=== PATIENT | female | born 1955 | race Caucasian/White ===

== ENCOUNTER 2016-05-25 10:13 | Emergency (ER) | payer OTHER, MEDICAID ==
[2016-05-25 10:22] VITALS: BP 79/45; BMI 38.5
[2016-05-25] MEDS ORDERED: NS 1000 ML 1,000 ML IV ONE (10:29)
[2016-05-25] MEDS ORDERED: NS 1000 ML 1,000 ML ONE (10:42)
[2016-05-25 11:05] LABS: BASOPHILS # (AUTO) 0.1 X10^3/uL (0.0-0.1); BASOPHILS % (AUTO) 1.1 % (0.2-1.0); EOSINOPHILS % (AUTO) 0.9 % (0.9-2.9); HEMATOCRIT 28.1 % (36.0-47.0); HEMOGLOBIN 9.2 g/dL (12.0-16.0); LYMPHOCYTES # (AUTO) 1.5 X10^3/uL (1.3-2.9); LYMPHOCYTES % (AUTO) 32.9 % (21.0-51.0); MEAN CORPUSCULAR HGB CONC 32.7 g/dL (33.0-35.0); MEAN CORPUSCULAR VOLUME 88.6 fL (80.0-100.0); MEAN PLATELET VOLUME 10.9 fL (7.4-11.0); MONOCYTES # (AUTO) 0.4 x10^3/uL (0.3-0.8); MONOCYTES % (AUTO) 7.7 % (0.0-13.0); NEUTROPHILS # (AUTO) 2.7 x10^3/uL (2.2-4.8); NEUTROPHILS % (AUTO) 57.4 % (42.0-75.0); PLATELET COUNT 84 X10^3/uL (150.0-450.0); RED BLOOD COUNT 3.17 X10^6/uL (3.5-5.4); RED CELL DISTRIBUTION WIDTH 15.5 % (11.6-16.5); WHITE BLOOD COUNT 4.7 X10^3/uL (3.6-10.0)
[2016-05-25 11:21] LABS: CHLORIDE 108 mmol/L (98-107); SODIUM 145 mmol/L (136-145); TROPONIN I < 0.02 ng/mL (0-1.5)
--- NOTE | 2016-05-25 11:21 | RAD ---
HISTORY: Altered mental status, shortness of breath Study: AP chest Comparison: 03/07/2016 Findings: There is moderate enlargement of the cardiac silhouette. The lungs are hypo aerated but appear gross ly clear. Mild prominence of the central pulmonary vascular suggest mild venous congestion. No large pleural effusions are noted. IMPRESSION: 1. Enlargement of the cardiac silhouette with mild venous congestive changes. No focal airspace opa cities or overt pulmonary edema demonstrated.. Reported By:
[2016-05-25 11:25] LABS: ALANINE AMINOTRANSFERASE 23 Units/L (12-78); ALBUMIN 3.2 g/dL (3.4-5.0); ALKALINE PHOSPHATASE 80 Units/L (46-116); ASPARTATE AMINO TRANSFERASE 17 Units/L (15-37); CKMB % 2.4 % (<4); CREATINE KINASE 41 Units/L (26-192); CREATINE KINASE MB < 1.0 ng/mL (0-4.0); MAGNESIUM 2.1 mg/dL (1.7-2.9); PHOSPHORUS 5.5 mg/dL (2.6-4.7); TOTAL PROTEIN 6.9 g/dL (6.4-8.2)
[2016-05-25 11:27] LABS: BLOOD UREA NITROGEN 51 mg/dL (7-18); CALCIUM 8.5 mg/dL (8.5-10.1); CARBON DIOXIDE 31.4 mmol/L (21-32); COR CA(FOR HYPOALB) 9.1 mg/dL (8.5-10.1); COR NA(FOR HYPERGLY) 145 mmol/L (136-145); GLUCOSE 117 mg/dL (65-99); eGFR BLACK RACES 29 (>60); eGFR NON BLACK RACES 24 (>60)
--- NOTE | 2016-05-25 11:41 | CT ---
HISTORY: Altered mental status Study: CT brain without contrast Comparison: None Technique: Multiple axial images of the brain were obtained from the skull base to the vertex witho ut administration of IV contrast. AEC was utilized. Findings: No acute intraparenchymal hemorrhage or mass can be identified. No extra-axial fluid collections ar e seen. No alteration in the attenuation of the brain parenchyma can be identified to suggest acute or subacute ischemic change. The ventricular system is symmetric and nondilated. 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 IMPRESSION: No acute intracranial process can be identified. Reported By:
--- NOTE | 2016-05-25 12:00 | DR.GENAD ---
HPI - PCP Primary Care Physician: DR. BAL - Complaint/Symptoms Chief Complaint Doctors Comments: Patient presented to the ED with decreased BP , decreased sensorium without abnormal movements Chief Complaint:: Daniel CARDENAS LPN CALLED AND STATED THAT SHE HAS BEEN NOT RESPONSIVE HAS SHE NORMALY IS AND THAT SHE IS ALSO TALKING CRAZY. SHE STATED THAT HER BLOOD PRESSURE IS LOWER THAN NORMAL TODAY. PATIENT BLOOD SUGAR IS 128. - Source History Provided: [facility] - Mode of Arrival Mode of Arrival: Stretcher - Timing Onset of Chief Complaint: 05/25/16 PMH - PMH Past Medical History: Yes Past Medical History: Arthritis, Coronary Artery Disease, Diabetes, Dyslipidemia , Hypertension Past Surgical History: No Surgical History: Cholecystectomy, Hysterectomy, Joint Replacement, Ortho Surgery, Other - Family History History of Family Medical Conditions: Yes Family Medical History: Diabetes Mellitus, Cancer, Hypertension - Social History Does patient currently use any type of tobacco product: No Have you used tobacco products in the last 12 months: No Type of Tobacco Use: None Does any household member use tobacco: No Alcohol Use: None Do you use any recreational Drugs:: No Lives With: Family Lives Where: Home - infectious screening In the last 2 months have you had wt loss of >10#?: NO Have you had fever, night sweats or hemotysis?: No Have you traveled outside the country in the last 6 months?: No Isolation: Standard ROS - Review of Systems Constitutional: No Symptoms Reported Eyes: No Symptoms Reported ENTM: No Symptoms Reported Respiratoy: No Symptoms Reported Cardiovascular: No Symptoms Reported, Chest Pain Genitourinary: No Symptoms Reported Neurological: Weakness, Speech Problem Musculoskeletal: No Symptoms Reported Integumentary: No Symptoms Reported Hematologic/Lymphatic: No Symptoms Reported Endocrine: No Symptoms Reported Psychiatric: No Symptoms Reported All Other Systems: Reviewed and Negative PE - Vital Signs Vitals: Temperature 98.0 F Pulse Rate 78 Respiratory Rate 18 Blood Pressure [Left Arm] 156/71 Blood Pressure [Right Arm] 141/67 Blood Pressure 79/45 O2 Sat by Pulse Oximetry 95 - General General Appearance: Alert, In No Apparent Distress - Head Head Exam: Normal Inspection, Atraumatic - Eyes Eye exam: Normal Appearance, PERRL, EOMI - ENT ENT Exam: Normal Exam External Ear Exam: Normal External Inspection TM/Canal Exam: Bilateral Normal Nose Exam: Normal Nose Exam Mouth Exam: Normal Inspection Throat Exam: Normal Inspection - Neck Neck Exam: Normal Inspection, Full ROM - Chest Chest Inspection: Normal Inspection - Respiratory Respiratory Exam: Normal Lung Sounds Bilat Respiratory Exam: Bilateral Clear to Auscultation - Cardiovascular Cardiovascular Exam: Regular Rate, Normal Rhythm - Abdominal Exam Abdominal Exam: Normal Inspection, Normal Bowel Sounds Abdominal Tenderness: negative: RUQ, RLQ, LUQ, LLQ, Epigastrium, Suprapubic, Diffuse, Mild, Moderate, Severe, Other - Back Back Exam: Normal Inspection - Neurologic Neurological Exam: Alert, Oriented X3, CN II-XII Intact - Skin Skin Exam: Warm, Dry, Intact Course - Reevaluation 1st: Improved ROR - Labs Reviewed Result Diagrams: 05/25/16 10:55 05/25/16 10:55 Laboratory: WBC 4.7 X10^3/uL (3.6-10.0) 05/25/16 10:55 RBC 3.17 X10^6/uL (3.5-5.4) L 05/25/16 10:55 Hgb 9.2 g/dL (12.0-16.0) L 05/25/16 10:55 Hct 28.1 % (36.0-47.0) L 05/25/16 10:55 MCV 88.6 fL (80.0-100.0) 05/25/16 10:55 MCH 29.0 pg (27.0-34.0) 05/25/16 10:55 MCHC 32.7 g/dL (33.0-35.0) L 05/25/16 10:55 RDW 15.5 % (11.6-16.5) 05/25/16 10:55 Plt Count 84 X10^3/uL (150.0-450.0) L 05/25/16 10:55 MPV 10.9 fL (7.4-11.0) 05/25/16 10:55 Neut % 57.4 % (42.0-75.0) 05/25/16 10:55 Lymph % 32.9 % (21.0-51.0) 05/25/16 10:55 Power % 7.7 % (0.0-13.0) 05/25/16 10:55 Eos % 0.9 % (0.9-2.9) 05/25/16 10:55 Baso % 1.1 % (0.2-1.0) H 05/25/16 10:55 Neut # 2.7 x10^3/uL (2.2-4.8) 05/25/16 10:55 Lymph # 1.5 X10^3/uL (1.3-2.9) 05/25/16 10:55 Power # 0.4 x10^3/uL (0.3-0.8) 05/25/16 10:55 Eos # 0.0 x10^3/uL (0.0-0.2) 05/25/16 10:55 Baso # 0.1 X10^3/uL (0.0-0.1) 05/25/16 10:55 Absolute Nucleated RBC 0.0 /100WBC 05/25/16 10:55 Sodium 145 mmol/L (136-145) 05/25/16 10:55 Corrected Sodium 145 mmol/L (136-145) 05/25/16 10:55 Potassium 5.0 mmol/L (3.5-5.1) 05/25/16 10:55 Chloride 108 mmol/L (98-107) H 05/25/16 10:55 Carbon Dioxide 31.4 mmol/L (21-32) 05/25/16 10:55 BUN 51 mg/dL (7-18) H 05/25/16 10:55 Creatinine 2.20 mg/dL (0.55-1.02) H 05/25/16 10:55 Est GFR (MDRD) Af Amer 29 (>60) L 05/25/16 10:55 Est GFR (MDRD) Non-Af 24 (>60) L 05/25/16 10:55 Glucose 117 mg/dL (65-99) H 05/25/16 10:55 Calcium 8.5 mg/dL (8.5-10.1) 05/25/16 10:55 Corrected Calcium 9.1 mg/dL (8.5-10.1) 05/25/16 10:55 Phosphorus 5.5 mg/dL (2.6-4.7) H 05/25/16 10:55 Magnesium 2.1 mg/dL (1.7-2.9) 05/25/16 10:55 Total Bilirubin 0.50 mg/dL (0.2-1.0) 05/25/16 10:55 AST 17 Units/L (15-37) 05/25/16 10:55 ALT 23 Units/L (12-78) 05/25/16 10:55 Alkaline Phosphatase 80 Units/L (46-116) 05/25/16 10:55 Creatine Kinase 41 Units/L (26-192) 05/25/16 10:55 CK-MB (CK-2) < 1.0 ng/mL (0-4.0) 05/25/16 10:55 CK/CKMB % Calc 2.4 % (<4) 05/25/16 10:55 Troponin I < 0.02 ng/mL (0-1.5) 05/25/16 10:55 Total Protein 6.9 g/dL (6.4-8.2) 05/25/16 10:55 Albumin 3.2 g/dL (3.4-5.0) L 05/25/16 10:55 Globulin 3.7 g/dL (2.5-4.5) 05/25/16 10:55 Albumin/Globulin Ratio 0.9 Ratio (1.1-2.1) L 05/25/16 10:55 - XRAY XRAY Interpreted by: Radiologist (CT Brain: No acute intracranial process can be identified X-Ray Chest:Enlargement of the cardiac silhouette with mild venous congestive changes. No focal airspace opacitieies or overt pulmonary edema demonstrated.) - Diagnosis Discharge Problem: Prerenal azotemia TIA (transient ischemic attack) Qualifiers: Transient cerebral ischemia type: unspecified Qualified Code(s): G45.9 - Transient cerebral ischemic attack, unspecified - Discharge Plan Condition: Stable - Follow ups/Referrals Follow ups/Referrals: REJI BAL [Primary Care Provider] - 3 days - Instructions
== END 2016-05-25 13:00 ==
LOC: ER 10:13
DX: G45.9 Transient cerebral ischemic attack, unspecified (principal); R79.89 Other specified abnormal findings of blood chemistry; R41.82 Altered mental status, unspecified
CPT/HCPCS: 36415; 70450; 71010; 80053; 82550; 82553; 83735; 84100; 84484; 85025; 93005; 93010; 96365; 96374; 99283; A4222

== ENCOUNTER 2016-11-20 11:13 | Observation (INO) | payer OTHER, MEDICAID ==
--- NOTE | 2016-11-20 11:21 | DR.GENAD ---
HPI - PCP Primary Care Physician: Dr Melendez - Complaint/Symptoms Chief Complaint Doctors Comments: Patient states that she [facility], pain in chest, abdomen and back. Denies nausea or vomiting. PMH - PMH Past Medical History: Arthritis, Coronary Artery Disease, Diabetes, Dyslipidemia , Hypertension Past Surgical History: No Surgical History: Cholecystectomy, Hysterectomy, Joint Replacement, Ortho Surgery, Other - Family History Family Medical History: Diabetes Mellitus, Cancer, Hypertension - Social History Do you use any recreational Drugs:: No ROS - Review of Systems Constitutional: No Symptoms Reported Eyes: No Symptoms Reported ENTM: No Symptoms Reported Respiratoy: No Symptoms Reported Cardiovascular: No Symptoms Reported Gastrointestinal/Abdominal: No Symptoms Reported Genitourinary: No Symptoms Reported Neurological: No Symptoms Reported Musculoskeletal: No Symptoms Reported Integumentary: No Symptoms Reported Hematologic/Lymphatic: No Symptoms Reported Endocrine: No Symptoms Reported Psychiatric: No Symptoms Reported All Other Systems: Reviewed and Negative PE - Vital Signs Vitals: Temperature 98.2 F Pulse Rate [Left Brachial] 93 Pulse Rate 86 Respiratory Rate 20 Blood Pressure [Left Arm] 131/59 Blood Pressure [Right Arm] 141/67 Blood Pressure 101/59 O2 Sat by Pulse Oximetry 99 - General Limitations: No Limitations General Appearance: Alert, In No Apparent Distress - Head Head Exam: Normal Inspection, Atraumatic - Eyes Eye exam: Normal Appearance, PERRL, EOMI - ENT ENT Exam: Normal Exam External Ear Exam: Normal External Inspection TM/Canal Exam: Bilateral Normal Nose Exam: Normal Nose Exam Mouth Exam: Normal Inspection Throat Exam: Normal Inspection - Neck Neck Exam: Normal Inspection, Full ROM - Chest Chest Inspection: Normal Inspection - Respiratory Respiratory Exam: Normal Lung Sounds Bilat Respiratory Exam: Bilateral Clear to Auscultation - Cardiovascular Cardiovascular Exam: Regular Rate, Normal Rhythm - Abdominal Exam Abdominal Exam: Normal Inspection Abdominal Tenderness: negative: RUQ, RLQ, LUQ, LLQ, Epigastrium, Suprapubic, Diffuse, Mild, Moderate, Severe, Other - Extremities Extremities Exam: Normal Inspection - Back Back Exam: Normal Inspection - Neurologic Neurological Exam: Alert, Oriented X3, CN II-XII Intact - Psychiatric Psychiatric Exam: Normal Affect - Skin Skin Exam: Warm, Dry, Intact Course - Consultation Called: 16:00 (Dr Arora recommended admission for further treatment ) ROR - Labs Reviewed Result Diagrams: 11/20/16 11:50 Laboratory: Sodium 140 mmol/L (136-145) 11/20/16 11:50 Corrected Sodium 143 mmol/L (136-145) 11/20/16 11:50 Potassium 4.9 mmol/L (3.5-5.1) 11/20/16 11:50 Chloride 102 mmol/L (98-107) 11/20/16 11:50 Carbon Dioxide 28.2 mmol/L (21-32) 11/20/16 11:50 BUN 53 mg/dL (7-18) H 11/20/16 11:50 Creatinine 2.29 mg/dL (0.55-1.02) H 11/20/16 11:50 Est GFR (MDRD) Af Amer 28 (>60) L 11/20/16 11:50 Est GFR (MDRD) Non-Af 23 (>60) L 11/20/16 11:50 Glucose 206 mg/dL (65-99) H 11/20/16 11:50 Calcium 9.1 mg/dL (8.5-10.1) 11/20/16 11:50 Corrected Calcium 9.7 mg/dL (8.5-10.1) 11/20/16 11:50 Total Bilirubin 0.40 mg/dL (0.2-1.0) 11/20/16 11:50 AST 17 Units/L (15-37) 11/20/16 11:50 ALT 23 Units/L (12-78) 11/20/16 11:50 Alkaline Phosphatase 104 Units/L (46-116) 11/20/16 11:50 Creatine Kinase 38 Units/L (26-192) 11/20/16 11:50 CK-MB (CK-2) < 1.0 ng/mL (0-4.0) 11/20/16 11:50 CK/CKMB % Calc 2.6 % (<4) 11/20/16 11:50 Troponin I < 0.02 ng/mL (0-1.5) 11/20/16 11:50 Total Protein 7.5 g/dL (6.4-8.2) 11/20/16 11:50 Albumin 3.3 g/dL (3.4-5.0) L 11/20/16 11:50 Globulin 4.2 g/dL (2.5-4.5) 11/20/16 11:50 Albumin/Globulin Ratio 0.8 Ratio (1.1-2.1) L 11/20/16 11:50 - XRAY XRAY Interpreted by: Radiologist (Chest: Cardiomegaly,subsegmental atelectasis right lung; abdomen: non specific gas pattern) - Diagnosis Discharge Problem: Acute chest wall pain, Prerenal azotemia - Discharge Plan Condition: Stable - Follow ups/Referrals Follow ups/Referrals: Hi Arora [STAFF PHYSICIAN] - 3 days - Instructions
[2016-11-20 12:31] LABS: BLOOD UREA NITROGEN 53 mg/dL (7-18); CALCIUM 9.1 mg/dL (8.5-10.1); CARBON DIOXIDE 28.2 mmol/L (21-32); CHLORIDE 102 mmol/L (98-107); COR NA(FOR HYPERGLY) 143 mmol/L (136-145); CREATININE 2.29 mg/dL (0.55-1.02); SODIUM 140 mmol/L (136-145); TROPONIN I < 0.02 ng/mL (0-1.5); eGFR BLACK RACES 28 (>60); eGFR NON BLACK RACES 23 (>60)
[2016-11-20 12:34] LABS: ALANINE AMINOTRANSFERASE 23 Units/L (12-78); ALBUMIN 3.3 g/dL (3.4-5.0); ALKALINE PHOSPHATASE 104 Units/L (46-116); ASPARTATE AMINO TRANSFERASE 17 Units/L (15-37); COR CA(FOR HYPOALB) 9.7 mg/dL (8.5-10.1); CREATINE KINASE 38 Units/L (26-192); CREATINE KINASE MB < 1.0 ng/mL (0-4.0); TOTAL PROTEIN 7.5 g/dL (6.4-8.2)
[2016-11-20 12:41] LABS: CKMB % 2.6 % (<4)
--- NOTE | 2016-11-20 13:56 | RAD ---
HISTORY: Abdominal pain Study: Acute abdominal series Comparison: None Findings: The patient is rotated. The cardiac silhouette is enlarged. Subsegmental atelectasis and or scarring are seen within the right lung. Interstitial changes are noted bilaterally. . Flat plate and upright evaluation of the abdomen demonstrates a nonspecific bowel gas pattern. Scatt ered gas and a moderate amount of stool are seen within the visualized colon. Surgical clips project the right tiffany abdomen. Postoperative changes of bilateral hip arthroplasty are noted. IMPRESSION: 1. Cardiomegaly. 2. Overall nonspecific bowel gas pattern. Reported By:
[2016-11-20] MEDS ORDERED: NS 1000 ML 1,000 ML IV ONE (16:01)
[2016-11-20] MEDS ORDERED: NS 1000 ML 1,000 ML ONE (16:02)
[2016-11-20] MEDS ORDERED: ZOFRAN INJ 4 MG VIAL IVP PRN (16:43)
[2016-11-20] MEDS ORDERED: MIRALAX POWDER (1 DOSE 17GM) PO PRN (16:44)
[2016-11-20] MEDS ORDERED: ZADITOR EYE DROPS AFFEYE PRN (16:44)
[2016-11-20] MEDS ORDERED: ULTRAM PO PRN (16:44)
[2016-11-20 16:56] LABS: BASOPHILS # (AUTO) 0.1 X10^3/uL (0.0-0.1); BASOPHILS % (AUTO) 0.6 % (0.2-1.0); EOSINOPHILS # (AUTO) 0.1 x10^3/uL (0.0-0.2); EOSINOPHILS % (AUTO) 0.9 % (0.9-2.9); HEMATOCRIT 33.3 % (36.0-47.0); LYMPHOCYTES # (AUTO) 1.6 X10^3/uL (1.3-2.9); LYMPHOCYTES % (AUTO) 17.2 % (21.0-51.0); MEAN CORPUSCULAR HEMOGLOBIN 28.1 pg (27.0-34.0); MEAN CORPUSCULAR HGB CONC 32.9 g/dL (33.0-35.0); MEAN CORPUSCULAR VOLUME 85.3 fL (80.0-100.0); MEAN PLATELET VOLUME 11.1 fL (7.4-11.0); MONOCYTES # (AUTO) 0.6 x10^3/uL (0.3-0.8); MONOCYTES % (AUTO) 5.8 % (0.0-13.0); NEUTROPHILS # (AUTO) 7.2 x10^3/uL (2.2-4.8); NEUTROPHILS % (AUTO) 75.5 % (42.0-75.0); PLATELET COUNT 113 X10^3/uL (150.0-450.0); RED CELL DISTRIBUTION WIDTH 15.3 % (11.6-16.5); WHITE BLOOD COUNT 9.5 X10^3/uL (3.6-10.0)
[2016-11-20 17:16] LABS: CREATINE KINASE 34 Units/L (26-192); CREATINE KINASE MB < 1.0 ng/mL (0-4.0); TROPONIN I < 0.02 ng/mL (0-1.5)
[2016-11-20 17:26] LABS: CKMB % 2.9 % (<4)
[2016-11-20 19:22] VITALS: BMI 39.4
[2016-11-20] MEDS: ARTIFICIAL TEARS DROPS AFFEYE SCH ×2 (19:50→21:36)
[2016-11-20] MEDS ORDERED: REQUIP PO SCH (21:00)
[2016-11-20] MEDS ORDERED: PREGABALIN 200 MG PO SCH (21:00)
[2016-11-20] MEDS ORDERED: PATIENT'S HOME MEDICATION (Ropinirole Hcl [Requip] 0.5 MG) PO SCH (21:00)
[2016-11-20] MEDS: COREG TAB 6.25 MG PO SCH (21:36)
[2016-11-20] MEDS: LYRICA CAP 100 MG PO SCH (21:36)
[2016-11-20 23:49] LABS: CKMB % 2.9 % (<4); CREATINE KINASE 35 Units/L (26-192); CREATINE KINASE MB < 1.0 ng/mL (0-4.0); TROPONIN I < 0.02 ng/mL (0-1.5)
[2016-11-21] MEDS: NS 1000 ML 1,000 ML IV SCH ×2 (01:20→10:02)
[2016-11-21 05:41] LABS: BASOPHILS % (AUTO) 0.6 % (0.2-1.0); EOSINOPHILS # (AUTO) 0.1 x10^3/uL (0.0-0.2); EOSINOPHILS % (AUTO) 1.4 % (0.9-2.9); HEMATOCRIT 30.3 % (36.0-47.0); HEMOGLOBIN 10.1 g/dL (12.0-16.0); LYMPHOCYTES # (AUTO) 1.8 X10^3/uL (1.3-2.9); LYMPHOCYTES % (AUTO) 30.8 % (21.0-51.0); MEAN CORPUSCULAR HEMOGLOBIN 28.7 pg (27.0-34.0); MEAN CORPUSCULAR HGB CONC 33.4 g/dL (33.0-35.0); MEAN PLATELET VOLUME 11.6 fL (7.4-11.0); MONOCYTES # (AUTO) 0.4 x10^3/uL (0.3-0.8); MONOCYTES % (AUTO) 7.3 % (0.0-13.0); NEUTROPHILS # (AUTO) 3.5 x10^3/uL (2.2-4.8); NEUTROPHILS % (AUTO) 59.9 % (42.0-75.0); PLATELET COUNT 98 X10^3/uL (150.0-450.0); RED BLOOD COUNT 3.52 X10^6/uL (3.5-5.4); RED CELL DISTRIBUTION WIDTH 15.3 % (11.6-16.5); WHITE BLOOD COUNT 5.9 X10^3/uL (3.6-10.0)
[2016-11-21 05:49] LABS: ALBUMIN 2.9 g/dL (3.4-5.0); CALCIUM 7.9 mg/dL (8.5-10.1); CARBON DIOXIDE 29.8 mmol/L (21-32); CHOL/HDL RATIO 5.9 (0.0-5.0); COR CA(FOR HYPOALB) 8.8 mg/dL (8.5-10.1); CREATININE 2.38 mg/dL (0.55-1.02); TOTAL PROTEIN 6.5 g/dL (6.4-8.2)
[2016-11-21] MEDS ORDERED: ZESTRIL TAB 20 MG ONE (08:33)
[2016-11-21] MEDS ORDERED: LIRAGLUTIDE 1.8 MG SC SCH (09:00)
[2016-11-21] MEDS ORDERED: LASIX PO SCH (09:00)
[2016-11-21] MEDS ORDERED: TAB-A-VITE PO SCH (09:00)
[2016-11-21] MEDS ORDERED: CLARITIN PO SCH (09:00)
[2016-11-21] MEDS ORDERED: ZESTRIL TAB 20 MG PO SCH ×2 (09:00)
[2016-11-21] MEDS ORDERED: DETROL LA 2 MG CAP EXT REL PO SCH (09:00)
[2016-11-21] MEDS ORDERED: VICTOZA SC SCH (09:00)
[2016-11-21] MEDS ORDERED: SOLIFENACIN SUCCINATE 5 MG PO SCH (09:00)
[2016-11-21] MEDS: COREG TAB 6.25 MG PO SCH (10:00)
[2016-11-21] MEDS: LYRICA CAP 100 MG PO SCH (10:00)
[2016-11-21] MEDS: ARTIFICIAL TEARS DROPS AFFEYE SCH (10:05)
[2016-11-21 13:51] VITALS: BP 124/59
== END 2016-11-21 13:30 ==
LOC: ER 12:10 → MED/SURG 16:34
PROVIDERS: ADMIT Internal Medicine; ATTEND Obstetrics & Gynecology Obstetrics
DX: R07.89 Other chest pain (principal); E86.0 Dehydration; R79.89 Other specified abnormal findings of blood chemistry; R10.84 Generalized abdominal pain; R10.13 Epigastric pain; M54.89 Other dorsalgia; I25.10 Atherosclerotic heart disease of native coronary artery without angina pectoris; E78.2 Mixed hyperlipidemia; I10 Essential (primary) hypertension; M13.89 Other specified arthritis, multiple sites; I51.7 Cardiomegaly; R94.31 Abnormal electrocardiogram [ECG] [EKG]; D64.89 Other specified anemias; R94.4 Abnormal results of kidney function studies; E11.65 Type 2 diabetes mellitus with hyperglycemia; Z79.899 Other long term (current) drug therapy
CPT/HCPCS: 36415; 74022; 80053; 80061; 82550; 82553; 84484; 85025; 85610; 93005; 93010; 94760; 96365; 99284; A4216; G0378

== ENCOUNTER 2016-12-23 18:50 | Inpatient (IN) | payer OTHER, MEDICAID ==
[2016-12-23] MEDS ORDERED: DUONEB 0.5 MG/3 MG ONE (19:27)
[2016-12-23] MEDS ORDERED: DUONEB 0.5 MG/3 MG NEB ONE ×2 (19:32→21:30)
--- NOTE | 2016-12-23 19:39 | DR.GENAD ---
HPI - PCP Primary Care Physician: vineet - HPI Comment HPI Comment: PATIENT SAID SHE IS COUGHING, PRODUCTIVE, YELLOW SPUTUM. CHEST AND ABDOMINAL WALL PAIN. NO FEVER. - Complaint/Symptoms Chief Complaint Doctors Comments: [facility]. ABG DONE, OXYGEN LOW AND CO2 ELEVATED. HERE IN ED FOR FURTHER EVALUATION. Chief Complaint:: pt states" rosie'sanjeev had this cough for a long time I can't get rid of it. my tomach hurts right here" pt points to LUQ report from [facility] staff Samanta RIBEIRO " she was SOB and lt side pain. - Nurses notes reviewed Nurses Notes Review: Yes - Source History Provided: Patient - Mode of Arrival Mode of Arrival: Stretcher - Timing Onset of Chief Complaint: 12/23/16 Came on: Gradually - Duration Duration: Constant Duration: Days - Severity Severity: Moderate PMH - PMH Past Medical History: Yes Past Medical History: Arthritis, Coronary Artery Disease, Diabetes, Dyslipidemia , Hypertension Past Surgical History: Yes Surgical History: Cholecystectomy, Hysterectomy, Joint Replacement, Ortho Surgery, Other - Family History History of Family Medical Conditions: Yes Family Medical History: Diabetes Mellitus, Coronary Artery Disease, Hypertension - Social History Does patient currently use any type of tobacco product: No Have you used tobacco products in the last 12 months: No Type of Tobacco Use: None Does any household member use tobacco: No Alcohol Use: None Do you use any recreational Drugs:: No Lives With: [facility] Lives [facility]: [facility] - infectious screening In the last 2 months have you had wt loss of >10#?: NO Have you had fever, night sweats or hemotysis?: No Have you traveled outside the country in the last 6 months?: No Isolation: Standard ROS - Review of Systems Constitutional: Weakness, Fatigue. negative: Chills, Fever Eyes: negative: Eye Pain, Discharge ENTM: Nose Congestion. negative: Ear Pain, Nose Discharge, Throat Pain Respiratoy: Productive Cough, Short of Breath, Wheezing. negative: Hemoptysis Cardiovascular: Chest Pain, Edema Gastrointestinal/Abdominal: Abdominal Pain, Nausea Genitourinary: Other (URINARY INCONTINENCE). negative: Dysuria, Hematuria Neurological: Headache, Weakness, Dizziness Musculoskeletal: Muscle Pain Integumentary: Change in Color Hematologic/Lymphatic: No Symptoms Reported Endocrine: No Symptoms Reported All Other Systems: Reviewed and Negative PE - Vital Signs Vitals: Temperature 98.2 F Pulse Rate 96 Respiratory Rate 21 Blood Pressure [Left Arm] 124/59 Blood Pressure [Right Arm] 141/67 Blood Pressure 145/59 O2 Sat by Pulse Oximetry 94 - General Limitations: No Limitations General Appearance: Alert - Head Head Exam: Normal Inspection - Eyes Eye exam: Normal Appearance - ENT ENT Exam: Normal External Ear Exam External Ear Exam: Normal External Inspection TM/Canal Exam: Bilateral Normal Nose Exam: Normal Nose Exam Mouth Exam: Normal Inspection Throat Exam: Normal Inspection - Chest Chest Inspection: Symmetric Chest Wall Rise - Respiratory Respiratory Exam: Respiratory Distress Respiratory Exam: Bilateral Wheezing, Bilateral Rhonchi, Upper Wheezing, Upper Rhonchi, Lower Wheezing, Lower Rhonchi - Cardiovascular Cardiovascular Exam: Regular Rate, Normal Rhythm, Normal Heart Sounds - Abdominal Exam Abdominal Exam: Normal Bowel Sounds, Soft. negative: Tenderness - Extremities Extremities Exam: Edema - Back Back Exam: Paraspinal Tenderness - Neurologic Neurological Exam: Alert, Oriented X3 - Psychiatric Psychiatric Exam: Anxious - Skin Skin Exam: Normal Color MDM - Additional Information Additional Information Obtained From: Family - Differential Diagnosis Differential Diagnosis: RESP DISTRESS, PNEUMONIA, CHF, COPD, CAD/ND Course - Treatment Treatment: SEE ORDERS. - Consultation Consultation Comments: PATIENT DISCUSS WITH DR. BAIRD. HE WILL ADMIT PATIENT. - Education/Counseling Education/Counseling: Patient, Family, Education Educated On: Treatment, Diagnosis ROR - Labs Reviewed Laboratory Results Reviewed?: Yes Result Diagrams: 12/23/16 19:57 12/23/16 19:57 Laboratory: WBC 12.3 X10^3/uL (3.6-10.0) H 12/23/16 19:57 RBC 4.03 X10^6/uL (3.5-5.4) 12/23/16 19:57 Hgb 11.2 g/dL (12.0-16.0) L 12/23/16 19:57 Hct 35.0 % (36.0-47.0) L 12/23/16 19:57 MCV 86.9 fL (80.0-100.0) 12/23/16 19:57 MCH 27.9 pg (27.0-34.0) 12/23/16 19:57 MCHC 32.1 g/dL (33.0-35.0) L 12/23/16 19:57 RDW 15.3 % (11.6-16.5) 12/23/16 19:57 Plt Count 95 X10^3/uL (150.0-450.0) L 12/23/16 19:57 MPV 11.4 fL (7.4-11.0) H 12/23/16 19:57 Neut % 83.8 % (42.0-75.0) H 12/23/16 19:57 Lymph % 10.4 % (21.0-51.0) L 12/23/16 19:57 Rhea % 4.8 % (0.0-13.0) 12/23/16 19:57 Eos % 0.4 % (0.9-2.9) L 12/23/16 19:57 Baso % 0.6 % (0.2-1.0) 12/23/16 19:57 Neut # 10.3 x10^3/uL (2.2-4.8) H 12/23/16 19:57 Lymph # 1.3 X10^3/uL (1.3-2.9) 12/23/16 19:57 Rhea # 0.6 x10^3/uL (0.3-0.8) 12/23/16 19:57 Eos # 0.0 x10^3/uL (0.0-0.2) 12/23/16 19:57 Baso # 0.1 X10^3/uL (0.0-0.1) 12/23/16 19:57 Absolute Nucleated RBC 0.0 /100WBC 12/23/16 19:57 Sodium 141 mmol/L (136-145) 12/23/16 19:57 Corrected Sodium 142 mmol/L (136-145) 12/23/16 19:57 Potassium 5.0 mmol/L (3.5-5.1) 12/23/16 19:57 Chloride 104 mmol/L (98-107) 12/23/16 19:57 Carbon Dioxide 30.1 mmol/L (21-32) 12/23/16 19:57 BUN 59 mg/dL (7-18) H 12/23/16 19:57 Creatinine 2.31 mg/dL (0.55-1.02) H 12/23/16 19:57 Est GFR (MDRD) Af Amer 27 (>60) L 12/23/16 19:57 Est GFR (MDRD) Non-Af 23 (>60) L 12/23/16 19:57 Glucose 144 mg/dL (65-99) H 12/23/16 19:57 Calcium 8.9 mg/dL (8.5-10.1) 12/23/16 19:57 Corrected Calcium TNP 12/23/16 19:57 Total Bilirubin 0.60 mg/dL (0.2-1.0) 12/23/16 19:57 AST 21 Units/L (15-37) 12/23/16 19:57 ALT 26 Units/L (12-78) 12/23/16 19:57 Alkaline Phosphatase 103 Units/L (46-116) 12/23/16 19:57 Creatine Kinase 89 Units/L (26-192) 12/23/16 19:57 CK-MB (CK-2) < 1.0 ng/mL (0-4.0) 12/23/16 19:57 CK/CKMB % Calc 1.1 % (<4) 12/23/16 19:57 Troponin I < 0.02 ng/mL (0-1.5) 12/23/16 19:57 Total Protein 8.0 g/dL (6.4-8.2) 12/23/16 19:57 Albumin 3.4 g/dL (3.4-5.0) 12/23/16 19:57 Globulin 4.6 g/dL (2.5-4.5) H 12/23/16 19:57 Albumin/Globulin Ratio 0.7 Ratio (1.1-2.1) L 12/23/16 19:57 - XRAY XRAY Interpreted by: Radiologist XRAY Findings: REPORT DISCUSS WITH PATIENT. - EKG Rhythm: NSR (EKG NOTED) - Diagnosis Discharge Problem: Respiratory distress, Hypoxia Pneumonia Qualifiers: Pneumonia type: due to unspecified organism Laterality: bilateral Lung location : lower lobe of lung Qualified Code(s): J18.9 - Pneumonia, unspecified organism Chest pain Qualifiers: Chest pain type: precordial pain Qualified Code(s): R07.2 - Precordial pain - Discharge Plan Disposition: ADMITTED INPATIENT Condition: Stable - Follow ups/Referrals - Instructions
--- NOTE | 2016-12-23 20:03 | RAD ---
AP chest Indication: Cough Comparison: 11/20/2016 Findings: Heart size is mildly enlarged, unchanged. There is new airspace consolidation within the ri ght middle and lower lung likely representing developing infiltrate/pneumonia however asymmetric pulm onary interstitial edema is a consideration in the appropriate clinical setting. No pleural effusion or pneumothorax. No acute osseous abnormality. Impression: See above. Reported By:
[2016-12-23 20:08] LABS: BASOPHILS # (AUTO) 0.1 X10^3/uL (0.0-0.1); BASOPHILS % (AUTO) 0.6 % (0.2-1.0); EOSINOPHILS % (AUTO) 0.4 % (0.9-2.9); HEMOGLOBIN 11.2 g/dL (12.0-16.0); LYMPHOCYTES # (AUTO) 1.3 X10^3/uL (1.3-2.9); LYMPHOCYTES % (AUTO) 10.4 % (21.0-51.0); MEAN CORPUSCULAR HEMOGLOBIN 27.9 pg (27.0-34.0); MEAN CORPUSCULAR HGB CONC 32.1 g/dL (33.0-35.0); MEAN CORPUSCULAR VOLUME 86.9 fL (80.0-100.0); MEAN PLATELET VOLUME 11.4 fL (7.4-11.0); MONOCYTES # (AUTO) 0.6 x10^3/uL (0.3-0.8); MONOCYTES % (AUTO) 4.8 % (0.0-13.0); NEUTROPHILS # (AUTO) 10.3 x10^3/uL (2.2-4.8); NEUTROPHILS % (AUTO) 83.8 % (42.0-75.0); PLATELET COUNT 95 X10^3/uL (150.0-450.0); RED BLOOD COUNT 4.03 X10^6/uL (3.5-5.4); RED CELL DISTRIBUTION WIDTH 15.3 % (11.6-16.5); WHITE BLOOD COUNT 12.3 X10^3/uL (3.6-10.0)
[2016-12-23 20:25] LABS: BLOOD UREA NITROGEN 59 mg/dL (7-18); CALCIUM 8.9 mg/dL (8.5-10.1); CARBON DIOXIDE 30.1 mmol/L (21-32); CHLORIDE 104 mmol/L (98-107); COR NA(FOR HYPERGLY) 142 mmol/L (136-145); CREATININE 2.31 mg/dL (0.55-1.02); SODIUM 141 mmol/L (136-145); TROPONIN I < 0.02 ng/mL (0-1.5); eGFR BLACK RACES 27 (>60); eGFR NON BLACK RACES 23 (>60)
[2016-12-23 20:29] LABS: ALANINE AMINOTRANSFERASE 26 Units/L (12-78); ALBUMIN 3.4 g/dL (3.4-5.0); ALKALINE PHOSPHATASE 103 Units/L (46-116); ASPARTATE AMINO TRANSFERASE 21 Units/L (15-37); CKMB % 1.1 % (<4); CREATINE KINASE 89 Units/L (26-192); CREATINE KINASE MB < 1.0 ng/mL (0-4.0)
[2016-12-23 20:33] LABS: B-TYPE NATRIURETIC PEPTIDE 236 pg/mL (0-79)
[2016-12-23] MEDS ORDERED: ROCEPHIN VIAL 1 GM 1 GM in NS 50 ML IV + SPIKE MINIBAG* 50 ML IV ONE (20:36)
[2016-12-23] MEDS ORDERED: NS 50 ML IV + SPIKE MINIBAG* 50 ML IV ONE (20:42)
[2016-12-23] MEDS ORDERED: ROCEPHIN VIAL 1 GM ONE (20:42)
[2016-12-23] MEDS ORDERED: SALINE 3% 15 ML NEB TX NEB ONE ×2 (21:11→21:30)
[2016-12-23] MEDS ORDERED: TUSSIONEX PENNKINETIC SUSP PO PRN (21:29)
[2016-12-23] MEDS ORDERED: DUONEB 0.5 MG/3 MG NEB SCH (21:45)
[2016-12-23] MEDS ORDERED: NS 1/2 1000 ML IV 1,000 ML IV ONE (22:08)
[2016-12-23] MEDS: NS 1/2 1000 ML IV 1,000 ML IV SCH (22:10)
[2016-12-24] MEDS: DUONEB 0.5 MG/3 MG NEB SCH ×6 (01:16→20:21)
[2016-12-24 02:49] LABS: CREATINE KINASE 99 Units/L (26-192); CREATINE KINASE MB < 1.0 ng/mL (0-4.0); TROPONIN I < 0.02 ng/mL (0-1.5)
[2016-12-24 06:01] LABS: BASOPHILS % (AUTO) 0.3 % (0.2-1.0); EOSINOPHILS % (AUTO) 0.5 % (0.9-2.9); HEMOGLOBIN 9.9 g/dL (12.0-16.0); LYMPHOCYTES # (AUTO) 1.3 X10^3/uL (1.3-2.9); LYMPHOCYTES % (AUTO) 11.9 % (21.0-51.0); MEAN CORPUSCULAR HEMOGLOBIN 28.5 pg (27.0-34.0); MEAN CORPUSCULAR HGB CONC 32.9 g/dL (33.0-35.0); MEAN CORPUSCULAR VOLUME 86.7 fL (80.0-100.0); MEAN PLATELET VOLUME 11.8 fL (7.4-11.0); MONOCYTES # (AUTO) 0.4 x10^3/uL (0.3-0.8); MONOCYTES % (AUTO) 3.9 % (0.0-13.0); NEUTROPHILS # (AUTO) 9.1 x10^3/uL (2.2-4.8); NEUTROPHILS % (AUTO) 83.4 % (42.0-75.0); PLATELET COUNT 86 X10^3/uL (150.0-450.0); RED BLOOD COUNT 3.46 X10^6/uL (3.5-5.4); RED CELL DISTRIBUTION WIDTH 15.7 % (11.6-16.5); WHITE BLOOD COUNT 10.9 X10^3/uL (3.6-10.0)
[2016-12-24 06:33] LABS: ALBUMIN 2.9 g/dL (3.4-5.0); CALCIUM 8.5 mg/dL (8.5-10.1); CARBON DIOXIDE 29.9 mmol/L (21-32); COR CA(FOR HYPOALB) 9.4 mg/dL (8.5-10.1); CREATININE 2.27 mg/dL (0.55-1.02); MAGNESIUM 2.4 mg/dL (1.7-2.9); TOTAL PROTEIN 7.1 g/dL (6.4-8.2)
[2016-12-24] MEDS ORDERED: ROCEPHIN VIAL 1 GM 1 GM in NS 50 ML IV + SPIKE MINIBAG* 50 ML IV SCH (09:00)
[2016-12-24] MEDS: ROBITUSSIN DM PO SCH ×4 (09:08→21:28)
[2016-12-24] MEDS: VIBRAMYCIN 100 MG in NS 100 ML IV + SPIKE MINIBAG* 100 ML IV SCH ×2 (09:08→22:01)
[2016-12-24 09:16] LABS: CREATINE KINASE 82 Units/L (26-192); CREATINE KINASE MB < 1.0 ng/mL (0-4.0); TROPONIN I < 0.02 ng/mL (0-1.5)
[2016-12-24 09:25] LABS: CKMB % 1.2 % (<4)
[2016-12-24] MEDS ORDERED: ZADITOR EYE DROPS AFFEYE PRN (14:12)
[2016-12-24] MEDS ORDERED: MIRALAX POWDER (1 DOSE 17GM) PO PRN (14:12)
[2016-12-24] MEDS ORDERED: BUTT CREAM (COMPOUND) TOP PRN (16:12)
[2016-12-24] MEDS: ARTIFICIAL TEARS DROPS AFFEYE SCH ×2 (17:00→21:28)
[2016-12-24 18:10] VITALS: BMI 39.3
[2016-12-24] MEDS ORDERED: PREGABALIN 200 MG PO SCH (21:00)
[2016-12-24] MEDS ORDERED: PATIENT'S HOME MEDICATION (Ropinirole Hcl [Requip] 0.5 MG) PO SCH (21:00)
[2016-12-24] MEDS: LYRICA CAP 100 MG PO SCH (21:28)
[2016-12-24] MEDS: SNACK - Diabetic Appropriate PO SCH (21:28)
[2016-12-24] MEDS: LIPITOR TAB 40 MG PO SCH (21:28)
[2016-12-24] MEDS: REQUIP PO SCH (21:28)
[2016-12-24] MEDS: HumuLIN R SUBCUT PRN (21:29)
[2016-12-24] MEDS ORDERED: NS 1/2 1000 ML IV 1,000 ML IV ONE (21:56)
[2016-12-24] MEDS: NS 1/2 1000 ML IV 1,000 ML IV SCH (22:01)
[2016-12-25] MEDS: DUONEB 0.5 MG/3 MG NEB SCH ×6 (00:49→21:32)
[2016-12-25] MEDS: NS 1/2 1000 ML IV 1,000 ML IV SCH ×2 (02:22→17:37)
[2016-12-25] MEDS: HumuLIN R SUBCUT PRN ×3 (06:12→21:11)
[2016-12-25 06:16] LABS: BASOPHILS % (AUTO) 0.6 % (0.2-1.0); EOSINOPHILS # (AUTO) 0.1 x10^3/uL (0.0-0.2); EOSINOPHILS % (AUTO) 0.7 % (0.9-2.9); HEMOGLOBIN 8.8 g/dL (12.0-16.0); LYMPHOCYTES # (AUTO) 1.3 X10^3/uL (1.3-2.9); LYMPHOCYTES % (AUTO) 16.4 % (21.0-51.0); MEAN CORPUSCULAR HEMOGLOBIN 28.5 pg (27.0-34.0); MEAN CORPUSCULAR HGB CONC 32.7 g/dL (33.0-35.0); MEAN CORPUSCULAR VOLUME 87.1 fL (80.0-100.0); MEAN PLATELET VOLUME 11.6 fL (7.4-11.0); MONOCYTES # (AUTO) 0.6 x10^3/uL (0.3-0.8); MONOCYTES % (AUTO) 7.5 % (0.0-13.0); NEUTROPHILS # (AUTO) 5.8 x10^3/uL (2.2-4.8); NEUTROPHILS % (AUTO) 74.8 % (42.0-75.0); PLATELET COUNT 77 X10^3/uL (150.0-450.0); RED CELL DISTRIBUTION WIDTH 15.5 % (11.6-16.5); WHITE BLOOD COUNT 7.7 X10^3/uL (3.6-10.0)
[2016-12-25 06:34] LABS: ALBUMIN 2.5 g/dL (3.4-5.0); CALCIUM 8.1 mg/dL (8.5-10.1); CARBON DIOXIDE 26.6 mmol/L (21-32); COR CA(FOR HYPOALB) 9.3 mg/dL (8.5-10.1); CREATININE 2.04 mg/dL (0.55-1.02); TOTAL PROTEIN 6.7 g/dL (6.4-8.2)
--- NOTE | 2016-12-25 07:11 | RAD ---
HISTORY: Shortness of breath Study: Single-view chest Comparison: 12/23/2016 Findings: The trachea is midline. The cardiac silhouette is enlarged with a tortuous thoracic aorta. Focal ai rspace opacity in the right midlung zone is again noted to be present consistent with underlying bron chopneumonia. The bony thorax is unremarkable. IMPRESSION: Persistent airspace opacity of the right mid lung zone. The finding demonstrates some degree of impro tin aeration when compared to prior examination. However, patient is significantly rotated to the rig ht limiting evaluation. Reported By:
[2016-12-25] MEDS ORDERED: ASTELIN NASAL SPRAY ENOSTRIL ONE (08:57)
[2016-12-25] MEDS: LYRICA CAP 100 MG PO SCH ×2 (09:28→21:09)
[2016-12-25] MEDS: ARTIFICIAL TEARS DROPS AFFEYE SCH ×4 (09:28→21:09)
[2016-12-25] MEDS: ASTELIN NASAL SPRAY ENOSTRIL SCH (09:28)
[2016-12-25] MEDS: CLARITIN PO SCH (09:28)
[2016-12-25] MEDS: FLONASE NASAL SPRAY ENOSTRIL SCH (09:28)
[2016-12-25] MEDS: ROBITUSSIN DM PO SCH ×4 (09:28→21:09)
[2016-12-25] MEDS: SOLIFENACIN SUCCINATE 5 MG PO SCH (09:29)
[2016-12-25] MEDS: ROCEPHIN VIAL 1 GM 1 GM in NS 100 ML IV + SPIKE MINIBAG* 100 ML IV SCH (09:29)
[2016-12-25] MEDS: VIBRAMYCIN 100 MG in NS 100 ML IV + SPIKE MINIBAG* 100 ML IV SCH ×3 (09:29→21:10)
[2016-12-25] MEDS: TAB-A-VITE PO SCH (09:29)
[2016-12-25] MEDS: VICTOZA SC SCH (11:09)
[2016-12-25] MEDS: ULTRAM PO PRN ×2 (13:17→21:17)
--- NOTE | 2016-12-25 17:22 | DR.H&P ---
H&P - History & Physical for Day of: H&P Date: 12/23/16 - Chief Complaint Chief Complaint: COUGH, SHORT OF BREATH - Allergies Allergies/Adverse Reactions: Allergies Allergy/AdvReac Type Severity Reaction Status Date / Time meperidine Allergy Verified 11/20/16 12:00 - History of Present Illness History of Present Illness: IS A 61 YEAR OLD PATIENT OF WHO PRESENTED TO THE EMERGENCY ROOM WITH COMPLAINTS OF SHORTNESS OF BREATH AND COUGH. PATIENT REPORTS THAT SHE HAS HAD A COUGH AND SHORTNESS OF BREATH FOR QUITE SOME TIME AND IT IS PROGRESSIVELY GETTING WORSE. SHE DESCRIBES COUGH PRODUCTIVE WITH YELLOW SPUTUM. PATIENT ALSO COMPLAINTS OF PAIN TO THE LUQ. SHE DENIES FEVER. SHE IS A RESIDENT OF [facility] [place]. A ABG WAS DONE AT THE [facility] PRIOR TO ARRIVING AT ED. IT REPORTED PH 7.370, PC02 57, P02 49 , HC03 33, O2 SATURATION 83, BASE EXCESS 6.1. ON ARRIVAL TO EMERGENCY ROOM, VITAL SIGNS WERE 98.2, 98%, 21, 94%, 145/59. PATIENT WAS PLACED ON OXYGEN VIA NASAL CANNULA WITH O2 AT 2LPM. LABS AND XRAY WERE OBTAINE. ABNORMAL LAB VALUES INCLUDE THE FOLLOWING: WBC 12.3, HGB 11.2, HCT 35.0, BUN 59, CREATININE 2.31, GFR 23, GLUCOSE 144, BNP 236. CARDIAC ENZYMES WNL. A SPUTUM CULTURE AND BLOOD CULTURES WERE OBTAINED AND SENT TO LAB. RESULTS ARE PENDING. CHEST XRAY REPORTED NEW AIRSPACE CONSOLIDATION WITHIN THE RIGHT MIDDLE AND LOWER LUNG LIEKLY REPRESENTNG DEVELOPING INFILTRATE/PNEUMONIA, HOWEVER ASYMEMETRIC PULMONARY INTERSTITIAL EDEMA IS A CONSIDERATION IN THE APPROPRIATE CLINICAL SETTING. AN EKG WAS OBTAINED AND REPORTED SINUS RHYTHM WITH HR 98. PATIENT WAS ADMITTED FOR FURTHER TREATMENT AND EVALUATION. SHE WAS STARTED ON DOXYCYCLINE 100MG IV Q12H, ROCEPHIN 1 GM IV DAILY, 1/2 NS AT 50ML/HR, TUSSIONEX 5ML Q12H PRN COUGH, AND DUONEBS Q4H PRN. WE PLANNED TO FOLLOW UP WITH AM LABS AND CONTINUE TO MONITOR PATIENT. - Past Medical History Past Medical History: Arthritis, Coronary Artery Disease, Diabetes, Dyslipidemia , Hypertension - Past Surgical History Surgical History: Cholecystectomy, Hysterectomy, Joint Replacement, Ortho Surgery, Other - Family History Family Medical History: Diabetes Mellitus, Coronary Artery Disease, Hypertension - Social History Does patient currently use any type of tobacco product: No Have you used tobacco products in the last 12 months: No Type of Tobacco Use: None Does any household member use tobacco: No Alcohol Use: None Drug Use: None - Medications Home Medications: Azelastine HCl [Astelin Nasal [place]] 2 sprays ENOSTRIL DAILY 12/23/16 [History Confirmed 12/24/16] - Review of Systems Constitutional: Weakness. denies: Fever, Chills, Sweats Eyes: No Symptoms Reported. denies: Pain, Vision Change ENT: No Symptoms Reported, Nose Congestion. denies: Ear Pain, Ear Discharge, Mouth Swelling, Throat Pain, Throat Swelling Respiratory: See HPI, Cough, Shortness of Breath, Sputum, Wheezing Cardiovascular: Chest Pain, Edema Gastrointestinal: Vomiting, Abdominal Pain Genitourinary: Dysuria, Incontinence, Hematuria, Retention Musculoskeletal: No Symptoms Reported Skin: No Symptoms Reported Neurological: Weakness, Other (HEADACHE, DIZZINESS ) - Physical Exam Vital Signs: Temperature 99.8 F Pulse Rate [Apical] 111 Pulse Rate 106 Respiratory Rate 20 Blood Pressure [Left Arm] 102/57 Blood Pressure [Right Arm] 92/54 Blood Pressure 145/59 O2 Sat by Pulse Oximetry 92 Oriented: Normal Eyes: Normal Ear: Normal Nose: Normal Throat: Normal Respiratory: Rhonchi Throughout, Wheezes Throughout Cardiovascular: Edema (BILATERAL LOWER EXTREMITIES ) : Normal Auscultation: Bowel Sounds: Normal Palpation: Normal Tenderness: Normal Skin: Normal Musculoskeletal: Normal Psychiatric: Anxiety Mood Description: Anxious Affect: Normal Speech Pattern: Clear - Assessment/Plan (1) Pneumonia Qualifiers: Pneumonia type: due to unspecified organism Laterality: bilateral Lung location: lower lobe of lung Qualified Code(s): J18.9 - Pneumonia, unspecified organism Status: Acute Plan: ROCEPHIN IV DAILY, DOXYCYCLINE IV Q12H, DUONEBS Q4H, TUSSIONEX Q12H PRN, CONTINUE TO MONITOR LABS AND CHEST XRAYS (2) Hypoxia Status: Acute Plan: SUPPLEMENTAL OXYGEN, DUONEBS Q4H, CONTINUE TO MONITOR
[2016-12-25] MEDS ORDERED: NS 1/2 1000 ML IV 1,000 ML IV ONE (17:33)
--- NOTE | 2016-12-25 17:51 | PCM.PROG ---
Progress Note - Progress Note for Day of Date: 12/24/16 - Subjective Subjective: WAS ADMITTED FOR PNEUMONIA AND RESPIRATORY DISTRESS. TODAY, SHE IS ALERT AND ORIENTED LYING IN BED ON MORNING ROUNDS. PATIENT'S IS AT BEDSIDE. PATIENT CONTINUES WITH SHORTNESS OF BREATH AND COUGH. LUNGS CONTINUE WITH BILATERAL RHONCHI AND WHEEZING TO AUSCULTATION. ABDOMEN IS SOFT, ROUND, AND NON-TENDER WITH NORMAL BOWEL SOUNDS NOTED IN ALL QUADRANTS. BILATERAL LOWER EXTREMITY EDEMA IS NOTED. SHE IS UTILIZING OXYGEN VIA NASAL CANNULA AT 2LPM. HER VITAL SIGNS THIS MORNING ARE 99.0-110-20-90%-97/53. LABS AND XRAY WERE OBTAINED. ABNORMAL LAB VALUES INCLUDE THE FOLLOWING: WBC 10.9, RBC 3.46, HGB 9.9, HCT 30.0, BUN 60, CREATININE 2.27, GLUCOSE 143, ALBUMIN 2.9. CARDIAC PROFILES WNL. MOST RECENT EKG REPORTS SINUS RHYTHM WITH HR 95. TODAY, WE WILL CONTINUE WITH CURRENT PLAN OF CARE AND REVIEW HOME MEDICATIONS. WE PLAN TO FOLLOW UP WITH AM LABS AND CONTINUE TO MONITOR PATIENT. - Past Medical Family Social History Past Med/Fam/Surg Hx: No changes since H&P Allergies: Allergies meperidine Allergy (Verified 11/20/16 12:00) - Review of Systems ROS: No change since H&P - Vital Signs and I&O's Vital Signs: Temperature 99.8 F Pulse Rate [Apical] 111 Pulse Rate 106 Respiratory Rate 20 Blood Pressure [Left Arm] 102/57 Blood Pressure [Right Arm] 92/54 Blood Pressure 145/59 O2 Sat by Pulse Oximetry 92 Intake and Output: Intake & Output 12/23/16 12/24/16 12/25/16 12/26/16 11:59 11:59 11:59 11:59 Intake Total 940 1400 800 Balance 940 1400 800 - Physical Exam Oriented: Normal Eyes: Normal Ear: Normal Nose: Normal Throat: Normal Cardiovascular: Tachycardia, Edema (BILATERAL LOWER EXTREMITIES ) : Normal Auscultation: Bowel Sounds: Normal Palpation: Normal Tenderness: Normal Skin: Normal Musculoskeletal: Normal Psychiatric: Anxiety Mood Description: Anxious Affect: Normal Speech Pattern: Clear - Laboratory and Diagnostics Result Diagrams: 12/25/16 04:05 12/25/16 04:05 Labs: 12/23/16 21:15 Blood Blood Culture - Preliminary 12/23/16 21:00 Blood Blood Culture - Preliminary 12/23/16 21:24 Sputum - Expectorated Sputum Sputum Culture - Preliminary 12/23/16 21:24 Sputum - Expectorated Sputum - Final Laboratory WBC 7.7 X10^3/uL (3.6-10.0) 12/25/16 04:05 RBC 3.10 X10^6/uL (3.5-5.4) L 12/25/16 04:05 Hgb 8.8 g/dL (12.0-16.0) L 12/25/16 04:05 Hct 27.0 % (36.0-47.0) L 12/25/16 04:05 MCV 87.1 fL (80.0-100.0) 12/25/16 04:05 MCH 28.5 pg (27.0-34.0) 12/25/16 04:05 MCHC 32.7 g/dL (33.0-35.0) L 12/25/16 04:05 RDW 15.5 % (11.6-16.5) 12/25/16 04:05 Plt Count 77 X10^3/uL (150.0-450.0) L 12/25/16 04:05 MPV 11.6 fL (7.4-11.0) H 12/25/16 04:05 Neut % 74.8 % (42.0-75.0) 12/25/16 04:05 Lymph % 16.4 % (21.0-51.0) L 12/25/16 04:05 [place] % 7.5 % (0.0-13.0) 12/25/16 04:05 Eos % 0.7 % (0.9-2.9) L 12/25/16 04:05 Baso % 0.6 % (0.2-1.0) 12/25/16 04:05 Neut # 5.8 x10^3/uL (2.2-4.8) H 12/25/16 04:05 Lymph # 1.3 X10^3/uL (1.3-2.9) 12/25/16 04:05 [place] # 0.6 x10^3/uL (0.3-0.8) 12/25/16 04:05 Eos # 0.1 x10^3/uL (0.0-0.2) 12/25/16 04:05 Baso # 0.0 X10^3/uL (0.0-0.1) 12/25/16 04:05 Absolute Nucleated RBC 0.0 /100WBC 12/25/16 04:05 Sodium 141 mmol/L (136-145) 12/25/16 04:05 Corrected Sodium 142 mmol/L (136-145) 12/25/16 04:05 Potassium 4.6 mmol/L (3.5-5.1) 12/25/16 04:05 Chloride 107 mmol/L (98-107) 12/25/16 04:05 Carbon Dioxide 26.6 mmol/L (21-32) 12/25/16 04:05 BUN 56 mg/dL (7-18) H 12/25/16 04:05 Creatinine 2.04 mg/dL (0.55-1.02) H 12/25/16 04:05 Est GFR (MDRD) Af Amer 32 (>60) L 12/25/16 04:05 Est GFR (MDRD) Non-Af 26 (>60) L 12/25/16 04:05 Glucose 149 mg/dL (65-99) H 12/25/16 04:05 POC Glucose (mg/dL) 187 mg/dL (65-99) H 12/25/16 17:04 Calcium 8.1 mg/dL (8.5-10.1) L 12/25/16 04:05 Corrected Calcium 9.3 mg/dL (8.5-10.1) 12/25/16 04:05 Magnesium 2.4 mg/dL (1.7-2.9) 12/24/16 02:05 Total Bilirubin 0.50 mg/dL (0.2-1.0) 12/25/16 04:05 AST 22 Units/L (15-37) 12/25/16 04:05 ALT 26 Units/L (12-78) 12/25/16 04:05 Alkaline Phosphatase 91 Units/L (46-116) 12/25/16 04:05 Creatine Kinase 82 Units/L (26-192) 12/24/16 08:30 CK-MB (CK-2) < 1.0 ng/mL (0-4.0) 12/24/16 08:30 CK/CKMB % Calc 1.2 % (<4) 12/24/16 08:30 Troponin I < 0.02 ng/mL (0-1.5) 12/24/16 08:30 B-Natriuretic Peptide 236 pg/mL (0-79) H 12/23/16 19:57 Total Protein 6.7 g/dL (6.4-8.2) 12/25/16 04:05 Albumin 2.5 g/dL (3.4-5.0) L 12/25/16 04:05 Globulin 4.2 g/dL (2.5-4.5) 12/25/16 04:05 Albumin/Globulin Ratio 0.6 Ratio (1.1-2.1) L 12/25/16 04:05 - Plan (1) Pneumonia Status: Acute Qualifiers: Pneumonia type: due to unspecified organism Laterality: bilateral Lung location: lower lobe of lung Qualified Code(s): J18.9 - Pneumonia, unspecified organism Plan: ROCEPHIN IV DAILY, DOXYCYCLINE IV Q12H, DUONEBS Q4H, TUSSIONEX Q12H PRN, CONTINUE TO MONITOR LABS AND CHEST XRAYS (2) Hypoxia Status: Acute Plan: SUPPLEMENTAL OXYGEN, DUONEBS Q4H, CONTINUE TO MONITOR
--- NOTE | 2016-12-25 17:55 | PCM.PROG ---
Progress Note - Progress Note for Day of Date: 12/25/16 - Subjective Subjective: WAS ADMITTED FOR PNEUMONIA AND RESPIRATORY DISTRESS. TODAY, SHE IS ALERT AND ORIENTED LYING IN BED ON MORNING ROUNDS. PATIENT CONTINUES WITH SHORTNESS OF BREATH AND COUGH. LUNGS CONTINUE WITH BILATERAL RHONCHI AND WHEEZING TO AUSCULTATION. ABDOMEN IS SOFT, ROUND, AND NON-TENDER WITH NORMAL BOWEL SOUNDS NOTED IN ALL QUADRANTS. BILATERAL LOWER EXTREMITY EDEMA IS NOTED. SHE IS UTILIZING OXYGEN VIA NASAL CANNULA AT 2LPM. HER VITAL SIGNS THIS MORNING ARE 99.2-107-20-95%-123/68. LABS AND XRAY WERE OBTAINED. ABNORMAL LAB VALUES INCLUDE THE FOLLOWING: RBC 3.10, HGB 8.8, HCT 27, BUN 56, CREATININE 2.04, GLUCOSE 149, CALCIUM 8.1, ALBUMIN 2.5. A CHEST XRAY WAS OBTAINED AND REPORTED PERSISTEND AIRSPACE OPACITY OF THE RIGHT MID LUNG ZONE. TODAY, WE WILL CONTINUE WITH CURRENT PLAN OF CARE TO TREAT PNEUMONIA. WE PLAN TO FOLLOW UP WITH AM LABS AND CONTINUE TO MONITOR PATIENT. - Past Medical Family Social History Past Med/Fam/Surg Hx: No changes since H&P Allergies: Allergies meperidine Allergy (Verified 11/20/16 12:00) - Review of Systems ROS: No change since H&P - Vital Signs and I&O's Vital Signs: Temperature 99.8 F Pulse Rate [Apical] 111 Pulse Rate 106 Respiratory Rate 20 Blood Pressure [Left Arm] 102/57 Blood Pressure [Right Arm] 92/54 Blood Pressure 145/59 O2 Sat by Pulse Oximetry 92 Intake and Output: Intake & Output 12/23/16 12/24/16 12/25/16 12/26/16 11:59 11:59 11:59 11:59 Intake Total 940 1400 800 Balance 940 1400 800 - Physical Exam Oriented: Normal Eyes: Normal Ear: Normal Nose: Normal Throat: Normal Respiratory: Generalized, Wheezes, Rhonchi Cardiovascular: Tachycardia, Edema (BILATERAL LOWER EXTREMITIES ) : Normal Auscultation: Bowel Sounds: Normal Palpation: Normal Tenderness: Normal Skin: Normal Musculoskeletal: Normal Psychiatric: Anxiety Mood Description: Anxious Affect: Normal Speech Pattern: Clear - Laboratory and Diagnostics Result Diagrams: 12/25/16 04:05 12/25/16 04:05 Labs: 12/23/16 21:15 Blood Blood Culture - Preliminary 12/23/16 21:00 Blood Blood Culture - Preliminary 12/23/16 21:24 Sputum - Expectorated Sputum Sputum Culture - Preliminary 12/23/16 21:24 Sputum - Expectorated Sputum - Final Laboratory WBC 7.7 X10^3/uL (3.6-10.0) 12/25/16 04:05 RBC 3.10 X10^6/uL (3.5-5.4) L 12/25/16 04:05 Hgb 8.8 g/dL (12.0-16.0) L 12/25/16 04:05 Hct 27.0 % (36.0-47.0) L 12/25/16 04:05 MCV 87.1 fL (80.0-100.0) 12/25/16 04:05 MCH 28.5 pg (27.0-34.0) 12/25/16 04:05 MCHC 32.7 g/dL (33.0-35.0) L 12/25/16 04:05 RDW 15.5 % (11.6-16.5) 12/25/16 04:05 Plt Count 77 X10^3/uL (150.0-450.0) L 12/25/16 04:05 MPV 11.6 fL (7.4-11.0) H 12/25/16 04:05 Neut % 74.8 % (42.0-75.0) 12/25/16 04:05 Lymph % 16.4 % (21.0-51.0) L 12/25/16 04:05 [place] % 7.5 % (0.0-13.0) 12/25/16 04:05 Eos % 0.7 % (0.9-2.9) L 12/25/16 04:05 Baso % 0.6 % (0.2-1.0) 12/25/16 04:05 Neut # 5.8 x10^3/uL (2.2-4.8) H 12/25/16 04:05 Lymph # 1.3 X10^3/uL (1.3-2.9) 12/25/16 04:05 [place] # 0.6 x10^3/uL (0.3-0.8) 12/25/16 04:05 Eos # 0.1 x10^3/uL (0.0-0.2) 12/25/16 04:05 Baso # 0.0 X10^3/uL (0.0-0.1) 12/25/16 04:05 Absolute Nucleated RBC 0.0 /100WBC 12/25/16 04:05 Sodium 141 mmol/L (136-145) 12/25/16 04:05 Corrected Sodium 142 mmol/L (136-145) 12/25/16 04:05 Potassium 4.6 mmol/L (3.5-5.1) 12/25/16 04:05 Chloride 107 mmol/L (98-107) 12/25/16 04:05 Carbon Dioxide 26.6 mmol/L (21-32) 12/25/16 04:05 BUN 56 mg/dL (7-18) H 12/25/16 04:05 Creatinine 2.04 mg/dL (0.55-1.02) H 12/25/16 04:05 Est GFR (MDRD) Af Amer 32 (>60) L 12/25/16 04:05 Est GFR (MDRD) Non-Af 26 (>60) L 12/25/16 04:05 Glucose 149 mg/dL (65-99) H 12/25/16 04:05 POC Glucose (mg/dL) 187 mg/dL (65-99) H 12/25/16 17:04 Calcium 8.1 mg/dL (8.5-10.1) L 12/25/16 04:05 Corrected Calcium 9.3 mg/dL (8.5-10.1) 12/25/16 04:05 Magnesium 2.4 mg/dL (1.7-2.9) 12/24/16 02:05 Total Bilirubin 0.50 mg/dL (0.2-1.0) 12/25/16 04:05 AST 22 Units/L (15-37) 12/25/16 04:05 ALT 26 Units/L (12-78) 12/25/16 04:05 Alkaline Phosphatase 91 Units/L (46-116) 12/25/16 04:05 Creatine Kinase 82 Units/L (26-192) 12/24/16 08:30 CK-MB (CK-2) < 1.0 ng/mL (0-4.0) 12/24/16 08:30 CK/CKMB % Calc 1.2 % (<4) 12/24/16 08:30 Troponin I < 0.02 ng/mL (0-1.5) 12/24/16 08:30 B-Natriuretic Peptide 236 pg/mL (0-79) H 12/23/16 19:57 Total Protein 6.7 g/dL (6.4-8.2) 12/25/16 04:05 Albumin 2.5 g/dL (3.4-5.0) L 12/25/16 04:05 Globulin 4.2 g/dL (2.5-4.5) 12/25/16 04:05 Albumin/Globulin Ratio 0.6 Ratio (1.1-2.1) L 12/25/16 04:05 - Plan (1) Pneumonia Status: Acute Qualifiers: Pneumonia type: due to unspecified organism Laterality: bilateral Lung location: lower lobe of lung Qualified Code(s): J18.9 - Pneumonia, unspecified organism Plan: ROCEPHIN IV DAILY, DOXYCYCLINE IV Q12H, DUONEBS Q4H, TUSSIONEX Q12H PRN, CONTINUE TO MONITOR LABS AND CHEST XRAYS (2) Hypoxia Status: Acute Plan: SUPPLEMENTAL OXYGEN, DUONEBS Q4H, CONTINUE TO MONITOR
[2016-12-25] MEDS: SNACK - Diabetic Appropriate PO SCH (20:41)
[2016-12-25] MEDS: LIPITOR TAB 40 MG PO SCH (21:09)
[2016-12-25] MEDS: REQUIP PO SCH (21:09)
[2016-12-26] MEDS ORDERED: TYLENOL SUPP 650 MG PR PRN (01:00)
[2016-12-26] MEDS: DUONEB 0.5 MG/3 MG NEB SCH ×6 (01:16→20:37)
[2016-12-26 01:34] LABS: ABG BASE EXCESS 2.6 mmol/L (-2.0-2.0); ABG HCO3 28.4 mmol/L (22-26)
[2016-12-26] MEDS: NS 1/2 1000 ML IV 1,000 ML IV SCH ×2 (05:40→10:19)
[2016-12-26 05:51] LABS: ALBUMIN 2.5 g/dL (3.4-5.0); CALCIUM 8.3 mg/dL (8.5-10.1); COR CA(FOR HYPOALB) 9.5 mg/dL (8.5-10.1); CREATININE 2.04 mg/dL (0.55-1.02); TOTAL PROTEIN 6.9 g/dL (6.4-8.2)
[2016-12-26] MEDS: HumuLIN R SUBCUT PRN (05:57)
--- NOTE | 2016-12-26 06:14 | RAD ---
HISTORY: Shortness of breath Study: AP portable chest Comparison: 12/25/2016 Findings: Positioning is less than optimal with the left costophrenic angle not included on the image. The hear t is enlarged. No definite congestive heart failure is noted. Perihilar alveolar filling is present o n the right unchanged from the prior examination and suspicious for pneumonia. The visualized left alen ng is clear with the exception of subsegmental atelectasis in the left lung base. No definite pleural effusions are identified. IMPRESSION: Cardiomegaly without congestive heart failure Right perihilar infiltrate unchanged Reported By:
[2016-12-26 07:47] LABS: BASOPHILS # (AUTO) 0.1 X10^3/uL (0.0-0.1); BASOPHILS % (AUTO) 0.8 % (0.2-1.0); EOSINOPHILS % (AUTO) 0.7 % (0.9-2.9); HEMATOCRIT 25.4 % (36.0-47.0); HEMOGLOBIN 8.2 g/dL (12.0-16.0); LYMPHOCYTES # (AUTO) 1.3 X10^3/uL (1.3-2.9); LYMPHOCYTES % (AUTO) 17.3 % (21.0-51.0); MEAN CORPUSCULAR HEMOGLOBIN 28.3 pg (27.0-34.0); MEAN CORPUSCULAR HGB CONC 32.3 g/dL (33.0-35.0); MEAN CORPUSCULAR VOLUME 87.5 fL (80.0-100.0); MEAN PLATELET VOLUME 11.5 fL (7.4-11.0); MONOCYTES # (AUTO) 0.7 x10^3/uL (0.3-0.8); MONOCYTES % (AUTO) 9.7 % (0.0-13.0); NEUTROPHILS # (AUTO) 5.3 x10^3/uL (2.2-4.8); NEUTROPHILS % (AUTO) 71.5 % (42.0-75.0); PLATELET COUNT 84 X10^3/uL (150.0-450.0); RED BLOOD COUNT 2.91 X10^6/uL (3.5-5.4); RED CELL DISTRIBUTION WIDTH 15.3 % (11.6-16.5); WHITE BLOOD COUNT 7.4 X10^3/uL (3.6-10.0)
[2016-12-26] MEDS ORDERED: PROCRIT or EPOGEN SC ONE (09:48)
[2016-12-26] MEDS: VICTOZA SC SCH (10:00)
[2016-12-26] MEDS: ROCEPHIN VIAL 1 GM 1 GM in NS 100 ML IV + SPIKE MINIBAG* 100 ML IV SCH (10:05)
[2016-12-26] MEDS: FLONASE NASAL SPRAY ENOSTRIL SCH (10:08)
[2016-12-26] MEDS: ASTELIN NASAL SPRAY ENOSTRIL SCH (10:08)
[2016-12-26] MEDS: ARTIFICIAL TEARS DROPS AFFEYE SCH ×4 (10:09→21:20)
[2016-12-26] MEDS ORDERED: TYGACIL 50 MG VIAL 100 MG in NS 100 ML IV 100 ML IV ONE (10:35)
[2016-12-26] MEDS: CLARITIN PO SCH (15:46)
[2016-12-26] MEDS: LYRICA CAP 100 MG PO SCH ×2 (15:47→21:18)
[2016-12-26] MEDS: ROBITUSSIN DM PO SCH ×3 (15:47→21:18)
[2016-12-26] MEDS: SOLIFENACIN SUCCINATE 5 MG PO SCH (15:47)
[2016-12-26] MEDS: TAB-A-VITE PO SCH (15:48)
[2016-12-26] MEDS: COREG TAB 6.25 MG PO SCH ×2 (15:48→21:18)
[2016-12-26] MEDS ORDERED: NS 1/2 1000 ML IV 1,000 ML IV ONE (15:54)
[2016-12-26] MEDS ORDERED: TYGACIL 50 MG VIAL 50 MG in NS 100 ML IV 100 ML IV ONE (16:00)
[2016-12-26] MEDS: TYGACIL 50 MG VIAL 50 MG in NS 100 ML IV 100 ML IV SCH (21:18)
[2016-12-26] MEDS: REQUIP PO SCH (21:18)
[2016-12-26] MEDS: LIPITOR TAB 40 MG PO SCH (21:18)
[2016-12-26] MEDS: SNACK - Diabetic Appropriate PO SCH ×2 (21:19)
[2016-12-27] MEDS: DUONEB 0.5 MG/3 MG NEB SCH ×6 (01:03→20:48)
[2016-12-27] MEDS: ULTRAM PO PRN ×2 (06:03→09:38)
[2016-12-27] MEDS: HumuLIN R SUBCUT PRN ×3 (06:04→17:30)
[2016-12-27 06:51] LABS: BASOPHILS # (AUTO) 0.1 X10^3/uL (0.0-0.1); BASOPHILS % (AUTO) 0.8 % (0.2-1.0); EOSINOPHILS # (AUTO) 0.1 x10^3/uL (0.0-0.2); HEMOGLOBIN 8.5 g/dL (12.0-16.0); LYMPHOCYTES # (AUTO) 0.8 X10^3/uL (1.3-2.9); LYMPHOCYTES % (AUTO) 10.5 % (21.0-51.0); MEAN CORPUSCULAR HEMOGLOBIN 28.4 pg (27.0-34.0); MEAN CORPUSCULAR HGB CONC 32.6 g/dL (33.0-35.0); MEAN CORPUSCULAR VOLUME 87.1 fL (80.0-100.0); MEAN PLATELET VOLUME 10.9 fL (7.4-11.0); MONOCYTES # (AUTO) 0.8 x10^3/uL (0.3-0.8); MONOCYTES % (AUTO) 9.3 % (0.0-13.0); NEUTROPHILS # (AUTO) 6.3 x10^3/uL (2.2-4.8); NEUTROPHILS % (AUTO) 78.4 % (42.0-75.0); PLATELET COUNT 80 X10^3/uL (150.0-450.0); RED BLOOD COUNT 2.98 X10^6/uL (3.5-5.4); RED CELL DISTRIBUTION WIDTH 14.9 % (11.6-16.5); WHITE BLOOD COUNT 8.1 X10^3/uL (3.6-10.0)
[2016-12-27 07:04] LABS: ALBUMIN 2.4 g/dL (3.4-5.0); CALCIUM 8.6 mg/dL (8.5-10.1); COR CA(FOR HYPOALB) 9.9 mg/dL (8.5-10.1); CREATININE 1.81 mg/dL (0.55-1.02); TOTAL PROTEIN 7.2 g/dL (6.4-8.2)
[2016-12-27] MEDS: ROCEPHIN VIAL 1 GM 1 GM in NS 100 ML IV + SPIKE MINIBAG* 100 ML IV SCH (09:37)
[2016-12-27] MEDS: TYGACIL 50 MG VIAL 50 MG in NS 100 ML IV 100 ML IV SCH ×2 (09:37→21:49)
[2016-12-27] MEDS: COREG TAB 6.25 MG PO SCH ×2 (09:38→21:30)
[2016-12-27] MEDS: TAB-A-VITE PO SCH (09:38)
[2016-12-27] MEDS: ROBITUSSIN DM PO SCH ×4 (09:38→21:37)
[2016-12-27] MEDS: CLARITIN PO SCH (09:38)
[2016-12-27] MEDS: LYRICA CAP 100 MG PO SCH ×2 (09:38→21:32)
[2016-12-27] MEDS: NS 1/2 1000 ML IV 1,000 ML IV SCH (09:40)
[2016-12-27] MEDS: FLONASE NASAL SPRAY ENOSTRIL SCH (09:44)
[2016-12-27] MEDS: ARTIFICIAL TEARS DROPS AFFEYE SCH ×4 (09:44→21:40)
[2016-12-27] MEDS: ASTELIN NASAL SPRAY ENOSTRIL SCH (09:44)
[2016-12-27] MEDS: VICTOZA SC SCH (11:00)
[2016-12-27] MEDS ORDERED: NS 1/2 1000 ML IV 1,000 ML IV ONE (11:31)
[2016-12-27] MEDS: SOLIFENACIN SUCCINATE 5 MG PO SCH (11:33)
[2016-12-27] MEDS: REQUIP PO SCH (21:30)
[2016-12-27] MEDS: SNACK - Diabetic Appropriate PO SCH (21:32)
[2016-12-27] MEDS: LIPITOR TAB 40 MG PO SCH (21:40)
[2016-12-28] MEDS: ULTRAM PO PRN ×2 (01:04→06:34)
[2016-12-28] MEDS: DUONEB 0.5 MG/3 MG NEB SCH ×3 (01:14→08:52)
[2016-12-28 05:36] LABS: BASOPHILS # (AUTO) 0.1 X10^3/uL (0.0-0.1); BASOPHILS % (AUTO) 0.6 % (0.2-1.0); EOSINOPHILS # (AUTO) 0.1 x10^3/uL (0.0-0.2); EOSINOPHILS % (AUTO) 0.8 % (0.9-2.9); HEMATOCRIT 25.3 % (36.0-47.0); HEMOGLOBIN 8.3 g/dL (12.0-16.0); LYMPHOCYTES # (AUTO) 0.8 X10^3/uL (1.3-2.9); LYMPHOCYTES % (AUTO) 9.3 % (21.0-51.0); MEAN CORPUSCULAR HEMOGLOBIN 28.4 pg (27.0-34.0); MEAN CORPUSCULAR HGB CONC 32.8 g/dL (33.0-35.0); MEAN CORPUSCULAR VOLUME 86.6 fL (80.0-100.0); MEAN PLATELET VOLUME 11.8 fL (7.4-11.0); MONOCYTES # (AUTO) 0.7 x10^3/uL (0.3-0.8); NEUTROPHILS # (AUTO) 7.1 x10^3/uL (2.2-4.8); NEUTROPHILS % (AUTO) 81.3 % (42.0-75.0); PLATELET COUNT 93 X10^3/uL (150.0-450.0); RED BLOOD COUNT 2.92 X10^6/uL (3.5-5.4); RED CELL DISTRIBUTION WIDTH 15.2 % (11.6-16.5); WHITE BLOOD COUNT 8.7 X10^3/uL (3.6-10.0)
[2016-12-28 05:47] LABS: ALBUMIN 2.3 g/dL (3.4-5.0); CALCIUM 8.3 mg/dL (8.5-10.1); CARBON DIOXIDE 22.4 mmol/L (21-32); COR CA(FOR HYPOALB) 9.7 mg/dL (8.5-10.1); CREATININE 1.74 mg/dL (0.55-1.02)
--- NOTE | 2016-12-28 06:22 | RAD ---
HISTORY: Shortness of breath Study: Chest AP portable Comparison: 12/26/2016 Findings: The heart is enlarged. The aorta is calcified. Pulmonary venous congestion is present. No definite in terstitial or alveolar pulmonary edema is identified. Right perihilar infiltrate is unchanged. The le ft lung is clear. The bony are is unremarkable. IMPRESSION: Cardiomegaly with mild pulmonary venous congestion No change right perihilar infiltrate Reported By:
[2016-12-28] MEDS: ROCEPHIN VIAL 1 GM 1 GM in NS 100 ML IV + SPIKE MINIBAG* 100 ML IV SCH (10:03)
[2016-12-28] MEDS: TYGACIL 50 MG VIAL 50 MG in NS 100 ML IV 100 ML IV SCH (10:04)
[2016-12-28] MEDS: ROBITUSSIN DM PO SCH (10:06)
[2016-12-28] MEDS: SOLIFENACIN SUCCINATE 5 MG PO SCH (10:06)
[2016-12-28] MEDS: TAB-A-VITE PO SCH (10:07)
[2016-12-28] MEDS: COREG TAB 6.25 MG PO SCH (10:07)
[2016-12-28] MEDS: CLARITIN PO SCH (10:07)
[2016-12-28] MEDS: LYRICA CAP 100 MG PO SCH (10:07)
[2016-12-28] MEDS: VICTOZA SC SCH (10:08)
[2016-12-28] MEDS: FLONASE NASAL SPRAY ENOSTRIL SCH (10:09)
[2016-12-28] MEDS: ARTIFICIAL TEARS DROPS AFFEYE SCH (10:10)
[2016-12-28] MEDS: ASTELIN NASAL SPRAY ENOSTRIL SCH (10:10)
[2016-12-28] MEDS: NS 1/2 1000 ML IV 1,000 ML IV SCH (10:20)
[2016-12-28 12:02] VITALS: BP 111/56
== END 2016-12-28 12:00 | DRG 195 ==
LOC: ER 18:50 → MED/SURG 21:08
PROVIDERS: ADMIT Internal Medicine; ATTEND Obstetrics & Gynecology Obstetrics
DX: J18.8 Other pneumonia, unspecified organism (principal); R06.03 Acute respiratory distress; R09.02 Hypoxemia; R07.2 Precordial pain; R10.11 Right upper quadrant pain; R06.02 Shortness of breath; I25.10 Atherosclerotic heart disease of native coronary artery without angina pectoris; E78.2 Mixed hyperlipidemia; I10 Essential (primary) hypertension; M13.89 Other specified arthritis, multiple sites; E66.8 Other obesity; R26.89 Other abnormalities of gait and mobility
CPT/HCPCS: 36415; 36600; 71010; 80053; 82550; 82553; 82803; 83735; 83880; 84484; 85025; 87040; 87070; 87205; 93005; 93010; 94640; 94660; 94760; 96365; 96374; 97535; 99284; A4222; A4618; A7030; J0696; J0885; J1815; J3490; J7620

== ENCOUNTER 2017-01-29 15:07 | Inpatient (IN) | payer OTHER, MEDICAID ==
[2017-01-29 17:18] LABS: ALBUMIN 2.6 g/dL (3.4-5.0); CARBON DIOXIDE 25.5 mmol/L (21-32); CREATININE 3.29 mg/dL (0.55-1.02); TOTAL PROTEIN 7.7 g/dL (6.4-8.2)
[2017-01-29 17:32] LABS: BASOPHILS # (AUTO) 0.1 X10^3/uL (0.0-0.1); BASOPHILS % (AUTO) 0.7 % (0.2-1.0); EOSINOPHILS # (AUTO) 0.1 x10^3/uL (0.0-0.2); EOSINOPHILS % (AUTO) 1.3 % (0.9-2.9); HEMATOCRIT 29.6 % (36.0-47.0); HEMOGLOBIN 9.5 g/dL (12.0-16.0); LYMPHOCYTES # (AUTO) 1.3 X10^3/uL (1.3-2.9); LYMPHOCYTES % (AUTO) 13.4 % (21.0-51.0); MEAN CORPUSCULAR HEMOGLOBIN 27.3 pg (27.0-34.0); MEAN CORPUSCULAR HGB CONC 32.1 g/dL (33.0-35.0); MEAN CORPUSCULAR VOLUME 85.2 fL (80.0-100.0); MEAN PLATELET VOLUME 11.2 fL (7.4-11.0); MONOCYTES # (AUTO) 0.8 x10^3/uL (0.3-0.8); MONOCYTES % (AUTO) 7.7 % (0.0-13.0); NEUTROPHILS # (AUTO) 7.6 x10^3/uL (2.2-4.8); NEUTROPHILS % (AUTO) 76.9 % (42.0-75.0); PLATELET COUNT 125 X10^3/uL (150.0-450.0); RED BLOOD COUNT 3.48 X10^6/uL (3.5-5.4); RED CELL DISTRIBUTION WIDTH 15.9 % (11.6-16.5); WHITE BLOOD COUNT 9.9 X10^3/uL (3.6-10.0)
[2017-01-29 17:37] LABS: CALCIUM 8.5 mg/dL (8.5-10.1); COR CA(FOR HYPOALB) 9.6 mg/dL (8.5-10.1)
--- NOTE | 2017-01-29 17:41 | DR.GENAD ---
HPI - PCP Primary Care Physician: derick - HPI Comment HPI Comment: PTIENT RENAL FUNCTION TEST AND POTASSIUM WAD ELEVATED. ON LABS DONE AT THE [facility]. SHE IS WEAK AND COMPLAING OF NOT FELLING GOOD. SHE IS SLEEPING MORE THAN USUAL. BP IS LOW. - Complaint/Symptoms Chief Complaint Doctors Comments: HERE FROM THE [facility] TO REPEAT ABNORMAL LABS/POTASSIUM Chief Complaint:: possible acute renal failure - Nurses notes reviewed Nurses Notes Review: Yes - Source History Provided: Patient - Mode of Arrival Mode of Arrival: Stretcher - Timing Onset of Chief Complaint: 01/29/17 Came on: Suddenly - Duration Duration: Constant Duration: Hours - Severity Severity: Moderate PMH - PMH Past Medical History: Yes Past Medical History: Arthritis, CHF, Coronary Artery Disease, Diabetes, Dyslipidemia, Hypertension Past Surgical History: No (unknown) Surgical History: Unknown - Family History History of Family Medical Conditions: No Family Medical History: Diabetes Mellitus, Coronary Artery Disease, Hypertension - Social History Does patient currently use any type of tobacco product: No Have you used tobacco products in the last 12 months: No Type of Tobacco Use: None Does any household member use tobacco: No Alcohol Use: None Do you use any recreational Drugs:: No Lives With: Family Lives Where: Home - infectious screening In the last 2 months have you had wt loss of >10#?: NO Have you had fever, night sweats or hemotysis?: No Have you traveled outside the country in the last 6 months?: No Isolation: Standard ROS - Review of Systems Constitutional: Weakness, Fatigue. negative: Chills, Fever Eyes: negative: Eye Pain, Discharge ENTM: No Symptoms Reported, Nose Congestion. negative: Ear Pain, Nose Discharge , Throat Pain Respiratoy: Non-Productive Cough, Short of Breath, Wheezing Cardiovascular: Chest Pain Gastrointestinal/Abdominal: Nausea. negative: Abdominal Pain, Vomiting Genitourinary: negative: Dysuria, Frequency, Hematuria Neurological: Headache, Weakness Musculoskeletal: Muscle Pain Integumentary: Change in Color, Dryness Hematologic/Lymphatic: Easy Bleeding, Easy Bruising Endocrine: Other (URINARY INCONTINENCE). negative: Flushing All Other Systems: Reviewed and Negative PE - Vital Signs Vitals: Temperature 98.8 F Pulse Rate [Left] 107 Pulse Rate 21 Respiratory Rate 18 Blood Pressure [Left Arm] 116/54 Blood Pressure [Right Arm] 92/54 Blood Pressure 149/56 O2 Sat by Pulse Oximetry 94 - General Limitations: Altered Mental Status General Appearance: Alert - Head Head Exam: Normal Inspection - Eyes Eye exam: Normal Appearance, PERRL, EOMI. negative: Scleral Icterus, Conjunctival Injection - ENT ENT Exam: Normal External Ear Exam External Ear Exam: Normal External Inspection TM/Canal Exam: Bilateral Normal Nose Exam: Normal Nose Exam Mouth Exam: Normal Inspection Throat Exam: Normal Inspection - Neck Neck Exam: Trachea Midline - Chest Chest Inspection: Symmetric Chest Wall Rise - Respiratory Respiratory Exam: Normal Lung Sounds Bilat Respiratory Exam: Bilateral Wheezing, Bilateral Rhonchi, Upper Rhonchi, Lower Wheezing, Lower Rhonchi - Cardiovascular Cardiovascular Exam: Regular Rate, Normal Rhythm, Normal Heart Sounds - Abdominal Exam Abdominal Exam: Normal Bowel Sounds, Soft. negative: Tenderness - Extremities Extremities Exam: Edema - Back Back Exam: Paraspinal Tenderness - Neurologic Neurological Exam: Alert - Psychiatric Psychiatric Exam: Agitated - Skin Skin Exam: Erythema MDM - Additional Information Additional Information Obtained From: Family - Differential Diagnosis Differential Diagnosis: DEHYDRATION, HYPOTENSION, RENAL INSUFFICIECY, HYPERKALEMIA Course - Treatment Treatment: SEE ORDERS - Consultation Consultation Comments: DISCUSS PATIENT WITH DR. MANJARREZ. HE WILL ADMIT PATIENT. - Education/Counseling Education/Counseling: Patient, Family, Education Educated On: Treatment, Diagnosis ROR - Labs Reviewed Laboratory Results Reviewed?: Yes Result Diagrams: 01/30/17 05:15 01/30/17 05:15 Laboratory: WBC 8.0 X10^3/uL (3.6-10.0) 01/30/17 05:15 RBC 3.01 X10^6/uL (3.5-5.4) L 01/30/17 05:15 Hgb 8.3 g/dL (12.0-16.0) L 01/30/17 05:15 Hct 25.4 % (36.0-47.0) L 01/30/17 05:15 MCV 84.6 fL (80.0-100.0) 01/30/17 05:15 MCH 27.6 pg (27.0-34.0) 01/30/17 05:15 MCHC 32.6 g/dL (33.0-35.0) L 01/30/17 05:15 RDW 15.2 % (11.6-16.5) 01/30/17 05:15 Plt Count 131 X10^3/uL (150.0-450.0) L 01/30/17 05:15 MPV 10.8 fL (7.4-11.0) 01/30/17 05:15 Neut % 79.0 % (42.0-75.0) H 01/30/17 05:15 Lymph % 11.7 % (21.0-51.0) L 01/30/17 05:15 [place] % 7.6 % (0.0-13.0) 01/30/17 05:15 Eos % 1.2 % (0.9-2.9) 01/30/17 05:15 Baso % 0.5 % (0.2-1.0) 01/30/17 05:15 Neut # 6.3 x10^3/uL (2.2-4.8) H 01/30/17 05:15 Lymph # 0.9 X10^3/uL (1.3-2.9) L 01/30/17 05:15 [place] # 0.6 x10^3/uL (0.3-0.8) 01/30/17 05:15 Eos # 0.1 x10^3/uL (0.0-0.2) 01/30/17 05:15 Baso # 0.0 X10^3/uL (0.0-0.1) 01/30/17 05:15 Absolute Nucleated RBC 0.0 /100WBC 01/30/17 05:15 INR Target Range - 01/30/17 05:15 INR 1.89 (0.8-1.3) H 01/30/17 05:15 PTT 34.3 SECONDS (22.9-36.5) 01/30/17 05:15 PTT Comment - 01/30/17 05:15 Sodium 140 mmol/L (136-145) 01/30/17 05:15 Corrected Sodium 141 mmol/L (136-145) 01/30/17 05:15 Potassium 4.8 mmol/L (3.5-5.1) 01/30/17 05:15 Chloride 102 mmol/L (98-107) 01/30/17 05:15 Carbon Dioxide 28.0 mmol/L (21-32) 01/30/17 05:15 BUN 60 mg/dL (7-18) H 01/30/17 05:15 Creatinine 3.02 mg/dL (0.55-1.02) H 01/30/17 05:15 Est GFR (MDRD) Af Amer 20 (>60) L 01/30/17 05:15 Est GFR (MDRD) Non-Af 17 (>60) L 01/30/17 05:15 Glucose 132 mg/dL (65-99) H 01/30/17 05:15 POC Glucose (mg/dL) 138 mg/dL (65-99) H 01/30/17 10:58 Lactic Acid 0.7 mmol/L (0.4-2.0) 01/30/17 07:12 Calcium 8.4 mg/dL (8.5-10.1) L 01/30/17 05:15 Corrected Calcium 9.8 mg/dL (8.5-10.1) 01/30/17 05:15 Magnesium 2.5 mg/dL (1.7-2.9) 01/30/17 05:15 Total Bilirubin 0.50 mg/dL (0.2-1.0) 01/30/17 05:15 AST 11 Units/L (15-37) L 01/30/17 05:15 ALT 8 Units/L (12-78) L 01/30/17 05:15 Alkaline Phosphatase 80 Units/L (46-116) 01/30/17 05:15 Creatine Kinase 40 Units/L (26-192) 01/30/17 05:15 CK-MB (CK-2) < 1.0 ng/mL (0-4.0) 01/30/17 05:15 CK/CKMB % Calc 2.5 % (<4) 01/30/17 05:15 Troponin I < 0.02 ng/mL (0-1.5) 01/30/17 05:15 Total Protein 7.0 g/dL (6.4-8.2) 01/30/17 05:15 Albumin 2.3 g/dL (3.4-5.0) L 01/30/17 05:15 Globulin 4.7 g/dL (2.5-4.5) H 01/30/17 05:15 Albumin/Globulin Ratio 0.5 Ratio (1.1-2.1) L 01/30/17 05:15 Triglycerides 121 mg/dL (0-150) 01/30/17 05:15 Cholesterol 112 mg/dL (0-200) 01/30/17 05:15 Specimen Type Clean catch urine 01/30/17 07:35 Urine Color Yellow (YELLOW) 01/30/17 07:35 Urine Appearance Cloudy (CLEAR) 01/30/17 07:35 Urine pH 6.0 (5.0 - 8.0) 01/30/17 07:35 Ur Specific [place] 1.015 (1.000-1.030) 01/30/17 07:35 Urine Protein 3+ (NEGATIVE) 01/30/17 07:35 Urine Glucose (UA) Negative (NEGATIVE) 01/30/17 07:35 Urine Ketones Negative (NEGATIVE) 01/30/17 07:35 Urine Occult Blood 4+ (NEGATIVE) 01/30/17 07:35 Urine Nitrite Negative (NEGATIVE) 01/30/17 07:35 Urine Bilirubin Negative (NEGATIVE) 01/30/17 07:35 Urine Urobilinogen Normal (NORMAL) 01/30/17 07:35 Ur Leukocyte Esterase 3+ (NEGATIVE) 01/30/17 07:35 Urine RBC 10-15 /HPF (NEGATIVE) 01/30/17 07:35 Urine WBC Tntc /HPF (NEGATIVE) 01/30/17 07:35 Ur Squamous Epith Cells Rare /HPF (NEGATIVE) 01/30/17 07:35 Urine Bacteria Trace /HPF (NEGATIVE) 01/30/17 07:35 Ur Culture Indicated? Yes/culture set up 01/30/17 07:35 - EKG Rhythm: NSR (NOTED), ST - Diagnosis Discharge Problem: Dehydration, Renal insufficiency, Generalized weakness, Hyperkalemia UTI (urinary tract infection) Qualifiers: Urinary tract infection type: urethritis Qualified Code(s): N34.2 - Other urethritis - Discharge Plan Disposition: 09 ADMITTED INPATIENT Condition: Stable - Follow ups/Referrals - Instructions
[2017-01-29] MEDS ORDERED: NIFEDIPINE CAP 10 MG PO ONE (20:59)
[2017-01-29] MEDS ORDERED: NS 1000 ML 1,000 ML IV SCH (22:00)
[2017-01-29 22:59] LABS: BILIRUBIN,URINE NEGATIVE (NEGATIVE); BLOOD/HEMOGLOBIN,URINE 3+ (NEGATIVE); GLUCOSE, URINE NEGATIVE (NEGATIVE); KETONES,URINE NEGATIVE (NEGATIVE); LEUKOCYTE ESTERASE ,URINE 3+ (NEGATIVE); NITRITES,URINE NEGATIVE (NEGATIVE); PROTEIN,URINE 3+ (NEGATIVE); UROBILINOGEN,URINE NORMAL (NORMAL)
[2017-01-29 23:07] VITALS: BMI 39.9
[2017-01-29 23:07] LABS: APPEARANCE,URINE CLOUDY (CLEAR); BACTERIA,URINE 1+ /HPF (NEGATIVE); COLOR,URINE YELLOW (YELLOW); RBC,URINE TNTC /HPF (NEGATIVE); SQUAMOUS EPITHELIAL CELL,UR RARE /HPF (NEGATIVE)
[2017-01-29 23:23] LABS: CREATINE KINASE 25 Units/L (26-192); CREATINE KINASE MB < 1.0 ng/mL (0-4.0); TROPONIN I < 0.02 ng/mL (0-1.5)
[2017-01-30 05:45] LABS: CALCIUM 8.4 mg/dL (8.5-10.1); CREATININE 3.02 mg/dL (0.55-1.02)
[2017-01-30 06:07] LABS: ALBUMIN 2.3 g/dL (3.4-5.0); COR CA(FOR HYPOALB) 9.8 mg/dL (8.5-10.1); MAGNESIUM 2.5 mg/dL (1.7-2.9)
[2017-01-30 06:15] LABS: BASOPHILS % (AUTO) 0.5 % (0.2-1.0); EOSINOPHILS # (AUTO) 0.1 x10^3/uL (0.0-0.2); EOSINOPHILS % (AUTO) 1.2 % (0.9-2.9); HEMATOCRIT 25.4 % (36.0-47.0); HEMOGLOBIN 8.3 g/dL (12.0-16.0); LYMPHOCYTES # (AUTO) 0.9 X10^3/uL (1.3-2.9); LYMPHOCYTES % (AUTO) 11.7 % (21.0-51.0); MEAN CORPUSCULAR HEMOGLOBIN 27.6 pg (27.0-34.0); MEAN CORPUSCULAR HGB CONC 32.6 g/dL (33.0-35.0); MEAN CORPUSCULAR VOLUME 84.6 fL (80.0-100.0); MEAN PLATELET VOLUME 10.8 fL (7.4-11.0); MONOCYTES # (AUTO) 0.6 x10^3/uL (0.3-0.8); MONOCYTES % (AUTO) 7.6 % (0.0-13.0); NEUTROPHILS # (AUTO) 6.3 x10^3/uL (2.2-4.8); PLATELET COUNT 131 X10^3/uL (150.0-450.0); RED BLOOD COUNT 3.01 X10^6/uL (3.5-5.4); RED CELL DISTRIBUTION WIDTH 15.2 % (11.6-16.5)
[2017-01-30 06:40] LABS: CKMB % 2.5 % (<4); CREATINE KINASE 40 Units/L (26-192); CREATINE KINASE MB < 1.0 ng/mL (0-4.0); TROPONIN I < 0.02 ng/mL (0-1.5)
[2017-01-30] MEDS ORDERED: TYLENOL SUPP 650 MG PR PRN ×2 (06:41→11:47)
[2017-01-30] MEDS ORDERED: TYLENOL 325 MG TAB PO PRN (06:41)
[2017-01-30 07:43] LABS: BILIRUBIN,URINE NEGATIVE (NEGATIVE); BLOOD/HEMOGLOBIN,URINE 4+ (NEGATIVE); GLUCOSE, URINE NEGATIVE (NEGATIVE); KETONES,URINE NEGATIVE (NEGATIVE); LEUKOCYTE ESTERASE ,URINE 3+ (NEGATIVE); NITRITES,URINE NEGATIVE (NEGATIVE); PROTEIN,URINE 3+ (NEGATIVE); UROBILINOGEN,URINE NORMAL (NORMAL)
[2017-01-30 07:58] LABS: APPEARANCE,URINE CLOUDY (CLEAR); BACTERIA,URINE TRACE /HPF (NEGATIVE); COLOR,URINE YELLOW (YELLOW); SQUAMOUS EPITHELIAL CELL,UR RARE /HPF (NEGATIVE)
[2017-01-30] MEDS: NS 1000 ML 1,000 ML IV SCH ×2 (10:00→18:40)
[2017-01-30 12:26] LABS: CHOL/HDL RATIO 5.3 (0.0-5.0)
--- NOTE | 2017-01-30 13:41 | DR.H&P ---
H&P - History & Physical for Day of: H&P Date: 01/29/17 - Chief Complaint Chief Complaint: PT SENT TO ER WITH ABNORMAL LAB RESULTS, INCREASED LETHARGY AND HYPOTENSION - Allergies Allergies/Adverse Reactions: Allergies Allergy/AdvReac Type Severity Reaction Status Date / Time meperidine Allergy Verified 01/29/17 21:18 - History of Present Illness History of Present Illness: patient is a 61-year-old white female who is a resident at [facility]. Patient was sent to the emergency room for further evaluation after nursing reports patient has increased lethargic decreased blood pressure and abnormal chemistry findings. Patient had elevated potassium on recent chemistry report. patient does have a past medical history of diabetes and hypertension and some chronic renal insufficiency. Patient was admitted for further evaluation of new onset symptoms of weakness and hypotension. We'll obtain cardiac enzymes, blood pressure monitoring, supplemental O2, repeat a.m. labs - Past Medical History Past Medical History: Arthritis, CHF, Coronary Artery Disease, Diabetes, Dyslipidemia, Hypertension - Past Surgical History Surgical History: Unknown - Family History Family Medical History: Diabetes Mellitus, Coronary Artery Disease, Hypertension - Social History Does patient currently use any type of tobacco product: No Have you used tobacco products in the last 12 months: No Type of Tobacco Use: None Does any household member use tobacco: No Alcohol Use: None Drug Use: None - Medications Home Medications: Pregabalin [LYRICA 100 MG *] 1 cap PO BID 01/29/17 [History Confirmed 01/29/17] - Review of Systems Constitutional: Weakness, Malaise Eyes: No Symptoms Reported ENT: No Symptoms Reported Respiratory: Wheezing Cardiovascular: No Symptoms Reported Gastrointestinal: No Symptoms Reported Genitourinary: No Symptoms Reported Musculoskeletal: No Symptoms Reported Skin: Bruising Neurological: Weakness - Physical Exam Vital Signs: Temperature 98.6 F Pulse Rate [Left] 106 Pulse Rate 21 Respiratory Rate 33 Blood Pressure [Left Arm] 105/51 Blood Pressure [Right Arm] 92/54 Blood Pressure 149/56 O2 Sat by Pulse Oximetry 98 Oriented: Person Eyes: Normal Ear: Normal Nose: Normal Throat: Dry Respiratory: Wheezes Throughout, RLL Diminished, LLL Diminished Cardiovascular: Normal : Normal Auscultation: Bowel Sounds: Normal Palpation: Normal Tenderness: Normal Skin: Decreased [place]urg[place] Musculoskeletal: Motor Deficit Affect: Anxious Speech Pattern: Clear, Delayed - Assessment/Plan (1) Renal insufficiency Status: Acute Plan: plan to admit for further evaluation of acute on chronic renal insufficiency, gentle IV hydration, repeat a.m. labs, blood pressure monitoring , serial cardiac enzymes, strict I's and O's, chest x-ray. Blood and urine cultures, start patient on IV Rocephin 1 g daily (2) Dehydration Status: Acute (3) Generalized weakness Status: Acute (4) UTI (urinary tract infection) Qualifiers: Urinary tract infection type: urethritis Qualified Code(s): N34.2 - Other urethritis Status: Acute (5) CAD (coronary artery disease) Status: Chronic (6) Diabetes mellitus, type II Status: Chronic (7) HTN (hypertension) Qualifiers: Hypertension type: essential hypertension Qualified Code(s): I10 - Essential (primary) hypertension Status: Chronic
[2017-01-30] MEDS ORDERED: ROCEPHIN VIAL 1 GM 1 GM in NS 100 ML IV 100 ML IV SCH (13:45)
--- NOTE | 2017-01-30 13:51 | PCM.PROG ---
Progress Note - Progress Note for Day of Date: 01/30/17 - Subjective Subjective: patient is a 61-year-old white female who was admitted late yesterday evening after coming to the emergency room for evaluation of abnormal laboratory findings as well as increased lethargic. We ordered a chest x-ray stat this a.m. for patient due to increased central rhonchi on examination as well as bilateral diminished lung bases. Patient appeared to be in moderate respiratory distress, ABG ordered, patient made to ICU for continuous cardiac monitoring. Patient on IV Rocephin daily, consult respiratory for sputum culture as well as supplemental O2 and respiratory therapy. Will repeat a.m. labs - Past Medical Family Social History Past Med/Fam/Surg Hx: No changes since H&P Allergies: Allergies meperidine Allergy (Verified 01/29/17 21:18) - Review of Systems ROS: No change since H&P - Vital Signs and I&O's Vital Signs: Temperature 98.6 F Pulse Rate [Left] 106 Pulse Rate 21 Respiratory Rate 33 Blood Pressure [Left Arm] 105/51 Blood Pressure [Right Arm] 92/54 Blood Pressure 149/56 O2 Sat by Pulse Oximetry 98 Intake and Output: Intake & Output 01/28/17 01/29/17 01/30/17 01/31/17 11:59 11:59 11:59 11:59 Intake Total 240 Balance 240 - Physical Exam Oriented: Person Eyes: Normal Ear: Normal Nose: Normal Throat: Dry Cardiovascular: Normal : Normal Auscultation: Bowel Sounds: Normal Tenderness: Normal Skin: Decreased Turgur Musculoskeletal: Motor Deficit Affect: Anxious Speech Pattern: Clear, Delayed - Laboratory and Diagnostics Result Diagrams: 01/30/17 05:15 01/30/17 05:15 Labs: Laboratory WBC 8.0 X10^3/uL (3.6-10.0) 01/30/17 05:15 RBC 3.01 X10^6/uL (3.5-5.4) L 01/30/17 05:15 Hgb 8.3 g/dL (12.0-16.0) L 01/30/17 05:15 Hct 25.4 % (36.0-47.0) L 01/30/17 05:15 MCV 84.6 fL (80.0-100.0) 01/30/17 05:15 MCH 27.6 pg (27.0-34.0) 01/30/17 05:15 MCHC 32.6 g/dL (33.0-35.0) L 01/30/17 05:15 RDW 15.2 % (11.6-16.5) 01/30/17 05:15 Plt Count 131 X10^3/uL (150.0-450.0) L 01/30/17 05:15 MPV 10.8 fL (7.4-11.0) 01/30/17 05:15 Neut % 79.0 % (42.0-75.0) H 01/30/17 05:15 Lymph % 11.7 % (21.0-51.0) L 01/30/17 05:15 [place] % 7.6 % (0.0-13.0) 01/30/17 05:15 Eos % 1.2 % (0.9-2.9) 01/30/17 05:15 Baso % 0.5 % (0.2-1.0) 01/30/17 05:15 Neut # 6.3 x10^3/uL (2.2-4.8) H 01/30/17 05:15 Lymph # 0.9 X10^3/uL (1.3-2.9) L 01/30/17 05:15 [place] # 0.6 x10^3/uL (0.3-0.8) 01/30/17 05:15 Eos # 0.1 x10^3/uL (0.0-0.2) 01/30/17 05:15 Baso # 0.0 X10^3/uL (0.0-0.1) 01/30/17 05:15 Absolute Nucleated RBC 0.0 /100WBC 01/30/17 05:15 INR Target Range - 01/30/17 05:15 INR 1.89 (0.8-1.3) H 01/30/17 05:15 PTT 34.3 SECONDS (22.9-36.5) 01/30/17 05:15 PTT Comment - 01/30/17 05:15 Sodium 140 mmol/L (136-145) 01/30/17 05:15 Corrected Sodium 141 mmol/L (136-145) 01/30/17 05:15 Potassium 4.8 mmol/L (3.5-5.1) 01/30/17 05:15 Chloride 102 mmol/L (98-107) 01/30/17 05:15 Carbon Dioxide 28.0 mmol/L (21-32) 01/30/17 05:15 BUN 60 mg/dL (7-18) H 01/30/17 05:15 Creatinine 3.02 mg/dL (0.55-1.02) H 01/30/17 05:15 Est GFR (MDRD) Af Amer 20 (>60) L 01/30/17 05:15 Est GFR (MDRD) Non-Af 17 (>60) L 01/30/17 05:15 Glucose 132 mg/dL (65-99) H 01/30/17 05:15 POC Glucose (mg/dL) 138 mg/dL (65-99) H 01/30/17 10:58 Lactic Acid 0.7 mmol/L (0.4-2.0) 01/30/17 07:12 Calcium 8.4 mg/dL (8.5-10.1) L 01/30/17 05:15 Corrected Calcium 9.8 mg/dL (8.5-10.1) 01/30/17 05:15 Magnesium 2.5 mg/dL (1.7-2.9) 01/30/17 05:15 Total Bilirubin 0.50 mg/dL (0.2-1.0) 01/30/17 05:15 AST 11 Units/L (15-37) L 01/30/17 05:15 ALT 8 Units/L (12-78) L 01/30/17 05:15 Alkaline Phosphatase 80 Units/L (46-116) 01/30/17 05:15 Creatine Kinase 40 Units/L (26-192) 01/30/17 05:15 CK-MB (CK-2) < 1.0 ng/mL (0-4.0) 01/30/17 05:15 CK/CKMB % Calc 2.5 % (<4) 01/30/17 05:15 Troponin I < 0.02 ng/mL (0-1.5) 01/30/17 05:15 Total Protein 7.0 g/dL (6.4-8.2) 01/30/17 05:15 Albumin 2.3 g/dL (3.4-5.0) L 01/30/17 05:15 Globulin 4.7 g/dL (2.5-4.5) H 01/30/17 05:15 Albumin/Globulin Ratio 0.5 Ratio (1.1-2.1) L 01/30/17 05:15 Triglycerides 121 mg/dL (0-150) 01/30/17 05:15 Cholesterol 112 mg/dL (0-200) 01/30/17 05:15 LDL Cholesterol, Calc 67 mg/dL (0-100) 01/30/17 05:15 HDL Cholesterol 21 mg/dL (40-60) L 01/30/17 05:15 Cholesterol/HDL Ratio 5.3 (0.0-5.0) H 01/30/17 05:15 Specimen Type Clean catch urine 01/30/17 07:35 Urine Color Yellow (YELLOW) 01/30/17 07:35 Urine Appearance Cloudy (CLEAR) 01/30/17 07:35 Urine pH 6.0 (5.0 - 8.0) 01/30/17 07:35 Ur Specific [place] 1.015 (1.000-1.030) 01/30/17 07:35 Urine Protein 3+ (NEGATIVE) 01/30/17 07:35 Urine Glucose (UA) Negative (NEGATIVE) 01/30/17 07:35 Urine Ketones Negative (NEGATIVE) 01/30/17 07:35 Urine Occult Blood 4+ (NEGATIVE) 01/30/17 07:35 Urine Nitrite Negative (NEGATIVE) 01/30/17 07:35 Urine Bilirubin Negative (NEGATIVE) 01/30/17 07:35 Urine Urobilinogen Normal (NORMAL) 01/30/17 07:35 Ur Leukocyte Esterase 3+ (NEGATIVE) 01/30/17 07:35 Urine RBC 10-15 /HPF (NEGATIVE) 01/30/17 07:35 Urine WBC Tntc /HPF (NEGATIVE) 01/30/17 07:35 Ur Squamous Epith Cells Rare /HPF (NEGATIVE) 01/30/17 07:35 Urine Bacteria Trace /HPF (NEGATIVE) 01/30/17 07:35 Ur Culture Indicated? Yes/culture set up 01/30/17 07:35 - Plan (1) Respiratory distress Status: Acute Plan: STAT CXR, ABD, RESP CONSULT. SPUTUM CULTURES, SUPPLEMENTAL O2 (2) UTI (urinary tract infection) Status: Acute Qualifiers: Urinary tract infection type: urethritis Qualified Code(s): N34.2 - Other urethritis Plan: URINE CULTURE PENDING, IV ROCEPHIN 1GM DAILY (3) Renal insufficiency Status: Acute Plan: BP MONITORING, I & OS. AM LABS, GENTLE IV HYDRATION (4) Dehydration Status: Acute (5) Generalized weakness Status: Acute (6) CAD (coronary artery disease) Status: Chronic (7) Diabetes mellitus, type II Status: Chronic (8) HTN (hypertension) Status: Chronic Qualifiers: Hypertension type: essential hypertension Qualified Code(s): I10 - Essential (primary) hypertension
--- NOTE | 2017-01-30 16:48 | RAD ---
Findings: Examination: Portable AP chest History: SOB, hypertension and CHF Comparison reference: 12/28/2016 Findings: Stable cardiac enlargement. Diffuse interstitial infiltrates are similar to prior study. No discrete mass, localized consolidation or large pleural effusion. Impression: Persistent cardiac enlargement with pulmonary changes described consistent with CHF and p ulmonary edema. Associated inflammatory component may be present. Reported By:
[2017-01-30] MEDS ORDERED: TYGACIL 50 MG VIAL 100 MG in NS 100 ML IV 100 ML IV ONE (18:05)
[2017-01-30] MEDS ORDERED: NS 1000 ML 1,000 ML ONE (18:30)
[2017-01-30] MEDS: LYRICA CAP 100 MG PO SCH (20:55)
[2017-01-30] MEDS: TYLENOL 325 MG TAB PO PRN (20:56)
[2017-01-30] MEDS: COREG TAB 6.25 MG PO SCH (20:56)
[2017-01-30] MEDS ORDERED: LIPITOR TAB 40 MG PO SCH (21:00)
[2017-01-31] MEDS: NS 1000 ML 1,000 ML IV SCH ×3 (01:23→03:04)
[2017-01-31] MEDS ORDERED: NS 100 ML IV + SPIKE MINIBAG* 0 ML IV ONE (03:47)
[2017-01-31] MEDS ORDERED: NS 100 ML IV 100 ML IV ONE ×2 (03:48)
[2017-01-31] MEDS ORDERED: TOBRAMYCIN SULFATE ONE (03:48)
[2017-01-31] MEDS ORDERED: MAXIPIME VIAL 1 GM ONE (03:48)
[2017-01-31] MEDS ORDERED: MAXIPIME 2 GM in NS 100 ML IV + SPIKE MINIBAG* 100 ML IV SCH (04:00)
[2017-01-31] MEDS ORDERED: NS 500 ML IV 500 ML IV ONE (04:08)
[2017-01-31] MEDS: TOBRAMYCIN SULFATE 80 MG in NS 100 ML IV 100 ML IV SCH ×3 (04:20→21:04)
[2017-01-31 05:18] LABS: ABG BASE EXCESS 2.1 mmol/L (-2.0-2.0); ABG HCO3 27.8 mmol/L (22-26)
[2017-01-31 05:19] LABS: ABG ALLEN TEST POS
[2017-01-31] MEDS ORDERED: NS 100 ML IV + SPIKE MINIBAG* 100 ML IV ONE (05:29)
[2017-01-31] MEDS: TYGACIL 50 MG VIAL 50 MG in NS 100 ML IV 100 ML IV SCH ×2 (05:39→17:32)
[2017-01-31] MEDS: TYLENOL 325 MG TAB PO PRN ×3 (05:40→21:12)
[2017-01-31 06:33] LABS: ALANINE AMINOTRANSFERASE 8 Units/L (12-78); ALBUMIN 1.9 g/dL (3.4-5.0); ALKALINE PHOSPHATASE 76 Units/L (46-116); ASPARTATE AMINO TRANSFERASE 12 Units/L (15-37); BLOOD UREA NITROGEN 46 mg/dL (7-18); CALCIUM 7.4 mg/dL (8.5-10.1); CARBON DIOXIDE 23.1 mmol/L (21-32); CHLORIDE 106 mmol/L (98-107); COR CA(FOR HYPOALB) 9.1 mg/dL (8.5-10.1); CREATININE 2.07 mg/dL (0.55-1.02); SODIUM 140 mmol/L (136-145); TOTAL PROTEIN 6.4 g/dL (6.4-8.2); eGFR BLACK RACES 31 (>60); eGFR NON BLACK RACES 26 (>60)
[2017-01-31 06:37] LABS: BASOPHILS % (AUTO) 0.7 % (0.2-1.0); EOSINOPHILS # (AUTO) 0.1 x10^3/uL (0.0-0.2); EOSINOPHILS % (AUTO) 1.8 % (0.9-2.9); HEMATOCRIT 23.7 % (36.0-47.0); HEMOGLOBIN 7.6 g/dL (12.0-16.0); LYMPHOCYTES # (AUTO) 1.3 X10^3/uL (1.3-2.9); LYMPHOCYTES % (AUTO) 20.3 % (21.0-51.0); MEAN CORPUSCULAR HEMOGLOBIN 27.4 pg (27.0-34.0); MEAN CORPUSCULAR VOLUME 85.5 fL (80.0-100.0); MEAN PLATELET VOLUME 10.7 fL (7.4-11.0); MONOCYTES # (AUTO) 0.5 x10^3/uL (0.3-0.8); MONOCYTES % (AUTO) 8.2 % (0.0-13.0); NEUTROPHILS # (AUTO) 4.3 x10^3/uL (2.2-4.8); PLATELET COUNT 132 X10^3/uL (150.0-450.0); RED BLOOD COUNT 2.77 X10^6/uL (3.5-5.4); RED CELL DISTRIBUTION WIDTH 15.4 % (11.6-16.5); WHITE BLOOD COUNT 6.2 X10^3/uL (3.6-10.0)
[2017-01-31 07:01] LABS: HYPOCHROMASIA 1+; PLATELET MORPHOLOGY COMMENT NORMAL (NORMAL)
[2017-01-31] MEDS ORDERED: ZESTRIL TAB 10 MG PO SCH ×2 (09:00→09:15)
[2017-01-31] MEDS ORDERED: LASIX PO SCH (09:00)
[2017-01-31] MEDS ORDERED: PROCRIT or EPOGEN SC ONE (09:31)
[2017-01-31] MEDS: COREG TAB 6.25 MG PO SCH ×2 (10:09→21:04)
[2017-01-31] MEDS: ASPIRIN EC 81 MG PO SCH (11:13)
[2017-01-31] MEDS: LYRICA CAP 100 MG PO SCH (21:04)
[2017-02-01] MEDS: NS 1000 ML 1,000 ML IV SCH ×2 (03:57→05:57)
[2017-02-01 06:56] LABS: BASOPHILS # (AUTO) 0.1 X10^3/uL (0.0-0.1); EOSINOPHILS # (AUTO) 0.2 x10^3/uL (0.0-0.2); HEMATOCRIT 25.2 % (36.0-47.0); HEMOGLOBIN 8.1 g/dL (12.0-16.0); LYMPHOCYTES # (AUTO) 1.1 X10^3/uL (1.3-2.9); LYMPHOCYTES % (AUTO) 18.4 % (21.0-51.0); MEAN CORPUSCULAR HEMOGLOBIN 27.4 pg (27.0-34.0); MEAN CORPUSCULAR HGB CONC 32.2 g/dL (33.0-35.0); MEAN PLATELET VOLUME 10.2 fL (7.4-11.0); MONOCYTES # (AUTO) 0.4 x10^3/uL (0.3-0.8); MONOCYTES % (AUTO) 7.2 % (0.0-13.0); NEUTROPHILS # (AUTO) 4.4 x10^3/uL (2.2-4.8); NEUTROPHILS % (AUTO) 70.4 % (42.0-75.0); PLATELET COUNT 155 X10^3/uL (150.0-450.0); RED BLOOD COUNT 2.97 X10^6/uL (3.5-5.4); RED CELL DISTRIBUTION WIDTH 15.2 % (11.6-16.5); WHITE BLOOD COUNT 6.2 X10^3/uL (3.6-10.0)
[2017-02-01 07:07] LABS: ALANINE AMINOTRANSFERASE 7 Units/L (12-78); ALBUMIN 2.1 g/dL (3.4-5.0); ALKALINE PHOSPHATASE 87 Units/L (46-116); ASPARTATE AMINO TRANSFERASE 12 Units/L (15-37); BLOOD UREA NITROGEN 40 mg/dL (7-18); CARBON DIOXIDE 22.6 mmol/L (21-32); CHLORIDE 106 mmol/L (98-107); COR CA(FOR HYPOALB) 9.5 mg/dL (8.5-10.1); CREATININE 1.79 mg/dL (0.55-1.02); SODIUM 141 mmol/L (136-145); TOTAL PROTEIN 7.1 g/dL (6.4-8.2); eGFR BLACK RACES 37 (>60); eGFR NON BLACK RACES 30 (>60)
[2017-02-01] MEDS: ASPIRIN EC 81 MG PO SCH (08:33)
[2017-02-01] MEDS: COREG TAB 6.25 MG PO SCH (08:33)
[2017-02-01] MEDS ORDERED: MAXIPIME 1 GM IV PREMIX 1 GM/50 ML BAG IV SCH (09:00)
[2017-02-01] MEDS ORDERED: DULCOLAX SUPPOSITORY 10 MG RECTAL ONE (09:21)
[2017-02-01] MEDS ORDERED: NS 100 ML IV 200 ML IV ONE (09:25)
[2017-02-01] MEDS: TYGACIL 50 MG VIAL 50 MG in NS 100 ML IV 100 ML IV SCH (09:41)
[2017-02-01] MEDS: TOBRAMYCIN SULFATE 80 MG in NS 100 ML IV 100 ML IV SCH (09:41)
[2017-02-01] MEDS ORDERED: COLACE CAP 100 MG PO SCH (10:00)
[2017-02-01] MEDS ORDERED: MILK OF MAGNESIA PO SCH (10:00)
[2017-02-01 11:29] VITALS: BP 183/76
== END 2017-02-01 11:55 | DRG 682 ==
LOC: ER 15:30 → MED/SURG 20:49 → ICU 01-30 09:15
PROVIDERS: ADMIT Internal Medicine; ATTEND Obstetrics & Gynecology Obstetrics
DX: N18.9 Chronic kidney disease, unspecified (principal); E87.5 Hyperkalemia; L89.623 Pressure ulcer of left heel, stage 3; R06.03 Acute respiratory distress; E86.0 Dehydration; R94.4 Abnormal results of kidney function studies; I95.89 Other hypotension; I25.10 Atherosclerotic heart disease of native coronary artery without angina pectoris; E11.65 Type 2 diabetes mellitus with hyperglycemia; E78.2 Mixed hyperlipidemia; I12.9 Hypertensive chronic kidney disease with stage 1 through stage 4 chronic kidney disease, or unspecified chronic kidney disease; R06.02 Shortness of breath; N34.2 Other urethritis; R39.2 Extrarenal uremia
CPT/HCPCS: 36415; 36600; 51701; 71010; 80053; 80061; 81001; 82550; 82553; 82803; 83605; 83735; 84484; 85025; 85610; 85730; 87040; 87086; 93005; 93010; 94760; 96365; 99221; 99284; A4222; J0692; J0696; J0885; J3260

== ENCOUNTER → 2017-02-13 | Outpatient (CLI) | payer OTHER, MEDICAID ==
[2017-02-01 11:29] VITALS: BP 183/76
[2017-02-13 20:06] LABS: ABG BASE EXCESS 5.2 mmol/L (-2.0-2.0)
[2017-02-13 20:07] LABS: ABG ALLEN TEST POS; ABG HCO3 31.8 mmol/L (22-26); FRACTIONATED INSPIRED OXYGEN 32
== END ==
LOC: RT 18:56
PROVIDERS: ATTEND Obstetrics & Gynecology Obstetrics
DX: R40.0 Somnolence (principal)
CPT/HCPCS: 36600; 82803

== ENCOUNTER → 2017-02-20 | Outpatient (CLI) | payer OTHER, MEDICAID ==
[2017-02-01 11:29] VITALS: BP 183/76
--- NOTE | 2017-02-21 13:42 | US ---
HISTORY: Pelvic pain. Study: Pelvic ultrasound: Multiplanar ultrasonographic examination of the pelvis was performed. Comparison: None Findings: Examination quality is deep crease secondary to patient body habitus. On the images submitted to sc the uterus is of normal size, echogenicity and echotexture measuring 5. 5 cm in length by 1.8 x 5.1 cm. Examination of the right adnexa reveals a soft tissue structure measuring 1.7 x 1.3 x 2.1 cm felt to represent a normal-appearing right ovary. Examination of the left adnexa reveals a soft tissue structure measuring 2.2 x 1.5 by 2.0 cm felt to represent a normal-appearing left ovary. No evidence of free pelvic fluid is noted. The urinary bladder is markedly thick walled suggestive of possible cystitis. Clinical correlation i s recommended. The wall measures up to 10 mm in thickness in places. IMPRESSION: 1. Normal-appearing ovaries and uterus. 2. Markedly thick walled urinary bladder suggesting the possibility of acute or chronic cystitis. C linical correlation is recommended. Reported By:
== END | disposition home or self-care (01) ==
LOC: RAD 10:25
PROVIDERS: ATTEND Obstetrics & Gynecology Obstetrics
DX: R10.2 Pelvic and perineal pain (principal)
CPT/HCPCS: 76856

== ENCOUNTER 2017-02-21 12:20 | Emergency (ER) | payer OTHER, MEDICAID ==
[2017-02-21] MEDS ORDERED: NS 1000 ML 1,000 ML ONE ×2 (12:28→15:53)
--- NOTE | 2017-02-21 13:17 | DR.GENAD ---
HPI - HPI Comment HPI Comment: HERE FROM [facility] WE[facility], DIAPHORETIC AND HYPOTENSION. BEING HAVING N/V/D FOR FEW DAYS. WORSE TODAY. HAD LARGE BM IN ED. - Complaint/Symptoms Chief Complaint Doctors Comments: AMS AND HYPOTENSION TODAY. N/V/D FOR FEW DAYS. - Nurses notes reviewed Nurses Notes Review: Yes - Source History Provided: Patient - Mode of Arrival Mode of Arrival: Stretcher - Timing Came on: Suddenly - Duration Duration: Constant Duration: Days - Severity Severity: Moderate PMH - PMH Past Medical History: Arthritis, CHF, Coronary Artery Disease, Diabetes, Dyslipidemia, Hypertension Past Surgical History: No (unknown) Surgical History: Unknown - Family History Family Medical History: Diabetes Mellitus, Coronary Artery Disease, Hypertension - Social History Do you use any recreational Drugs:: No ROS - Review of Systems Constitutional: Diaphoresis, Fever, Weakness, Fatigue. negative: Chills Eyes: Blurred Vision. negative: Eye Pain, Discharge ENTM: negative: Ear Pain, Nose Discharge, Nose Congestion, Throat Pain Respiratoy: Short of Breath. negative: Productive Cough, Non-Productive Cough, Wheezing, Hemoptysis Cardiovascular: Chest Pain, Edema Gastrointestinal/Abdominal: Abdominal Pain, Diarrhea, Nausea, Vomiting Genitourinary: negative: Dysuria, Hematuria Neurological: Headache, Weakness, Dizziness Musculoskeletal: Muscle Pain Integumentary: Dryness Hematologic/Lymphatic: Easy Bleeding, Easy Bruising Endocrine: No Symptoms Reported All Other Systems: Reviewed and Negative Unable to Obtain Due To: Altered mental status PE - Vital Signs Vitals: Pulse Rate [Right Radial] 95 Pulse Rate 93 Respiratory Rate 18 Blood Pressure [Left Arm] 143/74 Blood Pressure [Right Arm] 183/76 Blood Pressure 88/54 O2 Sat by Pulse Oximetry 96 - General Limitations: No Limitations General Appearance: Alert - Head Head Exam: Normal Inspection - Eyes Eye exam: PERRL, EOMI. negative: Scleral Icterus, Conjunctival Injection - ENT ENT Exam: Normal External Ear Exam External Ear Exam: Normal External Inspection TM/Canal Exam: Bilateral Normal Nose Exam: Normal Nose Exam Mouth Exam: Normal Inspection Throat Exam: Normal Inspection - Neck Neck Exam: Normal Inspection. negative: Tenderness, Meningismus, Lymphadenopathy - Chest Chest Inspection: Symmetric Chest Wall Rise - Respiratory Respiratory Exam: Respiratory Distress Respiratory Exam: Bilateral Rhonchi, Upper Rhonchi, Lower Rhonchi - Cardiovascular Cardiovascular Exam: Regular Rate, Normal Rhythm, Normal Heart Sounds - Abdominal Exam Abdominal Exam: Normal Bowel Sounds, Soft, Tenderness Abdominal Tenderness: Diffuse, Moderate - Extremities Extremities Exam: Edema - Back Back Exam: Paraspinal Tenderness - Neurologic Neurological Exam: Alert, Other (disoriented) - Psychiatric Psychiatric Exam: Anxious - Skin Skin Exam: Normal Color MDM - Differential Diagnosis Differential Diagnosis: DEHYDRATION. ABDOMINAL PAIN, AMS, HYPOTENSIONN, UTI, Course - Treatment Treatment: SEE ORDERS. - Consultation Consultation Comments: DISCUSS PATIENT WITH BAL. HE WILL ADMIT PATIENT. - Education/Counseling Education/Counseling: Patient, Education Educated On: Treatment, Diagnosis, Needs for Follow Up ROR - Labs Reviewed Laboratory Results Reviewed?: Yes Result Diagrams: 02/22/17 04:38 02/22/17 04:38 Laboratory: 02/21/17 13:12 Stool - Final WBC 10.3 X10^3/uL (3.6-10.0) H 02/21/17 13:38 RBC 3.41 X10^6/uL (3.5-5.4) L 02/21/17 13:38 Hgb 9.0 g/dL (12.0-16.0) L 02/21/17 13:38 Hct 28.6 % (36.0-47.0) L 02/21/17 13:38 MCV 83.7 fL (80.0-100.0) 02/21/17 13:38 MCH 26.3 pg (27.0-34.0) L 02/21/17 13:38 MCHC 31.4 g/dL (33.0-35.0) L 02/21/17 13:38 RDW 15.5 % (11.6-16.5) 02/21/17 13:38 Plt Count 192 X10^3/uL (150.0-450.0) 02/21/17 13:38 MPV 10.2 fL (7.4-11.0) 02/21/17 13:38 Neut % 83.4 % (42.0-75.0) H 02/21/17 13:38 Lymph % 10.5 % (21.0-51.0) L 02/21/17 13:38 [place] % 3.6 % (0.0-13.0) 02/21/17 13:38 Eos % 1.6 % (0.9-2.9) 02/21/17 13:38 Baso % 0.9 % (0.2-1.0) 02/21/17 13:38 Neut # 8.6 x10^3/uL (2.2-4.8) H 02/21/17 13:38 Lymph # 1.1 X10^3/uL (1.3-2.9) L 02/21/17 13:38 [place] # 0.4 x10^3/uL (0.3-0.8) 02/21/17 13:38 Eos # 0.2 x10^3/uL (0.0-0.2) 02/21/17 13:38 Baso # 0.1 X10^3/uL (0.0-0.1) 02/21/17 13:38 Absolute Nucleated RBC 0.0 /100WBC 02/21/17 13:38 Sodium 140 mmol/L (136-145) 02/21/17 13:38 Corrected Sodium 143 mmol/L (136-145) 02/21/17 13:38 Potassium 5.3 mmol/L (3.5-5.1) H 02/21/17 13:38 Chloride 103 mmol/L (98-107) 02/21/17 13:38 Carbon Dioxide 28.0 mmol/L (21-32) 02/21/17 13:38 BUN 54 mg/dL (7-18) H 02/21/17 13:38 Creatinine 3.82 mg/dL (0.55-1.02) H 02/21/17 13:38 Est GFR (MDRD) Af Amer 15 (>60) L 02/21/17 13:38 Est GFR (MDRD) Non-Af 13 (>60) L 02/21/17 13:38 Glucose 209 mg/dL (65-99) H 02/21/17 13:38 Lactic Acid 1.1 mmol/L (0.4-2.0) 02/21/17 13:38 Calcium 9.2 mg/dL (8.5-10.1) 02/21/17 13:38 Corrected Calcium 10.6 mg/dL (8.5-10.1) H 02/21/17 13:38 Total Bilirubin 0.40 mg/dL (0.2-1.0) 02/21/17 13:38 AST 15 Units/L (15-37) 02/21/17 13:38 ALT 13 Units/L (12-78) 02/21/17 13:38 Alkaline Phosphatase 83 Units/L (46-116) 02/21/17 13:38 C-Reactive Protein 84.40 mg/L (0-3.0) H 02/21/17 13:38 Total Protein 7.7 g/dL (6.4-8.2) 02/21/17 13:38 Albumin 2.3 g/dL (3.4-5.0) L 02/21/17 13:38 Globulin 5.4 g/dL (2.5-4.5) H 02/21/17 13:38 Albumin/Globulin Ratio 0.4 Ratio (1.1-2.1) L 02/21/17 13:38 Amylase 88 Units/L (25-115) 02/21/17 13:38 Lipase 133 Units/L (73-393) 02/21/17 13:38 Specimen Type Catherized urine 02/21/17 13:46 Urine Color Yellow (YELLOW) 02/21/17 13:46 Urine Appearance Cloudy (CLEAR) 02/21/17 13:46 Urine pH 7.0 (5.0 - 8.0) 02/21/17 13:46 Ur Specific [place] 1.010 (1.000-1.030) 02/21/17 13:46 Urine Protein 4+ (NEGATIVE) 02/21/17 13:46 Urine Glucose (UA) Negative (NEGATIVE) 02/21/17 13:46 Urine Ketones Negative (NEGATIVE) 02/21/17 13:46 Urine Occult Blood 5+ (NEGATIVE) 02/21/17 13:46 Urine Nitrite Negative (NEGATIVE) 02/21/17 13:46 Urine Bilirubin Negative (NEGATIVE) 02/21/17 13:46 Urine Urobilinogen Normal (NORMAL) 02/21/17 13:46 Ur Leukocyte Esterase 3+ (NEGATIVE) 02/21/17 13:46 Urine RBC 15-20 /HPF (NEGATIVE) 02/21/17 13:46 Urine WBC Tntc /HPF (NEGATIVE) 02/21/17 13:46 Ur Squamous Epith Cells Few /HPF (NEGATIVE) 02/21/17 13:46 Urine Bacteria 3+ /HPF (NEGATIVE) 02/21/17 13:46 Ur Culture Indicated? Yes/culture set up 02/21/17 13:46 Stool Description 50g,brown,slt.formed 02/21/17 13:12 Stool for White Cells Negative (NEGATIVE) 02/21/17 13:12 Stl C. diff Tox B Gene Negative (NEGATIVE) 02/21/17 13:12 Stl C. diff [id number] Negative (NEGATIVE) 02/21/17 13:12 Cryptosporid parvum Ag Negative (NEGATIVE) 02/21/17 13:12 E. histolytica Antigen Negative (NEGATIVE) 02/21/17 13:12 Giardia lamblia Ag Negative (NEGATIVE) 02/21/17 13:12 - XRAY XRAY Interpreted by: Radiologist XRAY Findings: REPORT DISCUSS WITH PATIENT. - EKG Rhythm: NSR (EKG NOTED) - Diagnosis Discharge Problem: Dehydration, Acute gastroenteritis Abdominal pain Qualifiers: Abdominal location: generalized Qualified Code(s): R10.84 - Generalized abdominal pain Hypotension Qualifiers: Hypotension type: unspecified hypotension type Qualified Code(s): I95.9 - Hypotension, unspecified UTI (urinary tract infection) Qualifiers: Urinary tract infection type: site unspecified Hematuria presence: with hematuria Qualified Code(s): N39.0 - Urinary tract infection, site not specified - Discharge Plan Disposition: 09 ADMITTED INPATIENT Condition: Stable - Follow ups/Referrals - Instructions
[2017-02-21 13:20] VITALS: BMI 40.3
[2017-02-21] MEDS: NS 1000 ML 1,000 ML IV SCH ×2 (13:34→23:24)
--- NOTE | 2017-02-21 13:38 | RAD ---
Examination: AP chest History: Abdominal pain, low blood pressure Comparison reference 01/30/2017 Findings:The heart size is now upper normal. There is pulmonary vascular distention with mild interst itial prominence. There is no consolidation, pneumothorax or large pleural effusion. Impression: Persistent pulmonary vascular dilatation although the radiographic findings of CHF and pe rivascular edema have improved since prior study. Reported By:
[2017-02-21 13:50] LABS: BASOPHILS # (AUTO) 0.1 X10^3/uL (0.0-0.1); BASOPHILS % (AUTO) 0.9 % (0.2-1.0); EOSINOPHILS # (AUTO) 0.2 x10^3/uL (0.0-0.2); EOSINOPHILS % (AUTO) 1.6 % (0.9-2.9); HEMATOCRIT 28.6 % (36.0-47.0); LYMPHOCYTES # (AUTO) 1.1 X10^3/uL (1.3-2.9); LYMPHOCYTES % (AUTO) 10.5 % (21.0-51.0); MEAN CORPUSCULAR HEMOGLOBIN 26.3 pg (27.0-34.0); MEAN CORPUSCULAR HGB CONC 31.4 g/dL (33.0-35.0); MEAN CORPUSCULAR VOLUME 83.7 fL (80.0-100.0); MEAN PLATELET VOLUME 10.2 fL (7.4-11.0); MONOCYTES # (AUTO) 0.4 x10^3/uL (0.3-0.8); MONOCYTES % (AUTO) 3.6 % (0.0-13.0); NEUTROPHILS # (AUTO) 8.6 x10^3/uL (2.2-4.8); NEUTROPHILS % (AUTO) 83.4 % (42.0-75.0); PLATELET COUNT 192 X10^3/uL (150.0-450.0); RED BLOOD COUNT 3.41 X10^6/uL (3.5-5.4); RED CELL DISTRIBUTION WIDTH 15.5 % (11.6-16.5); WHITE BLOOD COUNT 10.3 X10^3/uL (3.6-10.0)
[2017-02-21 13:56] LABS: BILIRUBIN,URINE NEGATIVE (NEGATIVE); BLOOD/HEMOGLOBIN,URINE 5+ (NEGATIVE); GLUCOSE, URINE NEGATIVE (NEGATIVE); KETONES,URINE NEGATIVE (NEGATIVE); LEUKOCYTE ESTERASE ,URINE 3+ (NEGATIVE); NITRITES,URINE NEGATIVE (NEGATIVE); PROTEIN,URINE 4+ (NEGATIVE); UROBILINOGEN,URINE NORMAL (NORMAL)
[2017-02-21 14:04] LABS: ALBUMIN 2.3 g/dL (3.4-5.0); C-REACTIVE PROTEIN 84.4 mg/L (0-3.0); CALCIUM 9.2 mg/dL (8.5-10.1); COR CA(FOR HYPOALB) 10.6 mg/dL (8.5-10.1); CREATININE 3.82 mg/dL (0.55-1.02); TOTAL PROTEIN 7.7 g/dL (6.4-8.2)
[2017-02-21 14:10] LABS: APPEARANCE,URINE CLOUDY (CLEAR); COLOR,URINE YELLOW (YELLOW); RBC,URINE 15-20 /HPF (NEGATIVE)
[2017-02-21 14:11] LABS: BACTERIA,URINE 3+ /HPF (NEGATIVE); SQUAMOUS EPITHELIAL CELL,UR FEW /HPF (NEGATIVE)
[2017-02-21 14:17] LABS: CRYPTOSPORIDIUM PARVUM ANTIGEN NEGATIVE (NEGATIVE); GIARDIA LAMBLIA ANTIGEN NEGATIVE (NEGATIVE)
[2017-02-21 14:19] LABS: STOOL FOR WBC NEGATIVE (NEGATIVE)
--- NOTE | 2017-02-21 14:36 | CT ---
STUDY: CT HEAD WITHOUT CONTRAST HISTORY: Hypertension, diabetes, and coronary artery disease. Altered mental status. COMPARISON: Head CT from May 25, 2016. TECHNIQUE: Multiple axial images of the head were obtained from the skull base to the vertex without administration of IV contrast. Automated exposure control (AEC) was utilized to adjust the MA and/or kV. Findings: The sulci, cisterns and ventricles are age appropriate. There are confluent and scattered f oci of low attenuation in the periventricular and subcortical white matter of both hemispheres. This is a nonspecific finding which likely represents microangiopathic change in a patient of this age. There is no evidence of acute territorial infarction, hemorrhage, mass, mass effect or midline shift. There are no abnormal extra-axial fluid collections. There is no evidence of acute osseous abnormali ty or significant soft tissue swelling. IMPRESSION: 1. No evidence of acute intracranial abnormality. 2. Nonspecific white matter change. 3. If there remains strong clinical concern for acute intracranial abnormality, then an MRI examinati on should be considered for further evaluation. Reported By:
--- NOTE | 2017-02-21 14:48 | CT ---
HISTORY: Renal failure, hypertension, diabetes, hematuria Study: CT of the abdomen pelvis Technique: Serial axial images were obtained from the lung bases to the pubic symphysis without infus ion of IV contrast. Comparison: None Findings: Atelectasis and/or scarring are noted within the visualized lungs. Some of the images are degraded fr om artifact due to the patient's hands and arms overlying the abdomen. As visualized the liver, splee n, pancreas, and left adrenal are grossly unremarkable in appearance given limitations of this noncon trast exam. An extrarenal pelvis is noted on the left. Moderate dilatation of the left renal pelvis a nd left ureter are noted. The distal ureter is not seen due to extensive streak artifact from bilater al hip arthroplasty. A distal left ureteral obstruction cannot entirely be excluded. There is limited evaluation of the pelvis including the urinary bladder. It appears there is a Kulkarni catheter in plac e. Correlate clinically. By history the right kidney has been surgically removed. Evaluation of the s tomach, small bowel, and colon is limited without oral contrast. Surgical clips are noted within the gallbladder fossa. The appendix is grossly unremarkable. It appears there are old pubic ramus fractur es. Degenerative changes are seen throughout the visualized spine. Compression fractures of T12, L1, and L2 appear to be chronic in nature. Correlate clinically. IMPRESSION: Moderate dilatation of the left renal pelvis and visualized left ureter. The distal left ureter and u rinary bladder are not well evaluated due to extensive streak artifact from postoperative changes of bilateral hip arthroplasty as noted above. Right nephrectomy. Cholecystectomy. Other findings as noted above. Reported By:
[2017-02-21] MEDS ORDERED: ZOFRAN INJ 4 MG VIAL IVP PRN (15:35)
[2017-02-21] MEDS ORDERED: ULTRAM PO PRN (15:40)
[2017-02-21] MEDS: ARTIFICIAL TEARS DROPS AFFEYE SCH ×2 (16:58→21:34)
[2017-02-21] MEDS: PEPCID 20 MG IV PREMIX* 20 MG/50 ML BAG IV SCH (16:58)
[2017-02-21] MEDS: CIPRO IV 400 MG PREMIX* 400 MG/200 ML IV.SOLN. IV SCH ×2 (16:58→21:33)
[2017-02-21] MEDS ORDERED: HumuLIN R SUBCUT PRN (16:59)
[2017-02-21] MEDS ORDERED: PATIENT'S HOME MEDICATION (Ropinirole Hcl [Requip] 0.5 MG) PO SCH (21:00)
[2017-02-21] MEDS: LIPITOR TAB 40 MG PO SCH (21:33)
[2017-02-21] MEDS: REQUIP PO SCH (21:33)
[2017-02-21] MEDS: LYRICA CAP 100 MG PO SCH (21:34)
[2017-02-21] MEDS: SNACK - Diabetic Appropriate PO SCH (21:35)
[2017-02-21] MEDS: COREG TAB 6.25 MG PO SCH (21:35)
[2017-02-21] MEDS: ZADITOR EYE DROPS RIGHTEYE SCH (21:50)
[2017-02-22] MEDS: NS 1000 ML 1,000 ML IV SCH ×5 (02:28→21:44)
[2017-02-22 06:16] LABS: BASOPHILS # (AUTO) 0.1 X10^3/uL (0.0-0.1); BASOPHILS % (AUTO) 0.7 % (0.2-1.0); EOSINOPHILS # (AUTO) 0.2 x10^3/uL (0.0-0.2); EOSINOPHILS % (AUTO) 2.2 % (0.9-2.9); HEMATOCRIT 22.6 % (36.0-47.0); HEMOGLOBIN 7.3 g/dL (12.0-16.0); LYMPHOCYTES # (AUTO) 1.2 X10^3/uL (1.3-2.9); LYMPHOCYTES % (AUTO) 14.6 % (21.0-51.0); MEAN CORPUSCULAR HEMOGLOBIN 26.5 pg (27.0-34.0); MEAN CORPUSCULAR HGB CONC 32.2 g/dL (33.0-35.0); MEAN CORPUSCULAR VOLUME 82.5 fL (80.0-100.0); MEAN PLATELET VOLUME 10.4 fL (7.4-11.0); MONOCYTES # (AUTO) 0.5 x10^3/uL (0.3-0.8); MONOCYTES % (AUTO) 5.4 % (0.0-13.0); NEUTROPHILS # (AUTO) 6.6 x10^3/uL (2.2-4.8); NEUTROPHILS % (AUTO) 77.1 % (42.0-75.0); PLATELET COUNT 154 X10^3/uL (150.0-450.0); RED BLOOD COUNT 2.74 X10^6/uL (3.5-5.4); RED CELL DISTRIBUTION WIDTH 15.8 % (11.6-16.5); WHITE BLOOD COUNT 8.5 X10^3/uL (3.6-10.0)
[2017-02-22 06:38] LABS: ALANINE AMINOTRANSFERASE 13 Units/L (12-78); ALBUMIN 1.8 g/dL (3.4-5.0); ALKALINE PHOSPHATASE 64 Units/L (46-116); ASPARTATE AMINO TRANSFERASE 14 Units/L (15-37); BLOOD UREA NITROGEN 52 mg/dL (7-18); CARBON DIOXIDE 25.4 mmol/L (21-32); CHLORIDE 106 mmol/L (98-107); COR CA(FOR HYPOALB) 9.8 mg/dL (8.5-10.1); CREATININE 3.45 mg/dL (0.55-1.02); SODIUM 141 mmol/L (136-145); TOTAL PROTEIN 6.4 g/dL (6.4-8.2); eGFR BLACK RACES 17 (>60); eGFR NON BLACK RACES 14 (>60)
[2017-02-22 07:08] LABS: PLATELET MORPHOLOGY COMMENT NORMAL (NORMAL)
[2017-02-22 07:09] LABS: HYPOCHROMASIA SLIGHT
[2017-02-22] MEDS ORDERED: ASTELIN NASAL SPRAY ENOSTRIL ONE (07:36)
[2017-02-22] MEDS ORDERED: NS 500 ML IV 500 ML IV ONE (08:46)
[2017-02-22] MEDS ORDERED: SOLIFENACIN SUCCINATE 5 MG PO SCH (09:00)
[2017-02-22] MEDS: CLARITIN PO SCH (09:06)
[2017-02-22] MEDS: DETROL LA 2 MG CAP EXT REL PO SCH (09:06)
[2017-02-22] MEDS: CIPRO IV 400 MG PREMIX* 400 MG/200 ML IV.SOLN. IV SCH (09:06)
[2017-02-22] MEDS: ARTIFICIAL TEARS DROPS AFFEYE SCH ×4 (09:06→21:43)
[2017-02-22] MEDS: COREG TAB 6.25 MG PO SCH ×2 (09:06→21:33)
[2017-02-22] MEDS: ASTELIN NASAL SPRAY ENOSTRIL SCH (09:06)
[2017-02-22] MEDS: SANTYL EXT SCH (09:07)
[2017-02-22] MEDS: LASIX PO SCH (09:07)
[2017-02-22] MEDS: FLONASE NASAL SPRAY ENOSTRIL SCH (09:07)
[2017-02-22] MEDS: LYRICA CAP 100 MG PO SCH ×2 (09:07→21:33)
[2017-02-22] MEDS: PEPCID 20 MG IV PREMIX* 20 MG/50 ML BAG IV SCH (09:07)
[2017-02-22] MEDS: TAB-A-VITE PO SCH (09:07)
[2017-02-22] MEDS: ZADITOR EYE DROPS RIGHTEYE SCH ×2 (09:08→21:43)
[2017-02-22] MEDS: VICTOZA SC SCH (09:35)
[2017-02-22] MEDS ORDERED: PEPCID 20 MG IV PREMIX* 20 MG/50 ML BAG IV SCH (11:00)
[2017-02-22] MEDS ORDERED: TYLENOL 325 MG TAB PO PRN (11:14)
[2017-02-22] MEDS: REQUIP PO SCH (21:33)
[2017-02-22] MEDS: LIPITOR TAB 40 MG PO SCH (21:33)
[2017-02-22] MEDS: SNACK - Diabetic Appropriate PO SCH (21:43)
[2017-02-22] MEDS: CIPRO IV 200 MG PREMIX* 200 MG/100 ML BAG IV SCH (21:43)
[2017-02-23] MEDS: NS 1000 ML 1,000 ML IV SCH (05:36)
[2017-02-23 06:09] LABS: BASOPHILS # (AUTO) 0.1 X10^3/uL (0.0-0.1); BASOPHILS % (AUTO) 0.8 % (0.2-1.0); EOSINOPHILS # (AUTO) 0.2 x10^3/uL (0.0-0.2); EOSINOPHILS % (AUTO) 2.9 % (0.9-2.9); HEMATOCRIT 28.4 % (36.0-47.0); HEMOGLOBIN 9.3 g/dL (12.0-16.0); LYMPHOCYTES # (AUTO) 1.1 X10^3/uL (1.3-2.9); LYMPHOCYTES % (AUTO) 16.3 % (21.0-51.0); MEAN CORPUSCULAR HEMOGLOBIN 26.9 pg (27.0-34.0); MEAN CORPUSCULAR HGB CONC 32.5 g/dL (33.0-35.0); MEAN CORPUSCULAR VOLUME 82.8 fL (80.0-100.0); MEAN PLATELET VOLUME 10.6 fL (7.4-11.0); MONOCYTES # (AUTO) 0.4 x10^3/uL (0.3-0.8); MONOCYTES % (AUTO) 6.3 % (0.0-13.0); NEUTROPHILS % (AUTO) 73.7 % (42.0-75.0); PLATELET COUNT 138 X10^3/uL (150.0-450.0); RED BLOOD COUNT 3.44 X10^6/uL (3.5-5.4); RED CELL DISTRIBUTION WIDTH 14.8 % (11.6-16.5); WHITE BLOOD COUNT 6.8 X10^3/uL (3.6-10.0)
[2017-02-23 06:12] LABS: ALBUMIN 1.9 g/dL (3.4-5.0); CALCIUM 7.9 mg/dL (8.5-10.1); CARBON DIOXIDE 26.2 mmol/L (21-32); COR CA(FOR HYPOALB) 9.6 mg/dL (8.5-10.1); CREATININE 2.85 mg/dL (0.55-1.02); TOTAL PROTEIN 6.5 g/dL (6.4-8.2)
[2017-02-23 07:32] VITALS: BP 128/59
[2017-02-23] MEDS: CLARITIN PO SCH (08:09)
[2017-02-23] MEDS: ASTELIN NASAL SPRAY ENOSTRIL SCH (08:09)
[2017-02-23] MEDS: COREG TAB 6.25 MG PO SCH (08:09)
[2017-02-23] MEDS: CIPRO IV 200 MG PREMIX* 200 MG/100 ML BAG IV SCH (08:09)
[2017-02-23] MEDS: ARTIFICIAL TEARS DROPS AFFEYE SCH (08:09)
[2017-02-23] MEDS: DETROL LA 2 MG CAP EXT REL PO SCH (08:10)
[2017-02-23] MEDS: LYRICA CAP 100 MG PO SCH (08:10)
[2017-02-23] MEDS: TAB-A-VITE PO SCH (08:10)
[2017-02-23] MEDS: FLONASE NASAL SPRAY ENOSTRIL SCH (08:10)
[2017-02-23] MEDS: LASIX PO SCH (08:10)
[2017-02-23] MEDS: VICTOZA SC SCH (08:11)
[2017-02-23] MEDS: SANTYL EXT SCH (08:11)
[2017-02-23] MEDS: ZADITOR EYE DROPS RIGHTEYE SCH (08:11)
[2017-02-24] MEDS ORDERED: PEPCID 20 MG IV PREMIX* 20 MG/50 ML BAG IV SCH (09:00)
== END 2017-02-23 09:50 ==
LOC: ER 13:24 → MED/SURG 15:33
PROVIDERS: ADMIT Obstetrics & Gynecology Obstetrics; ATTEND Obstetrics & Gynecology Obstetrics
PROC: 30233N1 Transfusion of Nonautologous Red Blood Cells into Peripheral Vein, Percutaneous Approach (ICD-10-PCS; principal; 2017-02-22)
PROC: 30233N1 Transfusion of Nonautologous Red Blood Cells into Peripheral Vein, Percutaneous Approach (ICD-10-PCS; 2017-02-22)
DX: N39.0 Urinary tract infection, site not specified (principal); E86.0 Dehydration; B95.2 Enterococcus as the cause of diseases classified elsewhere; K52.89 Other specified noninfective gastroenteritis and colitis; R10.84 Generalized abdominal pain; I95.89 Other hypotension; N17.8 Other acute kidney failure; D63.8 Anemia in other chronic diseases classified elsewhere; R40.4 Transient alteration of awareness; I25.10 Atherosclerotic heart disease of native coronary artery without angina pectoris; E11.65 Type 2 diabetes mellitus with hyperglycemia; E78.2 Mixed hyperlipidemia; I10 Essential (primary) hypertension; E66.2 Morbid (severe) obesity with alveolar hypoventilation
CPT/HCPCS: 36415; 36430; 51702; 70450; 71010; 74176; 80053; 81001; 82150; 83605; 83630; 83690; 85025; 86140; 86850; 86900; 86901; 86922; 87045; 87086; 87088; 87186; 87328; 87329; 87336; 87427; 87493; 87899; 93005; 93010; 94760; 96365; 96367; 99284; A4216; A4222; P9016; S0028; G0378; J0744

== ENCOUNTER 2017-04-05 10:38 | Inpatient (IN) | payer OTHER, MEDICAID ==
--- NOTE | 2017-04-05 10:43 | DR.GENAD ---
HPI - Complaint/Symptoms Chief Complaint Doctors Comments: FEVER, AMS TIMES - Nurses notes reviewed Nurses Notes Review: Yes - Source History Provided: Longterm - Mode of Arrival Mode of Arrival: Stretcher - Timing Came on: Suddenly - Duration Duration: Constant Duration: Days - Severity Severity: Severe PMH - PMH Past Medical History: Arthritis, CHF, Coronary Artery Disease, Diabetes, Dyslipidemia, Hypertension Past Surgical History: No (unknown) Surgical History: Unknown - Family History Family Medical History: Diabetes Mellitus, Coronary Artery Disease, Hypertension - Social History Do you use any recreational Drugs:: No ROS - Review of Systems Constitutional: Chills, Fever, Weakness, Fatigue Eyes: negative: Eye Pain, Discharge Respiratoy: Short of Breath, Wheezing Cardiovascular: Edema Gastrointestinal/Abdominal: negative: Diarrhea, Nausea, Vomiting Neurological: Weakness Musculoskeletal: Muscle Pain Integumentary: Change in Color Hematologic/Lymphatic: Easy Bleeding, Easy Bruising Endocrine: negative: [place] Unable to Obtain Due To: Altered mental status PE - Vital Signs Vitals: Temperature 101.7 F Pulse Rate 104 Respiratory Rate 35 Blood Pressure [Left Arm] 128/59 Blood Pressure [Right Arm] 76/42 Blood Pressure 79/43 O2 Sat by Pulse Oximetry 100 - General Limitations: Altered Mental Status General Appearance: Obtunded, In Distress - Head Head Exam: Normal Inspection - Eyes Eye exam: negative: Conjunctival Injection - ENT ENT Exam: Normal External Ear Exam External Ear Exam: Normal External Inspection TM/Canal Exam: Bilateral Normal Nose Exam: Normal Nose Exam Mouth Exam: Normal Inspection Throat Exam: Normal Inspection - Neck Neck Exam: Trachea Midline - Chest Chest Inspection: Symmetric Chest Wall Rise - Respiratory Respiratory Exam: Respiratory Distress Respiratory Exam: Bilateral Wheezing, Bilateral Rhonchi, Upper Wheezing, Upper Rhonchi, Lower Wheezing, Lower Rhonchi - Cardiovascular Cardiovascular Exam: Regular Rate, Normal Rhythm, Normal Heart Sounds - Abdominal Exam Abdominal Exam: Normal Bowel Sounds, Soft. negative: Tenderness - Extremities Extremities Exam: Edema MDM - Differential Diagnosis Differential Diagnosis: UROSEPSIS, HYPOTENSION, CVA, PNEUMONIA, PR, Course - Treatment Treatment: SEE ORDERS. - Education/Counseling Education/Counseling: Education Educated On: Diagnosis ROR - Labs Reviewed Result Diagrams: 04/05/17 11:00 04/05/17 11:00 Laboratory: WBC 9.0 X10^3/uL (3.6-10.0) 04/05/17 11:00 RBC 2.69 X10^6/uL (3.5-5.4) L 04/05/17 11:00 Hgb 7.4 g/dL (12.0-16.0) L 04/05/17 11:00 Hct 22.9 % (36.0-47.0) L 04/05/17 11:00 MCV 84.9 fL (80.0-100.0) 04/05/17 11:00 MCH 27.4 pg (27.0-34.0) 04/05/17 11:00 MCHC 32.3 g/dL (33.0-35.0) L 04/05/17 11:00 RDW 19.2 % (11.6-16.5) H 04/05/17 11:00 Plt Count 122 X10^3/uL (150.0-450.0) L 04/05/17 11:00 Plt Count Comment Decreased (ADEQUATE) A 04/05/17 11:00 MPV 10.2 fL (7.4-11.0) 04/05/17 11:00 Neut % 71.9 % (42.0-75.0) 04/05/17 11:00 Lymph % 18.4 % (21.0-51.0) L 04/05/17 11:00 [place] % 9.0 % (0.0-13.0) 04/05/17 11:00 Eos % 0.2 % (0.9-2.9) L 04/05/17 11:00 Baso % 0.5 % (0.2-1.0) 04/05/17 11:00 Neut # 6.5 x10^3/uL (2.2-4.8) H 04/05/17 11:00 Lymph # 1.7 X10^3/uL (1.3-2.9) 04/05/17 11:00 [place] # 0.8 x10^3/uL (0.3-0.8) 04/05/17 11:00 Eos # 0.0 x10^3/uL (0.0-0.2) 04/05/17 11:00 Baso # 0.0 X10^3/uL (0.0-0.1) 04/05/17 11:00 Absolute Nucleated RBC 0.1 /100WBC 04/05/17 11:00 Plt Morphology Comment Normal (NORMAL) 04/05/17 11:00 RBC Morphology Abnormal (NORMAL) A 04/05/17 11:00 Hypochromasia Slight A 04/05/17 11:00 Microcytosis Slight A 04/05/17 11:00 Sodium 135 mmol/L (136-145) L 04/05/17 11:00 Corrected Sodium 136 mmol/L (136-145) 04/05/17 11:00 Potassium 5.2 mmol/L (3.5-5.1) H 04/05/17 11:00 Chloride 102 mmol/L (98-107) 04/05/17 11:00 Carbon Dioxide 25.5 mmol/L (21-32) 04/05/17 11:00 BUN 56 mg/dL (7-18) H 04/05/17 11:00 Creatinine 3.99 mg/dL (0.55-1.02) H 04/05/17 11:00 Est GFR (MDRD) Af Amer 15 (>60) L 04/05/17 11:00 Est GFR (MDRD) Non-Af 12 (>60) L 04/05/17 11:00 Glucose 142 mg/dL (65-99) H 04/05/17 11:00 Lactic Acid 0.5 mmol/L (0.4-2.0) 04/05/17 11:00 Calcium 7.7 mg/dL (8.5-10.1) L 04/05/17 11:00 Corrected Calcium 9.1 mg/dL (8.5-10.1) 04/05/17 11:00 Total Bilirubin 0.80 mg/dL (0.2-1.0) 04/05/17 11:00 AST 11 Units/L (15-37) L 04/05/17 11:00 ALT 9 Units/L (12-78) L 04/05/17 11:00 Alkaline Phosphatase 76 Units/L (46-116) 04/05/17 11:00 Creatine Kinase 34 Units/L (26-192) 04/05/17 11:00 CK-MB (CK-2) < 1.0 ng/mL (0-4.0) 04/05/17 11:00 CK/CKMB % Calc 2.9 % (<4) 04/05/17 11:00 Troponin I < 0.02 ng/mL (0-1.5) 04/05/17 11:00 C-Reactive Protein 222.70 mg/L (0-3.0) H 04/05/17 11:00 Total Protein 6.7 g/dL (6.4-8.2) 04/05/17 11:00 Albumin 2.2 g/dL (3.4-5.0) L 04/05/17 11:00 Globulin 4.5 g/dL (2.5-4.5) 04/05/17 11:00 Albumin/Globulin Ratio 0.5 Ratio (1.1-2.1) L 04/05/17 11:00 - Follow ups/Referrals Follow ups/Referrals: REJI BAL [Primary Care Provider] - 3 days - Instructions
[2017-04-05 10:47] VITALS: BMI 34.7
[2017-04-05] MEDS ORDERED: NS 1000 ML 1,000 ML IV ONE (10:48)
[2017-04-05] MEDS ORDERED: ZOSYN VIAL 3.375 GM 3.375 GM in NS 100 ML IV + SPIKE MINIBAG* 100 ML IV ONE (10:52)
[2017-04-05 11:17] LABS: BASOPHILS % (AUTO) 0.5 % (0.2-1.0); EOSINOPHILS % (AUTO) 0.2 % (0.9-2.9); HEMATOCRIT 22.9 % (36.0-47.0); HEMOGLOBIN 7.4 g/dL (12.0-16.0); LYMPHOCYTES # (AUTO) 1.7 X10^3/uL (1.3-2.9); LYMPHOCYTES % (AUTO) 18.4 % (21.0-51.0); MEAN CORPUSCULAR HEMOGLOBIN 27.4 pg (27.0-34.0); MEAN CORPUSCULAR HGB CONC 32.3 g/dL (33.0-35.0); MEAN CORPUSCULAR VOLUME 84.9 fL (80.0-100.0); MEAN PLATELET VOLUME 10.2 fL (7.4-11.0); MONOCYTES # (AUTO) 0.8 x10^3/uL (0.3-0.8); NEUTROPHILS # (AUTO) 6.5 x10^3/uL (2.2-4.8); NEUTROPHILS % (AUTO) 71.9 % (42.0-75.0); PLATELET COUNT 122 X10^3/uL (150.0-450.0); RED BLOOD COUNT 2.69 X10^6/uL (3.5-5.4); RED CELL DISTRIBUTION WIDTH 19.2 % (11.6-16.5)
[2017-04-05 11:32] LABS: LACTIC ACID 0.5 mmol/L (0.4-2.0)
[2017-04-05 11:34] LABS: BLOOD UREA NITROGEN 56 mg/dL (7-18); CALCIUM 7.7 mg/dL (8.5-10.1); CARBON DIOXIDE 25.5 mmol/L (21-32); CHLORIDE 102 mmol/L (98-107); COR NA(FOR HYPERGLY) 136 mmol/L (136-145); CREATININE 3.99 mg/dL (0.55-1.02); SODIUM 135 mmol/L (136-145); TROPONIN I < 0.02 ng/mL (0-1.5); eGFR BLACK RACES 15 (>60); eGFR NON BLACK RACES 12 (>60)
[2017-04-05 11:38] LABS: ALANINE AMINOTRANSFERASE 9 Units/L (12-78); ALBUMIN 2.2 g/dL (3.4-5.0); ALKALINE PHOSPHATASE 76 Units/L (46-116); ASPARTATE AMINO TRANSFERASE 11 Units/L (15-37); CKMB % 2.9 % (<4); COR CA(FOR HYPOALB) 9.1 mg/dL (8.5-10.1); CREATINE KINASE 34 Units/L (26-192); CREATINE KINASE MB < 1.0 ng/mL (0-4.0); TOTAL PROTEIN 6.7 g/dL (6.4-8.2)
[2017-04-05 11:46] LABS: HYPOCHROMASIA SLIGHT; MICROCYTOSIS SLIGHT; PLATELET MORPHOLOGY COMMENT NORMAL (NORMAL)
[2017-04-05 12:26] LABS: BILIRUBIN,URINE NEGATIVE (NEGATIVE); BLOOD/HEMOGLOBIN,URINE 3+ (NEGATIVE); GLUCOSE, URINE NEGATIVE (NEGATIVE); KETONES,URINE NEGATIVE (NEGATIVE); LEUKOCYTE ESTERASE ,URINE 3+ (NEGATIVE); NITRITES,URINE NEGATIVE (NEGATIVE); PROTEIN,URINE 4+ (NEGATIVE); UROBILINOGEN,URINE NORMAL (NORMAL)
[2017-04-05] MEDS ORDERED: NS 1000 ML 1,000 ML ONE (12:27)
[2017-04-05 12:33] LABS: APPEARANCE,URINE TURBID (CLEAR); BACTERIA,URINE 1+ /HPF (NEGATIVE); COLOR,URINE YELLOW (YELLOW); RBC,URINE TNTC /HPF (NEGATIVE); SQUAMOUS EPITHELIAL CELL,UR NEGATIVE /HPF (NEGATIVE)
[2017-04-05 15:36] LABS: ABG ALLEN TEST POS; ABG BASE EXCESS -4.1 mmol/L (-2.0-2.0); ABG HCO3 22.6 mmol/L (22-26)
[2017-04-05] MEDS ORDERED: LEVOPHED IV PRN (15:41)
[2017-04-05] MEDS ORDERED: D5W IV PRN (15:41)
[2017-04-05] MEDS: ROCEPHIN VIAL 1 GM 1 GM in NS 100 ML IV + SPIKE MINIBAG* 100 ML IV SCH (16:42)
[2017-04-05] MEDS: NS 1000 ML 1,000 ML IV SCH (16:43)
[2017-04-05] MEDS ORDERED: NS 250 ML IV 250 ML IV ONE (17:13)
[2017-04-05 17:43] LABS: CKMB % 1.7 % (<4); CREATINE KINASE 58 Units/L (26-192); CREATINE KINASE MB < 1.0 ng/mL (0-4.0); TROPONIN I < 0.02 ng/mL (0-1.5)
--- NOTE | 2017-04-05 19:01 | RAD ---
HISTORY: Lethargy and hypotension. Study: Portable chest. Comparison: Chest x-ray dated same day at 5:22 p.m. Findings: The trachea is midline. The cardiac silhouette is enlarged but unchanged. Prominent perihilar vascul ature with diffuse alveolar/interstitial markings. No obvious focal consolidation, pleural effusion, or pneumothorax.. The bony thorax is unremarkable. IMPRESSION: Constellation of findings likely representing pulmonary edema secondary to congestive hea rt failure. Underlying infiltrate not entirely excluded. Reported By:
[2017-04-05] MEDS ORDERED: PATIENT'S HOME MEDICATION (Ropinirole Hcl [Requip] 0.5 MG) PO SCH (21:00)
[2017-04-05] MEDS: LIPITOR TAB 40 MG PO SCH (22:47)
[2017-04-05] MEDS: LYRICA CAP 100 MG PO SCH (22:48)
[2017-04-05] MEDS: REQUIP PO SCH (22:48)
[2017-04-05] MEDS: ZOSYN VIAL 3.375 GM 3.375 GM in NS 100 ML IV + SPIKE MINIBAG* 100 ML IV SCH (23:01)
[2017-04-05 23:47] LABS: CKMB % 1.4 % (<4); CREATINE KINASE 73 Units/L (26-192); CREATINE KINASE MB < 1.0 ng/mL (0-4.0); TROPONIN I < 0.02 ng/mL (0-1.5)
[2017-04-06] MEDS: NS 1000 ML 1,000 ML IV SCH ×3 (01:21→19:43)
[2017-04-06 05:44] LABS: BASOPHILS # (AUTO) 0.1 X10^3/uL (0.0-0.1); BASOPHILS % (AUTO) 0.8 % (0.2-1.0); EOSINOPHILS % (AUTO) 0.4 % (0.9-2.9); HEMATOCRIT 27.9 % (36.0-47.0); HEMOGLOBIN 9.2 g/dL (12.0-16.0); LYMPHOCYTES # (AUTO) 1.3 X10^3/uL (1.3-2.9); LYMPHOCYTES % (AUTO) 19.1 % (21.0-51.0); MEAN CORPUSCULAR HEMOGLOBIN 27.8 pg (27.0-34.0); MEAN CORPUSCULAR VOLUME 84.2 fL (80.0-100.0); MEAN PLATELET VOLUME 10.5 fL (7.4-11.0); MONOCYTES # (AUTO) 0.5 x10^3/uL (0.3-0.8); MONOCYTES % (AUTO) 7.9 % (0.0-13.0); NEUTROPHILS # (AUTO) 4.9 x10^3/uL (2.2-4.8); NEUTROPHILS % (AUTO) 71.8 % (42.0-75.0); PLATELET COUNT 110 X10^3/uL (150.0-450.0); RED BLOOD COUNT 3.31 X10^6/uL (3.5-5.4); RED CELL DISTRIBUTION WIDTH 17.9 % (11.6-16.5); WHITE BLOOD COUNT 6.9 X10^3/uL (3.6-10.0)
[2017-04-06] MEDS: ZOSYN VIAL 3.375 GM 3.375 GM in NS 100 ML IV + SPIKE MINIBAG* 100 ML IV SCH ×3 (05:59→21:03)
[2017-04-06 06:09] LABS: CALCIUM 7.4 mg/dL (8.5-10.1); CARBON DIOXIDE 21.6 mmol/L (21-32); CREATININE 3.21 mg/dL (0.55-1.02); MAGNESIUM 2.2 mg/dL (1.7-2.9); TOTAL PROTEIN 6.5 g/dL (6.4-8.2)
[2017-04-06] MEDS: LYRICA CAP 100 MG PO SCH ×2 (09:00→21:02)
[2017-04-06] MEDS: ROCEPHIN VIAL 1 GM 1 GM in NS 100 ML IV + SPIKE MINIBAG* 100 ML IV SCH (09:00)
[2017-04-06] MEDS: MIRALAX POWDER (1 DOSE 17GM) PO SCH (09:00)
[2017-04-06] MEDS: CLARITIN PO SCH (09:00)
[2017-04-06] MEDS: TAB-A-VITE PO SCH (09:01)
[2017-04-06] MEDS: LASIX PO SCH (09:01)
[2017-04-06] MEDS ORDERED: DIFLUCAN PO ONE (11:01)
[2017-04-06] MEDS ORDERED: DOPAMINE IV PREMIX 400 MG/250 ML 400 MG/250 ML BAG IV PRN (13:51)
[2017-04-06] MEDS ORDERED: ASTELIN NASAL SPRAY ENOSTRIL ONE (14:08)
[2017-04-06] MEDS ORDERED: DIFLUCAN ONE (14:22)
[2017-04-06] MEDS: SOLIFENACIN SUCCINATE 5 MG PO SCH (14:30)
[2017-04-06] MEDS: FLONASE NASAL SPRAY ENOSTRIL SCH (14:33)
[2017-04-06] MEDS: ASTELIN NASAL SPRAY ENOSTRIL SCH (14:33)
[2017-04-06] MEDS: VICTOZA SC SCH (14:34)
[2017-04-06] MEDS: LIPITOR TAB 40 MG PO SCH (21:02)
[2017-04-06] MEDS: REQUIP PO SCH (21:02)
[2017-04-07] MEDS: NS 1000 ML 1,000 ML IV SCH ×2 (04:30→09:51)
[2017-04-07] MEDS: ZOSYN VIAL 3.375 GM 3.375 GM in NS 100 ML IV + SPIKE MINIBAG* 100 ML IV SCH (05:14)
[2017-04-07 06:08] LABS: BASOPHILS % (AUTO) 0.7 % (0.2-1.0); EOSINOPHILS % (AUTO) 0.4 % (0.9-2.9); HEMATOCRIT 28.9 % (36.0-47.0); HEMOGLOBIN 9.4 g/dL (12.0-16.0); LYMPHOCYTES # (AUTO) 1.2 X10^3/uL (1.3-2.9); LYMPHOCYTES % (AUTO) 21.7 % (21.0-51.0); MEAN CORPUSCULAR HEMOGLOBIN 27.2 pg (27.0-34.0); MEAN CORPUSCULAR HGB CONC 32.4 g/dL (33.0-35.0); MEAN CORPUSCULAR VOLUME 83.8 fL (80.0-100.0); MEAN PLATELET VOLUME 10.6 fL (7.4-11.0); MONOCYTES # (AUTO) 0.6 x10^3/uL (0.3-0.8); MONOCYTES % (AUTO) 10.7 % (0.0-13.0); NEUTROPHILS # (AUTO) 3.7 x10^3/uL (2.2-4.8); NEUTROPHILS % (AUTO) 66.5 % (42.0-75.0); PLATELET COUNT 115 X10^3/uL (150.0-450.0); RED BLOOD COUNT 3.45 X10^6/uL (3.5-5.4); RED CELL DISTRIBUTION WIDTH 17.5 % (11.6-16.5); WHITE BLOOD COUNT 5.6 X10^3/uL (3.6-10.0)
[2017-04-07 06:10] LABS: ALBUMIN 1.9 g/dL (3.4-5.0); CALCIUM 7.4 mg/dL (8.5-10.1); CARBON DIOXIDE 22.9 mmol/L (21-32); COR CA(FOR HYPOALB) 9.1 mg/dL (8.5-10.1); CREATININE 2.28 mg/dL (0.55-1.02); TOTAL PROTEIN 6.4 g/dL (6.4-8.2)
--- NOTE | 2017-04-07 07:32 | RAD ---
Examination: AP chest History: CHF, hypertension and diabetes Comparison 04/05/2017 Findings: Continued upper normal heart size with slight improvement in aeration of the lungs and decr easing infiltrates/edema. The lungs are not yet completely clear, however. No developing consolidatio n, pleural fluid or pneumothorax. Impression: Interval improvement. Reported By:
[2017-04-07] MEDS: AMPICILLIN VIAL 2 GM 2 GM in NS 100 ML IV + SPIKE MINIBAG* 100 ML IV SCH ×2 (09:48→15:22)
[2017-04-07] MEDS: FLONASE NASAL SPRAY ENOSTRIL SCH (09:48)
[2017-04-07] MEDS: SOLIFENACIN SUCCINATE 5 MG PO SCH (09:48)
[2017-04-07] MEDS: LYRICA CAP 100 MG PO SCH ×2 (09:49→21:00)
[2017-04-07] MEDS: MIRALAX POWDER (1 DOSE 17GM) PO SCH (09:49)
[2017-04-07] MEDS: TAB-A-VITE PO SCH (09:49)
[2017-04-07] MEDS: LASIX PO SCH (09:49)
[2017-04-07] MEDS: CLARITIN PO SCH (09:49)
[2017-04-07] MEDS: VICTOZA SC SCH (09:50)
[2017-04-07] MEDS: ASTELIN NASAL SPRAY ENOSTRIL SCH (09:51)
[2017-04-07] MEDS: COREG TAB 6.25 MG PO SCH ×2 (09:51→21:00)
[2017-04-07] MEDS: ULTRAM PO PRN (20:24)
[2017-04-07] MEDS: LIPITOR TAB 40 MG PO SCH (21:00)
[2017-04-08] MEDS: AMPICILLIN VIAL 2 GM 2 GM in NS 100 ML IV + SPIKE MINIBAG* 100 ML IV SCH ×5 (01:28→21:11)
[2017-04-08] MEDS: REQUIP PO SCH ×2 (01:30→21:11)
[2017-04-08] MEDS: NS 1000 ML 1,000 ML IV SCH ×4 (01:30→15:08)
[2017-04-08 06:51] LABS: BASOPHILS % (AUTO) 0.4 % (0.2-1.0); EOSINOPHILS # (AUTO) 0.1 x10^3/uL (0.0-0.2); EOSINOPHILS % (AUTO) 0.6 % (0.9-2.9); HEMATOCRIT 29.5 % (36.0-47.0); HEMOGLOBIN 9.6 g/dL (12.0-16.0); LYMPHOCYTES # (AUTO) 2.4 X10^3/uL (1.3-2.9); LYMPHOCYTES % (AUTO) 27.1 % (21.0-51.0); MEAN CORPUSCULAR HEMOGLOBIN 27.3 pg (27.0-34.0); MEAN CORPUSCULAR HGB CONC 32.6 g/dL (33.0-35.0); MEAN CORPUSCULAR VOLUME 83.8 fL (80.0-100.0); MEAN PLATELET VOLUME 10.6 fL (7.4-11.0); MONOCYTES % (AUTO) 11.4 % (0.0-13.0); NEUTROPHILS # (AUTO) 5.3 x10^3/uL (2.2-4.8); NEUTROPHILS % (AUTO) 60.5 % (42.0-75.0); PLATELET COUNT 119 X10^3/uL (150.0-450.0); RED BLOOD COUNT 3.52 X10^6/uL (3.5-5.4); RED CELL DISTRIBUTION WIDTH 17.5 % (11.6-16.5); WHITE BLOOD COUNT 8.7 X10^3/uL (3.6-10.0)
[2017-04-08 07:11] LABS: ALANINE AMINOTRANSFERASE 11 Units/L (12-78); ALKALINE PHOSPHATASE 84 Units/L (46-116); ASPARTATE AMINO TRANSFERASE 14 Units/L (15-37); BLOOD UREA NITROGEN 32 mg/dL (7-18); CALCIUM 7.9 mg/dL (8.5-10.1); CARBON DIOXIDE 23.1 mmol/L (21-32); CHLORIDE 107 mmol/L (98-107); COR CA(FOR HYPOALB) 9.5 mg/dL (8.5-10.1); CREATININE 1.96 mg/dL (0.55-1.02); SODIUM 140 mmol/L (136-145); eGFR BLACK RACES 33 (>60); eGFR NON BLACK RACES 27 (>60)
[2017-04-08 07:58] LABS: ANISOCYTOSIS SLIGHT; PLATELET MORPHOLOGY COMMENT ABNORMAL (NORMAL)
[2017-04-08] MEDS: ASTELIN NASAL SPRAY ENOSTRIL SCH (09:54)
[2017-04-08] MEDS: FLONASE NASAL SPRAY ENOSTRIL SCH (09:54)
[2017-04-08] MEDS: MIRALAX POWDER (1 DOSE 17GM) PO SCH (09:55)
[2017-04-08] MEDS: SOLIFENACIN SUCCINATE 5 MG PO SCH (09:55)
[2017-04-08] MEDS: ULTRAM PO PRN ×2 (09:57→21:13)
[2017-04-08] MEDS: COREG TAB 6.25 MG PO SCH ×2 (09:58→21:12)
[2017-04-08] MEDS: TAB-A-VITE PO SCH (09:59)
[2017-04-08] MEDS: LYRICA CAP 100 MG PO SCH ×2 (09:59→21:12)
[2017-04-08] MEDS: CLARITIN PO SCH (09:59)
[2017-04-08] MEDS: LASIX PO SCH (09:59)
[2017-04-08] MEDS: VICTOZA SC SCH (10:00)
[2017-04-08] MEDS: LIPITOR TAB 40 MG PO SCH (21:12)
[2017-04-08] MEDS ORDERED: VISTARIL PO PRN (23:44)
[2017-04-09] MEDS: NS 1000 ML 1,000 ML IV SCH ×2 (00:19→08:23)
[2017-04-09] MEDS ORDERED: VALIUM INJ IVP PRN (00:46)
[2017-04-09] MEDS: AMPICILLIN VIAL 2 GM 2 GM in NS 100 ML IV + SPIKE MINIBAG* 100 ML IV SCH ×3 (02:23→14:24)
[2017-04-09] MEDS: ULTRAM PO PRN (09:46)
[2017-04-09] MEDS: LYRICA CAP 100 MG PO SCH (09:56)
[2017-04-09] MEDS: COREG TAB 6.25 MG PO SCH (09:56)
[2017-04-09] MEDS: ASTELIN NASAL SPRAY ENOSTRIL SCH (09:56)
[2017-04-09] MEDS: LASIX PO SCH (09:56)
[2017-04-09] MEDS: FLONASE NASAL SPRAY ENOSTRIL SCH (09:56)
[2017-04-09] MEDS: CLARITIN PO SCH (09:56)
[2017-04-09] MEDS: SOLIFENACIN SUCCINATE 5 MG PO SCH (09:57)
[2017-04-09] MEDS: VICTOZA SC SCH (09:57)
[2017-04-09] MEDS: MIRALAX POWDER (1 DOSE 17GM) PO SCH (09:57)
[2017-04-09] MEDS: TAB-A-VITE PO SCH (09:58)
[2017-04-09] MEDS ORDERED: AMPICILLIN VIAL 2 GM IM ONE (12:10)
[2017-04-09] MEDS ORDERED: AMPICILLIN VIAL 1 GM ONE (12:16)
[2017-04-09 15:51] VITALS: BP 113/63
[2017-04-10] MEDS ORDERED: AMPICILLIN VIAL 1 GM ONE (01:08)
== END 2017-04-09 15:40 | DRG 948 ==
LOC: ER 10:52 → ICU 15:22
PROVIDERS: ADMIT Obstetrics & Gynecology Obstetrics; ATTEND Obstetrics & Gynecology Obstetrics
PROC: 30233N1 Transfusion of Nonautologous Red Blood Cells into Peripheral Vein, Percutaneous Approach (ICD-10-PCS; principal; 2017-04-05)
PROC: 30233N1 Transfusion of Nonautologous Red Blood Cells into Peripheral Vein, Percutaneous Approach (ICD-10-PCS; 2017-04-05)
DX: R41.82 Altered mental status, unspecified (principal); I95.89 Other hypotension; I50.9 Heart failure, unspecified; N39.0 Urinary tract infection, site not specified; D64.89 Other specified anemias; I25.10 Atherosclerotic heart disease of native coronary artery without angina pectoris; E11.65 Type 2 diabetes mellitus with hyperglycemia; E78.2 Mixed hyperlipidemia; I10 Essential (primary) hypertension; R94.31 Abnormal electrocardiogram [ECG] [EKG]; R60.1 Generalized edema; E66.2 Morbid (severe) obesity with alveolar hypoventilation; L89.529 Pressure ulcer of left ankle, unspecified stage
CPT/HCPCS: 36415; 36430; 36600; 71045; 80053; 81001; 82550; 82553; 82803; 83605; 83735; 84484; 85025; 85610; 85730; 86140; 86850; 86900; 86901; 86922; 87040; 87086; 87088; 87186; 93005; 93010; 94660; 96365; 96367; 96374; 99282; 99285; A4222; A4618; A7030; P9016; Q0177; J0290; J0696; J1265; J2543; J3360

== ENCOUNTER → 2017-05-30 | Outpatient (CLI) | payer OTHER, MEDICAID ==
--- NOTE | 2017-05-30 14:02 | RAD ---
Exam: Chest frontal view dated 05/30/2017 at 1:48 p.m. History: 61-year-old female with cough, congestion, and fever Comparison: Previous chest radiograph from 04/07/2017. Findings: Cardiomegaly with mild degree of vascular congestion is noted. Superimposed atelectasis may be presen t in the lung bases. No significant effusion on either side. Impression: 1. Cardiomegaly with mild vascular congestion. 2. Mild degree of atelectasis at lung bases. Reported By:
== END ==
LOC: RAD 12:12
PROVIDERS: ATTEND Obstetrics & Gynecology Obstetrics
DX: R05 Cough (principal); R50.9 Fever, unspecified; R09.89 Other specified symptoms and signs involving the circulatory and respiratory systems
CPT/HCPCS: 36415; 71045; 85025; 87502

== ENCOUNTER 2018-01-14 09:48 | Inpatient (IN) ==
[2018-01-14 10:08] VITALS: BMI 40.1
--- NOTE | 2018-01-14 10:08 | DR.GENAD ---
HPI Time Seen Time Seen by Provider: 01/14/18 10:07 Complaint/Symptoms Chief Complaint Doctors Comments: Patient presented to the ED from [facility] secondary to low oxygen saturations (80s) with decreased responsiveness. She is usually on oxygen at 2L NC. PMH PMH Past Surgical History: Yes Surgical History: Cholecystectomy, Hysterectomy, Joint Replacement and Ortho Surgery Family History Family Medical History: Diabetes Mellitus, Coronary Artery Disease and Hypertension Social History Do you use any recreational Drugs:: No PE Vital Signs Vitals: Temperature 98.7 F Pulse Rate [Right Radial] 87 Pulse Rate 93 Respiratory Rate 23 Blood Pressure [Left Arm] 109/53 Blood Pressure [Right Arm] 127/68 Blood Pressure 155/85 O2 Sat by Pulse Oximetry 93 General Limitations: No Limitations General Appearance: Alert and In No Apparent Distress Head Head Exam: Normal Inspection, Atraumatic and Normocephalic Eyes Eye exam: Normal Appearance, PERRL and EOMI ENT ENT Exam: Normal Exam, Normal Oropharynx and Normal External Ear Exam TM/Canal Exam: Bilateral: Normal Nose Exam: Normal Nose Exam Mouth Exam: Normal Inspection Throat Exam: Normal Inspection Neck Neck Exam: Normal Inspection and Full ROM Chest Chest Inspection: Normal Inspection and Symmetric Chest Wall Rise Respiratory Respiratory Exam: Normal Lung Sounds Bilat Respiratory Exam: Bilateral: Clear to Auscultation Cardiovascular Cardiovascular Exam: Regular Rate and Normal Rhythm Abdominal Exam Abdominal Exam: Normal Inspection and Normal Bowel Sounds Extremities Extremities Exam: Normal Inspection and Full ROM Back Back Exam: Normal Inspection Neurologic Neurological Exam: Alert and Oriented X3 Skin Skin Exam: Warm, Dry and Intact COURSE Treatment Treatment: Iniated pneumonia protocol, BiPap. Consultation Called: 11:30 Call Returned: 11:45 Consultation Comments: Dr. Villaseñor agreed to admit for further treatment and e valuation. ROR Labs Reviewed Laboratory Results Reviewed?: Yes Result Diagrams: 01/14/18 10:20 01/14/18 10:20 Laboratory: 01/14/18 10:50 Sputum - Expectorated Sputum - Final WBC 6.6 X10^3/uL (3.6-10.0) 01/14/18 10:20 RBC 3.84 X10^6/uL (3.5-5.4) 01/14/18 10:20 Hgb 10.9 g/dL (12.0-16.0) L 01/14/18 10:20 Hct 33.8 % (36.0-47.0) L 01/14/18 10:20 MCV 88.0 fL (80.0-100.0) 01/14/18 10:20 MCH 28.5 pg (27.0-34.0) 01/14/18 10:20 MCHC 32.4 g/dL (33.0-35.0) L 01/14/18 10:20 RDW 15.4 % (11.6-16.5) 01/14/18 10:20 Plt Count 149 X10^3/uL (150.0-450.0) L 01/14/18 10:20 MPV 9.8 fL (7.4-11.0) 01/14/18 10:20 Neut % (Auto) 73.9 % (42.0-75.0) 01/14/18 10:20 Lymph % (Auto) 15.2 % (21.0-51.0) L 01/14/18 10:20 [place] % (Auto) 5.5 % (0.0-13.0) 01/14/18 10:20 Eos % (Auto) 0.8 % (0.9-2.9) L 01/14/18 10:20 Baso % (Auto) 4.6 % (0.2-1.0) H 01/14/18 10:20 Neut # (Auto) 4.9 x10^3/uL (2.2-4.8) H 01/14/18 10:20 Lymph # (Auto) 1.0 X10^3/uL (1.3-2.9) L 01/14/18 10:20 [place] # (Auto) 0.4 x10^3/uL (0.3-0.8) 01/14/18 10:20 Eos # (Auto) 0.1 x10^3/uL (0.0-0.2) 01/14/18 10:20 Baso # (Auto) 0.3 X10^3/uL (0.0-0.1) H 01/14/18 10:20 Absolute Nucleated RBC 0.0 /100WBC 01/14/18 10:20 D-Dimer 2030 ng/mL (0-400) H* 01/14/18 10:20 Sample Site Rb 01/14/18 10:47 ABG pH 7.370 (7.35-7.45) 01/14/18 10:47 ABG pCO2 61.0 mmHg (35.0-45.0) H* 01/14/18 10:47 ABG pO2 54.0 mmHg (80.0-100.0) L 01/14/18 10:47 ABG HCO3 35.3 mmol/L (22-26) H* 01/14/18 10:47 ABG O2 Saturation 87.0 % (90-100) L 01/14/18 10:47 ABG Base Excess 8.0 mmol/L (-2.0-2.0) H 01/14/18 10:47 Kasi Test N/a 01/14/18 10:47 A-a Gradient 69.0 mmHg 01/14/18 10:47 FiO2 28 01/14/18 10:47 Blood Gas Comments Pt momo well. cdn 01/14/18 10:47 Sodium 140 mmol/L (136-145) 01/14/18 10:20 Corrected Sodium 142 mmol/L (136-145) 01/14/18 10:20 Potassium 4.6 mmol/L (3.5-5.1) 01/14/18 10:20 Chloride 103 mmol/L (98-107) 01/14/18 10:20 Carbon Dioxide 32.2 mmol/L (21-32) H 01/14/18 10:20 BUN 29 mg/dL (7-18) H 01/14/18 10:20 Creatinine 1.68 mg/dL (0.55-1.02) H 01/14/18 10:20 Est GFR (MDRD) Af Amer 39 (>60) L 01/14/18 10:20 Est GFR (MDRD) Non-Af 33 (>60) L 01/14/18 10:20 Glucose 198 mg/dL (65-99) H 01/14/18 10:20 POC Glucose (mg/dL) 173 mg/dL (65-99) H 01/14/18 20:14 Lactic Acid 0.7 mmol/L (0.4-2.0) 01/14/18 10:20 Calcium 7.9 mg/dL (8.5-10.1) L 01/14/18 10:20 Corrected Calcium 8.9 mg/dL (8.5-10.1) 01/14/18 10:20 Total Bilirubin 0.40 mg/dL (0.2-1.0) 01/14/18 10:20 AST 10 Units/L (15-37) L 01/14/18 10:20 ALT 13 Units/L (12-78) 01/14/18 10:20 Alkaline Phosphatase 90 Units/L (46-116) 01/14/18 10:20 C-Reactive Protein 129.80 mg/L (0-3.0) H 01/14/18 10:20 Total Protein 8.4 g/dL (6.4-8.2) H 01/14/18 10:20 Albumin 2.7 g/dL (3.4-5.0) L 01/14/18 10:20 Globulin 5.7 g/dL (2.5-4.5) H 01/14/18 10:20 Albumin/Globulin Ratio 0.5 Ratio (1.1-2.1) L 01/14/18 10:20 Specimen Type Catherized urine 01/14/18 14:30 Urine Color Yellow (YELLOW) 01/14/18 14:30 Urine Appearance Cloudy (CLEAR) 01/14/18 14:30 Urine pH 5.0 (5.0 - 8.0) 01/14/18 14:30 Ur Specific [place] 1.015 (1.000-1.030) 01/14/18 14:30 Urine Protein 2+ (NEGATIVE) 01/14/18 14:30 Urine Glucose (UA) Negative (NEGATIVE) 01/14/18 14:30 Urine Ketones Negative (NEGATIVE) 01/14/18 14:30 Urine Occult Blood 2+ (NEGATIVE) 01/14/18 14:30 Urine Nitrite Negative (NEGATIVE) 01/14/18 14:30 Urine Bilirubin Negative (NEGATIVE) 01/14/18 14:30 Urine Urobilinogen Normal (NORMAL) 01/14/18 14:30 Ur Leukocyte Esterase 3+ (NEGATIVE) 01/14/18 14:30 Urine RBC 5-10 /HPF (NONE SEEN) 01/14/18 14:30 Urine WBC Tntc /HPF (NONE SEEN) 01/14/18 14:30 Ur Squamous Epith Cells Negative /HPF (NEGATIVE) 01/14/18 14:30 Urine Bacteria 1+ /HPF (NEGATIVE) 01/14/18 14:30 Ur Culture Indicated? Yes/culture set up 01/14/18 14:30 Other Results Comments: Chest XR: Moderate cardiomegaly with findings suggesting superimposed interstitial edema or pneumonia. Patchy infiltrates in both lung bases. This suggest underlying pneumonia. Right hilar prominence, felt to be due to rotation of the film. This could be followed up on a PA and lateral chest when the patient is capable. Diagnosis Discharge Problem: Mild dehydration, D-dimer, elevated, Suspected pulmonary embolism RML pneumonia Qualifiers: Pneumonia type: due to unspecified organism Qualified Code(s): J18.1 - Lobar pneumonia, unspecified organism Anemia Qualifiers: Anemia type: unspecified type Qualified Code(s): D64.9 - Anemia, unspecified
[2018-01-14 10:41] LABS: BASOPHILS # (AUTO) 0.3 X10^3/uL (0.0-0.1); BASOPHILS % (AUTO) 4.6 % (0.2-1.0); EOSINOPHILS # (AUTO) 0.1 x10^3/uL (0.0-0.2); EOSINOPHILS % (AUTO) 0.8 % (0.9-2.9); HEMATOCRIT 33.8 % (36.0-47.0); HEMOGLOBIN 10.9 g/dL (12.0-16.0); LYMPHOCYTES % (AUTO) 15.2 % (21.0-51.0); MEAN CORPUSCULAR HEMOGLOBIN 28.5 pg (27.0-34.0); MEAN CORPUSCULAR HGB CONC 32.4 g/dL (33.0-35.0); MEAN PLATELET VOLUME 9.8 fL (7.4-11.0); MONOCYTES # (AUTO) 0.4 x10^3/uL (0.3-0.8); MONOCYTES % (AUTO) 5.5 % (0.0-13.0); NEUTROPHILS # (AUTO) 4.9 x10^3/uL (2.2-4.8); NEUTROPHILS % (AUTO) 73.9 % (42.0-75.0); PLATELET COUNT 149 X10^3/uL (150.0-450.0); RED BLOOD COUNT 3.84 X10^6/uL (3.5-5.4); RED CELL DISTRIBUTION WIDTH 15.4 % (11.6-16.5); WHITE BLOOD COUNT 6.6 X10^3/uL (3.6-10.0)
[2018-01-14 10:47] LABS: ALBUMIN 2.7 g/dL (3.4-5.0); CALCIUM 7.9 mg/dL (8.5-10.1); CARBON DIOXIDE 32.2 mmol/L (21-32); COR CA(FOR HYPOALB) 8.9 mg/dL (8.5-10.1); CREATININE 1.68 mg/dL (0.55-1.02); TOTAL PROTEIN 8.4 g/dL (6.4-8.2)
[2018-01-14 10:55] LABS: LACTIC ACID 0.7 mmol/L (0.4-2.0)
[2018-01-14 10:57] LABS: ABG HCO3 35.3 mmol/L (22-26); FRACTIONATED INSPIRED OXYGEN 28
--- NOTE | 2018-01-14 11:00 | RAD ---
HISTORY: Cough. Fever. Study: AP portable chest Comparison: 05/30/2017 Findings: Increasing prominence of lung markings is noted bilaterally suggesting interstitial pneumonia or edema superimposed on chronic interstitial scarring. Patient is mildly to moderately rotated to the right giving a prominent right hilar appearance. Focal patchy infiltrate is noted in both lungs. Moderate cardiomegaly is noted. Moderate osteopenia is noted. IMPRESSION: 1. Moderate cardiomegaly with findings suggesting superimposed interstitial edema or pneumonia. 2. Patchy infiltrates in both lung bases. This suggest underlying pneumonia. Follow-up to resolution is recommended. 3. Right hilar prominence, felt to be due to rotation of the film. This could be followed up on a PA and lateral chest when the patient is capable. Reported By:
[2018-01-14] MEDS ORDERED: LEVAQUIN PREMIX IV 750 MG 750 MG/150 ML BAG IV ONE ×2 (11:28→11:29)
[2018-01-14] MEDS: DUONEB 0.5 MG/3 MG NEB SCH ×3 (12:40→20:51)
[2018-01-14] MEDS ORDERED: MYLICON TAB 80 MG CHEW PO PRN (12:43)
[2018-01-14] MEDS ORDERED: DEXTRAN HYPROMELLOSE OP PRN (12:43)
[2018-01-14] MEDS ORDERED: DUONEB 0.5 MG/3 MG ONE (12:46)
[2018-01-14] MEDS ORDERED: NS 1/2 1000 ML IV 1,000 ML IV ONE (12:49)
[2018-01-14] MEDS: NS 1/2 1000 ML IV 1,000 ML IV SCH (12:56)
[2018-01-14] MEDS: ROBITUSSIN DM PO SCH ×3 (14:09→20:28)
[2018-01-14] MEDS: ZyrTEC TAB 10 MG PO SCH (14:09)
[2018-01-14] MEDS: AMOXIL CAP 500 MG PO SCH ×2 (14:09→21:32)
[2018-01-14] MEDS: ATIVAN INJ 2 MG VIAL IVP PRN ×2 (14:10→20:26)
[2018-01-14] MEDS: MORPHINE SULFATE INJ 2 MG INJ IVP PRN (14:11)
[2018-01-14 15:19] LABS: BILIRUBIN,URINE NEGATIVE (NEGATIVE); BLOOD/HEMOGLOBIN,URINE 2+ (NEGATIVE); GLUCOSE, URINE NEGATIVE (NEGATIVE); KETONES,URINE NEGATIVE (NEGATIVE); LEUKOCYTE ESTERASE ,URINE 3+ (NEGATIVE); NITRITES,URINE NEGATIVE (NEGATIVE); PROTEIN,URINE 2+ (NEGATIVE); UROBILINOGEN,URINE NORMAL (NORMAL)
[2018-01-14 15:23] LABS: APPEARANCE,URINE CLOUDY (CLEAR); COLOR,URINE YELLOW (YELLOW)
[2018-01-14 15:28] LABS: BACTERIA,URINE 1+ /HPF (NEGATIVE); SQUAMOUS EPITHELIAL CELL,UR NEGATIVE /HPF (NEGATIVE)
[2018-01-14] MEDS: LIPITOR TAB 40 MG PO SCH (20:26)
[2018-01-14] MEDS: LYRICA CAP 100 MG PO SCH (20:26)
[2018-01-14] MEDS: SNACK - Diabetic Appropriate PO SCH (20:27)
[2018-01-14] MEDS: REQUIP PO SCH (20:27)
[2018-01-14] MEDS: COLACE CAP 100 MG PO SCH (20:27)
[2018-01-14] MEDS: COREG TAB 6.25 MG PO SCH (20:27)
[2018-01-14] MEDS: VOLTAREN 1 % GEL MULTI DOSE TUBE TOP SCH (20:28)
--- NOTE | 2018-01-14 23:58 | DR.H&P ---
H&P History & Physical for Day of: H&P Date: 01/14/18 Chief Complaint Chief Complaint: PATIENT IS 62YR OLD WHITE FEMALE FROM THE LONG TERM ADMITTED TO HOSPITAL VIA ED WITH RLL PNEUNIA, HYPOXIA, DEHYDRATION AND UTI. SHE WAS PLACE ON BIPAP IN ED. SHE PRESENTED TO ED WITH RESPIRATORY DISTRESS AND OXYGEN DESATURATION. Allergies Allergies Allergy/AdvReac Type Severity Reaction Status Date / Time meperidine Allergy Verified 01/14/18 09:51 History of Present Illness History of Present Illness: PATIENT IS Past Medical History Past Medical History: Arthritis, CHF, Coronary Artery Disease, Diabetes, Dyslipidemia and Hypertension Past Surgical History Surgical History: Cholecystectomy, Hysterectomy, Joint Replacement and Ortho Surgery Family History Family Medical History: Diabetes Mellitus, Coronary Artery Disease and Hypertension Social History Does patient currently use any type of tobacco product: No Have you used tobacco products in the last 12 months: No Type of Tobacco Use: None Does any household member use tobacco: No Alcohol Use: None Drug Use: None Medications Home Medications: meperidine Allergy (Verified 01/14/18 09:51) CONTINUE taking the following medications amoxicillin 500 mg PO TID 01/14/18 [History] cetirizine [Zyrtec] 5 mg PO QDAY 01/14/18 [History] dextran 70-hypromellose [Nature's Tears] 1 drp OPHTHALMIC (EYE) Q6H PRN 01/14/18 [History] diclofenac sodium [Voltaren] 2 g TOPICAL BID 01/14/18 [History] docusate sodium [Colace] 100 mg PO BID 01/14/18 [History] furosemide 20 mg PO QAM 01/14/18 [History] simethicone 160 mg PO Q8H PRN 01/14/18 [History] Physical Exam Vital Signs: Temperature 98.0 F Pulse Rate [Right Radial] 94 Pulse Rate 91 Respiratory Rate 22 Blood Pressure [Left Arm] 131/65 Blood Pressure [Right Arm] 127/68 Blood Pressure 155/85 O2 Sat by Pulse Oximetry 94
[2018-01-14] MEDS: ULTRAM PO PRN (23:59)
[2018-01-15] MEDS: DUONEB 0.5 MG/3 MG NEB SCH ×6 (00:35→20:05)
[2018-01-15] MEDS: NS 1/2 1000 ML IV 1,000 ML IV SCH ×3 (01:17→16:03)
[2018-01-15] MEDS ORDERED: NS 1/2 1000 ML IV 1,000 ML IV ONE ×2 (01:22→15:58)
[2018-01-15 05:16] LABS: BASOPHILS % (AUTO) 0.5 % (0.2-1.0); EOSINOPHILS # (AUTO) 0.1 x10^3/uL (0.0-0.2); EOSINOPHILS % (AUTO) 1.8 % (0.9-2.9); HEMATOCRIT 26.3 % (36.0-47.0); LYMPHOCYTES # (AUTO) 1.5 X10^3/uL (1.3-2.9); LYMPHOCYTES % (AUTO) 22.6 % (21.0-51.0); MEAN CORPUSCULAR HEMOGLOBIN 28.9 pg (27.0-34.0); MEAN CORPUSCULAR VOLUME 87.6 fL (80.0-100.0); MEAN PLATELET VOLUME 10.4 fL (7.4-11.0); MONOCYTES # (AUTO) 0.5 x10^3/uL (0.3-0.8); NEUTROPHILS # (AUTO) 4.5 x10^3/uL (2.2-4.8); NEUTROPHILS % (AUTO) 67.1 % (42.0-75.0); PLATELET COUNT 133 X10^3/uL (150.0-450.0); RED CELL DISTRIBUTION WIDTH 14.5 % (11.6-16.5); WHITE BLOOD COUNT 6.7 X10^3/uL (3.6-10.0)
[2018-01-15 05:24] LABS: CALCIUM 7.3 mg/dL (8.5-10.1); CARBON DIOXIDE 31.3 mmol/L (21-32); COR CA(FOR HYPOALB) 8.9 mg/dL (8.5-10.1); CREATININE 1.51 mg/dL (0.55-1.02); TOTAL PROTEIN 6.7 g/dL (6.4-8.2)
[2018-01-15 05:31] LABS: HEMOGLOBIN 8.7 g/dL (12.0-16.0)
[2018-01-15] MEDS: AMOXIL CAP 500 MG PO SCH ×2 (05:44→14:20)
--- NOTE | 2018-01-15 07:26 | RAD ---
HISTORY: Follow-up pneumonia Study: Chest AP portable Comparison: 01/14/2018 Findings: The patient is rotated to the right. The heart is enlarged. Mild pulmonary venous congestion is present. The lungs are hypo inflated. There is subsegmental atelectasis in the right lung base. Associated infiltrate cannot be excluded. The left lung appears free of acute infiltrates. No definite pleural effusions are identified. The bony thorax is unremarkable. IMPRESSION: Moderate cardiomegaly with mild pulmonary venous congestion Hypo inflation Subsegmental atelectasis right lung base. Underlying infiltrate cannot be excluded. Reported By:
[2018-01-15] MEDS ORDERED: ASTELIN NASAL SPRAY ENOSTRIL ONE (07:38)
[2018-01-15] MEDS: ASTELIN NASAL SPRAY ENOSTRIL SCH (08:00)
[2018-01-15] MEDS: FLONASE NASAL SPRAY ENOSTRIL SCH (08:00)
[2018-01-15] MEDS: LYRICA CAP 100 MG PO SCH ×2 (08:01→21:31)
[2018-01-15] MEDS: LASIX PO SCH (08:01)
[2018-01-15] MEDS: TAB-A-VITE PO SCH (08:01)
[2018-01-15] MEDS: COLACE CAP 100 MG PO SCH ×2 (08:01→21:31)
[2018-01-15] MEDS: ZyrTEC TAB 10 MG PO SCH (08:01)
[2018-01-15] MEDS: COREG TAB 6.25 MG PO SCH ×2 (08:01→21:31)
[2018-01-15] MEDS: ROBITUSSIN DM PO SCH ×4 (08:01→21:36)
[2018-01-15] MEDS: MIRALAX POWDER (1 DOSE 17 G) PO SCH (08:03)
[2018-01-15] MEDS ORDERED: LEVAQUIN PREMIX IV 750 MG 750 MG/150 ML BAG IV SCH (09:00)
[2018-01-15] MEDS ORDERED: VICTOZA SC SCH (09:00)
[2018-01-15] MEDS: MORPHINE SULFATE INJ 2 MG INJ IVP PRN (09:10)
[2018-01-15] MEDS: PATIENT'S HOME MEDICATION SC SCH (11:08)
[2018-01-15] MEDS: VOLTAREN 1 % GEL MULTI DOSE TUBE TOP SCH ×2 (11:12→21:31)
[2018-01-15] MEDS: PATIENT'S HOME MEDICATION (Solifenacin [Vesicare] 5 MG) PO SCH (11:14)
[2018-01-15] MEDS: ATIVAN INJ 2 MG VIAL IVP PRN (16:02)
[2018-01-15] MEDS: REQUIP PO SCH (21:31)
[2018-01-15] MEDS: LIPITOR TAB 40 MG PO SCH (21:31)
[2018-01-15] MEDS: SNACK - Diabetic Appropriate PO SCH (21:46)
[2018-01-16] MEDS: DUONEB 0.5 MG/3 MG NEB SCH ×6 (01:11→20:10)
[2018-01-16] MEDS: ATIVAN INJ 2 MG VIAL IVP PRN ×2 (01:50→09:10)
[2018-01-16] MEDS: NS 1/2 1000 ML IV 1,000 ML IV SCH ×4 (03:43→16:14)
[2018-01-16] MEDS ORDERED: NS 1/2 1000 ML IV 1,000 ML IV ONE ×2 (03:46→16:08)
[2018-01-16 05:28] LABS: ALANINE AMINOTRANSFERASE 11 Units/L (12-78); ALBUMIN 2.1 g/dL (3.4-5.0); ALKALINE PHOSPHATASE 69 Units/L (46-116); ASPARTATE AMINO TRANSFERASE 9 Units/L (15-37); BLOOD UREA NITROGEN 26 mg/dL (7-18); CALCIUM 7.6 mg/dL (8.5-10.1); CARBON DIOXIDE 29.4 mmol/L (21-32); CHLORIDE 102 mmol/L (98-107); COR CA(FOR HYPOALB) 9.1 mg/dL (8.5-10.1); CREATININE 1.49 mg/dL (0.55-1.02); SODIUM 137 mmol/L (136-145); TOTAL PROTEIN 6.9 g/dL (6.4-8.2); eGFR NON BLACK RACES 37 (>60)
[2018-01-16 05:29] LABS: BASOPHILS % (AUTO) 0.5 % (0.2-1.0); EOSINOPHILS # (AUTO) 0.1 x10^3/uL (0.0-0.2); EOSINOPHILS % (AUTO) 0.8 % (0.9-2.9); HEMATOCRIT 27.3 % (36.0-47.0); HEMOGLOBIN 8.9 g/dL (12.0-16.0); LYMPHOCYTES # (AUTO) 1.2 X10^3/uL (1.3-2.9); LYMPHOCYTES % (AUTO) 16.4 % (21.0-51.0); MEAN CORPUSCULAR HEMOGLOBIN 28.7 pg (27.0-34.0); MEAN CORPUSCULAR HGB CONC 32.6 g/dL (33.0-35.0); MEAN CORPUSCULAR VOLUME 87.9 fL (80.0-100.0); MEAN PLATELET VOLUME 10.4 fL (7.4-11.0); MONOCYTES # (AUTO) 0.5 x10^3/uL (0.3-0.8); MONOCYTES % (AUTO) 6.1 % (0.0-13.0); NEUTROPHILS # (AUTO) 5.7 x10^3/uL (2.2-4.8); NEUTROPHILS % (AUTO) 76.2 % (42.0-75.0); PLATELET COUNT 125 X10^3/uL (150.0-450.0); RED CELL DISTRIBUTION WIDTH 15.1 % (11.6-16.5); WHITE BLOOD COUNT 7.5 X10^3/uL (3.6-10.0)
[2018-01-16] MEDS: ULTRAM PO PRN (06:12)
[2018-01-16] MEDS ORDERED: TYLENOL 325 MG TAB PO PRN ×2 (08:11→14:09)
--- NOTE | 2018-01-16 08:11 | RAD ---
HISTORY: Follow-up pneumonia Study: Chest AP portable Comparison: 01/15/2018 Findings: The heart remains enlarged. Mild pulmonary venous congestion remains. Subsegmental atelectasis is present in the right lung base also unchanged. Small areas of subsegmental atelectasis are present on the left. No definite alveolar infiltrates or pleural effusions are identified. The bony thorax is unremarkable. IMPRESSION: Persistent cardiomegaly with mild pulmonary venous congestion Bilateral areas of subsegmental atelectasis, stable Reported By:
[2018-01-16] MEDS: ASTELIN NASAL SPRAY ENOSTRIL SCH (08:26)
[2018-01-16] MEDS: COLACE CAP 100 MG PO SCH ×2 (08:26→21:01)
[2018-01-16] MEDS: FLONASE NASAL SPRAY ENOSTRIL SCH (08:26)
[2018-01-16] MEDS: VOLTAREN 1 % GEL MULTI DOSE TUBE TOP SCH ×2 (08:26→21:19)
[2018-01-16] MEDS: ZyrTEC TAB 10 MG PO SCH (08:27)
[2018-01-16] MEDS: LASIX PO SCH (08:27)
[2018-01-16] MEDS: COREG TAB 6.25 MG PO SCH ×2 (08:27→21:02)
[2018-01-16] MEDS: TAB-A-VITE PO SCH (08:27)
[2018-01-16] MEDS: LYRICA CAP 100 MG PO SCH ×2 (08:27→21:02)
[2018-01-16] MEDS: PATIENT'S HOME MEDICATION SC SCH (08:28)
[2018-01-16] MEDS: ROBITUSSIN DM PO SCH ×4 (08:28→21:03)
[2018-01-16] MEDS: MIRALAX POWDER (1 DOSE 17 G) PO SCH (08:28)
[2018-01-16] MEDS: PATIENT'S HOME MEDICATION (Solifenacin [Vesicare] 5 MG) PO SCH (08:31)
[2018-01-16] MEDS ORDERED: ZOSYN VIAL 3.375 GRAMS 3.375 G in NS 100 ML IV + SPIKE MINIBAG* 100 ML IV SCH (10:00)
[2018-01-16] MEDS ORDERED: LASIX IVP SCH (10:00)
[2018-01-16] MEDS ORDERED: NS 250 ML IV 250 ML IV ONE (10:17)
[2018-01-16] MEDS ORDERED: MYLICON TAB 80 MG CHEW PO PRN (14:08)
[2018-01-16] MEDS ORDERED: ULTRAM PO PRN (14:09)
[2018-01-16] MEDS ORDERED: ATIVAN INJ 2 MG VIAL IVP PRN (14:09)
[2018-01-16] MEDS ORDERED: MORPHINE SULFATE INJ 2 MG INJ IVP PRN (14:09)
[2018-01-16] MEDS: ZOSYN VIAL 3.375 GRAMS 3.375 G in NS 100 ML IV + SPIKE MINIBAG* 100 ML IV SCH ×2 (14:42→21:02)
[2018-01-16] MEDS ORDERED: SNACK - Diabetic Appropriate PO SCH (20:00)
[2018-01-16] MEDS ORDERED: REQUIP PO SCH (21:00)
[2018-01-16] MEDS ORDERED: LIPITOR TAB 40 MG PO SCH (21:00)
[2018-01-17] MEDS: ZOSYN VIAL 3.375 GRAMS 3.375 G in NS 100 ML IV + SPIKE MINIBAG* 100 ML IV SCH ×2 (05:28→14:52)
[2018-01-17] MEDS: DUONEB 0.5 MG/3 MG NEB SCH ×3 (05:35→13:50)
[2018-01-17 06:11] LABS: BASOPHILS # (AUTO) 0.1 X10^3/uL (0.0-0.1); EOSINOPHILS # (AUTO) 0.1 x10^3/uL (0.0-0.2); EOSINOPHILS % (AUTO) 1.9 % (0.9-2.9); HEMATOCRIT 27.2 % (36.0-47.0); LYMPHOCYTES # (AUTO) 1.4 X10^3/uL (1.3-2.9); LYMPHOCYTES % (AUTO) 20.5 % (21.0-51.0); MEAN CORPUSCULAR HEMOGLOBIN 28.5 pg (27.0-34.0); MEAN CORPUSCULAR HGB CONC 32.9 g/dL (33.0-35.0); MEAN CORPUSCULAR VOLUME 86.5 fL (80.0-100.0); MEAN PLATELET VOLUME 10.4 fL (7.4-11.0); MONOCYTES # (AUTO) 0.5 x10^3/uL (0.3-0.8); NEUTROPHILS # (AUTO) 4.6 x10^3/uL (2.2-4.8); NEUTROPHILS % (AUTO) 69.6 % (42.0-75.0); PLATELET COUNT 123 X10^3/uL (150.0-450.0); RED BLOOD COUNT 3.14 X10^6/uL (3.5-5.4); WHITE BLOOD COUNT 6.6 X10^3/uL (3.6-10.0)
[2018-01-17 06:36] LABS: ALBUMIN 1.9 g/dL (3.4-5.0); CALCIUM 7.8 mg/dL (8.5-10.1); CARBON DIOXIDE 28.9 mmol/L (21-32); COR CA(FOR HYPOALB) 9.5 mg/dL (8.5-10.1); CREATININE 1.7 mg/dL (0.55-1.02)
[2018-01-17] MEDS ORDERED: ASTELIN NASAL SPRAY ENOSTRIL SCH (09:00)
[2018-01-17] MEDS ORDERED: ZyrTEC TAB 10 MG PO SCH (09:00)
[2018-01-17] MEDS ORDERED: FLONASE NASAL SPRAY ENOSTRIL SCH (09:00)
[2018-01-17] MEDS ORDERED: MIRALAX POWDER (1 DOSE 17 G) PO SCH (09:00)
[2018-01-17] MEDS ORDERED: TAB-A-VITE PO SCH (09:00)
[2018-01-17] MEDS ORDERED: PATIENT'S HOME MEDICATION (Solifenacin [Vesicare] 5 MG) PO SCH (09:00)
[2018-01-17] MEDS ORDERED: PATIENT'S HOME MEDICATION SC SCH (09:00)
[2018-01-17] MEDS ORDERED: LASIX IVP SCH (09:00)
[2018-01-17] MEDS: COLACE CAP 100 MG PO SCH (10:03)
[2018-01-17] MEDS: LYRICA CAP 100 MG PO SCH (10:03)
[2018-01-17] MEDS: ROBITUSSIN DM PO SCH ×3 (10:03→17:37)
[2018-01-17] MEDS: VOLTAREN 1 % GEL MULTI DOSE TUBE TOP SCH (10:05)
[2018-01-17] MEDS: COREG TAB 6.25 MG PO SCH (11:07)
[2018-01-17] MEDS: NS 1/2 1000 ML IV 1,000 ML IV SCH (11:52)
[2018-01-17] MEDS ORDERED: DULCOLAX SUPPOSITORY 10 MG RECTAL ONE (15:00)
[2018-01-17 16:12] VITALS: BP 98/46
[2018-01-17] MEDS ORDERED: DUONEB 0.5 MG/3 MG NEB SCH (17:00)
== END 2018-01-17 19:20 | DRG 194 ==
LOC: ER 09:50 → MED/SURG 12:03
PROVIDERS: ADMIT Obstetrics & Gynecology Obstetrics; ATTEND Obstetrics & Gynecology Obstetrics
CPT/HCPCS: 36415; 36600; 71010; 71045; 80053; 81001; 82803; 83605; 85025; 85378; 86140; 87040; 87070; 87077; 87086; 87186; 87205; 94640; 94660; 94760; 96365; 96367; 96374; 96375; 97165; 99221; 99283; 99284; A4222; A4618; A7030; J1940; J1956; J2060; J2270; J2543; J3490; J7050; J7620

== ENCOUNTER 2018-02-09 16:32 | Observation (INO) ==
--- NOTE | 2018-02-09 17:19 | DR.AMS ---
HPI Time Seen Time Seen by Provider: 02/09/18 17:10 PCP Primary Care Physician: DR BAL Complaint Chief Complaint:: ACCORDING TO PRISON STAFF PT APPEARS TO BE A LITTLE WEAKER ON HER RIGHT SIDE TODAY. HAS BEEN MORE CONFUSED AND NOT RESPONDING SHE NORMALLY DOES. PT DID HAVE UA DONE AND WAS NEGATIVE ACCORDING TO PRISON STAFF. Source History Provided: [facility] Mode of Arrival Mode of Arrival: Stretcher Timing Onset of Chief Complaint: 02/09/18 PMH PMH Past Medical History: Yes Past Medical History: Arthritis, CHF, COPD, Coronary Artery Disease, Diabetes, Dyslipidemia, GERD, Hypertension and Renal Disease Past Medical History Comment: BORN WITH ONE KIDNEY, CHRONIC BACK PAIN Past Surgical History: Yes Surgical History: Cholecystectomy, Hysterectomy, Joint Replacement and Ortho Surgery Family History History of Family Medical Conditions: No Family Medical History: Diabetes Mellitus, Coronary Artery Disease and Hypertension Social History Does patient currently use any type of tobacco product: No Have you used tobacco products in the last 12 months: No Type of Tobacco Use: None Does any household member use tobacco: No Alcohol Use: None Do you use any recreational Drugs:: No Lives With: Other Lives Where: [facility] infectious screening In the last 2 months have you had wt loss of >10#?: NO Have you had fever, night sweats or hemotysis?: No Have you traveled outside the country in the last 6 months?: No Isolation: Standard PE Vitals Vital Signs: Temp Pulse Pulse Pulse Resp BP BP 02/11/18 20:14 100 H 02/11/18 16:00 97.9 F 95 H 20 131/94 02/11/18 12:00 97.8 F 85 20 105/59 02/11/18 08:00 98.7 F 86 20 111/69 02/11/18 05:42 90 02/11/18 04:00 99.0 F 91 H 20 115/64 02/11/18 01:49 91 H 02/11/18 00:00 97.8 F 96 H 20 113/55 02/10/18 20:19 88 02/10/18 20:00 98.2 F 96 H 21 108/66 02/10/18 16:00 98.6 F 86 20 107/62 02/10/18 12:00 98.5 F 88 20 96/46 02/10/18 08:00 97.9 F 88 20 105/56 02/10/18 05:41 85 91/57 02/10/18 03:50 98.2 F 84 20 82/55 02/09/18 23:55 98.0 F 82 20 94/53 02/09/18 23:28 97.3 F L 88 02/09/18 20:00 97.3 F L 88 20 84/50 02/09/18 19:19 87 20 105/59 02/09/18 19:02 87 21 81/52 02/09/18 16:37 97.9 F 90 20 133/87 02/09/18 16:34 83 20 133/87 01/17/18 16:00 98/46 01/17/18 00:00 88/46 BP Pulse Ox 02/11/18 20:14 95 02/11/18 16:00 96 02/11/18 12:00 97 02/11/18 08:00 98 02/11/18 05:42 97 02/11/18 04:00 97 02/11/18 01:49 96 02/11/18 00:00 96 02/10/18 20:19 97 02/10/18 20:00 97 02/10/18 16:00 96 02/10/18 12:00 96 02/10/18 08:00 95 02/10/18 05:41 02/10/18 03:50 96 02/09/18 23:55 96 02/09/18 23:28 97 02/09/18 20:00 93 L 02/09/18 19:19 96 02/09/18 19:02 96 02/09/18 16:37 94 L 02/09/18 16:34 90 L 01/17/18 16:00 98/46 01/17/18 00:00 General Limitations: Physical Limitation General Appearance: Alert and In No Apparent Distress Head Head Exam: Normal Inspection, Atraumatic and Normocephalic Eyes Eye exam: Normal Appearance, PERRL and EOMI Pupils: Regular, Round: Bilateral ENT ENT Exam: Normal Exam and Normal Oropharynx External Ear Exam: Normal External Inspection TM/Canal Exam: Bilateral: Normal Nose Exam: Normal Nose Exam Mouth Exam: Normal Inspection; negative Drooling Neck Neck Exam: Normal Inspection and Full ROM Chest Chest Inspection: Normal Inspection and Symmetric Chest Wall Rise Respiratory Respiratory Exam: Bilateral: Clear to Auscultation Cardiovascular Cardiovascular Exam: Regular Rate and Normal Rhythm Abdominal Exam Abdominal Exam: Normal Inspection, Normal Bowel Sounds and Soft Extremities Extremities Exam: Normal Inspection Neurological Neurological Exam: Alert Speech: Receptive Aphasia Psychological Psychiatric Exam: Normal Affect and Flat Affect Expanded Psychiatric Exam: Poor Eye Contact Skin Skin Exam: Warm, Dry, Intact, Normal Color and Rash (right lower tibia laterally); negative Diaphoresis and Erythema COURSE Reevaluation 1st: Unchanged Consultation Called: 18:30 Consultation Comments: Dr. Arora agreed to admit for further treatment and evaluation ROR Labs Reviewed Laboratory Results Reviewed?: Yes Result Diagrams: 02/11/18 05:30 02/11/18 05:30 Laboratory: 02/09/18 19:23 Blood Blood Culture - Preliminary 02/09/18 19:15 Blood Blood Culture - Preliminary WBC 3.9 X10^3/uL (3.6-10.0) 02/11/18 05:30 RBC 3.52 X10^6/uL (3.5-5.4) 02/11/18 05:30 Hgb 9.8 g/dL (12.0-16.0) L 02/11/18 05:30 Hct 30.5 % (36.0-47.0) L 02/11/18 05:30 MCV 86.6 fL (80.0-100.0) 02/11/18 05:30 MCH 28.0 pg (27.0-34.0) 02/11/18 05:30 MCHC 32.3 g/dL (33.0-35.0) L 02/11/18 05:30 RDW 16.4 % (11.6-16.5) 02/11/18 05:30 Plt Count 111 X10^3/uL (150.0-450.0) L 02/11/18 05:30 MPV 10.5 fL (7.4-11.0) 02/11/18 05:30 Neut % (Auto) 57.9 % (42.0-75.0) 02/11/18 05:30 Lymph % (Auto) 32.5 % (21.0-51.0) 02/11/18 05:30 [place] % (Auto) 7.1 % (0.0-13.0) 02/11/18 05:30 Eos % (Auto) 1.8 % (0.9-2.9) 02/11/18 05:30 Baso % (Auto) 0.7 % (0.2-1.0) 02/11/18 05:30 Neut # (Auto) 2.3 x10^3/uL (2.2-4.8) 02/11/18 05:30 Lymph # (Auto) 1.3 X10^3/uL (1.3-2.9) 02/11/18 05:30 [place] # (Auto) 0.3 x10^3/uL (0.3-0.8) 02/11/18 05:30 Eos # (Auto) 0.1 x10^3/uL (0.0-0.2) 02/11/18 05:30 Baso # (Auto) 0.0 X10^3/uL (0.0-0.1) 02/11/18 05:30 Absolute Nucleated RBC 0.0 /100WBC 02/11/18 05:30 Sodium 141 mmol/L (136-145) 02/11/18 05:30 Corrected Sodium 141 mmol/L (136-145) 02/11/18 05:30 Potassium 3.9 mmol/L (3.5-5.1) 02/11/18 05:30 Chloride 101 mmol/L (98-107) 02/11/18 05:30 Carbon Dioxide 31.1 mmol/L (21-32) 02/11/18 05:30 BUN 25 mg/dL (7-18) H 02/11/18 05:30 Creatinine 1.60 mg/dL (0.55-1.02) H 02/11/18 05:30 Est GFR (MDRD) Af Amer 42 (>60) L 02/11/18 05:30 Est GFR (MDRD) Non-Af 34 (>60) L 02/11/18 05:30 Glucose 119 mg/dL (65-99) H 02/11/18 05:30 POC Glucose (mg/dL) 155 mg/dL (65-99) H 02/11/18 20:14 Calcium 7.9 mg/dL (8.5-10.1) L 02/11/18 05:30 Corrected Calcium 9.1 mg/dL (8.5-10.1) 02/11/18 05:30 Total Bilirubin 0.40 mg/dL (0.2-1.0) 02/11/18 05:30 AST 9 Units/L (15-37) L 02/11/18 05:30 ALT 9 Units/L (12-78) L 02/11/18 05:30 Alkaline Phosphatase 67 Units/L (46-116) 02/11/18 05:30 Creatine Kinase 28 Units/L (26-192) 02/09/18 17:41 CK-MB (CK-2) < 1.0 ng/mL (0-4.0) 02/09/18 17:41 CK/CKMB % Calc 3.6 % (<4) 02/09/18 17:41 Troponin I < 0.02 ng/mL (0-1.5) 02/09/18 17:41 C-Reactive Protein 75.50 mg/L (0-3.0) H 02/09/18 17:41 Total Protein 7.1 g/dL (6.4-8.2) 02/11/18 05:30 Albumin 2.5 g/dL (3.4-5.0) L 02/11/18 05:30 Globulin 4.6 g/dL (2.5-4.5) H 02/11/18 05:30 Albumin/Globulin Ratio 0.5 Ratio (1.1-2.1) L 02/11/18 05:30 Specimen Type Clean catch urine 02/11/18 16:30 Urine Color Yellow (YELLOW) 02/11/18 16:30 Urine Appearance Clear (CLEAR) 02/11/18 16:30 Urine pH 5.0 (5.0 - 8.0) 02/11/18 16:30 Ur Specific [place] 1.015 (1.000-1.030) 02/11/18 16:30 Urine Protein 1+ (NEGATIVE) 02/11/18 16:30 Urine Glucose (UA) Negative (NEGATIVE) 02/11/18 16:30 Urine Ketones Negative (NEGATIVE) 02/11/18 16:30 Urine Occult Blood Negative (NEGATIVE) 02/11/18 16:30 Urine Nitrite Negative (NEGATIVE) 02/11/18 16:30 Urine Bilirubin Negative (NEGATIVE) 02/11/18 16:30 Urine Urobilinogen Normal (NORMAL) 02/11/18 16:30 Ur Leukocyte Esterase 1+ (NEGATIVE) 02/11/18 16:30 Urine RBC None seen /HPF (NONE SEEN) 02/11/18 16:30 Urine WBC 0-2 /HPF (NONE SEEN) 02/11/18 16:30 Ur Squamous Epith Cells Rare /HPF (NEGATIVE) 02/11/18 16:30 Amorphous Sediment 1+ /HPF (NEGATIVE) 02/11/18 16:30 Urine Bacteria Trace /HPF (NEGATIVE) 02/11/18 16:30 Ur Culture Indicated? Yes/culture set up 02/11/18 16:30 Other Results Comments: CT Head: no definite evidence of an acute intracranial process. If clinical concern persists for acute stroke and it would alter patient management, consider MRI/MRA brain. Moderate micro-vascular white matter ischemic changes, with associated volume loss. Rhronic right phthisis bulbi. Chest XRay: Trachea is midline. The cardiac silhouette is stably enlarged with chronic prominence perihilar lung markings and interstitium and low lung volumes. Bibasilar airspace opacities without pneumothorax or large consoli dation. Soft tissues are unremarkable. Osseous structures are unremarkable. Impression: Chronic cardiomegaly and low lung volumes with bronchovascular crowding at the bases and basilar atelectasis, correlate clinicall;y for underlying infection. Diagnosis Discharge Problem: Prerenal renal failure Pneumonia Qualifiers: Pneumonia type: due to unspecified organism Laterality: unspecified laterality Lung location: unspecified part of lung Qualified Code(s): J18.9 - Pneumonia, unspecified organism ADDITIONAL NOTES Additional Notes Additional Notes: Patient will be admitted for further treatment
--- NOTE | 2018-02-09 17:34 | CT ---
CT HEAD WITHOUT CONTRAST CLINICAL HISTORY: 62-year-old female with stroke-like symptoms. COMPARISON: CT head 02/21/2017. TECHNIQUE: Multiple, non-contrasted axial CT images were obtained from the skull base to the cranial vertex. Coronal and sagittal reformats were performed. FINDINGS: There are no abnormal intra- or extra-axial fluid collections, midline shift, or mass effect. Aguirre-white differentiation is normal. Partially empty sella. Global cortical involutional changes are present that are advanced for the patient's stated age. The ventricular system is mildly enlarged but commensurate with the degree of sulcal prominence. Periventricular and supraventricular white matter hypodensity is present that is nonspecific in appearance, but most likely to represent microvascular ischemic changes. Atherosclerotic vascular calcification is present within the carotid siphons and distal vertebral arteries. Unchanged right phthisis bulbi. The imaged paranasal sinuses, mastoid air cells, and tympanic spaces are clear. IMPRESSION: 1. No definite evidence of an acute intracranial process. If clinical concern persists for acute stroke and it would alter patient management, consider MRI/MRA brain. 2. Moderate microvascular white matter ischemic changes, with associated volume loss. 3. Chronic right phthisis bulbi. Reported By:
[2018-02-09 17:57] LABS: BASOPHILS # (AUTO) 0.1 X10^3/uL (0.0-0.1); EOSINOPHILS # (AUTO) 0.1 x10^3/uL (0.0-0.2); EOSINOPHILS % (AUTO) 2.1 % (0.9-2.9); HEMATOCRIT 30.4 % (36.0-47.0); HEMOGLOBIN 9.8 g/dL (12.0-16.0); LYMPHOCYTES # (AUTO) 2.1 X10^3/uL (1.3-2.9); LYMPHOCYTES % (AUTO) 36.6 % (21.0-51.0); MEAN CORPUSCULAR HEMOGLOBIN 28.1 pg (27.0-34.0); MEAN CORPUSCULAR HGB CONC 32.3 g/dL (33.0-35.0); MEAN CORPUSCULAR VOLUME 87.1 fL (80.0-100.0); MEAN PLATELET VOLUME 10.4 fL (7.4-11.0); MONOCYTES # (AUTO) 0.4 x10^3/uL (0.3-0.8); MONOCYTES % (AUTO) 6.8 % (0.0-13.0); NEUTROPHILS # (AUTO) 3.1 x10^3/uL (2.2-4.8); NEUTROPHILS % (AUTO) 53.5 % (42.0-75.0); PLATELET COUNT 124 X10^3/uL (150.0-450.0); RED BLOOD COUNT 3.49 X10^6/uL (3.5-5.4); RED CELL DISTRIBUTION WIDTH 16.1 % (11.6-16.5); WHITE BLOOD COUNT 5.8 X10^3/uL (3.6-10.0)
--- NOTE | 2018-02-09 17:59 | RAD ---
HISTORY: 62-year-old female with confusion and weakness. Study: Frontal view of the chest. Comparison: Chest radiograph 01/16/2018 Findings: Study is limited secondary to patient body habitus and excessive quantum mottle. The trachea is midline. The cardiac silhouette is stably enlarged with chronic prominence perihilar lung markings and interstitium and low lung volumes. Bibasilar airspace opacities without pneumothorax or large consolidation. Soft tissues are unremarkable. Osseous structures are unremarkable. IMPRESSION: 1. Chronic cardiomegaly and low lung volumes with bronchovascular crowding at the bases and basilar atelectasis, correlate clinically for underlying infection. Reported By:
[2018-02-09 18:01] LABS: ALBUMIN 2.7 g/dL (3.4-5.0); CALCIUM 7.9 mg/dL (8.5-10.1); CARBON DIOXIDE 33.1 mmol/L (21-32); COR CA(FOR HYPOALB) 8.9 mg/dL (8.5-10.1); CREATININE 2.15 mg/dL (0.55-1.02); TOTAL PROTEIN 7.5 g/dL (6.4-8.2)
[2018-02-09] MEDS ORDERED: TUSSIONEX PENNKINETIC SUSP PO PRN (18:48)
[2018-02-09] MEDS ORDERED: DEXTRAN HYPROMELLOSE OP PRN (18:54)
[2018-02-09] MEDS ORDERED: MYLICON TAB 80 MG CHEW PO PRN (18:54)
[2018-02-09] MEDS ORDERED: ULTRAM PO PRN (18:54)
[2018-02-09] MEDS ORDERED: NS 1/2 1000 ML IV 1,000 ML IV ONE (19:05)
[2018-02-09] MEDS: NS 1/2 1000 ML IV 1,000 ML IV SCH (19:17)
[2018-02-09 19:21] LABS: CREATINE KINASE 28 Units/L (26-192); CREATINE KINASE MB < 1.0 ng/mL (0-4.0); TROPONIN I < 0.02 ng/mL (0-1.5)
[2018-02-09 19:23] LABS: CKMB % 3.6 % (<4)
[2018-02-09] MEDS: ROCEPHIN VIAL 1 GRAM IVP SCH (19:31)
[2018-02-09] MEDS: VIBRAMYCIN 100 MG in NS 100 ML IV + SPIKE MINIBAG* 100 ML IV SCH (20:36)
[2018-02-09] MEDS: ROBITUSSIN DM PO SCH (20:42)
[2018-02-09] MEDS: SNACK - Diabetic Appropriate PO SCH (21:28)
[2018-02-09] MEDS: COLACE CAP 100 MG PO SCH (21:28)
[2018-02-09] MEDS: REQUIP PO SCH (21:28)
[2018-02-09] MEDS: LIPITOR TAB 40 MG PO SCH (21:28)
[2018-02-09] MEDS: LYRICA CAP 100 MG PO SCH (21:29)
[2018-02-09] MEDS: COREG TAB 6.25 MG PO SCH (21:29)
[2018-02-09] MEDS: VOLTAREN 1 % GEL MULTI DOSE TUBE TOP SCH (22:12)
[2018-02-10] MEDS ORDERED: NS 1/2 1000 ML IV 1,000 ML IV ONE ×2 (03:52→20:51)
[2018-02-10] MEDS ORDERED: HumuLIN R SUBCUT PRN (06:09)
--- NOTE | 2018-02-10 06:11 | RAD ---
Chest, one view Indication: Pneumonia Comparison: 02/09/2018 Findings: Accounting for rotation, there is stable cardiomegaly and mild pulmonary vascular congestion without overt edema. There are stable linear opacities within the mid lungs bilaterally, suggestive for atelectasis versus scarring. There are persistent but improving patchy opacities within the left lung base. No definite new focal infiltrate or significant effusion is identified. There is no pneumothorax. Impression: Stable cardiomegaly and pulmonary vascular congestion without overt edema. Persistent but improving left basilar airspace disease. Bilateral subsegmental atelectasis versus scarring, unchanged. Reported By:
[2018-02-10 06:19] LABS: BASOPHILS % (AUTO) 0.5 % (0.2-1.0); EOSINOPHILS # (AUTO) 0.1 x10^3/uL (0.0-0.2); EOSINOPHILS % (AUTO) 1.8 % (0.9-2.9); HEMATOCRIT 31.5 % (36.0-47.0); HEMOGLOBIN 10.2 g/dL (12.0-16.0); LYMPHOCYTES # (AUTO) 1.6 X10^3/uL (1.3-2.9); LYMPHOCYTES % (AUTO) 34.5 % (21.0-51.0); MEAN CORPUSCULAR HEMOGLOBIN 28.2 pg (27.0-34.0); MEAN CORPUSCULAR HGB CONC 32.4 g/dL (33.0-35.0); MEAN CORPUSCULAR VOLUME 87.2 fL (80.0-100.0); MEAN PLATELET VOLUME 10.9 fL (7.4-11.0); MONOCYTES # (AUTO) 0.3 x10^3/uL (0.3-0.8); MONOCYTES % (AUTO) 7.2 % (0.0-13.0); NEUTROPHILS # (AUTO) 2.5 x10^3/uL (2.2-4.8); PLATELET COUNT 102 X10^3/uL (150.0-450.0); RED BLOOD COUNT 3.62 X10^6/uL (3.5-5.4); WHITE BLOOD COUNT 4.5 X10^3/uL (3.6-10.0)
[2018-02-10 06:29] LABS: ALBUMIN 2.6 g/dL (3.4-5.0); CALCIUM 7.7 mg/dL (8.5-10.1); CARBON DIOXIDE 32.8 mmol/L (21-32); COR CA(FOR HYPOALB) 8.8 mg/dL (8.5-10.1); TOTAL PROTEIN 7.3 g/dL (6.4-8.2)
[2018-02-10] MEDS: NS 1/2 1000 ML IV 1,000 ML IV SCH (08:24)
[2018-02-10] MEDS: COREG TAB 6.25 MG PO SCH (08:54)
[2018-02-10] MEDS: VOLTAREN 1 % GEL MULTI DOSE TUBE TOP SCH (08:55)
[2018-02-10] MEDS ORDERED: ASTELIN NASAL SPRAY ENOSTRIL ONE (08:59)
[2018-02-10] MEDS ORDERED: PATIENT'S HOME MEDICATION (Solifenacin [Vesicare] 5 MG) PO SCH (09:00)
[2018-02-10] MEDS: DETROL LA 2 MG CAP EXT REL PO SCH (09:19)
[2018-02-10] MEDS: ASTELIN NASAL SPRAY ENOSTRIL SCH (09:19)
[2018-02-10] MEDS: COLACE CAP 100 MG PO SCH ×2 (09:19→21:27)
[2018-02-10] MEDS: VIBRAMYCIN 100 MG in NS 100 ML IV + SPIKE MINIBAG* 100 ML IV SCH ×2 (09:20→21:32)
[2018-02-10] MEDS: ROCEPHIN VIAL 1 GRAM IVP SCH (09:20)
[2018-02-10] MEDS: MIRALAX POWDER (1 DOSE 17 G) PO SCH (09:20)
[2018-02-10] MEDS: LYRICA CAP 100 MG PO SCH ×2 (09:20→21:27)
[2018-02-10] MEDS: ROBITUSSIN DM PO SCH ×4 (09:20→21:28)
[2018-02-10] MEDS: FLONASE NASAL SPRAY ENOSTRIL SCH (09:21)
[2018-02-10] MEDS: ZyrTEC TAB 10 MG PO SCH (09:21)
[2018-02-10] MEDS: LASIX PO SCH (09:21)
[2018-02-10] MEDS: VICTOZA SC SCH (09:21)
[2018-02-10] MEDS: DUONEB 0.5 MG/3 MG NEB PRN ×4 (10:01→20:18)
[2018-02-10 10:03] VITALS: BMI 38.7
[2018-02-10] MEDS: REQUIP PO SCH (21:27)
[2018-02-10] MEDS: LIPITOR TAB 40 MG PO SCH (21:27)
[2018-02-10] MEDS: SNACK - Diabetic Appropriate PO SCH ×2 (21:27)
[2018-02-11] MEDS: VOLTAREN 1 % GEL MULTI DOSE TUBE TOP SCH ×3 (00:35→20:58)
[2018-02-11] MEDS: COREG TAB 6.25 MG PO SCH ×3 (00:35→20:57)
[2018-02-11] MEDS: DUONEB 0.5 MG/3 MG NEB PRN ×4 (01:49→16:56)
--- NOTE | 2018-02-11 06:02 | RAD ---
Examination: AP chest History: Cough Comparison 02/10/2018 Findings: Heart size is similar. Slight interval improvement in aeration of the lungs with decreasing bilateral linear infiltrates. Persistent bilateral pulmonary densities remain. No new consolidation, pneumothorax or large pleural effusion. Impression: Persistent pulmonary infiltrates with slight interval improvement. Reported By:
[2018-02-11 06:10] LABS: BASOPHILS % (AUTO) 0.7 % (0.2-1.0); EOSINOPHILS # (AUTO) 0.1 x10^3/uL (0.0-0.2); EOSINOPHILS % (AUTO) 1.8 % (0.9-2.9); HEMATOCRIT 30.5 % (36.0-47.0); HEMOGLOBIN 9.8 g/dL (12.0-16.0); LYMPHOCYTES # (AUTO) 1.3 X10^3/uL (1.3-2.9); LYMPHOCYTES % (AUTO) 32.5 % (21.0-51.0); MEAN CORPUSCULAR HGB CONC 32.3 g/dL (33.0-35.0); MEAN CORPUSCULAR VOLUME 86.6 fL (80.0-100.0); MEAN PLATELET VOLUME 10.5 fL (7.4-11.0); MONOCYTES # (AUTO) 0.3 x10^3/uL (0.3-0.8); MONOCYTES % (AUTO) 7.1 % (0.0-13.0); NEUTROPHILS # (AUTO) 2.3 x10^3/uL (2.2-4.8); NEUTROPHILS % (AUTO) 57.9 % (42.0-75.0); PLATELET COUNT 111 X10^3/uL (150.0-450.0); RED BLOOD COUNT 3.52 X10^6/uL (3.5-5.4); RED CELL DISTRIBUTION WIDTH 16.4 % (11.6-16.5); WHITE BLOOD COUNT 3.9 X10^3/uL (3.6-10.0)
[2018-02-11 06:34] LABS: ALBUMIN 2.5 g/dL (3.4-5.0); CALCIUM 7.9 mg/dL (8.5-10.1); CARBON DIOXIDE 31.1 mmol/L (21-32); COR CA(FOR HYPOALB) 9.1 mg/dL (8.5-10.1); CREATININE 1.6 mg/dL (0.55-1.02); TOTAL PROTEIN 7.1 g/dL (6.4-8.2)
[2018-02-11] MEDS: ROCEPHIN VIAL 1 GRAM IVP SCH (08:57)
[2018-02-11] MEDS: VIBRAMYCIN 100 MG in NS 100 ML IV + SPIKE MINIBAG* 100 ML IV SCH ×2 (08:58→20:54)
[2018-02-11] MEDS: ZyrTEC TAB 10 MG PO SCH (08:59)
[2018-02-11] MEDS: DETROL LA 2 MG CAP EXT REL PO SCH (08:59)
[2018-02-11] MEDS: ROBITUSSIN DM PO SCH ×3 (08:59→18:05)
[2018-02-11] MEDS: COLACE CAP 100 MG PO SCH ×2 (08:59→20:57)
[2018-02-11] MEDS: MIRALAX POWDER (1 DOSE 17 G) PO SCH (08:59)
[2018-02-11] MEDS: LYRICA CAP 100 MG PO SCH ×2 (09:00→20:56)
[2018-02-11] MEDS: LASIX PO SCH (09:00)
[2018-02-11] MEDS: FLONASE NASAL SPRAY ENOSTRIL SCH (09:03)
[2018-02-11] MEDS: ASTELIN NASAL SPRAY ENOSTRIL SCH (09:04)
[2018-02-11] MEDS: VICTOZA SC SCH (10:08)
[2018-02-11] MEDS: VISTARIL PO PRN ×2 (12:37→20:56)
[2018-02-11] MEDS: NS 1/2 1000 ML IV 1,000 ML IV SCH ×2 (13:58)
[2018-02-11] MEDS ORDERED: ROBITUSSIN DM PO PRN (17:04)
[2018-02-11 17:17] LABS: BILIRUBIN,URINE NEGATIVE (NEGATIVE); BLOOD/HEMOGLOBIN,URINE NEGATIVE (NEGATIVE); GLUCOSE, URINE NEGATIVE (NEGATIVE); KETONES,URINE NEGATIVE (NEGATIVE); LEUKOCYTE ESTERASE ,URINE 1+ (NEGATIVE); NITRITES,URINE NEGATIVE (NEGATIVE); PROTEIN,URINE 1+ (NEGATIVE); UROBILINOGEN,URINE NORMAL (NORMAL)
[2018-02-11 17:24] LABS: APPEARANCE,URINE CLEAR (CLEAR); COLOR,URINE YELLOW (YELLOW)
[2018-02-11 17:28] LABS: RBC,URINE NONE SEEN /HPF (NONE SEEN)
[2018-02-11 17:29] LABS: AMORPHOUS SEDIMENT,UR 1+ /HPF (NEGATIVE); BACTERIA,URINE TRACE /HPF (NEGATIVE); SQUAMOUS EPITHELIAL CELL,UR RARE /HPF (NEGATIVE)
[2018-02-11] MEDS: LIPITOR TAB 40 MG PO SCH (20:56)
[2018-02-11] MEDS: REQUIP PO SCH (20:56)
[2018-02-11] MEDS: SNACK - Diabetic Appropriate PO SCH ×2 (20:57)
[2018-02-11] MEDS ORDERED: HALDOL INJ IM ONE (23:15)
[2018-02-12] MEDS: NS 1/2 1000 ML IV 1,000 ML IV SCH (04:18)
[2018-02-12 06:29] LABS: BASOPHILS % (AUTO) 0.7 % (0.2-1.0); EOSINOPHILS # (AUTO) 0.1 x10^3/uL (0.0-0.2); EOSINOPHILS % (AUTO) 2.2 % (0.9-2.9); HEMATOCRIT 35.5 % (36.0-47.0); HEMOGLOBIN 11.3 g/dL (12.0-16.0); LYMPHOCYTES # (AUTO) 1.5 X10^3/uL (1.3-2.9); LYMPHOCYTES % (AUTO) 31.7 % (21.0-51.0); MEAN CORPUSCULAR HEMOGLOBIN 27.7 pg (27.0-34.0); MEAN CORPUSCULAR HGB CONC 31.9 g/dL (33.0-35.0); MEAN CORPUSCULAR VOLUME 86.9 fL (80.0-100.0); MEAN PLATELET VOLUME 10.4 fL (7.4-11.0); MONOCYTES # (AUTO) 0.3 x10^3/uL (0.3-0.8); MONOCYTES % (AUTO) 6.5 % (0.0-13.0); NEUTROPHILS # (AUTO) 2.8 x10^3/uL (2.2-4.8); NEUTROPHILS % (AUTO) 58.9 % (42.0-75.0); PLATELET COUNT 140 X10^3/uL (150.0-450.0); RED BLOOD COUNT 4.09 X10^6/uL (3.5-5.4); WHITE BLOOD COUNT 4.7 X10^3/uL (3.6-10.0)
[2018-02-12 06:48] LABS: ALBUMIN 2.9 g/dL (3.4-5.0); CALCIUM 8.4 mg/dL (8.5-10.1); CARBON DIOXIDE 30.3 mmol/L (21-32); COR CA(FOR HYPOALB) 9.3 mg/dL (8.5-10.1); CREATININE 1.42 mg/dL (0.55-1.02); TOTAL PROTEIN 7.9 g/dL (6.4-8.2)
--- NOTE | 2018-02-12 08:12 | DR.H&P ---
H&P - History & Physical for Day of: H&P Date: 02/09/18 - Chief Complaint Chief Complaint: WEAKNESS, CONFUSION - History of Present Illness History of Present Illness: IS A 62 YEAR OLD PATIENT OF WHO IS A RESIDENT OF [facility]. SHE PRESENTED TO THE EMERGENCY ROOM WITH STAFF REPORTING CONFUSION AND GENERALIZED WEAKNESS. ON ARRIVAL, VITALS WERE 97.9-9-20-94%-133/87. LABS WERE OBTAINED. ABNORMAL LAB VALUES INCLUDE THE FOLLOWING: RBC 3.49, HGB 9.8, HCT 30.4, CARBON DIOXIDE 33.1, BUN 28, CREATININE 2.15, GLUCOSE 114, CALCIUM 7.9, AST 10, ALT 9, CRP 75.50, ALBUMIN 2.7. CARDIAC ENZYMES WITHIN NORMAL LIMITS. BLOOD CULTURES ARE PENDING. BRAIN CT WAS OBTAINED AND REVEALED: No definite evidence of an acute intracranial process. If clinical concern persists for acute stroke and it would alter patient managemen t, consider MRI/MRA brain. Moderate microvascular white matter ischemic changes, with associated volume loss. Chronic right phthisis bulbi. A CHEST XRAY WAS OBTAINED AND REVEALED: Chronic cardiomegaly and low lung volumes with bronchovascular crowding at the bases and basilar atelectasis, correlate clinically for underlying infection. SHE WAS ADMITTED TO THE HOSPITAL FOR FURTHER EVALUATION AND TREATMENT OF DEHYDRATION, PNEUMONIA, HYPOKALEMIA, AND GENERALIZED WEAKNESS. SHE WAS STARTED ON NORMAL SALINE AT 75ML/HR, DOXYCYCLINE 100MG IV Q12H, ROCEPHIN 1GM IV DAILY, RESPIRATORY TREATMENTS, AND HOME MEDICATIONS WERE RESUMED. WE PLAN TO FOLLOW UP WITH AM LABS AND CONTINUE TO MONITOR. - Past Medical History Past Medical History: Coronary Artery Disease, Hypertension, Dyslipidemia, Diabetes, Renal Disease, COPD, GERD, Arthritis, CHF - Past Surgical History Surgical History: Cholecystectomy, Hysterectomy, Joint Replacement, Ortho Surgery - Family History Family Medical History: Diabetes Mellitus, Coronary Artery Disease, Hypertension - Social History Does patient currently use any type of tobacco product: No Have you used tobacco products in the last 12 months: No Type of Tobacco Use: None Does any household member use tobacco: No Alcohol Use: None Drug Use: None - Medications Home Medications: meperidine Allergy (Verified 01/14/18 09:51) CONTINUE taking the following medications dextran 70-hypromellose [Nature's Tears] 1 drp OPHTHALMIC (EYE) Q6H PRN 12/07/18 [History] - Review of Systems Constitutional: Weakness Eyes: No Symptoms Reported ENT: No Symptoms Reported Respiratory: Shortness of Breath Cardiovascular: No Symptoms Reported Gastrointestinal: No Symptoms Reported Genitourinary: No Symptoms Reported Musculoskeletal: No Symptoms Reported Skin: No Symptoms Reported Neurological: Weakness, Confusion - Physical Exam Vital Signs: Temperature 97.7 F Pulse Rate [Left Radial] 98 Pulse Rate [Apical] 87 Pulse Rate 100 Respiratory Rate 22 Blood Pressure [Left Arm] 137/81 Blood Pressure [Right Arm] 98/46 Blood Pressure 133/87 O2 Sat by Pulse Oximetry 96 Oriented: Not Oriented Eyes: Normal Ear: Normal Nose: Normal Throat: Normal Respiratory: Diminished Throughout Cardiovascular: Normal. negative: S3, S4, Murmur : Normal Auscultation: Bowel Sounds: Normal Palpation: Normal Tenderness: Normal Skin: Normal Musculoskeletal: Normal Psychiatric: Normal Mood Description: Calm Affect: Normal Speech Pattern: Clear, Inappropriate - Assessment/Plan (1) Pneumonia Qualifiers: Pneumonia type: due to unspecified organism Laterality: unspecified laterality Lung location: unspecified part of lung Qualified Code(s): J18.9 - Pneumonia, unspecified organism Status: Acute Plan: PNEUMONIA PROTOCOL, DOXYCYCLINE, ROCEPHIN, RESPIRATORY TX, SUPPLEMENTAL OXYGEN, CONTINUE TO MONITOR (2) Dehydration Status: Acute Plan: 1/2NS AT 75ML/HR, CONTINUE TO MONITOR (3) Altered mental state Status: Acute (4) Generalized weakness Status: Acute - Allergies Allergies/Adverse Reactions: Allergies Allergy/AdvReac Type Severity Reaction Status Date / Time meperidine Allergy Verified 01/14/18 09:51
[2018-02-12] MEDS: ROCEPHIN VIAL 1 GRAM IVP SCH (09:56)
[2018-02-12] MEDS: VOLTAREN 1 % GEL MULTI DOSE TUBE TOP SCH (09:57)
[2018-02-12] MEDS: ASTELIN NASAL SPRAY ENOSTRIL SCH (09:57)
[2018-02-12] MEDS: MIRALAX POWDER (1 DOSE 17 G) PO SCH (09:58)
[2018-02-12] MEDS: COLACE CAP 100 MG PO SCH (09:58)
[2018-02-12] MEDS: ZyrTEC TAB 10 MG PO SCH (09:59)
[2018-02-12] MEDS: COREG TAB 6.25 MG PO SCH (10:00)
[2018-02-12] MEDS: VICTOZA SC SCH (10:00)
[2018-02-12] MEDS: LYRICA CAP 100 MG PO SCH (10:00)
[2018-02-12] MEDS: DETROL LA 2 MG CAP EXT REL PO SCH (10:01)
[2018-02-12] MEDS: VIBRAMYCIN 100 MG in NS 100 ML IV + SPIKE MINIBAG* 100 ML IV SCH (10:01)
[2018-02-12] MEDS: FLONASE NASAL SPRAY ENOSTRIL SCH (10:01)
[2018-02-12] MEDS: LASIX PO SCH (10:01)
[2018-02-12] MEDS ORDERED: DULCOLAX SUPPOSITORY 10 MG RECTAL ONE (12:50)
[2018-02-12 14:03] VITALS: BP 94/57
[2018-02-21] MEDS ORDERED: LYRICA CAP 100 MG PO ONE (21:43)
== END 2018-02-12 14:00 ==
LOC: ER 16:33 → MED/SURG 16:33
PROVIDERS: ADMIT Internal Medicine; ATTEND Obstetrics & Gynecology Obstetrics
DX: E87.6 Hypokalemia; K21.9 Gastro-esophageal reflux disease without esophagitis; J44.9 Chronic obstructive pulmonary disease, unspecified; I10 Essential (primary) hypertension; R90.82 White matter disease, unspecified; R41.82 Altered mental status, unspecified; R79.89 Other specified abnormal findings of blood chemistry; R06.02 Shortness of breath; E78.2 Mixed hyperlipidemia; M62.81 Muscle weakness (generalized); H44.521 Atrophy of globe, right eye; E11.65 Type 2 diabetes mellitus with hyperglycemia; J18.8 Other pneumonia, unspecified organism; E86.0 Dehydration; I25.10 Atherosclerotic heart disease of native coronary artery without angina pectoris
CPT/HCPCS: 36415; 70450; 71010; 71045; 80053; 81001; 82550; 82553; 84484; 85025; 86140; 87040; 87086; 94640; 94760; 96365; 96367; 96372; 96374; 97163; 99283; 99284; A4222; Q0177; G0378; J0696; J1630; J3490; J7050; J7620

== ENCOUNTER 2018-05-24 06:28 | Inpatient (IN) ==
[2018-05-24] MEDS ORDERED: DUONEB 0.5 MG/3 MG ONE (06:52)
[2018-05-24] MEDS ORDERED: SOLU-Medrol 125 MG VIAL IVP ONE (07:08)
[2018-05-24] MEDS ORDERED: DUONEB 0.5 MG/3 MG NEB ONE (07:08)
[2018-05-24 07:09] LABS: ABG BASE EXCESS 9.2 mmol/L (-2.0-2.0)
[2018-05-24 07:10] LABS: ABG ALLEN TEST POS; ABG HCO3 35.9 mmol/L (22-26)
[2018-05-24] MEDS ORDERED: SOLU-Medrol 125 MG VIAL ONE (07:20)
--- NOTE | 2018-05-24 07:28 | RAD ---
History: Shortness of breath and low O2 saturation Study: Portable AP chest Comparison: May 03 Findings: There is new severe airspace disease in the right upper lobe. There is persistent vascular congestion and cardiomegaly and chronic interstitial lung disease. There is no obvious effusion. Impression: 1. Right upper lobe pneumonia 2. Vascular congestion and interstitial edema and cardiomegaly Reported By:
[2018-05-24 07:42] LABS: BASOPHILS # (AUTO) 0.1 X10^3/uL (0.0-0.1); BASOPHILS % (AUTO) 0.8 % (0.2-1.0); EOSINOPHILS # (AUTO) 0.1 x10^3/uL (0.0-0.2); EOSINOPHILS % (AUTO) 1.1 % (0.9-2.9); HEMATOCRIT 28.1 % (36.0-47.0); HEMOGLOBIN 8.8 g/dL (12.0-16.0); LYMPHOCYTES # (AUTO) 1.2 X10^3/uL (1.3-2.9); LYMPHOCYTES % (AUTO) 15.4 % (21.0-51.0); MEAN CORPUSCULAR HEMOGLOBIN 28.3 pg (27.0-34.0); MEAN CORPUSCULAR HGB CONC 31.4 g/dL (33.0-35.0); MEAN PLATELET VOLUME 10.2 fL (7.4-11.0); MONOCYTES # (AUTO) 0.7 x10^3/uL (0.3-0.8); MONOCYTES % (AUTO) 8.5 % (0.0-13.0); NEUTROPHILS % (AUTO) 74.2 % (42.0-75.0); PLATELET COUNT 107 X10^3/uL (150.0-450.0); RED BLOOD COUNT 3.12 X10^6/uL (3.5-5.4); WHITE BLOOD COUNT 8.1 X10^3/uL (3.6-10.0)
[2018-05-24 07:55] LABS: PLATELET MORPHOLOGY COMMENT NORMAL (NORMAL)
[2018-05-24 07:59] LABS: BLOOD UREA NITROGEN 32 mg/dL (7-18); CARBON DIOXIDE 30.8 mmol/L (21-32); CHLORIDE 102 mmol/L (98-107); COR NA(FOR HYPERGLY) 139 mmol/L (136-145); CREATININE 1.68 mg/dL (0.55-1.02); SODIUM 138 mmol/L (136-145); TROPONIN I 0.04 ng/mL (0-1.5); eGFR NON BLACK RACES 33 (>60)
[2018-05-24] MEDS ORDERED: ROCEPHIN VIAL 1 GRAM IM ONE (08:02)
[2018-05-24 08:03] LABS: ALANINE AMINOTRANSFERASE 11 Units/L (12-78); ALBUMIN 2.7 g/dL (3.4-5.0); ALKALINE PHOSPHATASE 88 Units/L (46-116); ASPARTATE AMINO TRANSFERASE 12 Units/L (15-37); CREATINE KINASE 25 Units/L (26-192); CREATINE KINASE MB < 1.0 ng/mL (0-4.0); TOTAL PROTEIN 7.6 g/dL (6.4-8.2)
[2018-05-24] MEDS ORDERED: ROCEPHIN VIAL 1 GRAM ONE (08:04)
[2018-05-24 08:05] LABS: LACTIC ACID 0.8 mmol/L (0.4-2.0)
[2018-05-24] MEDS ORDERED: ROCEPHIN VIAL 1 GRAM IVP ONE (08:26)
[2018-05-24 08:55] LABS: BILIRUBIN,URINE NEGATIVE (NEGATIVE); BLOOD/HEMOGLOBIN,URINE 1+ (NEGATIVE); GLUCOSE, URINE NEGATIVE (NEGATIVE); KETONES,URINE NEGATIVE (NEGATIVE); LEUKOCYTE ESTERASE ,URINE 3+ (NEGATIVE); NITRITES,URINE POSITIVE (NEGATIVE); PROTEIN,URINE 2+ (NEGATIVE); UROBILINOGEN,URINE 1+ (NORMAL)
[2018-05-24 09:03] LABS: APPEARANCE,URINE CLOUDY (CLEAR); COLOR,URINE YELLOW (YELLOW)
[2018-05-24 09:04] LABS: BACTERIA,URINE 2+ /HPF (NEGATIVE); SQUAMOUS EPITHELIAL CELL,UR MODERATE /HPF (NEGATIVE)
[2018-05-24] MEDS: PROCRIT or EPOGEN SC ONE ×2 (10:04→10:58)
[2018-05-24] MEDS: MICRO K EXTEN CAP 10 MEQ PO SCH (10:04)
--- NOTE | 2018-05-24 10:45 | DR.GENAD ---
HPI Time Seen Time Seen by Provider: 05/24/18 06:57 PCP Primary Care Physician: VALERIANO HPI Comment HPI Comment: PATIENT IS 62YR OLD WHITE FEMALE FROM THE NURSING AT THIS FACILITY IS IN ED WITH RESPIRATORY DISTRESS. SHE HAS HISTORY OF COPD, CHF, CAD, HTN AND DM. SHE WEARS OXYGEN AT THE NM AND USES THE TRILOGY WELL. SHE IS CURRENTLY ON MACROBIB FOR UTI, RECULTURE OF URINE SHOW E COLI. PATIENT IS COUGHING AND HAVE CHEST DISCOMFORT. NO FEVER. CURRENTLY, PATIENT IS ANSWERING QUESTIONS SLOWLY AND IS SLIGHLY CONFUSE. Complaint/Symptoms Chief Complaint Doctors Comments: SOB WITH LOW OXYGEN SATURATION NOTED AT NM THIS AM. Chief Complaint:: TONH CALLED WITH PT BEING DROWSY AND LOW OXYGEN SAT. PT IN TO ROOM VIA STRETCHER PER [facility] STAFF, PT TAKEN OFF NC TO REMOVED CLOTHES TO PLACE A GOWN ON. O2 SAT DROP TO 56% ON ROOM AIR. C.NAIL WITH RESPIRATORY IN WITH PT PLACED NON REBBREATHER, PT O2 SAT AT 100 %. BREATHING TREATMENT GIVEN AND PLACED ON NC AT 2 LPM. PT WILL AROUSE TO VERBAL STUMILI BUT FALLS BACK TO. VERBAL COMMUNITCATION IS GARBBLED. Self Treatment fo Chief Complaint: TONH PLACED OXYGEN AT 3 LPM. A WHITE OVAL SHAPED PILL WAS FOUND ON STRETCHER WITH PT. NO MEDICATION GIVEN IN ER AT THIS TIME. Nurses notes reviewed Nurses Notes Review: Yes Source History Provided: Patient and Detention Mode of Arrival Mode of Arrival: Stretcher Timing Onset of Chief Complaint: 05/24/18 Came on: Suddenly Duration Duration: Constant Duration: Hours Severity Severity: Severe Modifying Factors Worsens:: EXERSION. Improves:: REST. Associated Signs and Symptoms Associated Signs and Symptoms: CHEST PAIN Other History Other History: HISTORY COPD AND HTN. PMH PMH Past Medical History: Yes Past Medical History: Arthritis, CHF, COPD, Coronary Artery Disease, Diabetes, Dyslipidemia, GERD, Hypertension and Renal Disease Past Surgical History: Yes Surgical History: Cholecystectomy, Hysterectomy, Joint Replacement and Ortho Surgery Family History History of Family Medical Conditions: Yes Family Medical History: Diabetes Mellitus, Coronary Artery Disease and Hypertension Social History Does any household member use tobacco: No Alcohol Use: None Do you use any recreational Drugs:: No Lives With: Other Lives Where: Detention infectious screening In the last 2 months have you had wt loss of >10#?: NO Have you had fever, night sweats or hemotysis?: No Have you traveled outside the country in the last 6 months?: No Isolation: Standard ROS Review of Systems Constitutional: Weakness and Fatigue Eyes: Blurred Vision ENTM: Nose Congestion Respiratoy: Productive Cough and Short of Breath Cardiovascular: No Symptoms Reported Gastrointestinal/Abdominal: negative Constipation and Diarrhea Genitourinary: No Symptoms Reported Neurological: Headache and Dizziness Musculoskeletal: Muscle Pain Integumentary: Dryness Hematologic/Lymphatic: No Symptoms Reported Endocrine: No Symptoms Reported Psychiatric: No Symptoms Reported All Other Systems: Reviewed and Negative PE Vital Signs Vitals: Temperature 98.8 F Pulse Rate [Left Brachial] 87 Pulse Rate 97 Respiratory Rate 13 Blood Pressure [Left Arm] 106/50 Blood Pressure [Right Arm] 98/46 Blood Pressure 124/61 O2 Sat by Pulse Oximetry 91 General Limitations: No Limitations General Appearance: Alert and In Distress Head Head Exam: Normal Inspection Eyes Eye exam: negative Scleral Icterus and Conjunctival Injection ENT ENT Exam: Normal External Ear Exam and Mucous Membranes Dry External Ear Exam: Normal External Inspection TM/Canal Exam: Bilateral: Normal Nose Exam: Normal Nose Exam Mouth Exam: Normal Inspection Throat Exam: Tonsillar Erythema; negative Normal Inspection and Tonsillomegaly Neck Neck Exam: Normal Inspection and Trachea Midline; negative Tenderness Chest Chest Inspection: Normal Inspection Respiratory Respiratory Exam: Normal Lung Sounds Bilat and Chest Wall Tenderness Respiratory Exam: Bilateral: Clear to Auscultation, Bilateral: Rales and Bilateral: Rhonchi, Left: Clear to Auscultation and Left: Rhonchi, Right: Clear to Auscultation, Right: Rales and Right: Rhonchi, Upper: Clear to Auscultation and Upper: Rales and Lower: Clear to Auscultation and Lower: Rhonchi Cardiovascular Cardiovascular Exam: Regular Rate and Normal Rhythm Abdominal Exam Abdominal Exam: Normal Inspection, Normal Bowel Sounds and Soft Extremities Extremities Exam: Edema Back Back Exam: Normal Inspection Neurologic Neurological Exam: Alert; negative Oriented X3 Psychiatric Psychiatric Exam: Anxious Skin Skin Exam: Dry MDM Additional Information Additional Information Obtained From: Old Records Differential Diagnosis Differential Diagnosis: RESPIRATORY DISTRESS, CHF, PNSUMONIA, OK, UTI, SEPSIS COURSE Treatment Treatment: SEE ORDERS. NEB TREATMENT, IV SOLUMEDROL AND ROCEPHIN IV IN ED. Reevaluation 1st: Improved (O2 SAT IMPROVING.) Consultation Consultation Comments: DISCUSS PATIENT WITH DR. BAL. HE WILL ADMIT PATIENT. Education/Counseling Education/Counseling: Patient Educated On: Diagnosis ROR Labs Reviewed Laboratory Results Reviewed?: Yes Result Diagrams: 05/24/18 07:30 05/24/18 07:30 Laboratory: WBC 8.1 X10^3/uL (3.6-10.0) 05/24/18 07:30 RBC 3.12 X10^6/uL (3.5-5.4) L 05/24/18 07:30 Hgb 8.8 g/dL (12.0-16.0) L 05/24/18 07:30 Hct 28.1 % (36.0-47.0) L 05/24/18 07:30 MCV 90.0 fL (80.0-100.0) 05/24/18 07:30 MCH 28.3 pg (27.0-34.0) 05/24/18 07:30 MCHC 31.4 g/dL (33.0-35.0) L 05/24/18 07:30 RDW 17.0 % (11.6-16.5) H 05/24/18 07:30 Plt Count 107 X10^3/uL (150.0-450.0) L 05/24/18 07:30 Plt Count Comment Adequate (ADEQUATE) 05/24/18 07:30 MPV 10.2 fL (7.4-11.0) 05/24/18 07:30 Neut % (Auto) 74.2 % (42.0-75.0) 05/24/18 07:30 Lymph % (Auto) 15.4 % (21.0-51.0) L 05/24/18 07:30 [place] % (Auto) 8.5 % (0.0-13.0) 05/24/18 07:30 Eos % (Auto) 1.1 % (0.9-2.9) 05/24/18 07:30 Baso % (Auto) 0.8 % (0.2-1.0) 05/24/18 07:30 Neut # (Auto) 6.0 x10^3/uL (2.2-4.8) H 05/24/18 07:30 Lymph # (Auto) 1.2 X10^3/uL (1.3-2.9) L 05/24/18 07:30 [place] # (Auto) 0.7 x10^3/uL (0.3-0.8) 05/24/18 07:30 Eos # (Auto) 0.1 x10^3/uL (0.0-0.2) 05/24/18 07:30 Baso # (Auto) 0.1 X10^3/uL (0.0-0.1) 05/24/18 07:30 Absolute Nucleated RBC 0.2 /100WBC 05/24/18 07:30 Plt Morphology Comment Normal (NORMAL) 05/24/18 07:30 RBC Morphology Normal (NORMAL) 05/24/18 07:30 Sample Site Lrad 05/24/18 07:01 ABG pH 7.400 (7.35-7.45) 05/24/18 07:01 ABG pCO2 58.0 mmHg (35.0-45.0) H* 05/24/18 07:01 ABG pO2 183.0 mmHg (80.0-100.0) H 05/24/18 07:01 ABG HCO3 35.9 mmol/L (22-26) H* 05/24/18 07:01 ABG O2 Saturation 100.0 % (90-100) 05/24/18 07:01 ABG Base Excess 9.2 mmol/L (-2.0-2.0) H 05/24/18 07:01 Kasi Test Pos 05/24/18 07:01 A-a Gradient 458.0 mmHg 05/24/18 07:01 FiO2 100.0 05/24/18 07:01 Blood Gas Comments Pt momo well elj 05/24/18 07:01 Sodium 138 mmol/L (136-145) 05/24/18 07:30 Corrected Sodium 139 mmol/L (136-145) 05/24/18 07:30 Potassium 4.8 mmol/L (3.5-5.1) 05/24/18 07:30 Chloride 102 mmol/L (98-107) 05/24/18 07:30 Carbon Dioxide 30.8 mmol/L (21-32) 05/24/18 07:30 BUN 32 mg/dL (7-18) H 05/24/18 07:30 Creatinine 1.68 mg/dL (0.55-1.02) H 05/24/18 07:30 Est GFR (MDRD) Af Amer 39 (>60) L 05/24/18 07:30 Est GFR (MDRD) Non-Af 33 (>60) L 05/24/18 07:30 Glucose 154 mg/dL (65-99) H 05/24/18 07:30 Lactic Acid 0.8 mmol/L (0.4-2.0) 05/24/18 07:30 Calcium 8.0 mg/dL (8.5-10.1) L 05/24/18 07:30 Corrected Calcium 9.0 mg/dL (8.5-10.1) 05/24/18 07:30 Iron 32 ug/dL (50-175) L 05/24/18 07:30 Transferrin 197 mg/dL (202-364) L 05/24/18 07:30 Ferritin 184 ng/mL (8-252) 05/24/18 07:30 Total Bilirubin 0.70 mg/dL (0.2-1.0) 05/24/18 07:30 AST 12 Units/L (15-37) L 05/24/18 07:30 ALT 11 Units/L (12-78) L 05/24/18 07:30 Alkaline Phosphatase 88 Units/L (46-116) 05/24/18 07:30 Creatine Kinase 25 Units/L (26-192) L 05/24/18 07:30 CK-MB (CK-2) < 1.0 ng/mL (0-4.0) 05/24/18 07:30 CK/CKMB % Calc 4.0 % (<4) 05/24/18 07:30 Troponin I 0.04 ng/mL (0-1.5) 05/24/18 07:30 C-Reactive Protein 102.90 mg/L (0-3.0) H 05/24/18 07:30 Total Protein 7.6 g/dL (6.4-8.2) 05/24/18 07:30 Albumin 2.7 g/dL (3.4-5.0) L 05/24/18 07:30 Globulin 4.9 g/dL (2.5-4.5) H 05/24/18 07:30 Albumin/Globulin Ratio 0.6 Ratio (1.1-2.1) L 05/24/18 07:30 Vitamin B12 378 pg/mL (193-986) 05/24/18 07:30 Folate 13.5 ng/mL (>8.6) 05/24/18 07:30 Specimen Type Catherized urine 05/24/18 08:41 Urine Color Yellow (YELLOW) 05/24/18 08:41 Urine Appearance Cloudy (CLEAR) 05/24/18 08:41 Urine pH 5.0 (5.0 - 8.0) 05/24/18 08:41 Ur Specific [place] 1.015 (1.000-1.030) 05/24/18 08:41 Urine Protein 2+ (NEGATIVE) 05/24/18 08:41 Urine Glucose (UA) Negative (NEGATIVE) 05/24/18 08:41 Urine Ketones Negative (NEGATIVE) 05/24/18 08:41 Urine Occult Blood 1+ (NEGATIVE) 05/24/18 08:41 Urine Nitrite Positive (NEGATIVE) 05/24/18 08:41 Urine Bilirubin Negative (NEGATIVE) 05/24/18 08:41 Urine Urobilinogen 1+ (NORMAL) 05/24/18 08:41 Ur Leukocyte Esterase 3+ (NEGATIVE) 05/24/18 08:41 Urine RBC 3-5 /HPF (NONE SEEN) 05/24/18 08:41 Urine WBC Tntc /HPF (NONE SEEN) 05/24/18 08:41 Ur Squamous Epith Cells Moderate /HPF (NEGATIVE) 05/24/18 08:41 Urine Bacteria 2+ /HPF (NEGATIVE) 05/24/18 08:41 Ur Culture Indicated? No/not indicated 05/24/18 08:41 XRAY XRAY Interpreted by: Radiologist XRAY Findings: REPORT ON RECORD NOTED. EKG Rate: 94 [place]: LAD Rhythm: NSR Block: None Hypertrophy: None ST: Nonsp
[2018-05-24] MEDS ORDERED: LYRICA CAP 100 MG PO SCH (10:52)
[2018-05-24] MEDS ORDERED: VOLTAREN 1 % GEL MULTI DOSE TUBE TOP SCH (10:52)
[2018-05-24] MEDS ORDERED: MYLICON TAB 80 MG CHEW PO PRN (10:52)
[2018-05-24] MEDS ORDERED: ASTELIN NASAL SPRAY ENOSTRIL SCH (10:52)
[2018-05-24] MEDS: MIRALAX POWDER (1 DOSE 17 G) PO SCH (10:58)
[2018-05-24] MEDS: COREG TAB 6.25 MG PO SCH ×2 (10:59→20:27)
[2018-05-24] MEDS: LASIX IVP SCH (10:59)
[2018-05-24] MEDS: ROBITUSSIN DM PO SCH ×4 (10:59→21:00)
[2018-05-24] MEDS: COLACE CAP 100 MG PO SCH ×2 (10:59→20:27)
[2018-05-24] MEDS: VICTOZA SC SCH (11:00)
[2018-05-24] MEDS ORDERED: NS 1000 ML 1,000 ML ONE (11:03)
[2018-05-24] MEDS: FLONASE NASAL SPRAY ENOSTRIL SCH (11:09)
[2018-05-24] MEDS: NS 1000 ML 1,000 ML IV SCH (11:09)
[2018-05-24] MEDS: LEVAQUIN PREMIX IV 750 MG 750 MG/150 ML BAG IV SCH (11:09)
[2018-05-24] MEDS: DUONEB 0.5 MG/3 MG NEB SCH ×3 (14:00→20:14)
[2018-05-24] MEDS: ZOSYN VIAL 2.25 GRAMS 2.25 G in NS 100 ML IV + SPIKE MINIBAG* 100 ML IV SCH ×2 (14:34→22:02)
[2018-05-24] MEDS: SNACK - Diabetic Appropriate PO SCH (20:00)
[2018-05-24] MEDS: PULMICORT NEB TX 0.5 MG NEB SCH (20:14)
[2018-05-24] MEDS: REQUIP PO SCH (20:26)
[2018-05-24] MEDS: LYRICA CAP 150 MG PO SCH (20:27)
[2018-05-24] MEDS: LIPITOR TAB 40 MG PO SCH (20:27)
[2018-05-24] MEDS: ULTRAM PO PRN (20:31)
[2018-05-24] MEDS ORDERED: BUTT CREAM (COMPOUND) TOP PRN (21:34)
[2018-05-25] MEDS: DUONEB 0.5 MG/3 MG NEB SCH ×6 (00:35→21:02)
[2018-05-25] MEDS: ZOSYN VIAL 2.25 GRAMS 2.25 G in NS 100 ML IV + SPIKE MINIBAG* 100 ML IV SCH ×3 (05:43→22:18)
[2018-05-25] MEDS: ARTIFICIAL TEARS DROPS AFFEYE PRN (05:43)
[2018-05-25 05:58] LABS: BASOPHILS % (AUTO) 0.5 % (0.2-1.0); EOSINOPHILS % (AUTO) 0.5 % (0.9-2.9); HEMOGLOBIN 8.2 g/dL (12.0-16.0); LYMPHOCYTES # (AUTO) 0.5 X10^3/uL (1.3-2.9); LYMPHOCYTES % (AUTO) 12.1 % (21.0-51.0); MEAN CORPUSCULAR HEMOGLOBIN 28.3 pg (27.0-34.0); MEAN CORPUSCULAR HGB CONC 31.7 g/dL (33.0-35.0); MEAN CORPUSCULAR VOLUME 89.3 fL (80.0-100.0); MONOCYTES # (AUTO) 0.4 x10^3/uL (0.3-0.8); MONOCYTES % (AUTO) 10.6 % (0.0-13.0); NEUTROPHILS % (AUTO) 76.3 % (42.0-75.0); PLATELET COUNT 102 X10^3/uL (150.0-450.0); RED BLOOD COUNT 2.91 X10^6/uL (3.5-5.4); RED CELL DISTRIBUTION WIDTH 17.1 % (11.6-16.5); WHITE BLOOD COUNT 3.9 X10^3/uL (3.6-10.0)
[2018-05-25 06:14] LABS: ALBUMIN 2.5 g/dL (3.4-5.0); CALCIUM 7.7 mg/dL (8.5-10.1); CARBON DIOXIDE 33.3 mmol/L (21-32); COR CA(FOR HYPOALB) 8.9 mg/dL (8.5-10.1); CREATININE 1.64 mg/dL (0.55-1.02); TOTAL PROTEIN 7.3 g/dL (6.4-8.2)
[2018-05-25] MEDS ORDERED: ASTELIN NASAL SPRAY ONE (08:48)
[2018-05-25] MEDS: FLONASE NASAL SPRAY ENOSTRIL SCH (08:52)
[2018-05-25] MEDS: COLACE CAP 100 MG PO SCH ×2 (08:53→20:54)
[2018-05-25] MEDS: ASTELIN NASAL SPRAY ENOSTRIL SCH ×3 (08:53→22:00)
[2018-05-25] MEDS: MICRO K EXTEN CAP 10 MEQ PO SCH (08:54)
[2018-05-25] MEDS: ROBITUSSIN DM PO SCH ×4 (08:54→20:53)
[2018-05-25] MEDS: COREG TAB 6.25 MG PO SCH ×2 (08:54→20:53)
[2018-05-25] MEDS: LYRICA CAP 150 MG PO SCH ×2 (08:54→20:54)
[2018-05-25] MEDS: LASIX IVP SCH (08:54)
[2018-05-25] MEDS: MIRALAX POWDER (1 DOSE 17 G) PO SCH (09:08)
[2018-05-25] MEDS: PULMICORT NEB TX 0.5 MG NEB SCH ×2 (09:50→21:02)
[2018-05-25] MEDS: VICTOZA SC SCH (10:11)
[2018-05-25] MEDS: NS 1000 ML 1,000 ML IV SCH (13:19)
[2018-05-25] MEDS ORDERED: ASTELIN NASAL SPRAY ENOSTRIL SCH (14:00)
[2018-05-25] MEDS: REQUIP PO SCH (20:53)
[2018-05-25] MEDS: LIPITOR TAB 40 MG PO SCH (20:54)
[2018-05-25] MEDS: SNACK - Diabetic Appropriate PO SCH (20:55)
[2018-05-25 22:09] LABS: ABG BASE EXCESS 16.3 mmol/L (-2.0-2.0)
[2018-05-25 22:10] LABS: ABG HCO3 43.8 mmol/L (22-26)
[2018-05-26] MEDS: DUONEB 0.5 MG/3 MG NEB SCH ×6 (00:11→21:23)
--- NOTE | 2018-05-26 05:16 | RAD ---
Chest, 1 view Indication: Pneumonia Comparison: 05/24/2018. Findings: There is improved aeration of the right upper lobe. Patchy left lung opacities are also improved. There is unchanged cardiomegaly with mild edema. No large pleural effusion. Impression: Improving multifocal pneumonia. Reported By:
[2018-05-26 05:42] LABS: ALBUMIN 2.7 g/dL (3.4-5.0); CARBON DIOXIDE 38.3 mmol/L (21-32); CREATININE 1.63 mg/dL (0.55-1.02); TOTAL PROTEIN 8.3 g/dL (6.4-8.2)
[2018-05-26] MEDS: ZOSYN VIAL 2.25 GRAMS 2.25 G in NS 100 ML IV + SPIKE MINIBAG* 100 ML IV SCH ×3 (05:47→21:01)
[2018-05-26] MEDS: ASTELIN NASAL SPRAY ENOSTRIL SCH ×3 (05:58→21:02)
[2018-05-26 08:19] LABS: BASOPHILS % (AUTO) 0.4 % (0.2-1.0); EOSINOPHILS % (AUTO) 0.1 % (0.9-2.9); HEMATOCRIT 28.3 % (36.0-47.0); LYMPHOCYTES # (AUTO) 0.7 X10^3/uL (1.3-2.9); LYMPHOCYTES % (AUTO) 13.7 % (21.0-51.0); MEAN CORPUSCULAR HEMOGLOBIN 28.2 pg (27.0-34.0); MEAN CORPUSCULAR HGB CONC 31.8 g/dL (33.0-35.0); MEAN CORPUSCULAR VOLUME 88.6 fL (80.0-100.0); MONOCYTES # (AUTO) 0.4 x10^3/uL (0.3-0.8); MONOCYTES % (AUTO) 6.8 % (0.0-13.0); NEUTROPHILS # (AUTO) 4.2 x10^3/uL (2.2-4.8); PLATELET COUNT 108 X10^3/uL (150.0-450.0); RED CELL DISTRIBUTION WIDTH 17.4 % (11.6-16.5); WHITE BLOOD COUNT 5.3 X10^3/uL (3.6-10.0)
[2018-05-26] MEDS: PULMICORT NEB TX 0.5 MG NEB SCH ×2 (08:41→21:23)
[2018-05-26] MEDS: COLACE CAP 100 MG PO SCH ×2 (09:13→20:38)
[2018-05-26] MEDS: COREG TAB 6.25 MG PO SCH ×2 (09:14→20:38)
[2018-05-26] MEDS: FLONASE NASAL SPRAY ENOSTRIL SCH (09:14)
[2018-05-26] MEDS: LASIX IVP SCH (09:14)
[2018-05-26] MEDS: ROBITUSSIN DM PO SCH ×5 (09:15→20:38)
[2018-05-26] MEDS: MICRO K EXTEN CAP 10 MEQ PO SCH (09:15)
[2018-05-26] MEDS: LYRICA CAP 150 MG PO SCH ×2 (09:15→20:38)
[2018-05-26] MEDS: MIRALAX POWDER (1 DOSE 17 G) PO SCH (09:15)
[2018-05-26] MEDS: VICTOZA SC SCH (09:16)
[2018-05-26] MEDS: LEVAQUIN PREMIX IV 750 MG 750 MG/150 ML BAG IV SCH (10:38)
[2018-05-26] MEDS: NS 1000 ML 1,000 ML IV SCH (13:35)
[2018-05-26 14:04] VITALS: BMI 37.9
[2018-05-26] MEDS: SNACK - Diabetic Appropriate PO SCH (20:38)
[2018-05-26] MEDS: REQUIP PO SCH (20:38)
[2018-05-26] MEDS: LIPITOR TAB 40 MG PO SCH (20:38)
[2018-05-26] MEDS: MILK OF MAGNESIA PO SCH (20:39)
[2018-05-27] MEDS: DUONEB 0.5 MG/3 MG NEB SCH ×6 (00:55→20:33)
[2018-05-27] MEDS: ZOSYN VIAL 2.25 GRAMS 2.25 G in NS 100 ML IV + SPIKE MINIBAG* 100 ML IV SCH ×3 (05:01→22:07)
[2018-05-27] MEDS: ASTELIN NASAL SPRAY ENOSTRIL SCH ×3 (05:02→22:06)
[2018-05-27 06:43] LABS: BASOPHILS % (AUTO) 0.6 % (0.2-1.0); EOSINOPHILS % (AUTO) 0.6 % (0.9-2.9); HEMATOCRIT 25.5 % (36.0-47.0); HEMOGLOBIN 8.2 g/dL (12.0-16.0); LYMPHOCYTES # (AUTO) 0.7 X10^3/uL (1.3-2.9); LYMPHOCYTES % (AUTO) 16.9 % (21.0-51.0); MEAN CORPUSCULAR HEMOGLOBIN 28.5 pg (27.0-34.0); MEAN CORPUSCULAR HGB CONC 32.4 g/dL (33.0-35.0); MEAN CORPUSCULAR VOLUME 88.2 fL (80.0-100.0); MEAN PLATELET VOLUME 10.4 fL (7.4-11.0); MONOCYTES # (AUTO) 0.3 x10^3/uL (0.3-0.8); MONOCYTES % (AUTO) 6.6 % (0.0-13.0); NEUTROPHILS % (AUTO) 75.3 % (42.0-75.0); PLATELET COUNT 91 X10^3/uL (150.0-450.0); RED BLOOD COUNT 2.89 X10^6/uL (3.5-5.4); RED CELL DISTRIBUTION WIDTH 17.2 % (11.6-16.5)
[2018-05-27 06:50] LABS: CALCIUM 7.3 mg/dL (8.5-10.1); COR CA(FOR HYPOALB) 8.9 mg/dL (8.5-10.1); CREATININE 1.74 mg/dL (0.55-1.02); TOTAL PROTEIN 6.5 g/dL (6.4-8.2)
[2018-05-27] MEDS: MICRO K EXTEN CAP 10 MEQ PO SCH (09:07)
[2018-05-27] MEDS: LASIX IVP SCH (09:07)
[2018-05-27] MEDS: COLACE CAP 100 MG PO SCH ×2 (09:07→20:31)
[2018-05-27] MEDS: COREG TAB 6.25 MG PO SCH ×2 (09:07→20:31)
[2018-05-27] MEDS: LYRICA CAP 150 MG PO SCH ×2 (09:07→20:31)
[2018-05-27] MEDS: PULMICORT NEB TX 0.5 MG NEB SCH ×2 (09:07→20:33)
[2018-05-27] MEDS: FLONASE NASAL SPRAY ENOSTRIL SCH (09:10)
[2018-05-27] MEDS: ROBITUSSIN DM PO SCH ×5 (09:21→20:32)
[2018-05-27] MEDS: MIRALAX POWDER (1 DOSE 17 G) PO SCH (09:21)
[2018-05-27] MEDS: VICTOZA SC SCH (09:27)
[2018-05-27] MEDS: NS 1000 ML 1,000 ML IV SCH (16:50)
[2018-05-27] MEDS: LIPITOR TAB 40 MG PO SCH (20:31)
[2018-05-27] MEDS: REQUIP PO SCH (20:31)
[2018-05-27] MEDS: SNACK - Diabetic Appropriate PO SCH (20:31)
[2018-05-27] MEDS: MILK OF MAGNESIA PO SCH (20:32)
[2018-05-27] MEDS: TUSSIONEX PENNKINETIC SUSP PO PRN ×2 (22:16→22:19)
[2018-05-28] MEDS: DUONEB 0.5 MG/3 MG NEB SCH ×6 (00:48→20:05)
[2018-05-28] MEDS: ZOSYN VIAL 2.25 GRAMS 2.25 G in NS 100 ML IV + SPIKE MINIBAG* 100 ML IV SCH ×3 (05:01→21:07)
[2018-05-28] MEDS: ASTELIN NASAL SPRAY ENOSTRIL SCH ×3 (05:02→21:07)
[2018-05-28 06:45] LABS: CALCIUM 7.4 mg/dL (8.5-10.1); CARBON DIOXIDE 37.2 mmol/L (21-32); CREATININE 1.89 mg/dL (0.55-1.02); TOTAL PROTEIN 6.8 g/dL (6.4-8.2)
[2018-05-28 06:48] LABS: BASOPHILS % (AUTO) 0.5 % (0.2-1.0); EOSINOPHILS % (AUTO) 1.1 % (0.9-2.9); HEMATOCRIT 24.7 % (36.0-47.0); LYMPHOCYTES # (AUTO) 0.8 X10^3/uL (1.3-2.9); LYMPHOCYTES % (AUTO) 21.1 % (21.0-51.0); MEAN CORPUSCULAR HEMOGLOBIN 28.4 pg (27.0-34.0); MEAN CORPUSCULAR HGB CONC 32.3 g/dL (33.0-35.0); MEAN CORPUSCULAR VOLUME 87.8 fL (80.0-100.0); MONOCYTES # (AUTO) 0.3 x10^3/uL (0.3-0.8); MONOCYTES % (AUTO) 8.4 % (0.0-13.0); NEUTROPHILS # (AUTO) 2.5 x10^3/uL (2.2-4.8); NEUTROPHILS % (AUTO) 68.9 % (42.0-75.0); PLATELET COUNT 94 X10^3/uL (150.0-450.0); RED BLOOD COUNT 2.81 X10^6/uL (3.5-5.4); RED CELL DISTRIBUTION WIDTH 17.2 % (11.6-16.5); WHITE BLOOD COUNT 3.7 X10^3/uL (3.6-10.0)
[2018-05-28] MEDS: MICRO K EXTEN CAP 10 MEQ PO SCH (08:38)
[2018-05-28] MEDS: LYRICA CAP 150 MG PO SCH ×2 (08:38→21:07)
[2018-05-28] MEDS: COREG TAB 6.25 MG PO SCH ×2 (08:38→21:07)
[2018-05-28] MEDS: LASIX IVP SCH (08:38)
[2018-05-28] MEDS: COLACE CAP 100 MG PO SCH ×2 (08:38→21:07)
[2018-05-28] MEDS: FLONASE NASAL SPRAY ENOSTRIL SCH (08:39)
[2018-05-28] MEDS: LEVAQUIN PREMIX IV 500 MG 500 MG/100 ML BAG IV SCH (08:39)
[2018-05-28] MEDS: MIRALAX POWDER (1 DOSE 17 G) PO SCH (08:43)
[2018-05-28] MEDS: ROBITUSSIN DM PO SCH ×5 (08:43→21:11)
[2018-05-28] MEDS: VICTOZA SC SCH (08:44)
[2018-05-28] MEDS: PULMICORT NEB TX 0.5 MG NEB SCH ×2 (09:04→20:05)
[2018-05-28] MEDS ORDERED: PROCRIT or EPOGEN SC ONE (09:10)
--- NOTE | 2018-05-28 09:42 | RAD ---
HISTORY: 62-year-old female with hypoxia. History of COPD. Study: Frontal view of the chest. Comparison: Chest radiograph 05/26/2018, 02/21/2017. Findings: The trachea is midline. The cardiac silhouette is stably enlarged with low lung volumes. Mild improvement pattern of aeration with persistent patchy airspace opacities throughout the perihilar distribution bilaterally without pneumothorax or large effusion. Findings are superimposed upon chronic prominence interstitium and perihilar lung markings. Soft tissues are unremarkable. Osseous structures are unremarkable. IMPRESSION: 1. Mild improvement pattern of aeration with persistent patchy airspace opacities throughout the perihilar distribution. Edema, infection and atelectasis and combination of the 3 all within the differential. Correlate clinically and follow-up to resolution. 2. Chronic cardiomegaly and COPD. Reported By:
[2018-05-28] MEDS ORDERED: NS 100 ML IV 100 ML with VENOFER 400 MG IV NR ×2 (10:00)
[2018-05-28] MEDS: NS 1000 ML 1,000 ML IV SCH (15:00)
[2018-05-28] MEDS: SNACK - Diabetic Appropriate PO SCH (20:55)
[2018-05-28] MEDS: REQUIP PO SCH (21:06)
[2018-05-28] MEDS: LIPITOR TAB 40 MG PO SCH (21:06)
[2018-05-28] MEDS: MILK OF MAGNESIA PO SCH ×2 (21:06→21:11)
[2018-05-29] MEDS: DUONEB 0.5 MG/3 MG NEB SCH ×6 (01:30→20:12)
[2018-05-29] MEDS: ASTELIN NASAL SPRAY ENOSTRIL SCH ×3 (05:25→22:04)
[2018-05-29] MEDS: ZOSYN VIAL 2.25 GRAMS 2.25 G in NS 100 ML IV + SPIKE MINIBAG* 100 ML IV SCH ×3 (05:26→22:04)
[2018-05-29 06:57] LABS: BASOPHILS % (AUTO) 0.6 % (0.2-1.0); EOSINOPHILS % (AUTO) 0.6 % (0.9-2.9); HEMATOCRIT 26.1 % (36.0-47.0); HEMOGLOBIN 8.3 g/dL (12.0-16.0); LYMPHOCYTES # (AUTO) 0.7 X10^3/uL (1.3-2.9); LYMPHOCYTES % (AUTO) 20.3 % (21.0-51.0); MEAN CORPUSCULAR HGB CONC 31.9 g/dL (33.0-35.0); MEAN CORPUSCULAR VOLUME 87.8 fL (80.0-100.0); MEAN PLATELET VOLUME 10.3 fL (7.4-11.0); MONOCYTES # (AUTO) 0.3 x10^3/uL (0.3-0.8); MONOCYTES % (AUTO) 9.3 % (0.0-13.0); NEUTROPHILS # (AUTO) 2.4 x10^3/uL (2.2-4.8); NEUTROPHILS % (AUTO) 69.2 % (42.0-75.0); PLATELET COUNT 104 X10^3/uL (150.0-450.0); RED BLOOD COUNT 2.97 X10^6/uL (3.5-5.4); RED CELL DISTRIBUTION WIDTH 17.2 % (11.6-16.5); WHITE BLOOD COUNT 3.5 X10^3/uL (3.6-10.0)
[2018-05-29 06:59] LABS: ALANINE AMINOTRANSFERASE 9 Units/L (12-78); ALBUMIN 2.1 g/dL (3.4-5.0); ALKALINE PHOSPHATASE 61 Units/L (46-116); ASPARTATE AMINO TRANSFERASE 14 Units/L (15-37); BLOOD UREA NITROGEN 36 mg/dL (7-18); CALCIUM 7.8 mg/dL (8.5-10.1); CARBON DIOXIDE 37.6 mmol/L (21-32); CHLORIDE 97 mmol/L (98-107); COR CA(FOR HYPOALB) 9.3 mg/dL (8.5-10.1); CREATININE 1.65 mg/dL (0.55-1.02); SODIUM 139 mmol/L (136-145); TOTAL PROTEIN 7.1 g/dL (6.4-8.2); eGFR NON BLACK RACES 33 (>60)
[2018-05-29] MEDS: MICRO K EXTEN CAP 10 MEQ PO SCH (08:08)
[2018-05-29] MEDS: COREG TAB 6.25 MG PO SCH ×2 (08:08→22:03)
[2018-05-29] MEDS: ROBITUSSIN DM PO SCH ×4 (08:08→22:05)
[2018-05-29] MEDS: TUSSIONEX PENNKINETIC SUSP PO PRN (08:08)
[2018-05-29] MEDS: COLACE CAP 100 MG PO SCH ×2 (08:09→22:03)
[2018-05-29] MEDS: LASIX IVP SCH ×4 (08:09→22:03)
[2018-05-29] MEDS: LYRICA CAP 150 MG PO SCH ×2 (08:09→22:03)
[2018-05-29] MEDS: FLONASE NASAL SPRAY ENOSTRIL SCH (08:10)
[2018-05-29] MEDS: MIRALAX POWDER (1 DOSE 17 G) PO SCH (08:11)
[2018-05-29] MEDS: ARTIFICIAL TEARS DROPS AFFEYE PRN (08:15)
[2018-05-29] MEDS: PULMICORT NEB TX 0.5 MG NEB SCH ×2 (09:10→20:12)
[2018-05-29] MEDS: VICTOZA SC SCH (11:39)
[2018-05-29 15:04] LABS: BILIRUBIN,URINE NEGATIVE (NEGATIVE); BLOOD/HEMOGLOBIN,URINE 5+ (NEGATIVE); GLUCOSE, URINE NEGATIVE (NEGATIVE); KETONES,URINE NEGATIVE (NEGATIVE); LEUKOCYTE ESTERASE ,URINE 2+ (NEGATIVE); NITRITES,URINE NEGATIVE (NEGATIVE); PROTEIN,URINE 3+ (NEGATIVE); UROBILINOGEN,URINE NORMAL (NORMAL)
[2018-05-29 15:14] LABS: AMORPHOUS SEDIMENT,UR 2+ /HPF (NEGATIVE); APPEARANCE,URINE HAZY (CLEAR); BACTERIA,URINE TRACE /HPF (NEGATIVE); COLOR,URINE BLOODY (YELLOW); RBC,URINE TNTC /HPF (NONE SEEN); SQUAMOUS EPITHELIAL CELL,UR FEW /HPF (NEGATIVE)
[2018-05-29] MEDS: NS 1000 ML 1,000 ML IV SCH (19:09)
[2018-05-29] MEDS: SNACK - Diabetic Appropriate PO SCH (20:05)
[2018-05-29] MEDS: REQUIP PO SCH (22:00)
[2018-05-29] MEDS: LIPITOR TAB 40 MG PO SCH (22:03)
[2018-05-29] MEDS: MILK OF MAGNESIA PO SCH (22:04)
[2018-05-30] MEDS: DUONEB 0.5 MG/3 MG NEB SCH ×6 (01:19→20:05)
[2018-05-30] MEDS: ASTELIN NASAL SPRAY ENOSTRIL SCH ×3 (06:04→21:37)
[2018-05-30] MEDS: LASIX IVP SCH ×3 (06:04→21:37)
[2018-05-30] MEDS: ZOSYN VIAL 2.25 GRAMS 2.25 G in NS 100 ML IV + SPIKE MINIBAG* 100 ML IV SCH (06:05)
[2018-05-30 06:50] LABS: BASOPHILS % (AUTO) 0.8 % (0.2-1.0); EOSINOPHILS % (AUTO) 0.7 % (0.9-2.9); HEMATOCRIT 26.1 % (36.0-47.0); HEMOGLOBIN 8.3 g/dL (12.0-16.0); MEAN CORPUSCULAR HEMOGLOBIN 27.7 pg (27.0-34.0); MEAN CORPUSCULAR HGB CONC 31.7 g/dL (33.0-35.0); MEAN CORPUSCULAR VOLUME 87.4 fL (80.0-100.0); MEAN PLATELET VOLUME 10.3 fL (7.4-11.0); MONOCYTES # (AUTO) 0.3 x10^3/uL (0.3-0.8); MONOCYTES % (AUTO) 10.3 % (0.0-13.0); NEUTROPHILS # (AUTO) 1.9 x10^3/uL (2.2-4.8); NEUTROPHILS % (AUTO) 58.2 % (42.0-75.0); PLATELET COUNT 110 X10^3/uL (150.0-450.0); RED BLOOD COUNT 2.99 X10^6/uL (3.5-5.4); RED CELL DISTRIBUTION WIDTH 17.5 % (11.6-16.5); WHITE BLOOD COUNT 3.2 X10^3/uL (3.6-10.0)
[2018-05-30 06:51] LABS: ALBUMIN 2.2 g/dL (3.4-5.0); CARBON DIOXIDE 38.9 mmol/L (21-32); COR CA(FOR HYPOALB) 9.4 mg/dL (8.5-10.1); CREATININE 1.52 mg/dL (0.55-1.02); TOTAL PROTEIN 7.1 g/dL (6.4-8.2)
--- NOTE | 2018-05-30 07:17 | RAD ---
HISTORY: Follow-up pneumonia Study: Chest AP portable Comparison: 05/28/2018 Findings: The heart remains enlarged. No definite congestive heart failure is noted. The lungs are mildly hypo inflated. Patchy perihilar infiltrates and areas of subsegmental atelectasis are unchanged. No pleural effusions are identified. The bony thorax is unremarkable. IMPRESSION: No significant change from the prior examination Reported By:
[2018-05-30] MEDS: COLACE CAP 100 MG PO SCH ×2 (08:39→21:36)
[2018-05-30] MEDS: ROBITUSSIN DM PO SCH ×3 (08:39→21:36)
[2018-05-30] MEDS: MICRO K EXTEN CAP 10 MEQ PO SCH (08:40)
[2018-05-30] MEDS: PULMICORT NEB TX 0.5 MG NEB SCH ×2 (08:41→20:05)
[2018-05-30] MEDS: COREG TAB 6.25 MG PO SCH ×2 (08:41→21:37)
[2018-05-30] MEDS: LYRICA CAP 150 MG PO SCH ×3 (08:41→21:36)
[2018-05-30] MEDS: LEVAQUIN PREMIX IV 500 MG 500 MG/100 ML BAG IV SCH ×2 (08:41→11:11)
[2018-05-30] MEDS: MIRALAX POWDER (1 DOSE 17 G) PO SCH (08:41)
[2018-05-30] MEDS: TUSSIONEX PENNKINETIC SUSP PO PRN (08:42)
[2018-05-30] MEDS ORDERED: PROCRIT or EPOGEN SC ONE (09:25)
[2018-05-30 09:56] LABS: ABG BASE EXCESS 24.8 mmol/L (-2.0-2.0)
[2018-05-30 09:57] LABS: ABG HCO3 53.5 mmol/L (22-26)
[2018-05-30 09:58] LABS: ABG ALLEN TEST POS
[2018-05-30] MEDS ORDERED: HALDOL INJ IM ONE (11:12)
[2018-05-30] MEDS ORDERED: HALDOL INJ ONE (11:18)
[2018-05-30] MEDS: VICTOZA SC SCH (11:29)
[2018-05-30] MEDS: FLONASE NASAL SPRAY ENOSTRIL SCH (12:04)
[2018-05-30] MEDS ORDERED: ATIVAN INJ 2 MG VIAL IVP ONE (12:12)
[2018-05-30] MEDS ORDERED: ATIVAN INJ 2 MG VIAL ONE (12:16)
[2018-05-30] MEDS ORDERED: PROCRIT or EPOGEN SC NR (15:00)
[2018-05-30] MEDS: NS 1000 ML 1,000 ML IV SCH (17:03)
[2018-05-30] MEDS: REQUIP PO SCH (21:36)
[2018-05-30] MEDS: MILK OF MAGNESIA PO SCH (21:37)
[2018-05-30] MEDS: LIPITOR TAB 40 MG PO SCH (21:37)
[2018-05-31] MEDS ORDERED: HALDOL INJ IM ONE ×2 (00:22→22:21)
[2018-05-31] MEDS ORDERED: HALDOL INJ ONE (00:26)
[2018-05-31] MEDS: DUONEB 0.5 MG/3 MG NEB SCH ×7 (00:57→21:08)
[2018-05-31] MEDS: ASTELIN NASAL SPRAY ENOSTRIL SCH ×3 (05:38→21:40)
[2018-05-31] MEDS: LASIX IVP SCH ×3 (05:39→21:40)
[2018-05-31 06:29] LABS: BASOPHILS % (AUTO) 0.5 % (0.2-1.0); EOSINOPHILS % (AUTO) 0.5 % (0.9-2.9); HEMATOCRIT 28.2 % (36.0-47.0); HEMOGLOBIN 8.9 g/dL (12.0-16.0); LYMPHOCYTES # (AUTO) 1.5 X10^3/uL (1.3-2.9); LYMPHOCYTES % (AUTO) 21.2 % (21.0-51.0); MEAN CORPUSCULAR HEMOGLOBIN 27.7 pg (27.0-34.0); MEAN CORPUSCULAR HGB CONC 31.7 g/dL (33.0-35.0); MEAN CORPUSCULAR VOLUME 87.4 fL (80.0-100.0); MEAN PLATELET VOLUME 9.7 fL (7.4-11.0); MONOCYTES # (AUTO) 0.7 x10^3/uL (0.3-0.8); MONOCYTES % (AUTO) 10.3 % (0.0-13.0); NEUTROPHILS # (AUTO) 4.7 x10^3/uL (2.2-4.8); NEUTROPHILS % (AUTO) 67.5 % (42.0-75.0); PLATELET COUNT 122 X10^3/uL (150.0-450.0); RED BLOOD COUNT 3.23 X10^6/uL (3.5-5.4); RED CELL DISTRIBUTION WIDTH 17.7 % (11.6-16.5)
[2018-05-31 06:42] LABS: ALANINE AMINOTRANSFERASE 7 Units/L (12-78); ALBUMIN 2.2 g/dL (3.4-5.0); ALKALINE PHOSPHATASE 57 Units/L (46-116); ASPARTATE AMINO TRANSFERASE 14 Units/L (15-37); BLOOD UREA NITROGEN 26 mg/dL (7-18); CALCIUM 8.1 mg/dL (8.5-10.1); CHLORIDE 99 mmol/L (98-107); COR CA(FOR HYPOALB) 9.5 mg/dL (8.5-10.1); CREATININE 1.42 mg/dL (0.55-1.02); SODIUM 144 mmol/L (136-145); TOTAL PROTEIN 7.1 g/dL (6.4-8.2); eGFR NON BLACK RACES 40 (>60)
--- NOTE | 2018-05-31 06:48 | RAD ---
HISTORY: Follow-up pneumonia Study: Chest AP portable Comparison: 05/30/2018 Findings: The heart remains enlarged. No definite congestive heart failure is noted. Patchy perihilar infiltrates are again identified not significantly changed from the prior examination. No pleural effusions are identified. The bony thorax is unremarkable. IMPRESSION: No significant change from the prior examination Reported By:
[2018-05-31 07:02] LABS: PLATELET MORPHOLOGY COMMENT NORMAL (NORMAL)
[2018-05-31] MEDS: PULMICORT NEB TX 0.5 MG NEB SCH ×2 (09:32→21:08)
[2018-05-31] MEDS: COLACE CAP 100 MG PO SCH ×2 (10:59→20:41)
[2018-05-31] MEDS: COREG TAB 6.25 MG PO SCH ×2 (10:59→20:43)
[2018-05-31] MEDS: LYRICA CAP 150 MG PO SCH ×3 (11:01→20:47)
[2018-05-31] MEDS: MICRO K EXTEN CAP 10 MEQ PO SCH (11:02)
[2018-05-31] MEDS: ROBITUSSIN DM PO SCH ×4 (11:02→20:41)
[2018-05-31] MEDS: FLONASE NASAL SPRAY ENOSTRIL SCH (11:03)
[2018-05-31] MEDS: MIRALAX POWDER (1 DOSE 17 G) PO SCH (11:03)
[2018-05-31] MEDS: VICTOZA SC SCH (11:08)
[2018-05-31] MEDS: ARTIFICIAL TEARS DROPS AFFEYE PRN (16:52)
[2018-05-31] MEDS: NS 1000 ML 1,000 ML IV SCH (17:36)
[2018-05-31] MEDS: REQUIP PO SCH (20:41)
[2018-05-31] MEDS: LIPITOR TAB 40 MG PO SCH (20:41)
[2018-05-31] MEDS: ULTRAM PO PRN (20:42)
[2018-05-31] MEDS: MILK OF MAGNESIA PO SCH (20:46)
[2018-06-01] MEDS: DUONEB 0.5 MG/3 MG NEB SCH ×6 (00:55→20:43)
[2018-06-01] MEDS: ASTELIN NASAL SPRAY ENOSTRIL SCH ×3 (05:52→21:00)
[2018-06-01] MEDS: LASIX IVP SCH ×2 (05:52→11:24)
[2018-06-01 06:11] LABS: BASOPHILS % (AUTO) 0.4 % (0.2-1.0); EOSINOPHILS # (AUTO) 0.1 x10^3/uL (0.0-0.2); EOSINOPHILS % (AUTO) 0.9 % (0.9-2.9); HEMOGLOBIN 8.3 g/dL (12.0-16.0); LYMPHOCYTES # (AUTO) 1.7 X10^3/uL (1.3-2.9); LYMPHOCYTES % (AUTO) 25.2 % (21.0-51.0); MEAN CORPUSCULAR HEMOGLOBIN 27.8 pg (27.0-34.0); MEAN CORPUSCULAR HGB CONC 31.8 g/dL (33.0-35.0); MEAN CORPUSCULAR VOLUME 87.3 fL (80.0-100.0); MEAN PLATELET VOLUME 9.7 fL (7.4-11.0); MONOCYTES # (AUTO) 0.5 x10^3/uL (0.3-0.8); NEUTROPHILS # (AUTO) 4.4 x10^3/uL (2.2-4.8); NEUTROPHILS % (AUTO) 65.5 % (42.0-75.0); PLATELET COUNT 151 X10^3/uL (150.0-450.0); RED BLOOD COUNT 2.98 X10^6/uL (3.5-5.4); RED CELL DISTRIBUTION WIDTH 17.5 % (11.6-16.5); WHITE BLOOD COUNT 6.8 X10^3/uL (3.6-10.0)
[2018-06-01 06:19] LABS: ALANINE AMINOTRANSFERASE 9 Units/L (12-78); ALBUMIN 2.2 g/dL (3.4-5.0); ALKALINE PHOSPHATASE 56 Units/L (46-116); ASPARTATE AMINO TRANSFERASE 15 Units/L (15-37); BLOOD UREA NITROGEN 29 mg/dL (7-18); CHLORIDE 96 mmol/L (98-107); COR CA(FOR HYPOALB) 9.4 mg/dL (8.5-10.1); CREATININE 1.72 mg/dL (0.55-1.02); SODIUM 143 mmol/L (136-145); TOTAL PROTEIN 7.2 g/dL (6.4-8.2); eGFR NON BLACK RACES 32 (>60)
[2018-06-01 06:21] LABS: CARBON DIOXIDE 41.4 mmol/L (21-32)
--- NOTE | 2018-06-01 07:00 | RAD ---
HISTORY: 62-year-old female with pneumonia and history of CAD and COPD. Study: Frontal view of the chest. Comparison: Chest radiograph 05/31/2018 Findings: Surgical clips right axilla. The trachea is midline. The cardiac silhouette is stably enlarged with low lung volumes and worsening airspace opacities right middle and lung base; superimposed upon prominent interstitium and perihilar lung markings. Trace right effusion without pneumothorax. Soft tissues are unremarkable. Osseous structures are unremarkable. IMPRESSION: 1. Worsening consolidation right mid lung and right lung base superimposed upon cardiomegaly and findings suggesting COPD. Correlate clinically for pneumonia. Reported By:
[2018-06-01] MEDS: PULMICORT NEB TX 0.5 MG NEB SCH ×2 (09:28→20:43)
[2018-06-01] MEDS ORDERED: LEVAQUIN PREMIX IV 500 MG 500 MG/100 ML BAG IV ONE (10:16)
[2018-06-01] MEDS: ROBITUSSIN DM PO SCH ×4 (10:43→20:51)
[2018-06-01] MEDS: MIRALAX POWDER (1 DOSE 17 G) PO SCH (10:43)
[2018-06-01] MEDS: MICRO K EXTEN CAP 10 MEQ PO SCH (10:43)
[2018-06-01] MEDS: COREG TAB 6.25 MG PO SCH ×2 (10:44→20:51)
[2018-06-01] MEDS: FLONASE NASAL SPRAY ENOSTRIL SCH (10:44)
[2018-06-01] MEDS: LYRICA CAP 150 MG PO SCH ×2 (10:44→20:51)
[2018-06-01] MEDS: COLACE CAP 100 MG PO SCH ×2 (10:45→20:50)
[2018-06-01] MEDS: DIFLUCAN 200 MG IV PREMIX* 200 MG/100 ML BAG IV SCH (11:15)
[2018-06-01] MEDS: VICTOZA SC SCH (11:23)
[2018-06-01] MEDS: LEVAQUIN PREMIX IV 500 MG 500 MG/100 ML BAG IV SCH (13:01)
[2018-06-01] MEDS: LIPITOR TAB 40 MG PO SCH (20:50)
[2018-06-01] MEDS: MILK OF MAGNESIA PO SCH ×2 (20:51→20:54)
[2018-06-01] MEDS: REQUIP PO SCH (20:51)
[2018-06-02] MEDS: DUONEB 0.5 MG/3 MG NEB SCH ×6 (00:15→21:00)
[2018-06-02 05:25] LABS: BASOPHILS % (AUTO) 0.6 % (0.2-1.0); EOSINOPHILS # (AUTO) 0.1 x10^3/uL (0.0-0.2); HEMATOCRIT 25.8 % (36.0-47.0); HEMOGLOBIN 8.2 g/dL (12.0-16.0); LYMPHOCYTES # (AUTO) 1.4 X10^3/uL (1.3-2.9); LYMPHOCYTES % (AUTO) 22.4 % (21.0-51.0); MEAN CORPUSCULAR HGB CONC 31.9 g/dL (33.0-35.0); MEAN CORPUSCULAR VOLUME 87.9 fL (80.0-100.0); MEAN PLATELET VOLUME 9.6 fL (7.4-11.0); MONOCYTES # (AUTO) 0.5 x10^3/uL (0.3-0.8); MONOCYTES % (AUTO) 8.3 % (0.0-13.0); NEUTROPHILS # (AUTO) 4.1 x10^3/uL (2.2-4.8); NEUTROPHILS % (AUTO) 67.7 % (42.0-75.0); PLATELET COUNT 150 X10^3/uL (150.0-450.0); RED BLOOD COUNT 2.93 X10^6/uL (3.5-5.4); RED CELL DISTRIBUTION WIDTH 17.9 % (11.6-16.5); WHITE BLOOD COUNT 6.1 X10^3/uL (3.6-10.0)
--- NOTE | 2018-06-02 05:29 | RAD ---
Examination: AP chest History: SOB pneumonia Comparison 06/01/2018 Findings: Heart size is unchanged. Persistent right-sided pulmonary infiltrates with slight apparent improvement since 1 day earlier. There is no new abnormality. Impression: Slight interval improvement in right sided pulmonary infiltrate/pneumonia with no new abnormality demonstrated since 06/01/2018. Reported By:
[2018-06-02 05:40] LABS: ALBUMIN 2.2 g/dL (3.4-5.0); CALCIUM 7.8 mg/dL (8.5-10.1); COR CA(FOR HYPOALB) 9.2 mg/dL (8.5-10.1); CREATININE 1.66 mg/dL (0.55-1.02); TOTAL PROTEIN 7.1 g/dL (6.4-8.2)
[2018-06-02] MEDS: ASTELIN NASAL SPRAY ENOSTRIL SCH ×3 (05:40→22:07)
[2018-06-02 05:48] LABS: CARBON DIOXIDE 40.8 mmol/L (21-32)
[2018-06-02] MEDS: PULMICORT NEB TX 0.5 MG NEB SCH ×2 (08:57→21:00)
[2018-06-02] MEDS: VICTOZA SC SCH (09:25)
[2018-06-02] MEDS: COLACE CAP 100 MG PO SCH ×2 (09:27→20:54)
[2018-06-02] MEDS: DIFLUCAN 200 MG IV PREMIX* 200 MG/100 ML BAG IV SCH (09:27)
[2018-06-02] MEDS: LASIX IVP SCH (09:27)
[2018-06-02] MEDS: ROBITUSSIN DM PO SCH ×4 (09:28→20:54)
[2018-06-02] MEDS: LYRICA CAP 150 MG PO SCH ×2 (09:28→20:56)
[2018-06-02] MEDS: MICRO K EXTEN CAP 10 MEQ PO SCH (09:28)
[2018-06-02] MEDS: MIRALAX POWDER (1 DOSE 17 G) PO SCH (09:29)
[2018-06-02] MEDS: COREG TAB 6.25 MG PO SCH ×2 (09:29→20:53)
[2018-06-02] MEDS: FLONASE NASAL SPRAY ENOSTRIL SCH (09:29)
[2018-06-02 10:07] LABS: ABG BASE EXCESS 20.8 mmol/L (-2.0-2.0)
[2018-06-02 10:08] LABS: ABG ALLEN TEST POS; ABG HCO3 48.7 mmol/L (22-26)
--- NOTE | 2018-06-02 16:17 | PCM.PROG ---
Progress Note - Progress Note for Day of Date of Exam: 06/02/18 - Subjective Subjective: IS BEING TREATED FOR RUL PNEUMONIA, CHF, AND A URINARY TRACT INFECTION. SHE IS ON THE BIPAP ON MORNING ROUNDS. SHE IS DIFFICULT TO AROUSE THIS MORNING. ON EXAMINATION, HEART IS REGULAR IN RATE AND RHYTHM. BILATERAL LUNGS ARE NOTED WITH SCATTERED WHEEZING. ABDOMEN IS ROUND, SOFT, AND NON-TENDER WITH NORMAL BOWEL SOUNDS NOTED IN ALL QUADRANTS. SHE IS NOTED WITH BLE PITTING EDEMA. HER VITALS THIS MORNING ARE 97.5-76-20-96%BIPAP-107/59. LABS WERE OBTAINED. ABNORMAL LAB VALUES INCLUDE THE FOLLOWING: RBC 2.93, HGB 8.2, HCT 25.8, CARBON DIOXIDE 40.8M BUN 30, CREATININE 1.66, GLUCOSE 111, CALCIUM 7.8, ALT 10, ALBUMIN 2.2, GLOBULIN 4.9. CHEST XRAY REVEALED: Slight interval improvement in right sided pulmonary infiltrate/pneumonia with no new abnormality demonstrated since 06/01/2018. TODAY, WE WILL CONTINUE WITH RESPIRATORY TX, ATBX, LASIX, AND CURRENT PLAN OF CARE. WE WILL OBTAIN AN ABG. OTHERWISE, WE WILL FOLLOW UP WITH AM LABS AND CONTINUE TO MONITOR. - Past Medical Family Social History Past Med/Fam/Surg Hx: No changes since H&P Allergies: Allergies meperidine Allergy (Verified 01/14/18 09:51) - Review of Systems ROS: No change since H&P - Vital Signs and I&O's Vital Signs: Temperature 97.7 F Pulse Rate [Right Brachial] 77 Pulse Rate [Left Brachial] 85 Pulse Rate 76 Respiratory Rate 20 Blood Pressure [Left Arm] 116/53 Blood Pressure [Right Arm] 100/48 Blood Pressure 93/45 O2 Sat by Pulse Oximetry 95 Intake and Output: Intake & Output 05/31/18 06/01/18 06/02/18 06/03/18 11:59 11:59 11:59 11:59 Intake Total 670 / 670 1360 / 1360 565 / 565 Output Total 3175 / 3175 1800 / 1800 875 / 875 Balance -2505 / -2505 -440 / -440 -310 / -310 - Physical Exam Oriented: Not Oriented Eyes: Normal Ear: Normal Nose: Normal Throat: Normal Respiratory: Generalized, Wheezes Cardiovascular: Edema (BLE PITTING EDEMA ). negative: S3, S4, Murmur : Normal Auscultation: Bowel Sounds: Normal Palpation: Normal Tenderness: Normal Skin: Normal Musculoskeletal: Normal Speech Pattern: Clear - Laboratory and Diagnostics Result Diagrams: 06/02/18 05:01 06/02/18 05:01 Labs: 05/24/18 07:30 Blood Blood Culture - Final 05/24/18 07:25 Blood Blood Culture - Final 05/24/18 14:27 Sputum - Expectorated Sputum Sputum Culture - Final 05/24/18 14:27 Sputum - Expectorated Sputum - Final Laboratory WBC 6.1 X10^3/uL (3.6-10.0) 06/02/18 05:01 RBC 2.93 X10^6/uL (3.5-5.4) L 06/02/18 05:01 Hgb 8.2 g/dL (12.0-16.0) L 06/02/18 05:01 Hct 25.8 % (36.0-47.0) L 06/02/18 05:01 MCV 87.9 fL (80.0-100.0) 06/02/18 05:01 MCH 28.0 pg (27.0-34.0) 06/02/18 05:01 MCHC 31.9 g/dL (33.0-35.0) L 06/02/18 05:01 RDW 17.9 % (11.6-16.5) H 06/02/18 05:01 Plt Count 150 X10^3/uL (150.0-450.0) 06/02/18 05:01 Plt Count Comment Decreased (ADEQUATE) A 05/31/18 05:27 MPV 9.6 fL (7.4-11.0) 06/02/18 05:01 Neut % (Auto) 67.7 % (42.0-75.0) 06/02/18 05:01 Lymph % (Auto) 22.4 % (21.0-51.0) 06/02/18 05:01 [place] % (Auto) 8.3 % (0.0-13.0) 06/02/18 05:01 Eos % (Auto) 1.0 % (0.9-2.9) 06/02/18 05:01 Baso % (Auto) 0.6 % (0.2-1.0) 06/02/18 05:01 Neut # (Auto) 4.1 x10^3/uL (2.2-4.8) 06/02/18 05:01 Lymph # (Auto) 1.4 X10^3/uL (1.3-2.9) 06/02/18 05:01 [place] # (Auto) 0.5 x10^3/uL (0.3-0.8) 06/02/18 05:01 Eos # (Auto) 0.1 x10^3/uL (0.0-0.2) 06/02/18 05:01 Baso # (Auto) 0.0 X10^3/uL (0.0-0.1) 06/02/18 05:01 Absolute Nucleated RBC 0.0 /100WBC 06/02/18 05:01 Total Counted 100 05/31/18 05:27 Neutrophils % (Manual) 68 % (39-76) 05/31/18 05:27 Lymphocytes % (Manual) 28 % (13-43) 05/31/18 05:27 Monocytes % (Manual) 4 % (4-9) 05/31/18 05:27 Plt Clumps, EDTA Rare 05/31/18 05:27 Plt Morphology Comment Normal (NORMAL) 05/31/18 05:27 RBC Morphology Normal (NORMAL) 05/31/18 05:27 Sample Site Lr 06/02/18 10:04 ABG pH 7.450 (7.35-7.45) 06/02/18 10:04 ABG pCO2 70.0 mmHg (35.0-45.0) H* 06/02/18 10:04 ABG pO2 72.0 mmHg (80.0-100.0) L 06/02/18 10:04 ABG HCO3 48.7 mmol/L (22-26) H* 06/02/18 10:04 ABG O2 Saturation 95.0 % (90-100) 06/02/18 10:04 ABG Base Excess 20.8 mmol/L (-2.0-2.0) H 06/02/18 10:04 Kasi Test Pos 06/02/18 10:04 A-a Gradient 97.0 mmHg 06/02/18 10:04 FiO2 36.0 06/02/18 10:04 Blood Gas Comments Pt momo well cdn/mm 06/02/18 10:04 Sodium 142 mmol/L (136-145) 06/02/18 05:01 Corrected Sodium 142 mmol/L (136-145) 06/02/18 05:01 Potassium 3.8 mmol/L (3.5-5.1) 06/02/18 05:01 Chloride 98 mmol/L (98-107) 06/02/18 05:01 Carbon Dioxide 40.8 mmol/L (21-32) H* 06/02/18 05:01 BUN 30 mg/dL (7-18) H 06/02/18 05:01 Creatinine 1.66 mg/dL (0.55-1.02) H 06/02/18 05:01 Est GFR (MDRD) Af Amer 40 (>60) L 06/02/18 05:01 Est GFR (MDRD) Non-Af 33 (>60) L 06/02/18 05:01 Glucose 111 mg/dL (65-99) H 06/02/18 05:01 POC Glucose (mg/dL) 114 mg/dL (65-99) H 06/02/18 11:57 Lactic Acid 0.8 mmol/L (0.4-2.0) 05/24/18 07:30 Calcium 7.8 mg/dL (8.5-10.1) L 06/02/18 05:01 Corrected Calcium 9.2 mg/dL (8.5-10.1) 06/02/18 05:01 Magnesium 2.1 mg/dL (1.7-2.9) 05/30/18 05:13 Iron 32 ug/dL (50-175) L 05/24/18 07:30 Transferrin 197 mg/dL (202-364) L 05/24/18 07:30 Ferritin 184 ng/mL (8-252) 05/24/18 07:30 Total Bilirubin 0.40 mg/dL (0.2-1.0) 06/02/18 05:01 AST 17 Units/L (15-37) 06/02/18 05:01 ALT 10 Units/L (12-78) L 06/02/18 05:01 Alkaline Phosphatase 59 Units/L (46-116) 06/02/18 05:01 Creatine Kinase 25 Units/L (26-192) L 05/24/18 07:30 CK-MB (CK-2) < 1.0 ng/mL (0-4.0) 05/24/18 07:30 CK/CKMB % Calc 4.0 % (<4) 05/24/18 07:30 Troponin I 0.04 ng/mL (0-1.5) 05/24/18 07:30 C-Reactive Protein 102.90 mg/L (0-3.0) H 05/24/18 07:30 Total Protein 7.1 g/dL (6.4-8.2) 06/02/18 05:01 Albumin 2.2 g/dL (3.4-5.0) L 06/02/18 05:01 Globulin 4.9 g/dL (2.5-4.5) H 06/02/18 05:01 Albumin/Globulin Ratio 0.4 Ratio (1.1-2.1) L 06/02/18 05:01 Vitamin B12 378 pg/mL (193-986) 05/24/18 07:30 Folate 13.5 ng/mL (>8.6) 05/24/18 07:30 Specimen Type Catherized urine 05/29/18 14:50 Urine Color Bloody (YELLOW) 05/29/18 14:50 Urine Appearance Hazy (CLEAR) 05/29/18 14:50 Urine pH 5.0 (5.0 - 8.0) 05/29/18 14:50 Ur Specific [place] 1.015 (1.000-1.030) 05/29/18 14:50 Urine Protein 3+ (NEGATIVE) 05/29/18 14:50 Urine Glucose (UA) Negative (NEGATIVE) 05/29/18 14:50 Urine Ketones Negative (NEGATIVE) 05/29/18 14:50 Urine Occult Blood 5+ (NEGATIVE) 05/29/18 14:50 Urine Nitrite Negative (NEGATIVE) 05/29/18 14:50 Urine Bilirubin Negative (NEGATIVE) 05/29/18 14:50 Urine Urobilinogen Normal (NORMAL) 05/29/18 14:50 Ur Leukocyte Esterase 2+ (NEGATIVE) 05/29/18 14:50 Urine RBC Tntc /HPF (NONE SEEN) 05/29/18 14:50 Urine WBC 3-5 /HPF (NONE SEEN) 05/29/18 14:50 Ur Squamous Epith Cells Few /HPF (NEGATIVE) 05/29/18 14:50 Amorphous Sediment 2+ /HPF (NEGATIVE) 05/29/18 14:50 Urine Bacteria Trace /HPF (NEGATIVE) 05/29/18 14:50 Ur Culture Indicated? No/not indicated 05/29/18 14:50 - Plan (1) Pneumonia Status: Acute Qualifiers: Pneumonia type: due to unspecified organism Laterality: right Lung location: upper lobe of lung Qualified Code(s): J18.1 - Lobar pneumonia, unspecified organism Plan: IV ATBX, RESPIRATORY TX, CONTINUE TO MONITOR (2) UTI (urinary tract infection) Status: Acute Qualifiers: Urinary tract infection type: acute cystitis Hematuria presence: without hematuria Qualified Code(s): N30.00 - Acute cystitis without hematuria Plan: IV ATBX, CONTINUE TO MONITOR (3) CHF (congestive heart failure) Status: Chronic Qualifiers: Heart failure type: unspecified Heart failure chronicity: acute on chronic Qualified Code(s): I50.9 - Heart failure, unspecified Plan: IV LASIX (4) Diabetes mellitus, type II Status: Chronic
[2018-06-02] MEDS: LIPITOR TAB 40 MG PO SCH (20:53)
[2018-06-02] MEDS: REQUIP PO SCH (20:54)
[2018-06-02] MEDS: NS 1000 ML 1,000 ML IV SCH (20:55)
[2018-06-02] MEDS: MILK OF MAGNESIA PO SCH (23:07)
[2018-06-03] MEDS: ULTRAM PO PRN ×2 (01:22→20:56)
[2018-06-03] MEDS: DUONEB 0.5 MG/3 MG NEB SCH ×6 (02:50→20:36)
[2018-06-03 05:39] LABS: BASOPHILS % (AUTO) 0.6 % (0.2-1.0); EOSINOPHILS # (AUTO) 0.1 x10^3/uL (0.0-0.2); EOSINOPHILS % (AUTO) 1.2 % (0.9-2.9); HEMATOCRIT 25.3 % (36.0-47.0); HEMOGLOBIN 8.2 g/dL (12.0-16.0); LYMPHOCYTES # (AUTO) 1.5 X10^3/uL (1.3-2.9); LYMPHOCYTES % (AUTO) 25.7 % (21.0-51.0); MEAN CORPUSCULAR HEMOGLOBIN 27.9 pg (27.0-34.0); MEAN CORPUSCULAR HGB CONC 32.2 g/dL (33.0-35.0); MEAN CORPUSCULAR VOLUME 86.6 fL (80.0-100.0); MEAN PLATELET VOLUME 9.7 fL (7.4-11.0); MONOCYTES # (AUTO) 0.6 x10^3/uL (0.3-0.8); MONOCYTES % (AUTO) 9.5 % (0.0-13.0); NEUTROPHILS # (AUTO) 3.8 x10^3/uL (2.2-4.8); PLATELET COUNT 163 X10^3/uL (150.0-450.0); RED BLOOD COUNT 2.93 X10^6/uL (3.5-5.4); RED CELL DISTRIBUTION WIDTH 17.3 % (11.6-16.5)
[2018-06-03] MEDS: ASTELIN NASAL SPRAY ENOSTRIL SCH ×4 (05:47→21:00)
[2018-06-03 05:57] LABS: ALBUMIN 2.1 g/dL (3.4-5.0); CALCIUM 7.6 mg/dL (8.5-10.1); COR CA(FOR HYPOALB) 9.1 mg/dL (8.5-10.1); CREATININE 1.43 mg/dL (0.55-1.02)
[2018-06-03] MEDS: PULMICORT NEB TX 0.5 MG NEB SCH ×2 (08:10→20:36)
[2018-06-03] MEDS: MICRO K EXTEN CAP 10 MEQ PO SCH (09:27)
[2018-06-03] MEDS: LYRICA CAP 150 MG PO SCH ×2 (09:27→20:56)
[2018-06-03] MEDS: COREG TAB 6.25 MG PO SCH ×2 (09:27→20:56)
[2018-06-03] MEDS: ROBITUSSIN DM PO SCH ×4 (09:27→20:58)
[2018-06-03] MEDS: DIFLUCAN 200 MG IV PREMIX* 200 MG/100 ML BAG IV SCH (09:27)
[2018-06-03] MEDS: COLACE CAP 100 MG PO SCH ×2 (09:27→20:56)
[2018-06-03] MEDS: LASIX IVP SCH (09:27)
[2018-06-03] MEDS: MIRALAX POWDER (1 DOSE 17 G) PO SCH (09:28)
[2018-06-03] MEDS: FLONASE NASAL SPRAY ENOSTRIL SCH (09:29)
[2018-06-03] MEDS: VICTOZA SC SCH (09:30)
[2018-06-03] MEDS: LEVAQUIN PREMIX IV 500 MG 500 MG/100 ML BAG IV SCH (12:13)
[2018-06-03] MEDS: NS 1000 ML 1,000 ML IV SCH (12:14)
[2018-06-03] MEDS: REQUIP PO SCH (20:56)
[2018-06-03] MEDS: LIPITOR TAB 40 MG PO SCH (21:00)
[2018-06-03] MEDS: MILK OF MAGNESIA PO SCH (21:01)
--- NOTE | 2018-06-03 21:28 | PCM.PROG ---
Progress Note - Progress Note for Day of Date of Exam: 06/03/18 - Subjective Subjective: IS BEING TREATED FOR RUL PNEUMONIA, CHF, AND A URINARY TRACT INFECTION. SHE IS ALERT, LYING IN BED ON MORNING ROUNDS. ON EXAMINATION, HEART IS REGULAR IN RATE AND RHYTHM. BILATERAL LUNGS ARE NOTED WITH SCATTERED WHEEZING. ABDOMEN IS ROUND, SOFT, AND NON-TENDER WITH NORMAL BOWEL SOUNDS NOTED IN ALL QUADRANTS. HER VITALS THIS MORNING ARE 98.1-81-18-96%NC-106/51. LABS WERE OBTAINED. ABNORMAL LAB VALUES INCLUDE THE FOLLOWING: RBC 2.93, HGB 8.2, HCT 25.3, CARBON DIOXIDE 40.0, BUN 27, CREATININE 1.43, GLUCOSE 135, CALCIUM 7.6, ALBUMIN 2.1, GLOBULIN 4.9. TODAY, WE WILL CONTINUE WITH RESPIRATORY TX, ATBX, LASIX, AND CURRENT PLAN OF CARE. OTHERWISE, WE WILL FOLLOW UP WITH AM LABS AND CONTINUE TO MONITOR. - Past Medical Family Social History Past Med/Fam/Surg Hx: No changes since H&P Allergies: Allergies meperidine Allergy (Verified 01/14/18 09:51) - Review of Systems ROS: No change since H&P - Vital Signs and I&O's Vital Signs: Temperature 98.0 F Pulse Rate [Right Brachial] 81 Pulse Rate [Left Brachial] 85 Pulse Rate 88 Respiratory Rate 18 Blood Pressure [Left Arm] 116/53 Blood Pressure [Right Arm] 106/67 Blood Pressure 93/45 O2 Sat by Pulse Oximetry 98 Intake and Output: Intake & Output 06/01/18 06/02/18 06/03/18 06/04/18 11:59 11:59 11:59 11:59 Intake Total 1360 / 1360 565 / 565 1310 / 1310 240 / 240 Output Total 1800 / 1800 875 / 875 2350 / 2350 Balance -440 / -440 -310 / -310 -1040 / -1040 240 / 240 - Physical Exam Oriented: Person Eyes: Normal Ear: Normal Nose: Normal Throat: Normal Respiratory: Generalized, Wheezes Cardiovascular: Edema (BLE PITTING EDEMA ). negative: S3, S4, Murmur : Normal Auscultation: Bowel Sounds: Normal Tenderness: Normal Skin: Normal Musculoskeletal: Normal Speech Pattern: Clear - Laboratory and Diagnostics Result Diagrams: 06/03/18 05:08 06/03/18 05:08 Labs: 05/24/18 07:30 Blood Blood Culture - Final 05/24/18 07:25 Blood Blood Culture - Final 05/24/18 14:27 Sputum - Expectorated Sputum Sputum Culture - Final 05/24/18 14:27 Sputum - Expectorated Sputum - Final Laboratory WBC 6.0 X10^3/uL (3.6-10.0) 06/03/18 05:08 RBC 2.93 X10^6/uL (3.5-5.4) L 06/03/18 05:08 Hgb 8.2 g/dL (12.0-16.0) L 06/03/18 05:08 Hct 25.3 % (36.0-47.0) L 06/03/18 05:08 MCV 86.6 fL (80.0-100.0) 06/03/18 05:08 MCH 27.9 pg (27.0-34.0) 06/03/18 05:08 MCHC 32.2 g/dL (33.0-35.0) L 06/03/18 05:08 RDW 17.3 % (11.6-16.5) H 06/03/18 05:08 Plt Count 163 X10^3/uL (150.0-450.0) 06/03/18 05:08 Plt Count Comment Decreased (ADEQUATE) A 05/31/18 05:27 MPV 9.7 fL (7.4-11.0) 06/03/18 05:08 Neut % (Auto) 63.0 % (42.0-75.0) 06/03/18 05:08 Lymph % (Auto) 25.7 % (21.0-51.0) 06/03/18 05:08 [place] % (Auto) 9.5 % (0.0-13.0) 06/03/18 05:08 Eos % (Auto) 1.2 % (0.9-2.9) 06/03/18 05:08 Baso % (Auto) 0.6 % (0.2-1.0) 06/03/18 05:08 Neut # (Auto) 3.8 x10^3/uL (2.2-4.8) 06/03/18 05:08 Lymph # (Auto) 1.5 X10^3/uL (1.3-2.9) 06/03/18 05:08 [place] # (Auto) 0.6 x10^3/uL (0.3-0.8) 06/03/18 05:08 Eos # (Auto) 0.1 x10^3/uL (0.0-0.2) 06/03/18 05:08 Baso # (Auto) 0.0 X10^3/uL (0.0-0.1) 06/03/18 05:08 Absolute Nucleated RBC 0.0 /100WBC 06/03/18 05:08 Total Counted 100 05/31/18 05:27 Neutrophils % (Manual) 68 % (39-76) 05/31/18 05:27 Lymphocytes % (Manual) 28 % (13-43) 05/31/18 05:27 Monocytes % (Manual) 4 % (4-9) 05/31/18 05:27 Plt Clumps, EDTA Rare 05/31/18 05:27 Plt Morphology Comment Normal (NORMAL) 05/31/18 05:27 RBC Morphology Normal (NORMAL) 05/31/18 05:27 Sample Site Lr 06/02/18 10:04 ABG pH 7.450 (7.35-7.45) 06/02/18 10:04 ABG pCO2 70.0 mmHg (35.0-45.0) H* 06/02/18 10:04 ABG pO2 72.0 mmHg (80.0-100.0) L 06/02/18 10:04 ABG HCO3 48.7 mmol/L (22-26) H* 06/02/18 10:04 ABG O2 Saturation 95.0 % (90-100) 06/02/18 10:04 ABG Base Excess 20.8 mmol/L (-2.0-2.0) H 06/02/18 10:04 Kasi Test Pos 06/02/18 10:04 A-a Gradient 97.0 mmHg 06/02/18 10:04 FiO2 36.0 06/02/18 10:04 Blood Gas Comments Pt momo well cdn/mm 06/02/18 10:04 Sodium 143 mmol/L (136-145) 06/03/18 05:08 Corrected Sodium 144 mmol/L (136-145) 06/03/18 05:08 Potassium 3.9 mmol/L (3.5-5.1) 06/03/18 05:08 Chloride 99 mmol/L (98-107) 06/03/18 05:08 Carbon Dioxide 40.0 mmol/L (21-32) H 06/03/18 05:08 BUN 27 mg/dL (7-18) H 06/03/18 05:08 Creatinine 1.43 mg/dL (0.55-1.02) H 06/03/18 05:08 Est GFR (MDRD) Af Amer 48 (>60) L 06/03/18 05:08 Est GFR (MDRD) Non-Af 39 (>60) L 06/03/18 05:08 Glucose 135 mg/dL (65-99) H 06/03/18 05:08 POC Glucose (mg/dL) 170 mg/dL (65-99) H 06/03/18 20:08 Lactic Acid 0.8 mmol/L (0.4-2.0) 05/24/18 07:30 Calcium 7.6 mg/dL (8.5-10.1) L 06/03/18 05:08 Corrected Calcium 9.1 mg/dL (8.5-10.1) 06/03/18 05:08 Magnesium 2.1 mg/dL (1.7-2.9) 05/30/18 05:13 Iron 32 ug/dL (50-175) L 05/24/18 07:30 Transferrin 197 mg/dL (202-364) L 05/24/18 07:30 Ferritin 184 ng/mL (8-252) 05/24/18 07:30 Total Bilirubin 0.40 mg/dL (0.2-1.0) 06/03/18 05:08 AST 19 Units/L (15-37) 06/03/18 05:08 ALT 13 Units/L (12-78) 06/03/18 05:08 Alkaline Phosphatase 60 Units/L (46-116) 06/03/18 05:08 Creatine Kinase 25 Units/L (26-192) L 05/24/18 07:30 CK-MB (CK-2) < 1.0 ng/mL (0-4.0) 05/24/18 07:30 CK/CKMB % Calc 4.0 % (<4) 05/24/18 07:30 Troponin I 0.04 ng/mL (0-1.5) 05/24/18 07:30 C-Reactive Protein 102.90 mg/L (0-3.0) H 05/24/18 07:30 Total Protein 7.0 g/dL (6.4-8.2) 06/03/18 05:08 Albumin 2.1 g/dL (3.4-5.0) L 06/03/18 05:08 Globulin 4.9 g/dL (2.5-4.5) H 06/03/18 05:08 Albumin/Globulin Ratio 0.4 Ratio (1.1-2.1) L 06/03/18 05:08 Vitamin B12 378 pg/mL (193-986) 05/24/18 07:30 Folate 13.5 ng/mL (>8.6) 05/24/18 07:30 Specimen Type Catherized urine 05/29/18 14:50 Urine Color Bloody (YELLOW) 05/29/18 14:50 Urine Appearance Hazy (CLEAR) 05/29/18 14:50 Urine pH 5.0 (5.0 - 8.0) 05/29/18 14:50 Ur Specific [place] 1.015 (1.000-1.030) 05/29/18 14:50 Urine Protein 3+ (NEGATIVE) 05/29/18 14:50 Urine Glucose (UA) Negative (NEGATIVE) 05/29/18 14:50 Urine Ketones Negative (NEGATIVE) 05/29/18 14:50 Urine Occult Blood 5+ (NEGATIVE) 05/29/18 14:50 Urine Nitrite Negative (NEGATIVE) 05/29/18 14:50 Urine Bilirubin Negative (NEGATIVE) 05/29/18 14:50 Urine Urobilinogen Normal (NORMAL) 05/29/18 14:50 Ur Leukocyte Esterase 2+ (NEGATIVE) 05/29/18 14:50 Urine RBC Tntc /HPF (NONE SEEN) 05/29/18 14:50 Urine WBC 3-5 /HPF (NONE SEEN) 05/29/18 14:50 Ur Squamous Epith Cells Few /HPF (NEGATIVE) 05/29/18 14:50 Amorphous Sediment 2+ /HPF (NEGATIVE) 05/29/18 14:50 Urine Bacteria Trace /HPF (NEGATIVE) 05/29/18 14:50 Ur Culture Indicated? No/not indicated 05/29/18 14:50 - Plan (1) Pneumonia Status: Acute Qualifiers: Pneumonia type: due to unspecified organism Laterality: right Lung location: upper lobe of lung Qualified Code(s): J18.1 - Lobar pneumonia, unspecified organism Plan: IV ATBX, RESPIRATORY TX, CONTINUE TO MONITOR (2) UTI (urinary tract infection) Status: Acute Qualifiers: Urinary tract infection type: acute cystitis Hematuria presence: without hematuria Qualified Code(s): N30.00 - Acute cystitis without hematuria Plan: IV ATBX, CONTINUE TO MONITOR (3) CHF (congestive heart failure) Status: Chronic Qualifiers: Heart failure type: unspecified Heart failure chronicity: acute on chronic Qualified Code(s): I50.9 - Heart failure, unspecified Plan: IV LASIX (4) Diabetes mellitus, type II Status: Chronic
[2018-06-04] MEDS: DUONEB 0.5 MG/3 MG NEB SCH ×3 (01:06→08:17)
[2018-06-04] MEDS: ASTELIN NASAL SPRAY ENOSTRIL SCH ×2 (05:50→13:49)
--- NOTE | 2018-06-04 05:58 | RAD ---
History: Shortness of breath Study: Portable AP chest Comparison: June 02 Findings: The heart remains mildly enlarged. There are new linear densities in the left mid lung. There is subsegmental density at the left lung base. There is subsegmental density in the right upper lobe and beyond the right hilum. Impression: Persistent bilateral subsegmental atelectasis and/or subsegmental pneumonitis. Reported By:
[2018-06-04 06:10] LABS: BASOPHILS % (AUTO) 0.8 % (0.2-1.0); EOSINOPHILS # (AUTO) 0.1 x10^3/uL (0.0-0.2); EOSINOPHILS % (AUTO) 1.4 % (0.9-2.9); HEMATOCRIT 25.8 % (36.0-47.0); HEMOGLOBIN 8.2 g/dL (12.0-16.0); LYMPHOCYTES # (AUTO) 1.6 X10^3/uL (1.3-2.9); LYMPHOCYTES % (AUTO) 31.5 % (21.0-51.0); MEAN CORPUSCULAR HEMOGLOBIN 27.9 pg (27.0-34.0); MEAN CORPUSCULAR HGB CONC 31.8 g/dL (33.0-35.0); MEAN CORPUSCULAR VOLUME 87.6 fL (80.0-100.0); MEAN PLATELET VOLUME 9.8 fL (7.4-11.0); MONOCYTES # (AUTO) 0.5 x10^3/uL (0.3-0.8); MONOCYTES % (AUTO) 10.1 % (0.0-13.0); NEUTROPHILS # (AUTO) 2.8 x10^3/uL (2.2-4.8); NEUTROPHILS % (AUTO) 56.2 % (42.0-75.0); PLATELET COUNT 167 X10^3/uL (150.0-450.0); RED BLOOD COUNT 2.95 X10^6/uL (3.5-5.4); RED CELL DISTRIBUTION WIDTH 17.5 % (11.6-16.5)
[2018-06-04 06:23] LABS: ALBUMIN 2.2 g/dL (3.4-5.0); CALCIUM 7.7 mg/dL (8.5-10.1); CARBON DIOXIDE 38.3 mmol/L (21-32); COR CA(FOR HYPOALB) 9.1 mg/dL (8.5-10.1); CREATININE 1.63 mg/dL (0.55-1.02); TOTAL PROTEIN 7.3 g/dL (6.4-8.2)
[2018-06-04] MEDS: PULMICORT NEB TX 0.5 MG NEB SCH (08:17)
[2018-06-04] MEDS: LASIX IVP SCH (09:28)
[2018-06-04] MEDS: ROBITUSSIN DM PO SCH ×2 (09:32→13:50)
[2018-06-04] MEDS: LYRICA CAP 150 MG PO SCH (09:33)
[2018-06-04] MEDS: MICRO K EXTEN CAP 10 MEQ PO SCH (09:33)
[2018-06-04] MEDS: COLACE CAP 100 MG PO SCH (09:33)
[2018-06-04] MEDS: COREG TAB 6.25 MG PO SCH (09:33)
[2018-06-04] MEDS: DIFLUCAN 200 MG IV PREMIX* 200 MG/100 ML BAG IV SCH (09:33)
[2018-06-04] MEDS: FLONASE NASAL SPRAY ENOSTRIL SCH (09:34)
[2018-06-04] MEDS: MIRALAX POWDER (1 DOSE 17 G) PO SCH (09:34)
[2018-06-04] MEDS: VICTOZA SC SCH (09:36)
[2018-06-04 13:23] VITALS: BP 105/59
== END 2018-06-04 14:20 | DRG 194 ==
LOC: ER 06:29 → ICU 08:28 → MED/SURG 05-26 14:05
PROVIDERS: ADMIT Obstetrics & Gynecology Obstetrics; ATTEND Obstetrics & Gynecology Obstetrics
DX: R60.0 Localized edema; K21.9 Gastro-esophageal reflux disease without esophagitis; Z66 Do not resuscitate; J44.9 Chronic obstructive pulmonary disease, unspecified; B37.9 Candidiasis, unspecified; R79.82 Elevated C-reactive protein (CRP); M13.89 Other specified arthritis, multiple sites; R94.4 Abnormal results of kidney function studies; E66.2 Morbid (severe) obesity with alveolar hypoventilation; I25.10 Atherosclerotic heart disease of native coronary artery without angina pectoris; J18.8 Other pneumonia, unspecified organism; R26.89 Other abnormalities of gait and mobility; I11.0 Hypertensive heart disease with heart failure; I50.9 Heart failure, unspecified; B96.29 Other Escherichia coli [E. coli] as the cause of diseases classified elsewhere; N30.00 Acute cystitis without hematuria; E11.65 Type 2 diabetes mellitus with hyperglycemia; Z78.1 Physical restraint status
CPT/HCPCS: 36415; 36600; 51702; 71010; 71045; 80053; 81001; 82550; 82553; 82607; 82728; 82746; 82803; 83540; 83605; 83735; 84466; 84484; 85025; 86140; 87040; 87070; 87205; 93005; 94640; 94660; 94760; 96365; 96374; 96375; 97110; 97112; 97162; 97166; 97535; 99284; 99285; A4222; A4618; A7030; J0696; J0885; J1450; J1630; J1756; J1940; J1956; J2060; J2543; J2930; J7030; J7050; J7620; J7626

== ENCOUNTER 2019-02-03 01:43 | Inpatient (IN) ==
--- NOTE | 2019-02-03 01:50 | DR.SOBA ---
HPI Time Seen Time Seen by Provider: 02/03/19 01:49 HPI Comment HPI Comment: 63 yo f w/ prev hx of chf and copd presents to ED w/ hypoxia and ams. noted to be in RD by SNF staff this evening. Pulse ox in 70's, appeared lethargic. No recent f/c or cp. Source History Provided: [facility] Mode of Arrival Mode of Arrival: Stretcher Duration Duration: Hours Context Onset:: At Rest History of:: COPD and CHF Prehospital Care:: O2 Modifying Factors Worsens:: Nothing Improves:: Nothing PMH PMH Past Medical History: Arthritis, CHF, COPD, Coronary Artery Disease, Diabetes, Dyslipidemia, GERD, Hypertension and Renal Disease Past Surgical History: Yes Surgical History: Cholecystectomy, Hysterectomy, Joint Replacement and Ortho Surgery Family History Family Medical History: Diabetes Mellitus, Coronary Artery Disease and Hypertension Social History Does patient currently use any type of tobacco product: No Packs per day or dips/chews per day: former smoker Do you use any recreational Drugs:: No infectious screening Isolation: Standard ROS Review of Systems Respiratoy: Short of Breath Cardiovascular: Edema Unable to Obtain Due To: Altered mental status PE Vital Signs Vitals: Temperature 99.4 F Pulse Rate [Left Brachial] 91 Pulse Rate 103 Respiratory Rate 22 Blood Pressure [Left Arm] 130/63 Blood Pressure [Right Arm] 105/59 Blood Pressure 130/66 O2 Sat by Pulse Oximetry 93 General Limitations: Altered Mental Status General Appearance: Alert and Other (mod resp distress) Head Head Exam: Normal Inspection and Atraumatic Eyes Eye exam: Normal Appearance and PERRL ENT ENT Exam: Normal Exam Neck Neck Exam: Normal Inspection Chest Chest Inspection: Normal Inspection Respiratory Respiratory Exam: Accessory Muscle Use, Prolonged Expiratory Phase and Res piratory Distress Respiratory Exam: Bilateral: Wheezing and Bilateral: Rales Cardiovascular Cardiovascular Exam: Normal Rhythm, Tachycardia, Systolic Murmur and JVD Abdominal Exam Abdominal Exam: Normal Inspection, Normal Bowel Sounds and Distention; negative Tenderness Extremities Extremities Exam: Normal Inspection Back Back Exam: Normal Inspection Neurologic Neurological Exam: Alert and Oriented X3 Psychiatric Psychiatric Exam: Normal Affect and Normal Mood Skin Skin Exam: Warm, Dry, Intact and Normal Color MDM Differential Diagnosis Differential Diagnosis: Asthma, Cardiogenic shock, CHF, COPD, Dysrhythmia, Hypertensive Emergency, Mycardial Infarction, Pneumonia, Pneumothorax, Pulmonary embolism and Respiratory Failure COURSE Treatment Treatment: 63 yo CF w/ prev hx of chronic hypoxemic respiratory failure ( non compliant w/ bipap), copd, CHF presents w/ AMs and respiratory distress this pm. On arrival was lethargic, hypoxic w/ pulse ox in 70's. Improved w/ NRB mask. Blood gas obtained demonstrated significant hypoxemia and hypercapnia. Placed on bipap. Mental status markedly improved. CXR obtained and demonstrated findings c/w pulmonary edema. Aggressively diuresed w/ Lasix, nitro and albumin. ASA loaded. EKG w/o any acute ischemic changes. Trop wnl. BMP w/ evidence of elevated CRE, gfr in 30's. Ua demonstrates findings c/w uti, rocephin given. d/w Dr manley whom agrees to admit. ROR Labs Reviewed Laboratory Results Reviewed?: Yes Result Diagrams: 02/03/19 01:55 02/03/19 01:55 Laboratory: WBC 7.7 X10^3/uL (3.6-10.0) 02/03/19 01:55 RBC 2.50 X10^6/uL (3.5-5.4) L 02/03/19 01:55 Hgb 7.0 g/dL (12.0-16.0) L 02/03/19 01:55 Hct 22.1 % (36.0-47.0) L 02/03/19 01:55 MCV 88.5 fL (80.0-100.0) 02/03/19 01:55 MCH 28.2 pg (27.0-34.0) 02/03/19 01:55 MCHC 31.8 g/dL (33.0-35.0) L 02/03/19 01:55 RDW 17.1 % (11.6-16.5) H 02/03/19 01:55 Plt Count 114 X10^3/uL (150.0-450.0) L 02/03/19 01:55 Plt Count Comment Decreased (ADEQUATE) A 02/03/19 01:55 MPV 9.5 fL (7.4-11.0) 02/03/19 01:55 Neut % (Auto) 74.9 % (42.0-75.0) 02/03/19 01:55 Lymph % (Auto) 15.6 % (21.0-51.0) L 02/03/19 01:55 [place] % (Auto) 7.7 % (0.0-13.0) 02/03/19 01:55 Eos % (Auto) 1.2 % (0.9-2.9) 02/03/19 01:55 Baso % (Auto) 0.6 % (0.2-1.0) 02/03/19 01:55 Neut # (Auto) 5.8 x10^3/uL (2.2-4.8) H 02/03/19 01:55 Lymph # (Auto) 1.2 X10^3/uL (1.3-2.9) L 02/03/19 01:55 [place] # (Auto) 0.6 x10^3/uL (0.3-0.8) 02/03/19 01:55 Eos # (Auto) 0.1 x10^3/uL (0.0-0.2) 02/03/19 01:55 Baso # (Auto) 0.0 X10^3/uL (0.0-0.1) 02/03/19 01:55 Absolute Nucleated RBC 0.1 /100WBC 02/03/19 01:55 Plt Morphology Comment Normal (NORMAL) 02/03/19 01:55 RBC Morphology Abnormal (NORMAL) A 02/03/19 01:55 Hypochromasia Slight A 02/03/19 01:55 Sample Site Lr 02/03/19 03:00 ABG pH 7.330 (7.35-7.45) L 02/03/19 03:00 ABG pCO2 93.0 mmHg (35.0-45.0) H* 02/03/19 03:00 ABG pO2 61.0 mmHg (80.0-100.0) L 02/03/19 03:00 ABG HCO3 49.0 mmol/L (22-26) H* 02/03/19 03:00 ABG O2 Saturation 89.0 % (90-100) L 02/03/19 03:00 ABG Base Excess 18.5 mmol/L (-2.0-2.0) H 02/03/19 03:00 Kasi Test Pos 02/03/19 03:00 A-a Gradient 108.0 mmHg 02/03/19 03:00 FiO2 40.0 02/03/19 03:00 Blood Gas Comments Matthieu well ae 02/03/19 03:00 Sodium 143 mmol/L (136-145) 02/03/19 01:55 Corrected Sodium 144 mmol/L (136-145) 02/03/19 01:55 Potassium 4.4 mmol/L (3.5-5.1) 02/03/19 01:55 Chloride 98 mmol/L (98-107) 02/03/19 01:55 Carbon Dioxide 44.1 mmol/L (21-32) H* 02/03/19 01:55 BUN 40 mg/dL (7-18) H 02/03/19 01:55 Creatinine 1.90 mg/dL (0.55-1.02) H 02/03/19 01:55 Est GFR (MDRD) Af Amer 34 (>60) L 02/03/19 01:55 Est GFR (MDRD) Non-Af 28 (>60) L 02/03/19 01:55 Glucose 138 mg/dL (65-99) H 02/03/19 01:55 Lactic Acid 0.6 mmol/L (0.4-2.0) 02/03/19 01:55 Calcium 6.4 mg/dL (8.5-10.1) L 02/03/19 01:55 Troponin I < 0.02 ng/mL (0-1.5) 02/03/19 01:55 B-Natriuretic Peptide 167 pg/mL (0-79) H 02/03/19 01:55 Specimen Type Catherized urine 02/03/19 02:20 Urine Color Yellow (YELLOW) 02/03/19 02:20 Urine Appearance Cloudy (CLEAR) 02/03/19 02:20 Urine pH 5.0 (5.0 - 8.0) 02/03/19 02:20 Ur Specific [place] 1.020 (1.000-1.030) 02/03/19 02:20 Urine Protein 3+ (NEGATIVE) 02/03/19 02:20 Urine Glucose (UA) Negative (NEGATIVE) 02/03/19 02:20 Urine Ketones Negative (NEGATIVE) 02/03/19 02:20 Urine Occult Blood 4+ (NEGATIVE) 02/03/19 02:20 Urine Nitrite Negative (NEGATIVE) 02/03/19 02:20 Urine Bilirubin Negative (NEGATIVE) 02/03/19 02:20 Urine Urobilinogen 2+ (NORMAL) 02/03/19 02:20 Ur Leukocyte Esterase 3+ (NEGATIVE) 02/03/19 02:20 Urine RBC 10-20 /HPF (0-3) A 02/03/19 02:20 Urine WBC Tntc /HPF (0-5) A 02/03/19 02:20 Ur Squamous Epith Cells Rare /HPF (NEGATIVE) 02/03/19 02:20 Urine Bacteria 1+ /HPF (NEGATIVE) 02/03/19 02:20 Ur Culture Indicated? Yes/culture set up 02/03/19 02:20 Blood Type O POSITIVE 02/03/19 02:34 Antibody Screen Negative 02/03/19 02:34 XRAY XRAY Interpreted by: Self XRAY Findings: cxr w/ pulmonary edema and cmg, no pna EKG Rate: 103 [place]: Normal Rhythm: ST Block: None Hypertrophy: None ST: Normal Opioid Opioid Risk Tool Age ([place] box if 16-45): No History of Preadolescent Sexual Abuse: No Total: 0 Total Score Risk Category: Low Risk Copyright: David MANRIQUEZ predicting aberrant behaviors Diagnosis Discharge Problem: Acute on chronic respiratory failure with hypoxemia, Acute UTI Acute CHF Qualifiers: Heart failure type: systolic Qualified Code(s): I50.21 - Acute systolic (congestive) heart failure Instructions Forms: Excuse From Work Patient Portal
[2019-02-03] MEDS ORDERED: LASIX IVP ONE ×4 (02:07→03:24)
[2019-02-03 02:08] LABS: BASOPHILS % (AUTO) 0.6 % (0.2-1.0); EOSINOPHILS # (AUTO) 0.1 x10^3/uL (0.0-0.2); EOSINOPHILS % (AUTO) 1.2 % (0.9-2.9); HEMATOCRIT 22.1 % (36.0-47.0); LYMPHOCYTES # (AUTO) 1.2 X10^3/uL (1.3-2.9); LYMPHOCYTES % (AUTO) 15.6 % (21.0-51.0); MEAN CORPUSCULAR HEMOGLOBIN 28.2 pg (27.0-34.0); MEAN CORPUSCULAR HGB CONC 31.8 g/dL (33.0-35.0); MEAN CORPUSCULAR VOLUME 88.5 fL (80.0-100.0); MEAN PLATELET VOLUME 9.5 fL (7.4-11.0); MONOCYTES # (AUTO) 0.6 x10^3/uL (0.3-0.8); MONOCYTES % (AUTO) 7.7 % (0.0-13.0); NEUTROPHILS # (AUTO) 5.8 x10^3/uL (2.2-4.8); NEUTROPHILS % (AUTO) 74.9 % (42.0-75.0); PLATELET COUNT 114 X10^3/uL (150.0-450.0); RED CELL DISTRIBUTION WIDTH 17.1 % (11.6-16.5); WHITE BLOOD COUNT 7.7 X10^3/uL (3.6-10.0)
[2019-02-03 02:14] LABS: ABG BASE EXCESS 18.6 mmol/L (-2.0-2.0)
[2019-02-03 02:15] LABS: ABG HCO3 48.6 mmol/L (22-26)
[2019-02-03 02:16] LABS: ABG ALLEN TEST POS
[2019-02-03 02:18] LABS: BLOOD UREA NITROGEN 40 mg/dL (7-18); CALCIUM 6.4 mg/dL (8.5-10.1); CHLORIDE 98 mmol/L (98-107); COR NA(FOR HYPERGLY) 144 mmol/L (136-145); LACTIC ACID 0.6 mmol/L (0.4-2.0); SODIUM 143 mmol/L (136-145); TROPONIN I < 0.02 ng/mL (0-1.5); eGFR NON BLACK RACES 28 (>60)
[2019-02-03 02:20] LABS: CARBON DIOXIDE 44.1 mmol/L (21-32)
[2019-02-03 02:31] LABS: BILIRUBIN,URINE NEGATIVE (NEGATIVE); BLOOD/HEMOGLOBIN,URINE 4+ (NEGATIVE); GLUCOSE, URINE NEGATIVE (NEGATIVE); KETONES,URINE NEGATIVE (NEGATIVE); LEUKOCYTE ESTERASE ,URINE 3+ (NEGATIVE); NITRITES,URINE NEGATIVE (NEGATIVE); PROTEIN,URINE 3+ (NEGATIVE); UROBILINOGEN,URINE 2+ (NORMAL)
[2019-02-03 02:40] LABS: HYPOCHROMASIA SLIGHT; PLATELET MORPHOLOGY COMMENT NORMAL (NORMAL)
[2019-02-03 02:44] LABS: APPEARANCE,URINE CLOUDY (CLEAR); BACTERIA,URINE 1+ /HPF (NEGATIVE); COLOR,URINE YELLOW (YELLOW); SQUAMOUS EPITHELIAL CELL,UR RARE /HPF (NEGATIVE)
[2019-02-03 03:10] LABS: ABG ALLEN TEST POS; ABG BASE EXCESS 18.5 mmol/L (-2.0-2.0)
[2019-02-03] MEDS ORDERED: NITROSTAT SL ONE (03:23)
[2019-02-03] MEDS ORDERED: NITROSTAT ONE (03:24)
[2019-02-03] MEDS ORDERED: ALBUMIN HUMAN 25%- 100 ML 100 ML IV ONE (04:14)
--- NOTE | 2019-02-03 05:11 | RAD ---
AP chest. Indication: Chest pain Comparison: 10/17/2018 Findings: Trachea is midline. Heart size unchanged. There is severe confluent airspace consolidation and interstitial opacities within both lungs most severely affecting the central portion of both lungs. No definite effusion or pneumothorax. Impression: Severe, predominantly centralized of the lower and interstitial opacities within both lungs likely represents pulmonary interstitial edema; however an ARDS or multifocal pneumonia are also considerations in the appropriate clinical setting. Continued radiographic follow-up is recommended. Reported By:
[2019-02-03] MEDS ORDERED: ROCEPHIN VIAL 2 GRAMS ONE (05:52)
[2019-02-03] MEDS ORDERED: NS 100 ML IV 100 ML IV ONE (05:53)
[2019-02-03] MEDS ORDERED: NS 500 ML IV 500 ML IV ONE (05:53)
[2019-02-03] MEDS: ROCEPHIN VIAL 2 GRAMS 2 G in NS 100 ML IV + SPIKE MINIBAG* 100 ML IV SCH ×2 (06:01→08:11)
[2019-02-03 06:26] LABS: CKMB % 2.3 % (<4); CREATINE KINASE 43 Units/L (26-192); CREATINE KINASE MB < 1.0 ng/mL (0-4.0); TROPONIN I < 0.02 ng/mL (0-1.5)
[2019-02-03] MEDS ORDERED: DEXTRAN HYPROMELLOSE OP PRN (08:52)
[2019-02-03 08:57] VITALS: BMI 41.1
[2019-02-03] MEDS ORDERED: ASPIRIN 81 MG CHEWTAB PO SCH (09:00)
[2019-02-03] MEDS ORDERED: COREG TAB 6.25 MG PO SCH (09:00)
[2019-02-03] MEDS: ASPIRIN PO SCH (11:48)
[2019-02-03] MEDS: COLACE CAP 100 MG PO SCH ×2 (11:49→21:37)
[2019-02-03] MEDS: PAXIL PO SCH (11:49)
[2019-02-03] MEDS: FLONASE NASAL SPRAY ENOSTRIL SCH (11:49)
[2019-02-03] MEDS: VICTOZA SC SCH (11:50)
[2019-02-03] MEDS: LYRICA CAP 150 mg PO SCH ×2 (11:51→21:38)
[2019-02-03 12:55] LABS: CKMB % 2.3 % (<4); CREATINE KINASE 44 Units/L (26-192); CREATINE KINASE MB < 1.0 ng/mL (0-4.0); TROPONIN I < 0.02 ng/mL (0-1.5)
[2019-02-03] MEDS: LASIX IVP SCH ×2 (12:57→21:38)
[2019-02-03] MEDS ORDERED: ASTELIN NASAL SPRAY ENOSTRIL ONE (13:23)
[2019-02-03] MEDS: ASTELIN NASAL SPRAY ENOSTRIL SCH ×2 (13:34→21:40)
[2019-02-03] MEDS: DOBUTAMINE HCL 1,000 MG in D5W 250 ML IV 170 ML IV PRN (16:59)
[2019-02-03 17:24] LABS: HEMATOCRIT 28.3 % (36.0-47.0); HEMOGLOBIN 9.2 g/dL (12.0-16.0)
[2019-02-03 17:47] LABS: CKMB % 2.4 % (<4); CREATINE KINASE 41 Units/L (26-192); CREATINE KINASE MB < 1.0 ng/mL (0-4.0); TROPONIN I < 0.02 ng/mL (0-1.5)
[2019-02-03] MEDS: NORCO 5/325 MG TAB PO SCH (21:30)
[2019-02-03] MEDS: REQUIP PO SCH (21:40)
[2019-02-04 05:12] LABS: BASOPHILS % (AUTO) 0.4 % (0.2-1.0); EOSINOPHILS # (AUTO) 0.1 x10^3/uL (0.0-0.2); EOSINOPHILS % (AUTO) 2.3 % (0.9-2.9); HEMATOCRIT 28.4 % (36.0-47.0); HEMOGLOBIN 9.2 g/dL (12.0-16.0); LYMPHOCYTES # (AUTO) 0.7 X10^3/uL (1.3-2.9); LYMPHOCYTES % (AUTO) 11.7 % (21.0-51.0); MEAN CORPUSCULAR HEMOGLOBIN 28.7 pg (27.0-34.0); MEAN CORPUSCULAR HGB CONC 32.5 g/dL (33.0-35.0); MEAN CORPUSCULAR VOLUME 88.1 fL (80.0-100.0); MEAN PLATELET VOLUME 9.7 fL (7.4-11.0); MONOCYTES # (AUTO) 0.3 x10^3/uL (0.3-0.8); MONOCYTES % (AUTO) 5.2 % (0.0-13.0); NEUTROPHILS # (AUTO) 4.6 x10^3/uL (2.2-4.8); NEUTROPHILS % (AUTO) 80.4 % (42.0-75.0); PLATELET COUNT 96 X10^3/uL (150.0-450.0); RED BLOOD COUNT 3.22 X10^6/uL (3.5-5.4); RED CELL DISTRIBUTION WIDTH 16.7 % (11.6-16.5); WHITE BLOOD COUNT 5.7 X10^3/uL (3.6-10.0)
[2019-02-04 05:26] LABS: ALANINE AMINOTRANSFERASE 7 Units/L (12-78); ALBUMIN 2.7 g/dL (3.4-5.0); ALKALINE PHOSPHATASE 67 Units/L (46-116); ASPARTATE AMINO TRANSFERASE 13 Units/L (15-37); BLOOD UREA NITROGEN 46 mg/dL (7-18); CALCIUM 6.3 mg/dL (8.5-10.1); CARBON DIOXIDE 39.7 mmol/L (21-32); CHLORIDE 99 mmol/L (98-107); COR CA(FOR HYPOALB) 7.3 mg/dL (8.5-10.1); CREATININE 1.94 mg/dL (0.55-1.02); SODIUM 143 mmol/L (136-145); TOTAL PROTEIN 7.2 g/dL (6.4-8.2); eGFR NON BLACK RACES 28 (>60)
[2019-02-04 06:03] LABS: ABG BASE EXCESS 16.6 mmol/L (-2.0-2.0)
[2019-02-04 06:08] LABS: ABG ALLEN TEST P; ABG HCO3 46.4 mmol/L (22-26)
[2019-02-04] MEDS: ASTELIN NASAL SPRAY ENOSTRIL SCH ×3 (06:14→21:57)
[2019-02-04] MEDS: LASIX IVP SCH ×2 (09:00→21:51)
[2019-02-04] MEDS: FLONASE NASAL SPRAY ENOSTRIL SCH (09:12)
[2019-02-04] MEDS: COLACE CAP 100 MG PO SCH ×2 (09:12→21:51)
[2019-02-04] MEDS: PAXIL PO SCH (09:12)
[2019-02-04] MEDS: LYRICA CAP 150 mg PO SCH ×2 (09:12→21:52)
[2019-02-04] MEDS: ASPIRIN PO SCH (09:12)
[2019-02-04] MEDS: VICTOZA SC SCH (09:13)
[2019-02-04] MEDS ORDERED: ROCEPHIN VIAL 2 GRAMS IM ONE (09:50)
[2019-02-04] MEDS ORDERED: PHARMACY CONSULT LTC MEDICATIONS XX SCH (10:00)
[2019-02-04] MEDS ORDERED: XYLOCAINE 1 % (PLAIN) IM ONE (10:31)
[2019-02-04] MEDS: ROCEPHIN VIAL 2 GRAMS 2 G in NS 100 ML IV + SPIKE MINIBAG* 100 ML IV SCH (10:34)
[2019-02-04] MEDS: LOVENOX INJ 30 MG SYR SC SCH (10:48)
[2019-02-04] MEDS: DOBUTAMINE HCL 1,000 MG in D5W 250 ML IV 170 ML IV PRN (15:11)
[2019-02-04] MEDS ORDERED: XANAX PO ONE (19:35)
[2019-02-04] MEDS: NORCO 5/325 MG TAB PO SCH (21:52)
[2019-02-04] MEDS: REQUIP PO SCH (21:56)
[2019-02-05] MEDS ORDERED: HALDOL INJ IM ONE (00:21)
[2019-02-05] MEDS ORDERED: HALDOL INJ ONE (00:22)
[2019-02-05 06:06] LABS: ABG BASE EXCESS 21.2 mmol/L (-2.0-2.0)
[2019-02-05 06:08] LABS: ABG ALLEN TEST P; ABG HCO3 45.9 mmol/L (22-26)
[2019-02-05 06:42] LABS: BASOPHILS % (AUTO) 0.4 % (0.2-1.0); EOSINOPHILS # (AUTO) 0.1 x10^3/uL (0.0-0.2); EOSINOPHILS % (AUTO) 2.2 % (0.9-2.9); HEMATOCRIT 29.4 % (36.0-47.0); HEMOGLOBIN 9.6 g/dL (12.0-16.0); LYMPHOCYTES # (AUTO) 0.5 X10^3/uL (1.3-2.9); LYMPHOCYTES % (AUTO) 12.4 % (21.0-51.0); MEAN CORPUSCULAR HEMOGLOBIN 28.5 pg (27.0-34.0); MEAN CORPUSCULAR HGB CONC 32.4 g/dL (33.0-35.0); MEAN CORPUSCULAR VOLUME 87.8 fL (80.0-100.0); MEAN PLATELET VOLUME 9.6 fL (7.4-11.0); MONOCYTES # (AUTO) 0.3 x10^3/uL (0.3-0.8); MONOCYTES % (AUTO) 7.6 % (0.0-13.0); NEUTROPHILS # (AUTO) 3.1 x10^3/uL (2.2-4.8); NEUTROPHILS % (AUTO) 77.4 % (42.0-75.0); PLATELET COUNT 90 X10^3/uL (150.0-450.0); RED BLOOD COUNT 3.35 X10^6/uL (3.5-5.4); RED CELL DISTRIBUTION WIDTH 16.4 % (11.6-16.5)
[2019-02-05] MEDS: ASTELIN NASAL SPRAY ENOSTRIL SCH ×3 (06:55→21:39)
[2019-02-05 06:59] LABS: ALANINE AMINOTRANSFERASE 7 Units/L (12-78); ALBUMIN 2.7 g/dL (3.4-5.0); ALKALINE PHOSPHATASE 72 Units/L (46-116); ASPARTATE AMINO TRANSFERASE 20 Units/L (15-37); BLOOD UREA NITROGEN 41 mg/dL (7-18); CALCIUM 6.4 mg/dL (8.5-10.1); CHLORIDE 97 mmol/L (98-107); COR CA(FOR HYPOALB) 7.4 mg/dL (8.5-10.1); CREATININE 1.54 mg/dL (0.55-1.02); SODIUM 141 mmol/L (136-145); TOTAL PROTEIN 7.5 g/dL (6.4-8.2); eGFR NON BLACK RACES 36 (>60)
[2019-02-05] MEDS: ROCEPHIN VIAL 2 GRAMS 2 G in NS 100 ML IV + SPIKE MINIBAG* 100 ML IV SCH (08:18)
[2019-02-05] MEDS: LASIX IVP SCH ×2 (08:18→21:38)
[2019-02-05] MEDS: COLACE CAP 100 MG PO SCH ×2 (08:18→21:38)
[2019-02-05] MEDS: PAXIL PO SCH (08:18)
[2019-02-05] MEDS: ASPIRIN PO SCH (08:18)
[2019-02-05] MEDS: LYRICA CAP 150 mg PO SCH ×2 (08:18→21:38)
[2019-02-05] MEDS: LOVENOX INJ 30 MG SYR SC SCH (08:19)
[2019-02-05] MEDS: VICTOZA SC SCH (08:20)
[2019-02-05] MEDS: FLONASE NASAL SPRAY ENOSTRIL SCH (08:21)
[2019-02-05] MEDS: COREG TAB 6.25 MG PO SCH ×2 (09:52→21:38)
[2019-02-05] MEDS: NORCO 5/325 MG TAB PO SCH (21:38)
[2019-02-05] MEDS: REQUIP PO SCH (21:39)
[2019-02-05] MEDS ORDERED: KLOR-CON PO PRN (22:08)
[2019-02-05] MEDS ORDERED: K-DUR TAB 20 MEQ PO PRN (22:08)
[2019-02-05] MEDS ORDERED: MAGNESIUM SULFATE 1 GRAM/100 mL PREMIX 1 GM/100 ML BAG IV PRN (22:08)
[2019-02-05] MEDS ORDERED: POTASSIUM CHLORIDE LIQ 20 MEQ UDC PO PRN (22:08)
[2019-02-05] MEDS ORDERED: POTASSIUM CHL 60 MEQ/NS 0.45% 500 ML IV PRN (22:08)
[2019-02-05] MEDS ORDERED: POTASSIUM CHL 40 MEQ/NS 0.45% 500 ML IV PRN (22:08)
[2019-02-05] MEDS ORDERED: K-RIDER 10 MEQ/NS 100 ML 10 MEQ/100 ML BAG IV PRN (22:08)
[2019-02-05] MEDS ORDERED: MICRO K EXTEN CAP 10 MEQ PO PRN (22:08)
[2019-02-05] MEDS ORDERED: KLOR-CON PO ONE (22:16)
[2019-02-06 05:28] LABS: BASOPHILS % (AUTO) 0.8 % (0.2-1.0); EOSINOPHILS # (AUTO) 0.1 x10^3/uL (0.0-0.2); EOSINOPHILS % (AUTO) 1.9 % (0.9-2.9); HEMATOCRIT 29.9 % (36.0-47.0); HEMOGLOBIN 9.6 g/dL (12.0-16.0); LYMPHOCYTES # (AUTO) 0.7 X10^3/uL (1.3-2.9); MEAN CORPUSCULAR HEMOGLOBIN 28.2 pg (27.0-34.0); MEAN CORPUSCULAR HGB CONC 32.3 g/dL (33.0-35.0); MEAN CORPUSCULAR VOLUME 87.4 fL (80.0-100.0); MEAN PLATELET VOLUME 9.7 fL (7.4-11.0); MONOCYTES # (AUTO) 0.3 x10^3/uL (0.3-0.8); MONOCYTES % (AUTO) 7.5 % (0.0-13.0); NEUTROPHILS # (AUTO) 3.3 x10^3/uL (2.2-4.8); NEUTROPHILS % (AUTO) 74.8 % (42.0-75.0); PLATELET COUNT 92 X10^3/uL (150.0-450.0); RED BLOOD COUNT 3.42 X10^6/uL (3.5-5.4); RED CELL DISTRIBUTION WIDTH 16.2 % (11.6-16.5); WHITE BLOOD COUNT 4.4 X10^3/uL (3.6-10.0)
[2019-02-06 05:45] LABS: ALANINE AMINOTRANSFERASE 8 Units/L (12-78); ALBUMIN 2.7 g/dL (3.4-5.0); ALKALINE PHOSPHATASE 72 Units/L (46-116); ASPARTATE AMINO TRANSFERASE 15 Units/L (15-37); BLOOD UREA NITROGEN 31 mg/dL (7-18); CALCIUM 6.5 mg/dL (8.5-10.1); CHLORIDE 97 mmol/L (98-107); COR CA(FOR HYPOALB) 7.5 mg/dL (8.5-10.1); CREATININE 1.27 mg/dL (0.55-1.02); SODIUM 142 mmol/L (136-145); TOTAL PROTEIN 7.5 g/dL (6.4-8.2); eGFR NON BLACK RACES 45 (>60)
[2019-02-06] MEDS: ASTELIN NASAL SPRAY ENOSTRIL SCH (05:48)
[2019-02-06 05:56] LABS: CARBON DIOXIDE > 45.0 mmol/L (21-32)
--- NOTE | 2019-02-06 06:29 | RAD ---
HISTORY: Follow-up congestive heart failure Study: Chest AP portable Comparison: 02/03/2019 Findings: The heart remains enlarged. The left lung is now clear. Confluent infiltrate is present throughout the right lung most likely representing pneumonia although slowly resolving asymmetric edema cannot be entirely excluded. Clinical correlation is recommended. Continued follow-up is recommended until complete resolution. No definite pleural effusions are identified. IMPRESSION: Left lung now clear Confluent infiltrates diffusely in the right lung most likely representing pneumonia however asymmetrically resolving edema cannot be entirely excluded. Continued follow-up is recommended. Reported By:
[2019-02-06] MEDS ORDERED: COREG TAB 6.25 MG PO SCH (09:00)
[2019-02-06] MEDS: ROCEPHIN VIAL 2 GRAMS 2 G in NS 100 ML IV + SPIKE MINIBAG* 100 ML IV SCH (09:28)
[2019-02-06] MEDS: COLACE CAP 100 MG PO SCH (09:28)
[2019-02-06] MEDS: ASPIRIN PO SCH (09:29)
[2019-02-06] MEDS: FLONASE NASAL SPRAY ENOSTRIL SCH (09:29)
[2019-02-06] MEDS: LYRICA CAP 150 mg PO SCH (09:29)
[2019-02-06] MEDS: PAXIL PO SCH (09:29)
[2019-02-06] MEDS: LOVENOX INJ 30 MG SYR SC SCH (09:33)
[2019-02-06] MEDS ORDERED: NS 250 ML IV 250 ML IV PRN (09:34)
[2019-02-06] MEDS: VICTOZA SC SCH (09:35)
[2019-02-06] MEDS: LASIX IVP SCH (09:35)
[2019-02-06] MEDS ORDERED: NS 250 ML IV 250 ML IV ONE (09:37)
[2019-02-06 13:11] VITALS: BP 109/82
== END 2019-02-06 13:40 | DRG 689 ==
LOC: ER 01:43 → ICU 05:46
PROVIDERS: ADMIT Obstetrics & Gynecology Obstetrics; ATTEND Obstetrics & Gynecology Obstetrics
DX: I11.0 Hypertensive heart disease with heart failure; E87.2 Acidosis; D64.89 Other specified anemias; R13.11 Dysphagia, oral phase; R26.89 Other abnormalities of gait and mobility; N39.0 Urinary tract infection, site not specified; J44.9 Chronic obstructive pulmonary disease, unspecified; B96.29 Other Escherichia coli [E. coli] as the cause of diseases classified elsewhere; I50.21 Acute systolic (congestive) heart failure; E66.01 Morbid (severe) obesity due to excess calories; J96.21 Acute and chronic respiratory failure with hypoxia
CPT/HCPCS: 36415; 36430; 36600; 51702; 71010; 71045; 80048; 80053; 81001; 82550; 82553; 82565; 82607; 82728; 82746; 82803; 83540; 83605; 83735; 83880; 84443; 84466; 84484; 85014; 85018; 85025; 86850; 86900; 86901; 86922; 87086; 87088; 87186; 93005; 94660; 96365; 96374; 96375; 97163; 97166; 99283; 99285; A4216; A4222; A4618; A7030; P9016; P9047; J0696; J1250; J1630; J1650; J1940; J7040; J7050; J7060

== ENCOUNTER 2019-02-09 07:43 | Inpatient (IN) ==
[2019-02-09 08:07] VITALS: BMI 39.4
[2019-02-09] MEDS ORDERED: DUONEB 0.5 MG/3 MG (3 mL) NEB ONE (08:14)
[2019-02-09] MEDS ORDERED: SOLU-Medrol 125 MG VIAL IVP ONE (08:14)
--- NOTE | 2019-02-09 08:14 | DR.AMS ---
HPI - Time Seen Time seen: 08:10 - Complaint Cheif Complaint Doctors Comments: Patient brought from the half-way with nursing staff complaining that her O2 sat was in 30 -40 % on bi-pap and they brought her to the emergency room without contacting the on-call doctor. Nurse states the patient was on two liters and respiratory states they increased her to 3 liters nasal and her O2sat went from 88 to 90 on nasal oxygen. Patient was taken off c-pap and placed on two liters nasal to bring her to the emergency room with O2sat 88 but improved by increasing her oxygen to 3 liters to 91. No other history given. No family members with the patient. Chief Complaint:: PT TO ER FOR [facility] STAFF STATES PTS STATS ARE 30-40'S ON HER BI-PAP, UPON ENTERING ER PT PINK NO DISTRESS NOTED PT HAS ON 02 3 LPM PT SATS ARE 82, RESP HERE PTS O2 4LPM APPLIED PTS STATS 93% PT ASKING FOR WATER ,BR - Reviewed Nurses Notes Reviewed: Yes - Source History Provided: Patient, Long Term - Mode of Arrival Mode of Arrival: Stretcher - Timing Onset of Chief Complaint: 02/09/19 Came On: Gradually Symptoms: Worsening Symptom Onset: Unknown - Duration Duration: Constant How lon Duration: Hours - Quality Quality: denies: Decreased Alertness, Change in Behavior, Confusion, Memory Loss, Not Eating - Severity Severity: Mild - Context Recent: None History Of: Dementia, Indwelling Kulkarni - Associated Signs and Symptoms Associated Signs and Symptoms: None PMH - PMH Past Medical History: Yes Past Medical History: Angina, Diabetes, COPD, CHF Past Surgical History: Yes Surgical History: Cholecystectomy, Hysterectomy - Family History History of Family Medical Conditions: Yes Family Medical History: Diabetes Mellitus, Cancer, OR, Hypertension - Social History Does patient currently use any type of tobacco product: No Have you used tobacco products in the last 12 months: No Type of Tobacco Use: None Does any household member use tobacco: No Alcohol Use: None Do you use any recreational Drugs:: No Lives With: Family Lives Where: Home - infectious screening In the last 2 months have you had wt loss of >10#?: NO Have you had fever, night sweats or hemotysis?: No Have you traveled outside the country in the last 6 months?: No Isolation: Standard ROS - Review of Systems Constitutional: No Symptoms Reported Eyes: No Symptoms Reported ENTM: No Symptoms Reported Respiratoy: No Symptoms Reported, Short of Breath, Wheezing Cardiovascular: No Symptoms Reported Gastrointestinal/Abdominal: No Symptoms Reported Genitourinary: No Symptoms Reported Neurological: No Symptoms Reported Musculoskeletal: No Symptoms Reported Integumentary: No Symptoms Reported Hematologic/Lymphatic: No Symptoms Reported Endocrine: No Symptoms Reported Psychiatric: No Symptoms Reported. negative: See HPI, Anxiety, Depression, Hallucinations, Excessive crying, Suicidal, Other PE - General Limitations: No Limitations General Appearance: Alert, In No Apparent Distress - Head Head Exam: Normal Inspection, Atraumatic, Normocephalic Head Exam Physical: negative: Laceration, Abrasion, Contusion, Hematoma, Raccoon Eyes, Mendosa's Sign, Tenderness of Temporal Artery, CSF Rhinorrhea, CSF Otorrhea, Other - Eyes Eye exam: Normal Appearance, PERRL, EOMI. negative: Scleral Icterus, Conjunctival Injection, Nystagmus, Miosis, Mydrasis, Periorbital Swelling, Periorbital Tenderness, Other Pupils: Regular, Round: Bilateral - ENT ENT Exam: Normal Exam, Normal Oropharynx, Normal External Ear Exam, Mucous Membranes Moist, TM's Normal Bilaterally External Ear Exam: Normal External Inspection TM/Canal Exam: Bilateral Normal Nose Exam: Normal Nose Exam Mouth Exam: Normal Inspection. negative: Drooling, Trismus, Lip Swelling, Tongu e Elevation, Tongue Swelling, Laceration, Other Throat Exam: Normal Inspection. negative: Tonsillar Erythema, Tonsillomegaly, Tonsillar Exudate, R Peritonsillar Mass, L Peritonsillar Mass, Muffled Voice, Other - Neck Neck Exam: Normal Inspection, Full ROM, Trachea Midline - Chest Chest Inspection: Normal Inspection, Symmetric Chest Wall Rise - Respiratory Respiratory Exam: Prolonged Expiratory Phase Respiratory Exam: Bilateral Wheezing, Bilateral Rhonchi - Cardiovascular Cardiovascular Exam: Regular Rate, Normal Rhythm, Normal Heart Sounds - Abdominal Exam Abdominal Exam: Normal Inspection, Normal Bowel Sounds, Soft Abdominal Tenderness: negative: RUQ, RLQ, LUQ, LLQ, Epigastrium, Suprapubic, Diffuse, Mild, Moderate, Severe, Other - Extremities Extremities Exam: Normal Inspection, Full ROM, Normal Capillary Refill. negative: Tenderness, Edema, Joint Swelling, Calf Tenderness, Other - Back Back Exam: Normal Inspection, Full ROM. negative: Tenderness, (R) CVA Tenderness, (L) CVA Tenderness, Muscle Spasm, Paraspinal Tenderness, Vertebral Tenderness, Rashes, (R) Sciatic Notch Tenderness, (L) Sciatic Notch Tendern, (R) Straight Leg Raise, (L) Straight Leg Raise, Other - Neurological Neurological Exam: Alert, Oriented X3, CN II-XII Intact, Reflexes Normal. negative: Normal Gait (gait not tested) Speech: Fluid Speech (slurred speech) Cranial Nerve Exam: EOM Function (II, III, IV, ): Normal, Facial Sensation (V): Normal, Facial Palsy (VII): Normal Cerebellar Function: negative: Normal Gait (gait not tested) Motor Strength - LUE: 5/5 Motor Strength - RUE: 5/5 Motor Strength - LLE: 5/5 Motor Strength - RLE: 5/5 Upper Motor Neuron Exam: Babinski Sign: Normal Sensory Exam Upper Extremity: Light Touch: Normal DTR: bicep (L): 2+, bicep (R): 2+, Patellar (L): 2+, patellar (R): 2+ - Psychological Psychiatric Exam: Normal Mood, Flat Affect. negative: Normal Affect, Depressed, Agitated, Anxious, Manic, Homicidal Ideation, Suicidal Ideation, Other Expanded Psychiatric Exam: negative: Poor Eye Contact, Pressured Speech, Echolalia, Psychomotor Agitation, Delusional, Paranoid, Catatonic, M[place], Perseverating, Euphoric, Restlessness, Flight of Ideas, Loose Associations, Uncooperative, Refuses to Answer, Auditory Hallucinations, Visual Hallucinations, Confabulating, Other - Skin Skin Exam: Warm, Dry, Intact, Normal Color. negative: Rash, Cyanosis, Diaphoresis, Erythema, Pallor, Mottled, Other - Vitals Vital Signs: Temp Pulse Resp BP BP BP Pulse Ox 02/09/19 10:54 86 22 92/54 93 L 02/09/19 10:45 87 21 91 L 02/09/19 10:30 92 H 22 90 L 02/09/19 10:15 97 H 16 82 L 02/09/19 10:00 95 H 17 100/53 92 L 02/09/19 09:45 96 H 18 92 L 02/09/19 09:30 96 H 18 106/55 91 L 02/09/19 09:15 97 H 20 92 L 02/09/19 09:00 104 H 21 114/89 94 L 02/09/19 08:45 110 H 30 H 92 L 02/09/19 08:36 111 H 91 L 02/09/19 08:30 114 H 24 114/56 92 L 02/09/19 08:15 116 H 22 91 L 02/09/19 08:02 115 H 25 H 113/63 92 L 02/09/19 08:00 116 H 23 89 L 02/09/19 07:58 98.0 F 115 H 20 113/65 88 L 02/09/19 07:57 113 H 24 92 L 02/06/19 22:28 160/74 02/06/19 22:00 160/74 06/04/18 12:00 105/59 Course - Reevaluation 1st: Improved - Consultation Called: 11:54 Call Returned: 11:54 (Dr. Grady to admit) - Education/Counseling Education/Counseling: Patient Educated On: Treatment, Diagnosis, Needs for Follow Up ROR - Labs Reviewed Laboratory Results Reviewed?: Yes (All labs and x-ray results reviewed and discussed with patient) Result Diagrams: 02/09/19 08:35 02/09/19 08:35 - XRAY XRAY Interpreted by: Radiologist (CXR: Right basilar scarring/atelectasis vs infiltrate.) - EKG Rate: 113 Rhythm: ST Block: None Hypertrophy: None ST: Nonsp - Labs Reviewed Laboratory: WBC 7.3 X10^3/uL (3.6-10.0) 02/09/19 08:35 RBC 3.74 X10^6/uL (3.5-5.4) 02/09/19 08:35 Hgb 10.4 g/dL (12.0-16.0) L 02/09/19 08:35 Hct 32.5 % (36.0-47.0) L 02/09/19 08:35 MCV 86.9 fL (80.0-100.0) 02/09/19 08:35 MCH 27.9 pg (27.0-34.0) 02/09/19 08:35 MCHC 32.1 g/dL (33.0-35.0) L 02/09/19 08:35 RDW 16.6 % (11.6-16.5) H 02/09/19 08:35 Plt Count 129 X10^3/uL (150.0-450.0) L 02/09/19 08:35 MPV 9.8 fL (7.4-11.0) 02/09/19 08:35 Neut % (Auto) 71.8 % (42.0-75.0) 02/09/19 08:35 Lymph % (Auto) 17.3 % (21.0-51.0) L 02/09/19 08:35 [place] % (Auto) 8.5 % (0.0-13.0) 02/09/19 08:35 Eos % (Auto) 1.3 % (0.9-2.9) 02/09/19 08:35 Baso % (Auto) 1.1 % (0.2-1.0) H 02/09/19 08:35 Neut # (Auto) 5.2 x10^3/uL (2.2-4.8) H 02/09/19 08:35 Lymph # (Auto) 1.3 X10^3/uL (1.3-2.9) 02/09/19 08:35 [place] # (Auto) 0.6 x10^3/uL (0.3-0.8) 02/09/19 08:35 Eos # (Auto) 0.1 x10^3/uL (0.0-0.2) 02/09/19 08:35 Baso # (Auto) 0.1 X10^3/uL (0.0-0.1) 02/09/19 08:35 Absolute Nucleated RBC 0.1 /100WBC 02/09/19 08:35 PT 17.6 SECONDS (11.8-14.3) 02/09/19 08:35 INR Target Range - 02/09/19 08:35 INR 1.50 (0.8-1.3) H 02/09/19 08:35 APTT 31.7 SECONDS (22.9-36.5) 02/09/19 08:35 PTT Comment - 02/09/19 08:35 Sample Site Right radial 02/09/19 11:20 ABG pH 7.440 (7.35-7.45) 02/09/19 11:20 ABG pCO2 71.0 mmHg (35.0-45.0) H* 02/09/19 11:20 ABG pO2 52.0 mmHg (80.0-100.0) L 02/09/19 11:20 ABG HCO3 48.2 mmol/L (22-26) H* 02/09/19 11:20 ABG O2 Saturation 88.0 % (90-100) L 02/09/19 11:20 ABG Base Excess 20.2 mmol/L (-2.0-2.0) H 02/09/19 11:20 Kasi Test Positive 02/09/19 11:20 A-a Gradient 144.0 mmHg 02/09/19 11:20 FiO2 40.0 02/09/19 11:20 Blood Gas Comments Patient momo abg well 02/09/19 11:20 Sodium 139 mmol/L (136-145) 02/09/19 08:35 Corrected Sodium 139 mmol/L (136-145) 02/09/19 08:35 Potassium 4.2 mmol/L (3.5-5.1) 02/09/19 08:35 Chloride 94 mmol/L (98-107) L 02/09/19 08:35 Carbon Dioxide 43.8 mmol/L (21-32) H* 02/09/19 08:35 BUN 50 mg/dL (7-18) H 02/09/19 08:35 Creatinine 2.58 mg/dL (0.55-1.02) H 02/09/19 08:35 Est GFR (MDRD) Af Amer 24 (>60) L 02/09/19 08:35 Est GFR (MDRD) Non-Af 20 (>60) L 02/09/19 08:35 Glucose 120 mg/dL (65-99) H 02/09/19 08:35 Calcium 7.0 mg/dL (8.5-10.1) L 02/09/19 08:35 Corrected Calcium 8.3 mg/dL (8.5-10.1) L 02/09/19 08:35 Magnesium 2.1 mg/dL (1.7-2.9) 02/09/19 08:35 Total Bilirubin 0.70 mg/dL (0.2-1.0) 02/09/19 08:35 AST 38 Units/L (15-37) H 02/09/19 08:35 ALT 11 Units/L (12-78) L 02/09/19 08:35 Alkaline Phosphatase 72 Units/L (46-116) 02/09/19 08:35 Creatine Kinase 96 Units/L (26-192) 02/09/19 08:35 CK-MB (CK-2) < 1.0 ng/mL (0-4.0) 02/09/19 08:35 CK/CKMB % Calc 1.0 % (<4) 02/09/19 08:35 Troponin I < 0.02 ng/mL (0-1.5) 02/09/19 08:35 Total Protein 7.9 g/dL (6.4-8.2) 02/09/19 08:35 Albumin 2.4 g/dL (3.4-5.0) L 02/09/19 08:35 Globulin 5.5 g/dL (2.5-4.5) H 02/09/19 08:35 Albumin/Globulin Ratio 0.4 Ratio (1.1-2.1) L 02/09/19 08:35 TSH 3rd Generation 59.348 uIU/mL (0.358-3.74) H 02/09/19 08:35 Opioid - Opioid Risk Tool Age ([place]ama box if 16-45): No History of Preadolescent Sexual Abuse: No Total: 0 Total Score Risk Category: Low Risk - Diagnosis Discharge Problem: Acute respiratory distress syndrome, Acute respiratory failure with hypoxia and hypercarbia, Dehydration, Hypergammaglobulinemia, unspecified Acute renal failure Qualifiers: Acute renal failure type: unspecified Qualified Code(s): N17.9 - Acute kidney failure, unspecified Hypothyroidism Qualifiers: Hypothyroidism type: unspecified Qualified Code(s): E03.9 - Hypothyroidism, unspecified - Discharge Plan Disposition: ADMITTED INPATIENT Condition: Stable - Follow ups/Referrals Follow ups/Referrals: NFD,None [Primary Care Provider] - 3 days - Instructions
[2019-02-09] MEDS ORDERED: SOLU-Medrol 125 MG VIAL ONE (08:26)
[2019-02-09] MEDS ORDERED: DUONEB 0.5 MG/3 MG (3 mL) ONE (08:32)
--- NOTE | 2019-02-09 08:32 | RAD ---
HISTORY: Shortness of breath and wheezing.Study: Portable chest.Comparison: Chest x-ray dated February 06, 2019Study severely limited secondary to technique and patient rotation.Findings:The cardiac silhouette is stably enlarged without overt signs of failure. Persistent low lung volumes, which limits evaluation. Right basilar scarring/atelectasis versus infiltrate. No obvious pleural effusion or pneumothorax. The bony thorax is unremarkable. IMPRESSION: Right basilar scarring/atelectasis versus infiltrate.Reported By:
[2019-02-09] MEDS ORDERED: ROCEPHIN VIAL 1 GRAM 1 G in NS 100 ML IV + SPIKE MINIBAG* 100 ML IV ONE (08:35)
[2019-02-09 08:44] LABS: BASOPHILS # (AUTO) 0.1 X10^3/uL (0.0-0.1); BASOPHILS % (AUTO) 1.1 % (0.2-1.0); EOSINOPHILS # (AUTO) 0.1 x10^3/uL (0.0-0.2); EOSINOPHILS % (AUTO) 1.3 % (0.9-2.9); HEMATOCRIT 32.5 % (36.0-47.0); HEMOGLOBIN 10.4 g/dL (12.0-16.0); LYMPHOCYTES # (AUTO) 1.3 X10^3/uL (1.3-2.9); LYMPHOCYTES % (AUTO) 17.3 % (21.0-51.0); MEAN CORPUSCULAR HEMOGLOBIN 27.9 pg (27.0-34.0); MEAN CORPUSCULAR HGB CONC 32.1 g/dL (33.0-35.0); MEAN CORPUSCULAR VOLUME 86.9 fL (80.0-100.0); MEAN PLATELET VOLUME 9.8 fL (7.4-11.0); MONOCYTES # (AUTO) 0.6 x10^3/uL (0.3-0.8); MONOCYTES % (AUTO) 8.5 % (0.0-13.0); NEUTROPHILS # (AUTO) 5.2 x10^3/uL (2.2-4.8); NEUTROPHILS % (AUTO) 71.8 % (42.0-75.0); PLATELET COUNT 129 X10^3/uL (150.0-450.0); RED BLOOD COUNT 3.74 X10^6/uL (3.5-5.4); RED CELL DISTRIBUTION WIDTH 16.6 % (11.6-16.5); WHITE BLOOD COUNT 7.3 X10^3/uL (3.6-10.0)
[2019-02-09] MEDS ORDERED: NS 100 ML IV 100 ML IV ONE (08:55)
[2019-02-09] MEDS ORDERED: ROCEPHIN VIAL 1 GRAM ONE (08:55)
[2019-02-09 09:05] LABS: ALANINE AMINOTRANSFERASE 11 Units/L (12-78); ALBUMIN 2.4 g/dL (3.4-5.0); ALKALINE PHOSPHATASE 72 Units/L (46-116); ASPARTATE AMINO TRANSFERASE 38 Units/L (15-37); BLOOD UREA NITROGEN 50 mg/dL (7-18); CHLORIDE 94 mmol/L (98-107); COR CA(FOR HYPOALB) 8.3 mg/dL (8.5-10.1); COR NA(FOR HYPERGLY) 139 mmol/L (136-145); CREATINE KINASE 96 Units/L (26-192); CREATINE KINASE MB < 1.0 ng/mL (0-4.0); CREATININE 2.58 mg/dL (0.55-1.02); MAGNESIUM 2.1 mg/dL (1.7-2.9); SODIUM 139 mmol/L (136-145); TOTAL PROTEIN 7.9 g/dL (6.4-8.2); TROPONIN I < 0.02 ng/mL (0-1.5); eGFR NON BLACK RACES 20 (>60)
[2019-02-09 09:13] LABS: CARBON DIOXIDE 43.8 mmol/L (21-32)
[2019-02-09 09:51] LABS: ABG BASE EXCESS 24.3 mmol/L (-2.0-2.0)
[2019-02-09 09:53] LABS: ABG ALLEN TEST POSITIVE; ABG HCO3 52.4 mmol/L (22-26)
[2019-02-09] MEDS ORDERED: NS 1000 ML 1,000 ML IV ONE (10:11)
[2019-02-09] MEDS ORDERED: NS 1000 ML 1,000 ML ONE (10:24)
[2019-02-09 11:29] LABS: ABG BASE EXCESS 20.2 mmol/L (-2.0-2.0)
[2019-02-09 11:30] LABS: ABG ALLEN TEST POSITIVE; ABG HCO3 48.2 mmol/L (22-26)
--- NOTE | 2019-02-09 13:18 | DR.H&P ---
H&P History & Physical for Day of: H&P Date: 02/09/19 Chief Complaint Chief Complaint: Respiratory distress Allergies Allergies Allergy/AdvReac Type Severity Reaction Status Date / Time meperidine Allergy Verified 02/09/19 08:05 History of Present Illness History of Present Illness: Pt is a 63 y/o [facility] after O2 sat 30-40 %, while on BiPAP. In the ED, pt was placed on 3L nc with improvement of O2sat to 91%. No other history given. No family members with the patient. Past Medical History Past Medical History: Angina, CHF, COPD and Diabetes Past Surgical History Surgical History: Cholecystectomy and Hysterectomy Family History Family Medical History: Diabetes Mellitus, Cancer, [place] and Hypertension Social History Does patient currently use any type of tobacco product: No Have you used tobacco products in the last 12 months: No Type of Tobacco Use: None Does any household member use tobacco: No Alcohol Use: None Medications Home Medications: meperidine Allergy (Verified 02/09/19 08:05) Labs Result Diagrams: 02/09/19 08:35 02/09/19 08:35 Labs: Laboratory WBC 7.3 X10^3/uL (3.6-10.0) 02/09/19 08:35 RBC 3.74 X10^6/uL (3.5-5.4) 02/09/19 08:35 Hgb 10.4 g/dL (12.0-16.0) L 02/09/19 08:35 Hct 32.5 % (36.0-47.0) L 02/09/19 08:35 MCV 86.9 fL (80.0-100.0) 02/09/19 08:35 MCH 27.9 pg (27.0-34.0) 02/09/19 08:35 MCHC 32.1 g/dL (33.0-35.0) L 02/09/19 08:35 RDW 16.6 % (11.6-16.5) H 02/09/19 08:35 Plt Count 129 X10^3/uL (150.0-450.0) L 02/09/19 08:35 MPV 9.8 fL (7.4-11.0) 02/09/19 08:35 Neut % (Auto) 71.8 % (42.0-75.0) 02/09/19 08:35 Lymph % (Auto) 17.3 % (21.0-51.0) L 02/09/19 08:35 [place] % (Auto) 8.5 % (0.0-13.0) 02/09/19 08:35 Eos % (Auto) 1.3 % (0.9-2.9) 02/09/19 08:35 Baso % (Auto) 1.1 % (0.2-1.0) H 02/09/19 08:35 Neut # (Auto) 5.2 x10^3/uL (2.2-4.8) H 02/09/19 08:35 Lymph # (Auto) 1.3 X10^3/uL (1.3-2.9) 02/09/19 08:35 [place] # (Auto) 0.6 x10^3/uL (0.3-0.8) 02/09/19 08:35 Eos # (Auto) 0.1 x10^3/uL (0.0-0.2) 02/09/19 08:35 Baso # (Auto) 0.1 X10^3/uL (0.0-0.1) 02/09/19 08:35 Absolute Nucleated RBC 0.1 /100WBC 02/09/19 08:35 PT 17.6 SECONDS (11.8-14.3) 02/09/19 08:35 INR Target Range - 02/09/19 08:35 INR 1.50 (0.8-1.3) H 02/09/19 08:35 APTT 31.7 SECONDS (22.9-36.5) 02/09/19 08:35 PTT Comment - 02/09/19 08:35 Sample Site Right radial 02/09/19 11:20 ABG pH 7.440 (7.35-7.45) 02/09/19 11:20 ABG pCO2 71.0 mmHg (35.0-45.0) H* 02/09/19 11:20 ABG pO2 52.0 mmHg (80.0-100.0) L 02/09/19 11:20 ABG HCO3 48.2 mmol/L (22-26) H* 02/09/19 11:20 ABG O2 Saturation 88.0 % (90-100) L 02/09/19 11:20 ABG Base Excess 20.2 mmol/L (-2.0-2.0) H 02/09/19 11:20 Kasi Test Positive 02/09/19 11:20 A-a Gradient 144.0 mmHg 02/09/19 11:20 FiO2 40.0 02/09/19 11:20 Blood Gas Comments Patient momo abg well 02/09/19 11:20 Sodium 139 mmol/L (136-145) 02/09/19 08:35 Corrected Sodium 139 mmol/L (136-145) 02/09/19 08:35 Potassium 4.2 mmol/L (3.5-5.1) 02/09/19 08:35 Chloride 94 mmol/L (98-107) L 02/09/19 08:35 Carbon Dioxide 43.8 mmol/L (21-32) H* 02/09/19 08:35 BUN 50 mg/dL (7-18) H 02/09/19 08:35 Creatinine 2.58 mg/dL (0.55-1.02) H 02/09/19 08:35 Est GFR (MDRD) Af Amer 24 (>60) L 02/09/19 08:35 Est GFR (MDRD) Non-Af 20 (>60) L 02/09/19 08:35 Glucose 120 mg/dL (65-99) H 02/09/19 08:35 Calcium 7.0 mg/dL (8.5-10.1) L 02/09/19 08:35 Corrected Calcium 8.3 mg/dL (8.5-10.1) L 02/09/19 08:35 Magnesium 2.1 mg/dL (1.7-2.9) 02/09/19 08:35 Total Bilirubin 0.70 mg/dL (0.2-1.0) 02/09/19 08:35 AST 38 Units/L (15-37) H 02/09/19 08:35 ALT 11 Units/L (12-78) L 02/09/19 08:35 Alkaline Phosphatase 72 Units/L (46-116) 02/09/19 08:35 Creatine Kinase 96 Units/L (26-192) 02/09/19 08:35 CK-MB (CK-2) < 1.0 ng/mL (0-4.0) 02/09/19 08:35 CK/CKMB % Calc 1.0 % (<4) 02/09/19 08:35 Troponin I < 0.02 ng/mL (0-1.5) 02/09/19 08:35 Total Protein 7.9 g/dL (6.4-8.2) 02/09/19 08:35 Albumin 2.4 g/dL (3.4-5.0) L 02/09/19 08:35 Globulin 5.5 g/dL (2.5-4.5) H 02/09/19 08:35 Albumin/Globulin Ratio 0.4 Ratio (1.1-2.1) L 02/09/19 08:35 TSH 3rd Generation 59.348 uIU/mL (0.358-3.74) H 02/09/19 08:35 Review of Systems Constitutional: No Symptoms Reported Eyes: No Symptoms Reported ENT: No Symptoms Reported Respiratory: Cough, Shortness of Breath and Wheezing Cardiovascular: No Symptoms Reported Gastrointestinal: No Symptoms Reported Genitourinary: No Symptoms Reported Musculoskeletal: No Symptoms Reported Skin: No Symptoms Reported Neurological: No Symptoms Reported Physical Exam Vital Signs: Temperature 98.0 F Pulse Rate [Left Brachial] 82 Pulse Rate 86 Respiratory Rate 20 Blood Pressure [Left Arm] 123/69 Blood Pressure [Right Arm] 105/59 Blood Pressure 123/69 O2 Sat by Pulse Oximetry 99 Oriented: Normal Eyes: Normal Ear: Normal Respiratory: Wheezes Throughout Cardiovascular: Normal : Normal Auscultation: Bowel Sounds: Normal Palpation: Normal Tenderness: Normal Skin: Normal Musculoskeletal: Normal Psychiatric: Normal Mood Description: Calm Assessment/Plan (1) Acute on chronic respiratory failure with hypoxemia: Status: Acute Plan: Pt was not in any respiratory distress on exam, on 3L nc. Initial ABG indicated severe hypoxemia. Will continue supplemental O2, RT, CXR possible pneumonia, empirically treat and can change decide further course based on clinical. Continue to monitor. (2) Pneumonia: Qualifiers: Laterality: right Lung location: upper lobe of lung Pneumonia type: due to unspecified organism Qualified Code(s): J18.1 - Lobar pneumonia, unspecified organism Status: Acute (3) Hypothyroidism: Qualifiers: Hypothyroidism type: unspecified Qualified Code(s): E03.9 - Hypothyroidism, unspecified Status: Acute (4) Acute on chronic renal failure: Status: Acute
[2019-02-09] MEDS: FORTAZ or TAZICEF VIAL INJ 1 G in NS 100 ML IV + SPIKE MINIBAG* 100 ML IV SCH ×2 (13:20→20:52)
[2019-02-09] MEDS: PEPCID 20 MG IV PREMIX* 20 MG/50 ML BAG IV SCH (13:20)
[2019-02-09] MEDS: NS 1000 ML 1,000 ML IV SCH (13:20)
[2019-02-09] MEDS: LEVAQUIN PREMIX IV 250 MG 250 MG/50 ML BAG IV SCH (13:21)
[2019-02-09] MEDS ORDERED: MYLICON TAB 80 MG CHEW PO PRN (13:21)
[2019-02-09] MEDS: DUONEB 0.5 MG/3 MG (3 mL) NEB SCH ×3 (13:28→21:22)
[2019-02-09] MEDS ORDERED: PHARMACY CONSULT LTC MEDICATIONS XX SCH (15:00)
[2019-02-09] MEDS: COREG TAB 12.5 MG PO SCH (20:39)
[2019-02-09] MEDS: COLACE CAP 100 MG PO SCH (20:39)
[2019-02-09] MEDS: LASIX PO SCH (20:39)
[2019-02-09] MEDS: NORCO 5/325 MG TAB PO SCH (20:40)
[2019-02-09] MEDS: LIPITOR TAB 40 MG PO SCH (20:40)
[2019-02-09] MEDS: LYRICA CAP 150 mg PO SCH (20:40)
[2019-02-09] MEDS: REQUIP PO SCH (20:41)
[2019-02-09] MEDS ORDERED: HumuLIN R ONE (21:54)
[2019-02-09] MEDS: HumuLIN R SUBCUT PRN (21:57)
[2019-02-10] MEDS: NS 1000 ML 1,000 ML IV SCH ×2 (00:12→00:49)
[2019-02-10] MEDS: DUONEB 0.5 MG/3 MG (3 mL) NEB SCH ×6 (01:20→21:03)
[2019-02-10] MEDS: HumuLIN R SUBCUT PRN ×3 (05:43→18:05)
[2019-02-10 06:33] LABS: BASOPHILS % (AUTO) 0.4 % (0.2-1.0); HEMOGLOBIN 9.1 g/dL (12.0-16.0); LYMPHOCYTES # (AUTO) 0.4 X10^3/uL (1.3-2.9); LYMPHOCYTES % (AUTO) 9.5 % (21.0-51.0); MEAN CORPUSCULAR HEMOGLOBIN 28.1 pg (27.0-34.0); MEAN CORPUSCULAR HGB CONC 32.6 g/dL (33.0-35.0); MEAN CORPUSCULAR VOLUME 86.3 fL (80.0-100.0); MEAN PLATELET VOLUME 9.8 fL (7.4-11.0); MONOCYTES # (AUTO) 0.3 x10^3/uL (0.3-0.8); MONOCYTES % (AUTO) 6.9 % (0.0-13.0); NEUTROPHILS # (AUTO) 3.4 x10^3/uL (2.2-4.8); NEUTROPHILS % (AUTO) 83.2 % (42.0-75.0); PLATELET COUNT 115 X10^3/uL (150.0-450.0); RED BLOOD COUNT 3.24 X10^6/uL (3.5-5.4); RED CELL DISTRIBUTION WIDTH 16.1 % (11.6-16.5)
[2019-02-10 06:40] LABS: CALCIUM 6.4 mg/dL (8.5-10.1); CARBON DIOXIDE 37.2 mmol/L (21-32); CREATININE 2.06 mg/dL (0.55-1.02)
[2019-02-10] MEDS: COLACE CAP 100 MG PO SCH ×2 (08:49→21:03)
[2019-02-10] MEDS: LYRICA CAP 150 mg PO SCH ×2 (08:49→21:05)
[2019-02-10] MEDS: SINGULAIR TAB 10 MG PO SCH (08:50)
[2019-02-10] MEDS: CLARITIN PO SCH (08:50)
[2019-02-10] MEDS: PAXIL PO SCH (08:51)
[2019-02-10] MEDS: COREG TAB 12.5 MG PO SCH ×2 (08:51→21:04)
[2019-02-10] MEDS: LEVAQUIN PREMIX IV 250 MG 250 MG/50 ML BAG IV SCH (08:52)
[2019-02-10] MEDS: FORTAZ or TAZICEF VIAL INJ 1 G in NS 100 ML IV + SPIKE MINIBAG* 100 ML IV SCH (08:52)
[2019-02-10] MEDS: PEPCID 20 MG IV PREMIX* 20 MG/50 ML BAG IV SCH (08:53)
[2019-02-10] MEDS: MIRALAX POWDER (1 DOSE 17 G) PO SCH (08:55)
[2019-02-10] MEDS: LASIX PO SCH ×2 (08:56→21:05)
[2019-02-10] MEDS ORDERED: VICTOZA SC SCH (09:00)
[2019-02-10] MEDS ORDERED: SOLU-Medrol 40 MG VIAL IVP SCH (09:00)
[2019-02-10] MEDS ORDERED: POTASSIUM CHL 40 MEQ/NS 0.45% 500 ML IV PRN (09:01)
[2019-02-10] MEDS ORDERED: K-RIDER 10 MEQ/NS 100 ML 10 MEQ/100 ML BAG IV PRN (09:01)
[2019-02-10] MEDS ORDERED: MICRO K EXTEN CAP 10 MEQ PO PRN (09:01)
[2019-02-10] MEDS ORDERED: K-DUR TAB 20 MEQ PO PRN (09:01)
[2019-02-10] MEDS ORDERED: POTASSIUM CHLORIDE LIQ 20 MEQ UDC PO PRN (09:01)
[2019-02-10] MEDS ORDERED: KLOR-CON PO PRN (09:01)
[2019-02-10] MEDS ORDERED: POTASSIUM CHL 60 MEQ/NS 0.45% 500 ML IV PRN (09:01)
[2019-02-10 12:05] LABS: ABG BASE EXCESS 16.3 mmol/L (-2.0-2.0)
[2019-02-10 12:06] LABS: ABG ALLEN TEST POS; ABG HCO3 43.8 mmol/L (22-26)
--- NOTE | 2019-02-10 12:54 | PCM.PROG ---
Progress Note Progress Note for Day of Date of Exam: 02/10/19 Subjective Subjective: Pt appears to be at baseline in O2 requirements. Discussed with RT and believe possibly a problem with her home BiPAP she uses at nursing facility. She is medically stable and can likely be discharged back to facility tomorrow. K low today will supplement. She has remained afebrile and does not have leukocytosis, do not believe she has a pneumonia. Will d/c antibiotics. Past Medical Family Social History Past Med/Fam/Surg Hx: No changes since H&P Allergies: Allergies meperidine Allergy (Verified 02/09/19 08:05) Review of Systems ROS: No change since H&P Vital Signs and I&O's Vital Signs: Temperature 97.9 F Pulse Rate [Left Brachial] 82 Pulse Rate 62 Respiratory Rate 15 Blood Pressure [Left Arm] 123/69 Blood Pressure [Right Arm] 105/59 Blood Pressure 104/52 O2 Sat by Pulse Oximetry 93 Intake and Output: Intake & Output 02/07/19 02/08/19 02/09/19 02/10/19 23:59 23:59 23:59 23:59 Intake Total 2522 / 2522 Output Total 700 / 700 Balance 1822 / 1822 Physical Exam Oriented: Normal Eyes: Normal Ear: Normal Cardiovascular: Normal : Normal Auscultation: Bowel Sounds: Normal Tenderness: Normal Skin: Normal Musculoskeletal: Normal Psychiatric: Normal Mood Description: Calm Speech Pattern: Delayed Laboratory and Diagnostics Result Diagrams: 02/10/19 05:43 02/10/19 05:43 Labs: Laboratory WBC 4.0 X10^3/uL (3.6-10.0) 02/10/19 05:43 RBC 3.24 X10^6/uL (3.5-5.4) L 02/10/19 05:43 Hgb 9.1 g/dL (12.0-16.0) L 02/10/19 05:43 Hct 28.0 % (36.0-47.0) L 02/10/19 05:43 MCV 86.3 fL (80.0-100.0) 02/10/19 05:43 MCH 28.1 pg (27.0-34.0) 02/10/19 05:43 MCHC 32.6 g/dL (33.0-35.0) L 02/10/19 05:43 RDW 16.1 % (11.6-16.5) 02/10/19 05:43 Plt Count 115 X10^3/uL (150.0-450.0) L 02/10/19 05:43 MPV 9.8 fL (7.4-11.0) 02/10/19 05:43 Neut % (Auto) 83.2 % (42.0-75.0) H 02/10/19 05:43 Lymph % (Auto) 9.5 % (21.0-51.0) L 02/10/19 05:43 [place] % (Auto) 6.9 % (0.0-13.0) 02/10/19 05:43 Eos % (Auto) 0.0 % (0.9-2.9) L 02/10/19 05:43 Baso % (Auto) 0.4 % (0.2-1.0) 02/10/19 05:43 Neut # (Auto) 3.4 x10^3/uL (2.2-4.8) 02/10/19 05:43 Lymph # (Auto) 0.4 X10^3/uL (1.3-2.9) L 02/10/19 05:43 [place] # (Auto) 0.3 x10^3/uL (0.3-0.8) 02/10/19 05:43 Eos # (Auto) 0.0 x10^3/uL (0.0-0.2) 02/10/19 05:43 Baso # (Auto) 0.0 X10^3/uL (0.0-0.1) 02/10/19 05:43 Absolute Nucleated RBC 0.0 /100WBC 02/10/19 05:43 PT 17.6 SECONDS (11.8-14.3) 02/09/19 08:35 INR Target Range - 02/09/19 08:35 INR 1.50 (0.8-1.3) H 02/09/19 08:35 APTT 31.7 SECONDS (22.9-36.5) 02/09/19 08:35 PTT Comment - 02/09/19 08:35 Sample Site Lrad 02/10/19 11:57 ABG pH 7.430 (7.35-7.45) 02/10/19 11:57 ABG pCO2 66.0 mmHg (35.0-45.0) H* 02/10/19 11:57 ABG pO2 72.0 mmHg (80.0-100.0) L 02/10/19 11:57 ABG HCO3 43.8 mmol/L (22-26) H* 02/10/19 11:57 ABG O2 Saturation 95.0 % (90-100) 02/10/19 11:57 ABG Base Excess 16.3 mmol/L (-2.0-2.0) H 02/10/19 11:57 Kasi Test Pos 02/10/19 11:57 A-a Gradient 45.0 mmHg 02/10/19 11:57 FiO2 28.0 02/10/19 11:57 Blood Gas Comments Pt momo well elj 02/10/19 11:57 Sodium 139 mmol/L (136-145) 02/10/19 05:43 Corrected Sodium 142 mmol/L (136-145) 02/10/19 05:43 Potassium 2.7 mmol/L (3.5-5.1) L* 02/10/19 05:43 Chloride 95 mmol/L (98-107) L 02/10/19 05:43 Carbon Dioxide 37.2 mmol/L (21-32) H 02/10/19 05:43 BUN 57 mg/dL (7-18) H 02/10/19 05:43 Creatinine 2.06 mg/dL (0.55-1.02) H 02/10/19 05:43 Est GFR (MDRD) Af Amer 31 (>60) L 02/10/19 05:43 Est GFR (MDRD) Non-Af 26 (>60) L 02/10/19 05:43 Glucose 245 mg/dL (65-99) H 02/10/19 05:43 POC Glucose (mg/dL) 265 mg/dL (65-99) H 02/10/19 12:40 Calcium 6.4 mg/dL (8.5-10.1) L 02/10/19 05:43 Corrected Calcium 8.3 mg/dL (8.5-10.1) L 02/09/19 08:35 Magnesium 2.2 mg/dL (1.7-2.9) 02/10/19 05:43 Total Bilirubin 0.70 mg/dL (0.2-1.0) 02/09/19 08:35 AST 38 Units/L (15-37) H 02/09/19 08:35 ALT 11 Units/L (12-78) L 02/09/19 08:35 Alkaline Phosphatase 72 Units/L (46-116) 02/09/19 08:35 Creatine Kinase 96 Units/L (26-192) 02/09/19 08:35 CK-MB (CK-2) < 1.0 ng/mL (0-4.0) 02/09/19 08:35 CK/CKMB % Calc 1.0 % (<4) 02/09/19 08:35 Troponin I < 0.02 ng/mL (0-1.5) 02/09/19 08:35 Total Protein 7.9 g/dL (6.4-8.2) 02/09/19 08:35 Albumin 2.4 g/dL (3.4-5.0) L 02/09/19 08:35 Globulin 5.5 g/dL (2.5-4.5) H 02/09/19 08:35 Albumin/Globulin Ratio 0.4 Ratio (1.1-2.1) L 02/09/19 08:35 TSH 3rd Generation 59.348 uIU/mL (0.358-3.74) H 02/09/19 08:35 Plan (1) Acute on chronic respiratory failure with hypoxemia: Status: Acute Plan: Respiratory status back to baseline. Continue supplemental O2, RT, CXR possible pneumonia, empirically treat and can change decide further course based on clinical. Continue to monitor. (2) Pneumonia: Status: Acute Qualifiers: Laterality: right Lung location: upper lobe of lung Pneumonia type: due to unspecified organism Qualified Code(s): J18.1 - Lobar pneumonia, unspecified organism (3) Hypothyroidism: Status: Acute Qualifiers: Hypothyroidism type: unspecified Qualified Code(s): E03.9 - Hypothyroidism, unspecified (4) Acute on chronic renal failure: Status: Acute (5) Hypokalemia: Status: Acute
--- NOTE | 2019-02-10 17:08 | RAD ---
HISTORY: Respiratory failureStudy: Single-view chestComparison: 02/09/2019Findings:The trachea is midline. The cardiac silhouette is enlarged with a tortuous thoracic aorta. Increased interstitial and vascular markings are observed consistent with CHF. The bony thorax is unremarkable. IMPRESSION: Stable interstitial and vascular markings are observed consistent with CHF.Reported By:
[2019-02-10] MEDS: SNACK - Diabetic Appropriate PO SCH (20:15)
[2019-02-10] MEDS: LIPITOR TAB 40 MG PO SCH (21:05)
[2019-02-10] MEDS: NORCO 5/325 MG TAB PO SCH (21:05)
[2019-02-10] MEDS: REQUIP PO SCH (21:06)
[2019-02-11] MEDS: DUONEB 0.5 MG/3 MG (3 mL) NEB SCH ×7 (01:02→20:40)
[2019-02-11] MEDS: HumuLIN R SUBCUT PRN ×2 (06:01→17:04)
[2019-02-11 06:40] LABS: CALCIUM 6.6 mg/dL (8.5-10.1); CARBON DIOXIDE 37.5 mmol/L (21-32); CREATININE 1.97 mg/dL (0.55-1.02); MAGNESIUM 2.3 mg/dL (1.7-2.9)
[2019-02-11] MEDS: COLACE CAP 100 MG PO SCH ×2 (09:51→21:01)
[2019-02-11] MEDS: LASIX PO SCH ×2 (09:51→21:01)
[2019-02-11] MEDS: CLARITIN PO SCH (09:52)
[2019-02-11] MEDS: PAXIL PO SCH (09:52)
[2019-02-11] MEDS: PEPCID 20 MG IV PREMIX* 20 MG/50 ML BAG IV SCH (09:52)
[2019-02-11] MEDS: COREG TAB 12.5 MG PO SCH (09:52)
[2019-02-11] MEDS: MIRALAX POWDER (1 DOSE 17 G) PO SCH (09:52)
[2019-02-11] MEDS: SINGULAIR TAB 10 MG PO SCH (09:52)
[2019-02-11] MEDS: LYRICA CAP 150 mg PO SCH ×2 (09:52→21:01)
[2019-02-11] MEDS ORDERED: NS 50 ML IV 50 ML IV ONE (09:59)
[2019-02-11] MEDS: PATIENT'S HOME MEDICATION SC SCH (10:16)
[2019-02-11] MEDS: LOVENOX INJ 30 MG SYR SC SCH (11:27)
[2019-02-11] MEDS ORDERED: DOBUTAMINE HCL 1,000 MG in D5W 250 ML IV 170 ML IV PRN (13:59)
[2019-02-11 18:53] LABS: CALCIUM 6.5 mg/dL (8.5-10.1); CARBON DIOXIDE 38.3 mmol/L (21-32); CREATININE 1.99 mg/dL (0.55-1.02)
[2019-02-11] MEDS: COREG TAB 6.25 MG PO SCH (21:01)
[2019-02-11] MEDS: REQUIP PO SCH (21:01)
[2019-02-11] MEDS: SNACK - Diabetic Appropriate PO SCH (21:01)
[2019-02-11] MEDS: LIPITOR TAB 40 MG PO SCH (21:02)
[2019-02-11] MEDS: NORCO 5/325 MG TAB PO SCH (21:02)
[2019-02-12] MEDS: DUONEB 0.5 MG/3 MG (3 mL) NEB SCH ×4 (00:44→11:59)
[2019-02-12 07:26] LABS: BASOPHILS # (AUTO) 0.1 X10^3/uL (0.0-0.1); BASOPHILS % (AUTO) 2.5 % (0.2-1.0); EOSINOPHILS % (AUTO) 0.9 % (0.9-2.9); HEMATOCRIT 34.5 % (36.0-47.0); HEMOGLOBIN 10.8 g/dL (12.0-16.0); LYMPHOCYTES # (AUTO) 1.1 X10^3/uL (1.3-2.9); LYMPHOCYTES % (AUTO) 26.2 % (21.0-51.0); MEAN CORPUSCULAR HEMOGLOBIN 27.6 pg (27.0-34.0); MEAN CORPUSCULAR HGB CONC 31.4 g/dL (33.0-35.0); MEAN CORPUSCULAR VOLUME 87.8 fL (80.0-100.0); MEAN PLATELET VOLUME 9.4 fL (7.4-11.0); MONOCYTES # (AUTO) 0.3 x10^3/uL (0.3-0.8); NEUTROPHILS # (AUTO) 2.6 x10^3/uL (2.2-4.8); NEUTROPHILS % (AUTO) 63.4 % (42.0-75.0); PLATELET COUNT 128 X10^3/uL (150.0-450.0); RED BLOOD COUNT 3.92 X10^6/uL (3.5-5.4); RED CELL DISTRIBUTION WIDTH 16.2 % (11.6-16.5); WHITE BLOOD COUNT 4.2 X10^3/uL (3.6-10.0)
[2019-02-12 07:37] LABS: ALBUMIN 2.5 g/dL (3.4-5.0); CALCIUM 6.7 mg/dL (8.5-10.1); COR CA(FOR HYPOALB) 7.9 mg/dL (8.5-10.1); CREATININE 1.68 mg/dL (0.55-1.02); TOTAL PROTEIN 7.7 g/dL (6.4-8.2)
[2019-02-12 07:40] LABS: CARBON DIOXIDE 40.1 mmol/L (21-32)
[2019-02-12] MEDS: PEPCID 20 MG IV PREMIX* 20 MG/50 ML BAG IV SCH (08:39)
[2019-02-12] MEDS: SINGULAIR TAB 10 MG PO SCH (08:39)
[2019-02-12] MEDS: LYRICA CAP 150 mg PO SCH (08:39)
[2019-02-12] MEDS: PAXIL PO SCH (08:39)
[2019-02-12] MEDS: CLARITIN PO SCH (08:40)
[2019-02-12] MEDS: LASIX PO SCH (08:40)
[2019-02-12] MEDS: COREG TAB 6.25 MG PO SCH (08:40)
[2019-02-12] MEDS: COLACE CAP 100 MG PO SCH (08:40)
[2019-02-12] MEDS: LOVENOX INJ 30 MG SYR SC SCH (08:41)
[2019-02-12] MEDS: MIRALAX POWDER (1 DOSE 17 G) PO SCH (08:42)
[2019-02-12] MEDS: PATIENT'S HOME MEDICATION SC SCH (08:43)
[2019-02-12] MEDS ORDERED: ZESTRIL TAB 5 MG PO SCH (09:00)
[2019-02-12] MEDS ORDERED: NS 100 ML IV 100 ML IV ONE (09:15)
[2019-02-12] MEDS ORDERED: PEPCID TAB 20 MG PO SCH (10:00)
[2019-02-12 12:27] VITALS: BP 121/87
== END 2019-02-12 13:10 | DRG 291 ==
LOC: ER 07:43 → ICU 11:55
PROVIDERS: ADMIT Family Medicine; ATTEND Obstetrics & Gynecology Obstetrics
DX: N17.9 Acute kidney failure, unspecified; E11.65 Type 2 diabetes mellitus with hyperglycemia; J44.9 Chronic obstructive pulmonary disease, unspecified; D89.2 Hypergammaglobulinemia, unspecified; J18.9 Pneumonia, unspecified organism; I50.9 Heart failure, unspecified; E03.8 Other specified hypothyroidism; L89.152 Pressure ulcer of sacral region, stage 2; E87.6 Hypokalemia; E86.0 Dehydration; J96.21 Acute and chronic respiratory failure with hypoxia; E66.2 Morbid (severe) obesity with alveolar hypoventilation; N18.9 Chronic kidney disease, unspecified
CPT/HCPCS: 36415; 36600; 71010; 71045; 80048; 80053; 82550; 82553; 82803; 83735; 84132; 84443; 84484; 85025; 85610; 85730; 87040; 93005; 93306; 94640; 94660; 96365; 96374; 96375; 97110; 97163; 97166; 99284; A4216; A4222; A4618; A7030; S0028; J0696; J0713; J1250; J1650; J1815; J1956; J2920; J2930; J7030; J7050; J7060; J7620

== ENCOUNTER 2019-06-29 13:41 | Inpatient (IN) ==
--- NOTE | 2019-06-29 13:43 | DR.AMS ---
HPI Time Seen Time Seen by Provider: 06/29/19 13:42 HPI Comment HPI Comment: 63 yo f w/ prev hx of chf, chronic hypoxemic respiratory failure, dementia, type 2 dm, htn, hld, cad presents w/ amx over the past 24 hrs. Normally moans with stimulation. SNF personnel concerned due to decreased loc. GLu was normal. Pulse ox low 90'2 to high 80's on 2L NC on arrival. Currently on abx day # 5/ of Bactrim for uti. No recent fever or cough. Timing Came On: Suddenly Symptoms: Unchanged Symptom Onset: Unknown Severity Severity: Moderate Context History Of: Dementia and Diabetes Associated Signs and Symptoms Associated Signs and Symptoms: Decreased LOC PMH PMH Past Medical History: Yes Past Medical History: Angina, CHF, COPD and Diabetes Past Surgical History: Yes Surgical History: Cholecystectomy and Hysterectomy Family History Family Medical History: Diabetes Mellitus, Cancer, [place] and Hypertension Social History Does patient currently use any type of tobacco product: No Have you used tobacco products in the last 12 months: No Alcohol Use: None Do you use any recreational Drugs:: No ROS Review of Systems Unable to Obtain Due To: Altered mental status and Dementia PE Vitals Vital Signs: Temp Pulse Resp BP BP BP Pulse Ox 06/29/19 16:00 91 H 90 L 06/29/19 15:45 94 H 06/29/19 15:34 93 H 06/29/19 15:30 161/119 97 06/29/19 13:57 99.8 F H 103 H 18 140/88 98 06/29/19 13:44 104 H 140/88 95 02/12/19 12:00 121/87 02/09/19 12:54 123/69 06/04/18 12:00 105/59 General Limitations: Altered Mental Status General Appearance: Other (alert, non verbal, moans with loud vocal stimulus. ) Respiratory Respiratory Exam: Other (prolonged exp phase, no wheezing, diminished bilat ) Cardiovascular Cardiovascular Exam: Normal Rhythm, Tachycardia and Other (distant heart tones ); negative Systolic Murmur Neurological Neurological Exam: Alert and Other (non verbal, moans with load voal stimulus, does no obey commans, no facial droop, no gaze preference ) Psychological Expanded Psychiatric Exam: Other (limited exam d/t ams. ) MDM Additional Information Obtained Additional Information Obtained From: Old Records and PCP Differential Diagnosis Metabolic: Dehydration, Hypernatremia, Hypoglycemia, Hyponatremia and Hypoxemia Structural: CVA and SAH COURSE Treatment Treatment: 63 yo f w/ prev hx of dementia, chf, CAD, chronic hypoxemic respirato ry failure presented w/ ams. Normally moans spontaneously, now only to loud vocal stimulus. ? right sided gaze preference. No fever. Normal glucose. Currently on abx day # 5/7 with Bactrim for uti. On arrival to ED was noted to moan with loud vocal stimuli. No noted gaze preference. Pulse ox 88% on 2L . Increased supplemental o2 to 4L NC. CT head was negative for acute pathology. POC glu wnl. ABG with respiratory acidosis w/ compensated metabolic alkalosis, hypoxemia. CO2 in 60's. Placed on bipap with improvement of mental status. Covid swab obtained. CXR/ Ct chest with chronic pulmonary scarring w/o evidence of acute infiltrate, mild pulmonary edema. Labs demonstrated blanche. No evidence of se psis. AMS likely multifactorial including delirium on dementia, acute on chronic hypoxemic respiratory failure, chf exasb/ blanche. Lasix 40 mg iv given. Discussed all details of case with Dr Grady whom agrees to admit. ROR Labs Reviewed Laboratory Results Reviewed?: Yes Result Diagrams: 06/29/19 13:51 06/29/19 13:51 Laboratory: WBC 5.1 X10^3/uL (3.6-10.0) 06/29/19 13:51 RBC 3.46 X10^6/uL (3.5-5.4) L 06/29/19 13:51 Hgb 9.2 g/dL (12.0-16.0) L 06/29/19 13:51 Hct 29.0 % (36.0-47.0) L 06/29/19 13:51 MCV 83.7 fL (80.0-100.0) 06/29/19 13:51 MCH 26.7 pg (27.0-34.0) L 06/29/19 13:51 MCHC 31.9 g/dL (33.0-35.0) L 06/29/19 13:51 RDW 16.6 % (11.6-16.5) H 06/29/19 13:51 Plt Count 164 X10^3/uL (150.0-450.0) 06/29/19 13:51 MPV 8.8 fL (7.4-11.0) 06/29/19 13:51 Neut % (Auto) 74.4 % (42.0-75.0) 06/29/19 13:51 Lymph % (Auto) 17.9 % (21.0-51.0) L 06/29/19 13:51 Day % (Auto) 6.1 % (0.0-13.0) 06/29/19 13:51 Eos % (Auto) 0.5 % (0.9-2.9) L 06/29/19 13:51 Baso % (Auto) 1.1 % (0.2-1.0) H 06/29/19 13:51 Neut # (Auto) 3.8 x10^3/uL (2.2-4.8) 06/29/19 13:51 Lymph # (Auto) 0.9 X10^3/uL (1.3-2.9) L 06/29/19 13:51 Day # (Auto) 0.3 x10^3/uL (0.3-0.8) 06/29/19 13:51 Eos # (Auto) 0.0 x10^3/uL (0.0-0.2) 06/29/19 13:51 Baso # (Auto) 0.1 X10^3/uL (0.0-0.1) 06/29/19 13:51 Absolute Nucleated RBC 0.0 /100WBC 06/29/19 13:51 Sample Site Lra 06/29/19 14:10 ABG pH 7.440 (7.35-7.45) 06/29/19 14:10 ABG pCO2 61.0 mmHg (35.0-45.0) H* 06/29/19 14:10 ABG pO2 75.0 mmHg (80.0-100.0) L 06/29/19 14:10 ABG HCO3 41.4 mmol/L (22-26) H* 06/29/19 14:10 ABG O2 Saturation 95.0 % (90-100) 06/29/19 14:10 ABG Base Excess 14.6 mmol/L (-2.0-2.0) H 06/29/19 14:10 Kasi Test Pos 06/29/19 14:10 A-a Gradient 105.0 mmHg 06/29/19 14:10 FiO2 36.0 06/29/19 14:10 Blood Gas Comments Pt momo well eb 06/29/19 14:10 Sodium 142 mmol/L (136-145) 06/29/19 13:51 Corrected Sodium 142 mmol/L (136-145) 06/29/19 13:51 Potassium 4.0 mmol/L (3.5-5.1) 06/29/19 13:51 Chloride 100 mmol/L (98-107) 06/29/19 13:51 Carbon Dioxide 37.2 mmol/L (21-32) H 06/29/19 13:51 BUN 35 mg/dL (7-18) H 06/29/19 13:51 Creatinine 2.17 mg/dL (0.55-1.02) H 06/29/19 13:51 Est GFR (MDRD) Af Amer 29 (>60) L 06/29/19 13:51 Est GFR (MDRD) Non-Af 24 (>60) L 06/29/19 13:51 Glucose 115 mg/dL (65-99) H 06/29/19 13:51 Calcium 7.1 mg/dL (8.5-10.1) L 06/29/19 13:51 Troponin I < 0.02 ng/mL (0-1.5) 06/29/19 13:51 Specimen Type Catherized urine 06/29/19 15:31 Urine Color Yellow (YELLOW) 06/29/19 15:31 Urine Appearance Clear (CLEAR) 06/29/19 15:31 Urine pH 6.0 (5.0 - 8.0) 06/29/19 15:31 Ur Specific [place] 1.010 (1.000-1.030) 06/29/19 15:31 Urine Protein Negative (NEGATIVE) 06/29/19 15:31 Urine Glucose (UA) Negative (NEGATIVE) 06/29/19 15:31 Urine Ketones Negative (NEGATIVE) 06/29/19 15:31 Urine Occult Blood Negative (NEGATIVE) 06/29/19 15:31 Urine Nitrite Negative (NEGATIVE) 06/29/19 15:31 Urine Bilirubin Negative (NEGATIVE) 06/29/19 15:31 Urine Urobilinogen Normal (NORMAL) 06/29/19 15:31 Ur Leukocyte Esterase Negative (NEGATIVE) 06/29/19 15:31 XRAY XRAY Interpreted by: Radiologist and Self X-ray Results: ct chest with pulmonary scarring cxr w/ intersiticial changes, ? mild pulm edema EKG Rate: 102 [place]: Normal Rhythm: ST Hypertrophy: None (qtc prolonged at 506) ST: Normal Opioid Opioid Risk Tool Age (Usama box if 16-45): No History of Preadolescent Sexual Abuse: No Total: 0 Total Score Risk Category: Low Risk Copyright: [facility] predicting aberrant behaviors Diagnosis Discharge Problem: Acute and chronic respiratory failure with hypoxia, BLANCHE (acute kidney injury) AMS (altered mental status) Qualifiers: Altered mental status type: delirium Qualified Code(s): R41.0 - Disorientation, unspecified CHF exacerbation Qualifiers: Heart failure type: unspecified Qualified Code(s): I50.9 - Heart failure, unspecified Instructions Forms: Precautions for COVID19 Social Distancing
[2019-06-29 14:03] LABS: BASOPHILS # (AUTO) 0.1 X10^3/uL (0.0-0.1); BASOPHILS % (AUTO) 1.1 % (0.2-1.0); EOSINOPHILS % (AUTO) 0.5 % (0.9-2.9); HEMOGLOBIN 9.2 g/dL (12.0-16.0); LYMPHOCYTES # (AUTO) 0.9 X10^3/uL (1.3-2.9); LYMPHOCYTES % (AUTO) 17.9 % (21.0-51.0); MEAN CORPUSCULAR HEMOGLOBIN 26.7 pg (27.0-34.0); MEAN CORPUSCULAR HGB CONC 31.9 g/dL (33.0-35.0); MEAN CORPUSCULAR VOLUME 83.7 fL (80.0-100.0); MEAN PLATELET VOLUME 8.8 fL (7.4-11.0); MONOCYTES # (AUTO) 0.3 x10^3/uL (0.3-0.8); MONOCYTES % (AUTO) 6.1 % (0.0-13.0); NEUTROPHILS # (AUTO) 3.8 x10^3/uL (2.2-4.8); NEUTROPHILS % (AUTO) 74.4 % (42.0-75.0); PLATELET COUNT 164 X10^3/uL (150.0-450.0); RED BLOOD COUNT 3.46 X10^6/uL (3.5-5.4); RED CELL DISTRIBUTION WIDTH 16.6 % (11.6-16.5); WHITE BLOOD COUNT 5.1 X10^3/uL (3.6-10.0)
[2019-06-29 14:14] LABS: ABG BASE EXCESS 14.6 mmol/L (-2.0-2.0)
[2019-06-29 14:15] LABS: ABG HCO3 41.4 mmol/L (22-26)
[2019-06-29 14:16] LABS: ABG ALLEN TEST POS
[2019-06-29 14:17] LABS: BLOOD UREA NITROGEN 35 mg/dL (7-18); CALCIUM 7.1 mg/dL (8.5-10.1); CARBON DIOXIDE 37.2 mmol/L (21-32); CHLORIDE 100 mmol/L (98-107); COR NA(FOR HYPERGLY) 142 mmol/L (136-145); CREATININE 2.17 mg/dL (0.55-1.02); SODIUM 142 mmol/L (136-145); TROPONIN I < 0.02 ng/mL (0-1.5); eGFR NON BLACK RACES 24 (>60)
[2019-06-29] MEDS ORDERED: LASIX IVP ONE ×2 (15:16→15:18)
--- NOTE | 2019-06-29 15:22 | RAD ---
HISTORYChest pain SOBSTUDYAP [id number]/2019FINDINGSHeart size remains upper normal. There are coarse interstitial densities in both lungs, left greater than right. The appearance is not typical for pneumonia or bethany pulmonary edema. No pleural fluid or pneumothorax is seen.IMPRESSIONStable upper normal heart size. Described coarse interstitial pulmonary pattern may represent areas of subsegmental atelectasis and/or fibrotic scarring. The appearance is not typical for pneumonia or CHF.Electronically signed by: KORY CARLIN (Jun 29, 2019 15:21:07)
--- NOTE | 2019-06-29 15:24 | CT ---
HISTORY: [Altered mental status]Noncontrast head CT examination.Comparison: [Head CT examination dated October 17, 2018.].Technique:Multiple axial images of the brain were obtained from the skull base to the vertex without administration of IV contrast.Findings: There is moderate sulcal and cisternal prominence as well as atherosclerotic change in the proximal intracranial carotid and vertebral arteries, which is not out of proportion to the patient's stated age. There is diffuse CT density alteration seen in the periventricular white matter of the high and mid-convexity, which is likely in the setting of small vessel disease and not out of proportion to the patient's stated age. There is no pathologic ventricular dilatation or CT imaging evidence for hydrocephalus or herniation syndrome. No midline shift is evident. No acute intraparenchymal hemorrhage or mass can be identified. No extra-axial fluid collections are seen. No alteration in the attenuation of the brain parenchyma can be identified to suggest acute or subacute ischemic change. However, if clinical symptoms are concerning for an acute CVA, then follow-up MRI with DWI sequencing is recommended. The extracranial structures are stable from prior. 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 No acute intracranial process, changes, or bleed identified.2. Age-appropriate intra-cranial changes of advancing age.Electronically signed by: KATIE FLORES III (Jun 29, 2019 15:23:02)
--- NOTE | 2019-06-29 15:32 | CT ---
HISTORYFever, hypoxia, altered mental statusSTUDYCHEST W/O CONTechnique: Axial noncontrast images with coronal and sagittal reformats. Dose reduction procedures were used with mA/kv adjusted for body size. THIS EXAMINATION IS LIMITED DUE TO THE LACK OF INTRAVENOUS CONTRAST PEER the examination was performed in this manner at the sole discretion of the ordering caregiver.COMPARISONPlain films same dateFINDINGSExamination of the mediastinum demonstrated no evidence for mediastinal masses, enlarged mediastinal or enlarged hilar adenopathy or aortic abnormality to the limitations of an unenhanced examination. The heart is enlarged. There is a very small left pleural effusion present. No chest wall or axillary abnormality is identified. Those portions of the upper abdominal organs visualized were within normal limits to the limitations of an unenhanced examination. Examination of the lung marc demonstrated mild interstitial lung changes to be present. No definite nodules, masses, alveolar infiltrates, areas of consolidation, or bronchiectasis identified. Multiple bilateral foci of subsegmental atelectasis are present. No significant peribronchial thickening identified.IMPRESSIONMild nonspecific interstitial lung changesNo evidence for alveolar infiltrates or areas of consolidationMultiple bilateral foci of subsegmental atelectasisCardiomegaly without congestive heart fatElectronically signed by: KENYATTA LEARY (Jun 29, 2019 15:30:50)
[2019-06-29 15:46] LABS: BILIRUBIN,URINE NEGATIVE (NEGATIVE); BLOOD/HEMOGLOBIN,URINE NEGATIVE (NEGATIVE); GLUCOSE, URINE NEGATIVE (NEGATIVE); KETONES,URINE NEGATIVE (NEGATIVE); LEUKOCYTE ESTERASE ,URINE NEGATIVE (NEGATIVE); NITRITES,URINE NEGATIVE (NEGATIVE); PROTEIN,URINE NEGATIVE (NEGATIVE); UROBILINOGEN,URINE NORMAL (NORMAL)
[2019-06-29 15:49] LABS: APPEARANCE,URINE CLEAR (CLEAR); COLOR,URINE YELLOW (YELLOW)
[2019-06-29] MEDS ORDERED: DUONEB 0.5 MG/3 MG (3 mL) NEB ONE (16:21)
[2019-06-29] MEDS: DUONEB 0.5 MG/3 MG (3 mL) NEB PRN ×2 (16:30→21:00)
[2019-06-29 16:49] LABS: ABG BASE EXCESS 14.2 mmol/L (-2.0-2.0)
[2019-06-29 16:50] LABS: ABG ALLEN TEST POS; ABG HCO3 41.5 mmol/L (22-26)
[2019-06-29 17:58] VITALS: BMI 36.2
[2019-06-29] MEDS ORDERED: PHARMACY CONSULT LTC MEDICATIONS XX SCH (18:00)
[2019-06-29] MEDS ORDERED: BACTRIM DS TAB PO SCH (21:00)
[2019-06-29] MEDS: COREG TAB 12.5 MG PO SCH (21:30)
[2019-06-29] MEDS: LIPITOR TAB 40 MG PO SCH (21:30)
[2019-06-30 06:51] LABS: BASOPHILS % (AUTO) 0.9 % (0.2-1.0); EOSINOPHILS % (AUTO) 1.2 % (0.9-2.9); HEMATOCRIT 27.9 % (36.0-47.0); HEMOGLOBIN 8.9 g/dL (12.0-16.0); LYMPHOCYTES # (AUTO) 1.3 X10^3/uL (1.3-2.9); LYMPHOCYTES % (AUTO) 32.1 % (21.0-51.0); MEAN CORPUSCULAR HGB CONC 31.8 g/dL (33.0-35.0); MEAN CORPUSCULAR VOLUME 84.9 fL (80.0-100.0); MEAN PLATELET VOLUME 9.5 fL (7.4-11.0); MONOCYTES # (AUTO) 0.4 x10^3/uL (0.3-0.8); MONOCYTES % (AUTO) 8.9 % (0.0-13.0); NEUTROPHILS # (AUTO) 2.3 x10^3/uL (2.2-4.8); NEUTROPHILS % (AUTO) 56.9 % (42.0-75.0); PLATELET COUNT 145 X10^3/uL (150.0-450.0); RED BLOOD COUNT 3.29 X10^6/uL (3.5-5.4); RED CELL DISTRIBUTION WIDTH 16.6 % (11.6-16.5); WHITE BLOOD COUNT 4.1 X10^3/uL (3.6-10.0)
[2019-06-30 07:12] LABS: ALANINE AMINOTRANSFERASE 8 Units/L (12-78); ALBUMIN 2.3 g/dL (3.4-5.0); ALKALINE PHOSPHATASE 68 Units/L (46-116); ASPARTATE AMINO TRANSFERASE 12 Units/L (15-37); BLOOD UREA NITROGEN 34 mg/dL (7-18); CALCIUM 7.2 mg/dL (8.5-10.1); CHLORIDE 102 mmol/L (98-107); COR CA(FOR HYPOALB) 8.6 mg/dL (8.5-10.1); CREATININE 2.16 mg/dL (0.55-1.02); SODIUM 144 mmol/L (136-145); TOTAL PROTEIN 7.5 g/dL (6.4-8.2); eGFR NON BLACK RACES 24 (>60)
[2019-06-30] MEDS: COREG TAB 12.5 MG PO SCH ×2 (09:48→21:12)
[2019-06-30] MEDS: LASIX IVP SCH (09:49)
[2019-06-30] MEDS: PAXIL PO SCH (09:49)
[2019-06-30] MEDS: SINGULAIR TAB 10 MG PO SCH (09:49)
[2019-06-30] MEDS: VITAMIN C PO SCH (09:50)
[2019-06-30] MEDS: VICTOZA SC SCH (09:50)
[2019-06-30] MEDS: BACTRIM DS TAB PO SCH ×2 (15:30→21:12)
[2019-06-30] MEDS: LIPITOR TAB 40 MG PO SCH (21:12)
[2019-07-01] MEDS: BACTRIM DS TAB PO SCH ×2 (08:25→20:50)
[2019-07-01] MEDS: PAXIL PO SCH (08:29)
[2019-07-01] MEDS: COREG TAB 12.5 MG PO SCH ×2 (08:29→20:51)
[2019-07-01] MEDS: SINGULAIR TAB 10 MG PO SCH (08:30)
[2019-07-01] MEDS: VICTOZA SC SCH (08:31)
[2019-07-01] MEDS: VITAMIN C PO SCH (08:32)
[2019-07-01] MEDS: LASIX IVP SCH (11:00)
[2019-07-01 19:13] LABS: CKMB % 1.7 % (<4); CREATINE KINASE 89 Units/L (26-192); CREATINE KINASE MB 1.5 ng/mL (0-4.0); TROPONIN I < 0.02 ng/mL (0-1.5)
[2019-07-01] MEDS: LIPITOR TAB 40 MG PO SCH (20:51)
[2019-07-02 06:32] LABS: BASOPHILS % (AUTO) 0.7 % (0.2-1.0); EOSINOPHILS % (AUTO) 0.7 % (0.9-2.9); HEMATOCRIT 29.3 % (36.0-47.0); HEMOGLOBIN 9.3 g/dL (12.0-16.0); LYMPHOCYTES # (AUTO) 1.2 X10^3/uL (1.3-2.9); LYMPHOCYTES % (AUTO) 19.6 % (21.0-51.0); MEAN CORPUSCULAR HEMOGLOBIN 26.4 pg (27.0-34.0); MEAN CORPUSCULAR HGB CONC 31.9 g/dL (33.0-35.0); MEAN PLATELET VOLUME 9.2 fL (7.4-11.0); MONOCYTES # (AUTO) 0.5 x10^3/uL (0.3-0.8); NEUTROPHILS # (AUTO) 4.3 x10^3/uL (2.2-4.8); PLATELET COUNT 149 X10^3/uL (150.0-450.0); RED BLOOD COUNT 3.54 X10^6/uL (3.5-5.4); RED CELL DISTRIBUTION WIDTH 16.6 % (11.6-16.5); WHITE BLOOD COUNT 6.1 X10^3/uL (3.6-10.0)
[2019-07-02 06:46] LABS: ALANINE AMINOTRANSFERASE 6 Units/L (12-78); ALBUMIN 2.3 g/dL (3.4-5.0); ALKALINE PHOSPHATASE 61 Units/L (46-116); ASPARTATE AMINO TRANSFERASE 16 Units/L (15-37); BLOOD UREA NITROGEN 30 mg/dL (7-18); CALCIUM 7.2 mg/dL (8.5-10.1); CARBON DIOXIDE 33.8 mmol/L (21-32); CHLORIDE 98 mmol/L (98-107); COR CA(FOR HYPOALB) 8.6 mg/dL (8.5-10.1); CREATININE 1.62 mg/dL (0.55-1.02); SODIUM 139 mmol/L (136-145); TOTAL PROTEIN 7.4 g/dL (6.4-8.2); eGFR NON BLACK RACES 34 (>60)
[2019-07-02] MEDS: BACTRIM DS TAB PO SCH ×2 (08:39→21:02)
[2019-07-02] MEDS: COREG TAB 12.5 MG PO SCH ×2 (08:40→21:04)
[2019-07-02] MEDS: PAXIL PO SCH (08:40)
[2019-07-02] MEDS: VITAMIN C PO SCH ×3 (08:41→21:05)
[2019-07-02] MEDS: SINGULAIR TAB 10 MG PO SCH (08:41)
[2019-07-02] MEDS: LASIX IVP SCH (08:41)
[2019-07-02] MEDS: VICTOZA SC SCH (08:42)
[2019-07-02] MEDS ORDERED: VITAMIN D (1.25MG) PO SCH (09:00)
[2019-07-02] MEDS: THIAMINE HCL INJ IM SCH ×2 (10:44→21:07)
[2019-07-02] MEDS: VITAMIN A PO SCH ×3 (10:44→21:05)
[2019-07-02] MEDS: ZINC SULFATE PO SCH ×2 (10:45→21:05)
[2019-07-02] MEDS: BUTT CREAM (COMPOUND) TOP SCH ×2 (17:30→21:04)
[2019-07-02] MEDS: DIFLUCAN PO SCH (17:30)
[2019-07-02] MEDS: LIPITOR TAB 40 MG PO SCH (21:04)
[2019-07-03] MEDS: VITAMIN A PO SCH ×4 (03:30→21:31)
[2019-07-03 06:36] LABS: BASOPHILS % (AUTO) 0.8 % (0.2-1.0); EOSINOPHILS % (AUTO) 0.9 % (0.9-2.9); HEMATOCRIT 31.7 % (36.0-47.0); HEMOGLOBIN 10.1 g/dL (12.0-16.0); LYMPHOCYTES # (AUTO) 0.9 X10^3/uL (1.3-2.9); LYMPHOCYTES % (AUTO) 19.1 % (21.0-51.0); MEAN CORPUSCULAR HEMOGLOBIN 26.3 pg (27.0-34.0); MEAN CORPUSCULAR HGB CONC 31.9 g/dL (33.0-35.0); MEAN CORPUSCULAR VOLUME 82.5 fL (80.0-100.0); MEAN PLATELET VOLUME 9.4 fL (7.4-11.0); MONOCYTES # (AUTO) 0.3 x10^3/uL (0.3-0.8); NEUTROPHILS # (AUTO) 3.4 x10^3/uL (2.2-4.8); NEUTROPHILS % (AUTO) 72.2 % (42.0-75.0); PLATELET COUNT 153 X10^3/uL (150.0-450.0); RED BLOOD COUNT 3.84 X10^6/uL (3.5-5.4); RED CELL DISTRIBUTION WIDTH 16.3 % (11.6-16.5); WHITE BLOOD COUNT 4.8 X10^3/uL (3.6-10.0)
[2019-07-03 07:03] LABS: ALANINE AMINOTRANSFERASE 9 Units/L (12-78); ALBUMIN 2.5 g/dL (3.4-5.0); ALKALINE PHOSPHATASE 70 Units/L (46-116); ASPARTATE AMINO TRANSFERASE 15 Units/L (15-37); BLOOD UREA NITROGEN 24 mg/dL (7-18); CALCIUM 7.8 mg/dL (8.5-10.1); CARBON DIOXIDE 31.8 mmol/L (21-32); CHLORIDE 98 mmol/L (98-107); CREATININE 1.43 mg/dL (0.55-1.02); SODIUM 139 mmol/L (136-145); TOTAL PROTEIN 8.1 g/dL (6.4-8.2); eGFR NON BLACK RACES 39 (>60)
[2019-07-03] MEDS: COREG TAB 12.5 MG PO SCH ×2 (08:59→21:29)
[2019-07-03] MEDS: BACTRIM DS TAB PO SCH ×2 (08:59→21:30)
[2019-07-03] MEDS: LASIX IVP SCH (09:00)
[2019-07-03] MEDS: SINGULAIR TAB 10 MG PO SCH (09:00)
[2019-07-03] MEDS: PAXIL PO SCH (09:00)
[2019-07-03] MEDS: VICTOZA SC SCH (09:01)
[2019-07-03] MEDS: THIAMINE HCL INJ IM SCH ×2 (09:01→21:31)
[2019-07-03] MEDS: BUTT CREAM (COMPOUND) TOP SCH ×5 (09:01→21:28)
[2019-07-03] MEDS: VITAMIN C PO SCH ×2 (09:02→21:31)
[2019-07-03] MEDS: ZINC SULFATE PO SCH ×2 (09:03→21:29)
[2019-07-03] MEDS: LIPITOR TAB 40 MG PO SCH (21:29)
[2019-07-03] MEDS: DIFLUCAN PO SCH (21:56)
[2019-07-04] MEDS: VITAMIN A PO SCH (03:23)
[2019-07-04] MEDS: BACTRIM DS TAB PO SCH (08:41)
[2019-07-04] MEDS: BUTT CREAM (COMPOUND) TOP SCH (08:41)
[2019-07-04] MEDS: LASIX IVP SCH (08:42)
[2019-07-04] MEDS: COREG TAB 12.5 MG PO SCH (08:42)
[2019-07-04] MEDS: SINGULAIR TAB 10 MG PO SCH (08:44)
[2019-07-04] MEDS: PAXIL PO SCH (08:44)
[2019-07-04] MEDS: THIAMINE HCL INJ IM SCH (08:45)
[2019-07-04] MEDS: VICTOZA SC SCH (08:45)
[2019-07-04] MEDS: VITAMIN C PO SCH (08:47)
[2019-07-04] MEDS: ZINC SULFATE PO SCH (08:48)
[2019-07-04] MEDS ORDERED: VITAMIN D3 125 mcg (5,000 UNITS) PO SCH (09:00)
[2019-07-04] MEDS ORDERED: VITAMIN D3 25 mcg (1,000 UNITS) PO SCH (09:00)
[2019-07-04] MEDS ORDERED: VITAMIN A PO SCH (09:00)
[2019-07-04] MEDS ORDERED: MILK OF MAGNESIA PO SCH (09:00)
[2019-07-04] MEDS ORDERED: NORCO 5/325 MG TAB PO ONE (10:59)
[2019-07-04] MEDS ORDERED: NORCO 5/325 MG TAB ONE (11:01)
[2019-07-04 11:56] VITALS: BP 125/57
[2019-07-04] MEDS ORDERED: COLACE CAP 100 MG PO SCH (21:00)
== END 2019-07-04 13:30 | DRG 205 ==
LOC: ER 13:41 → ICU 13:41 → MED/SURG 06-30 14:30 → OBS 07-01 10:01 → ICU 07-01 10:02 → UNDODISIN 07-04 13:30
PROVIDERS: ADMIT Family Medicine; ATTEND Obstetrics & Gynecology Obstetrics
DX: S70.321A Blister (nonthermal), right thigh, initial encounter; F03.90 Unspecified dementia, unspecified severity, without behavioral disturbance, psychotic disturbance, mood disturbance, and anxiety; S50.811A Abrasion of right forearm, initial encounter; E78.5 Hyperlipidemia, unspecified; I25.10 Atherosclerotic heart disease of native coronary artery without angina pectoris; R41.82 Altered mental status, unspecified; E66.2 Morbid (severe) obesity with alveolar hypoventilation; Z91.19 Patient's noncompliance with other medical treatment and regimen; Z87.440 Personal history of urinary (tract) infections; B27.00 Gammaherpesviral mononucleosis without complication; I50.9 Heart failure, unspecified; Z11.59 Encounter for screening for other viral diseases; S20.311A Abrasion of right front wall of thorax, initial encounter; J96.21 Acute and chronic respiratory failure with hypoxia; E11.9 Type 2 diabetes mellitus without complications; I10 Essential (primary) hypertension; X58.XXXA Exposure to other specified factors, initial encounter; R07.89 Other chest pain; S70.311A Abrasion, right thigh, initial encounter; S00.81XA Abrasion of other part of head, initial encounter; S30.811A Abrasion of abdominal wall, initial encounter; J44.9 Chronic obstructive pulmonary disease, unspecified

== ENCOUNTER 2021-03-05 12:06 | Inpatient (IN) ==
--- NOTE | 2021-03-05 12:37 | DR.GENAD ---
HPI Time Seen Time Seen by Provider: 03/05/21 12:21 Complaint/Symptoms Chief Complaint Doctors Comments: ACCORDING TO MD STAFF,PATIENT IS SOB AND NOT RESPONSIVE PMH PMH Past Medical History: Angina, CHF, COPD and Diabetes Past Surgical History: Yes Surgical History: Cholecystectomy and Hysterectomy Family History Family Medical History: Diabetes Mellitus, Cancer, [place] and Hypertension Social History Do you use any recreational Drugs:: No ROS Review of Systems Constitutional: Weakness and Other (SHORTNESS OF BREATH) Eyes: No Symptoms Reported ENTM: No Symptoms Reported Respiratoy: Short of Breath and Other (RHONCHI) Cardiovascular: No Symptoms Reported Gastrointestinal/Abdominal: No Symptoms Reported Genitourinary: No Symptoms Reported Neurological: No Symptoms Reported Musculoskeletal: No Symptoms Reported Integumentary: No Symptoms Reported Hematologic/Lymphatic: No Symptoms Reported Endocrine: No Symptoms Reported Psychiatric: No Symptoms Reported All Other Systems: Reviewed and Negative PE Vital Signs Vitals: Temperature 99.1 F Pulse Rate 95 Respiratory Rate 18 Blood Pressure [Left Arm] 120/82 Blood Pressure 97/54 O2 Sat by Pulse Oximetry 99 General Limitations: Language Barrier and Physical Limitation General Appearance: Alert and In No Apparent Distress Head Head Exam: Normal Inspection Eyes Eye exam: Normal Appearance ENT ENT Exam: Normal Exam External Ear Exam: Normal External Inspection TM/Canal Exam: Bilateral: Normal Nose Exam: Normal Nose Exam Mouth Exam: Normal Inspection Throat Exam: Normal Inspection Neck Neck Exam: Normal Inspection Chest Chest Inspection: Normal Inspection Respiratory Respiratory Exam: Respiratory Distress Respiratory Exam: Bilateral: Rhonchi and Bilateral: Crackles Cardiovascular Cardiovascular Exam: Regular Rate and Normal Rhythm Abdominal Exam Abdominal Exam: Normal Inspection, Normal Bowel Sounds and Soft Extremities Extremities Exam: Normal Inspection Back Back Exam: Normal Inspection Neurologic Neurological Exam: Alert and Oriented X3 Psychiatric Psychiatric Exam: Normal Affect and Normal Mood Skin Skin Exam: Warm, Dry, Intact and Normal Color MDM Additional Information Findings: CHF EXACERBATION,PNEUMONIA Differential Diagnosis Differential Diagnosis: CHF EXACERBATION,PNEUMONIA COURSE Treatment Treatment: patient remained stable except need fluids to maintain bp. she was also give 1gram rocephine for developing pneumonia, intially was give lasix 40mg iv for rales in chest. ROR Labs Reviewed Laboratory Results Reviewed?: Yes (abg showed co2-58, hco3-35.9 and 02-88%) Result Diagrams: 03/12/21 05:40 03/12/21 05:40 Laboratory: 03/05/21 13:05 Urine,Catheterized Urine Culture - Final Escherichia Coli Escherichia Coli#2 03/05/21 12:05 Blood Blood Culture - Final 03/05/21 13:37 Blood Blood Culture - Preliminary WBC 8.9 X10^3/uL (3.6-10.0) 03/05/21 12:50 RBC 4.36 X10^6/uL (3.5-5.4) 03/05/21 12:50 Hgb 12.3 g/dL (12.0-16.0) 03/05/21 12:50 Hct 38.6 % (36.0-47.0) 03/05/21 12:50 MCV 88.5 fL (80.0-100.0) 03/05/21 12:50 MCH 28.1 pg (27.0-34.0) 03/05/21 12:50 MCHC 31.8 g/dL (33.0-35.0) L 03/05/21 12:50 RDW 17.2 % (11.6-16.5) H 03/05/21 12:50 Plt Count 92 X10^3/uL (150.0-450.0) L 03/05/21 12:50 MPV 9.9 fL (7.4-11.0) 03/05/21 12:50 Neut % (Auto) 85.6 % (42.0-75.0) H 03/05/21 12:50 Lymph % (Auto) 8.5 % (21.0-51.0) L 03/05/21 12:50 [place] % (Auto) 4.9 % (0.0-13.0) 03/05/21 12:50 Eos % (Auto) 0.5 % (0.9-2.9) L 03/05/21 12:50 Baso % (Auto) 0.5 % (0.2-1.0) 03/05/21 12:50 Neut # (Auto) 7.6 x10^3/uL (2.2-4.8) H 03/05/21 12:50 Lymph # (Auto) 0.8 X10^3/uL (1.3-2.9) L 03/05/21 12:50 [place] # (Auto) 0.4 x10^3/uL (0.3-0.8) 03/05/21 12:50 Eos # (Auto) 0.0 x10^3/uL (0.0-0.2) 03/05/21 12:50 Baso # (Auto) 0.0 X10^3/uL (0.0-0.1) 03/05/21 12:50 Absolute Nucleated RBC 0.0 /100WBC 03/05/21 12:50 Sample Site Rr 03/05/21 13:18 ABG pH 7.400 (7.35-7.45) 03/05/21 13:18 ABG pCO2 58.0 mmHg (35.0-45.0) H* 03/05/21 13:18 ABG pO2 55.0 mmHg (80.0-100.0) L 03/05/21 13:18 ABG HCO3 35.9 mmol/L (22-26) H* 03/05/21 13:18 ABG O2 Saturation 88.0 % (90-100) L 03/05/21 13:18 ABG Base Excess 9.2 mmol/L (-2.0-2.0) H 03/05/21 13:18 Kasi Test Pos 03/05/21 13:18 A-a Gradient 186.0 mmHg 03/05/21 13:18 FiO2 44.0 03/05/21 13:18 Blood Gas Comments Matthieu well cb 03/05/21 13:18 Sodium 143 mmol/L (136-145) 03/05/21 12:50 Corrected Sodium 144 mmol/L (136-145) 03/05/21 12:50 Potassium 4.3 mmol/L (3.5-5.1) 03/05/21 12:50 Chloride 104 mmol/L (98-107) 03/05/21 12:50 Carbon Dioxide 30.9 mmol/L (21-32) 03/05/21 12:50 BUN 49 mg/dL (7-18) H 03/05/21 12:50 Creatinine 1.32 mg/dL (0.55-1.02) H 03/05/21 12:50 Est GFR (MDRD) Af Amer 52 (>60) L 03/05/21 12:50 Est GFR (MDRD) Non-Af 43 (>60) L 03/05/21 12:50 Glucose 147 mg/dL (65-99) H 03/05/21 12:50 Lactic Acid 1.9 mmol/L (0.4-2.0) 03/05/21 13:37 Calcium 9.0 mg/dL (8.5-10.1) 03/05/21 12:50 Corrected Calcium 10.1 mg/dL (8.5-10.1) 03/05/21 12:50 Total Bilirubin 0.30 mg/dL (0.2-1.0) 03/05/21 12:50 AST 13 Units/L (15-37) L 03/05/21 12:50 ALT 9 Units/L (12-78) L 03/05/21 12:50 Alkaline Phosphatase 65 Units/L (46-116) 03/05/21 12:50 Creatine Kinase 20 Units/L (26-192) L 03/05/21 12:50 CK-MB (CK-2) < 1.0 ng/mL (0-4.0) 03/05/21 12:50 CK/CKMB % Calc 5.0 % (<4) 03/05/21 12:50 Troponin I < 0.02 ng/mL (0-1.5) 03/05/21 12:50 B-Natriuretic Peptide 141 pg/mL (0-79) H 03/05/21 12:50 Total Protein 7.6 g/dL (6.4-8.2) 03/05/21 12:50 Albumin 2.6 g/dL (3.4-5.0) L 03/05/21 12:50 Globulin 5.0 g/dL (2.5-4.5) H 03/05/21 12:50 Albumin/Globulin Ratio 0.5 Ratio (1.1-2.1) L 03/05/21 12:50 Specimen Type Catherized urine 03/05/21 13:05 Urine Color Straw (YELLOW) 03/05/21 13:05 Urine Appearance Hazy (CLEAR) 03/05/21 13:05 Urine pH 6.5 (5.0 - 8.0) 03/05/21 13:05 Ur Specific [place] 1.015 (1.000-1.030) 03/05/21 13:05 Urine Protein 2+ (NEGATIVE) 03/05/21 13:05 Urine Glucose (UA) Negative (NEGATIVE) 03/05/21 13:05 Urine Ketones Negative (NEGATIVE) 03/05/21 13:05 Urine Occult Blood 2+ (NEGATIVE) 03/05/21 13:05 Urine Nitrite Positive (NEGATIVE) 03/05/21 13:05 Urine Bilirubin Negative (NEGATIVE) 03/05/21 13:05 Urine Urobilinogen Normal (NORMAL) 03/05/21 13:05 Ur Leukocyte Esterase 3+ (NEGATIVE) 03/05/21 13:05 Urine RBC 5-10 /HPF (0-3) A 03/05/21 13:05 Urine WBC Tntc /HPF (0-5) A 03/05/21 13:05 Ur Squamous Epith Cells Negative /HPF (NEGATIVE) 03/05/21 13:05 Urine Bacteria 2+ /HPF (NEGATIVE) 03/05/21 13:05 Urine Mucus Few /HPF (NEGATIVE) 03/05/21 13:05 Ur Culture Indicated? Yes/culture set up 03/05/21 13:05 SARS-CoV-2 (PCR) Negative (NEGATIVE) 03/05/21 12:50 Influenza Type A (PCR) Negative (NEGATIVE) 03/05/21 12:50 Influenza Type B (PCR) Negative (NEGATIVE) 03/05/21 12:50 RSV (PCR) Negative (NEGATIVE) 03/05/21 12:50 XRAY XRAY Interpreted by: Radiologist X-ray Results: chest xray showed developing mid lung pneumonia Opioid Opioid Risk Tool Age (Usama box if 16-45): No History of Preadolescent Sexual Abuse: No Total: 0 Total Score Risk Category: Low Risk Copyright: [facility] predicting aberrant behaviors Diagnosis Discharge Problem: Acute dehydration Pneumonia Qualifiers: Qualified Code(s): J18.9 - Pneumonia, unspecified organism Hypotension Qualifiers: Hypotension type: unspecified hypotension type Qualified Code(s): I95.9 - Hypotension, unspecified Instructions Forms: Precautions for COVID19 [facility] Social Distancing
[2021-03-05] MEDS ORDERED: LASIX IVP ONE ×2 (12:42→12:48)
[2021-03-05 13:09] LABS: BASOPHILS % (AUTO) 0.5 % (0.2-1.0); EOSINOPHILS % (AUTO) 0.5 % (0.9-2.9); HEMATOCRIT 38.6 % (36.0-47.0); HEMOGLOBIN 12.3 g/dL (12.0-16.0); LYMPHOCYTES # (AUTO) 0.8 X10^3/uL (1.3-2.9); LYMPHOCYTES % (AUTO) 8.5 % (21.0-51.0); MEAN CORPUSCULAR HEMOGLOBIN 28.1 pg (27.0-34.0); MEAN CORPUSCULAR HGB CONC 31.8 g/dL (33.0-35.0); MEAN CORPUSCULAR VOLUME 88.5 fL (80.0-100.0); MEAN PLATELET VOLUME 9.9 fL (7.4-11.0); MONOCYTES # (AUTO) 0.4 x10^3/uL (0.3-0.8); MONOCYTES % (AUTO) 4.9 % (0.0-13.0); NEUTROPHILS # (AUTO) 7.6 x10^3/uL (2.2-4.8); NEUTROPHILS % (AUTO) 85.6 % (42.0-75.0); PLATELET COUNT 92 X10^3/uL (150.0-450.0); RED BLOOD COUNT 4.36 X10^6/uL (3.5-5.4); RED CELL DISTRIBUTION WIDTH 17.2 % (11.6-16.5); WHITE BLOOD COUNT 8.9 X10^3/uL (3.6-10.0)
--- NOTE | 2021-03-05 13:12 | RAD ---
HISTORYFever and coughSTUDYSingle-view [id number]/22/2021FINDINGSThe trachea is midline. The cardiac silhouette is accentuated by portable technique. Focal airspace opacity within the left midlung zone and left lower lobe consistent with developing bronchopneumonia. Chronic interstitial lung changes are again noted throughout the right tiffany thorax the bony thorax is unremarkable.IMPRESSIONDeveloping left lower lobe and left midlung zone pulmonary infiltrate consistent with developing bronchopneumonia.Electronically signed by: JONATHON VASQUEZ (Mar 05, 2021 13:11:40)
[2021-03-05 13:14] LABS: BILIRUBIN,URINE NEGATIVE (NEGATIVE); BLOOD/HEMOGLOBIN,URINE 2+ (NEGATIVE); GLUCOSE, URINE NEGATIVE (NEGATIVE); KETONES,URINE NEGATIVE (NEGATIVE); LEUKOCYTE ESTERASE ,URINE 3+ (NEGATIVE); NITRITES,URINE POSITIVE (NEGATIVE); PH,URINE 6.5 (5.0 - 8.0); PROTEIN,URINE 2+ (NEGATIVE); UROBILINOGEN,URINE NORMAL (NORMAL)
[2021-03-05 13:23] LABS: ABG BASE EXCESS 9.2 mmol/L (-2.0-2.0)
[2021-03-05 13:24] LABS: ABG HCO3 35.9 mmol/L (22-26)
[2021-03-05 13:26] LABS: ABG ALLEN TEST POS
[2021-03-05 13:27] LABS: APPEARANCE,URINE HAZY (CLEAR); COLOR,URINE STRAW (YELLOW)
[2021-03-05 13:28] LABS: BACTERIA,URINE 2+ /HPF (NEGATIVE); SQUAMOUS EPITHELIAL CELL,UR NEGATIVE /HPF (NEGATIVE)
[2021-03-05 13:32] LABS: ALANINE AMINOTRANSFERASE 9 Units/L (12-78); ALBUMIN 2.6 g/dL (3.4-5.0); ALKALINE PHOSPHATASE 65 Units/L (46-116); ASPARTATE AMINO TRANSFERASE 13 Units/L (15-37); BLOOD UREA NITROGEN 49 mg/dL (7-18); CARBON DIOXIDE 30.9 mmol/L (21-32); CHLORIDE 104 mmol/L (98-107); COR CA(FOR HYPOALB) 10.1 mg/dL (8.5-10.1); COR NA(FOR HYPERGLY) 144 mmol/L (136-145); CREATINE KINASE 20 Units/L (26-192); CREATINE KINASE MB < 1.0 ng/mL (0-4.0); CREATININE 1.32 mg/dL (0.55-1.02); SODIUM 143 mmol/L (136-145); TOTAL PROTEIN 7.6 g/dL (6.4-8.2); eGFR NON BLACK RACES 43 (>60)
[2021-03-05] MEDS ORDERED: ROCEPHIN 1 GRAM IV PREMIX 1 G/50 ML IV.SOLN. IV ONE ×2 (15:04→15:06)
[2021-03-05] MEDS ORDERED: NS 1,000 ML IV 1,000 ML ONE (15:06)
[2021-03-05] MEDS: NS 1,000 ML IV 1,000 ML IV SCH ×2 (15:10→20:50)
[2021-03-05] MEDS ORDERED: SALINE 3% 15 ML NEB TX NEB ONE (19:09)
[2021-03-05] MEDS ORDERED: ZITHROMAX INJ 500 MG VIAL IV ONE (19:12)
[2021-03-05] MEDS ORDERED: NS 250 ML IV 250 ML IV ONE (19:12)
[2021-03-05] MEDS: ZITHROMAX INJ 500 MG VIAL 500 MG in NS 250 ML IV 250 ML IV SCH (19:14)
[2021-03-05] MEDS ORDERED: DUONEB 0.5 MG/3 MG (3 mL) NEB ONE (19:58)
[2021-03-05] MEDS: DUONEB 0.5 MG/3 MG (3 mL) NEB SCH (20:13)
[2021-03-05 21:25] VITALS: BMI 31.4
[2021-03-05] MEDS ORDERED: PHARMACY CONSULT LTC MEDICATIONS XX SCH (22:00)
[2021-03-05] MEDS: INVANZ INJ 1 GM VIAL 1 GM in NS 100 ML IV + SPIKE MINIBAG* 100 ML IV SCH (23:30)
[2021-03-06] MEDS: NS 1,000 ML IV 1,000 ML IV SCH ×2 (00:25→05:32)
[2021-03-06 05:27] LABS: BASOPHILS # (AUTO) 0.1 X10^3/uL (0.0-0.1); EOSINOPHILS # (AUTO) 0.1 x10^3/uL (0.0-0.2); MEAN CORPUSCULAR HGB CONC 32.2 g/dL (33.0-35.0); MONOCYTES # (AUTO) 0.9 x10^3/uL (0.3-0.8); MONOCYTES % (AUTO) 6.7 % (0.0-13.0); NEUTROPHILS # (AUTO) 10.4 x10^3/uL (2.2-4.8)
[2021-03-06 05:32] LABS: ALANINE AMINOTRANSFERASE 10 Units/L (12-78); ALBUMIN 2.2 g/dL (3.4-5.0); ALKALINE PHOSPHATASE 52 Units/L (46-116); ASPARTATE AMINO TRANSFERASE 15 Units/L (15-37); BASOPHILS % (AUTO) 0.5 % (0.2-1.0); BLOOD UREA NITROGEN 52 mg/dL (7-18); CALCIUM 8.3 mg/dL (8.5-10.1); CARBON DIOXIDE 31.9 mmol/L (21-32); CHLORIDE 108 mmol/L (98-107); COR CA(FOR HYPOALB) 9.7 mg/dL (8.5-10.1); CREATININE 1.44 mg/dL (0.55-1.02); EOSINOPHILS % (AUTO) 0.6 % (0.9-2.9); HEMATOCRIT 33.5 % (36.0-47.0); HEMOGLOBIN 10.8 g/dL (12.0-16.0); LYMPHOCYTES # (AUTO) 1.6 X10^3/uL (1.3-2.9); MEAN CORPUSCULAR HEMOGLOBIN 28.3 pg (27.0-34.0); MEAN PLATELET VOLUME 11.2 fL (7.4-11.0); NEUTROPHILS % (AUTO) 80.2 % (42.0-75.0); PLATELET COUNT 90 X10^3/uL (150.0-450.0); RED BLOOD COUNT 3.81 X10^6/uL (3.5-5.4); RED CELL DISTRIBUTION WIDTH 17.4 % (11.6-16.5); SODIUM 146 mmol/L (136-145); TOTAL PROTEIN 6.5 g/dL (6.4-8.2); eGFR NON BLACK RACES 39 (>60)
[2021-03-06 05:40] LABS: PLATELET MORPHOLOGY COMMENT NORMAL (NORMAL)
[2021-03-06] MEDS: SINGULAIR TAB 10 MG PO SCH (08:32)
[2021-03-06] MEDS: INVANZ INJ 1 GM VIAL 1 GM in NS 100 ML IV + SPIKE MINIBAG* 100 ML IV SCH (08:32)
[2021-03-06] MEDS ORDERED: ROCEPHIN VIAL 1 GRAM IM SCH (09:00)
[2021-03-06] MEDS: ZITHROMAX INJ 500 MG VIAL 500 MG in NS 250 ML IV 250 ML IV SCH (09:15)
[2021-03-06] MEDS: DUONEB 0.5 MG/3 MG (3 mL) NEB SCH ×4 (09:36→20:25)
--- NOTE | 2021-03-06 10:50 | DR.H&P ---
H&P - History & Physical for Day of: H&P Date: 03/05/21 - Chief Complaint Chief Complaint: ACCORDING TO NE STAFF,PATIENT IS SOB AND NOT RESPONSIVE - History of Present Illness History of Present Illness: PT IS 65 WF ER ADMISSION WITH CO DECREASED MENTAL STATUS AND SOB PER [facility] STAFF. PT HAS PMH OF DEMENTIA, OA, [place], PSORIASIS. PT CXR IN ER REVEALED PNEUMONIA. PT WAS NEGATIVE FOR COVID 19 ON ADMISSION. PT ADMITTED FOR TREATMENT OF ACUTE ILLNESS. - Past Medical History Past Medical History: Angina, Diabetes, COPD, CHF - Past Surgical History Surgical History: Cholecystectomy, Hysterectomy - Family History Family Medical History: Diabetes Mellitus, Cancer, [place], Hypertension - Social History Does patient currently use any type of tobacco product: No Have you used tobacco products in the last 12 months: No Type of Tobacco Use: None Does any household member use tobacco: No Alcohol Use: None Drug Use: None - Medications Home Medications: meperidine Allergy (Verified 02/19/21 07:37) CONTINUE taking the following medications B [id number] [Ferrocite Plus] 1 tab PO DAILY 03/05/21 [History] acetaminophen [Tylenol Ex Str Rapid Release] 1,000 mg PO BID 03/05/21 [History] [id number] HMB [Mario] 1 ea PO BID 03/05/21 [History] betamethasone dipropionate 1 applic TOPICAL BID 03/05/21 [History] buspirone 20 mg PO TID 03/05/21 [History] divalproex 500 mg PO BID 03/05/21 [History] escitalopram oxalate 20 mg PO DAILY 03/05/21 [History] fluocinonide 1 applic TOPICAL BID 03/05/21 [History] levothyroxine 150 mcg PO DAILY 03/05/21 [History] pantoprazole 40 mg PO BID 03/05/21 [History] potassium chloride 20 meq PO BID 03/05/21 [History] risperidone 0.25 mg PO HS 03/05/21 [History] rivastigmine tartrate 1.5 mg PO BID 03/05/21 [History] - Review of Systems Constitutional: Weakness Eyes: No Symptoms Reported ENT: No Symptoms Reported Respiratory: Shortness of Breath, Wheezing Cardiovascular: No Symptoms Reported Genitourinary: Incontinence Musculoskeletal: No Symptoms Reported Skin: No Symptoms Reported Neurological: Weakness - Physical Exam Vital Signs: Temperature 98.7 F Pulse Rate [Radial] 104 Pulse Rate 104 Respiratory Rate 20 Blood Pressure [Left Arm] 117/73 Blood Pressure 91/51 O2 Sat by Pulse Oximetry 99 Oriented: Person Eyes: Normal Ear: Normal Nose: Normal Throat: Normal Respiratory: Rhonchi Throughout Cardiovascular: Normal : Normal Auscultation: Bowel Sounds: Normal Palpation: Normal Tenderness: Normal Skin: Decreased Turgur Musculoskeletal: Right, Left, Motor Deficit Psychiatric: Anxiety Affect: Anxious Speech Pattern: Inappropriate - Assessment/Plan (1) Pneumonia Qualifiers: Qualified Code(s): J18.9 - Pneumonia, unspecified organism Status: Acute Plan: ADMIT, PNEUMONIA PROTOCOL. IV ATBX, RESP THERAPY. SUPPLEMENTAL O2. GENTLE IV HYDRATION WITH STRICT I&O. VERIFY HOME MEDICATION, BLOOD URINE AND SPUTUM CULTURES ON ADMISSION (2) Dementia Status: Acute (3) Urinary tract infection Status: Acute (4) Acute and chronic respiratory failure with hypoxia Status: Acute (5) CHF (congestive heart failure) Qualifiers: Heart failure type: unspecified Heart failure chronicity: chronic Qualified Code(s): I50.9 - Heart failure, unspecified Status: Chronic (6) HTN (hypertension) Qualifiers: Hypertension type: essential hypertension Qualified Code(s): I10 - Esse ntial (primary) hypertension Status: Chronic - Allergies Allergies/Adverse Reactions: Allergies Allergy/AdvReac Type Severity Reaction Status Date / Time meperidine Allergy Verified 02/19/21 07:37
[2021-03-06] MEDS: SOLU-Medrol 40 MG VIAL IVP SCH ×2 (11:42→22:02)
[2021-03-06] MEDS: PROTONIX INJ 40 MG VIAL IVP SCH (11:42)
[2021-03-06] MEDS: SYNTHROID 150 mcg TAB PO SCH (11:42)
[2021-03-06] MEDS: BUSPAR PO SCH ×2 (11:43→22:02)
--- NOTE | 2021-03-06 12:15 | RAD ---
HISTORYPneumoniaSTUDYAP [id number]/31/2021FINDINGSIncreas ing pulmonary infiltrates bilaterally, right perihilar and left lower lobe. The airspace component in the left lower lung has increased. No pleural fluid or pneumothorax seen. Heart size is unremarkable.IMPRESSIONPersistent bilateral pneumonic infiltrates with slight progression, especially in the left lung.Electronically signed by: KORY CARLIN (Mar 06, 2021 12:14:02)
[2021-03-06] MEDS: NS 1/2 1,000 ML IV 1,000 ML IV SCH (13:19)
[2021-03-06] MEDS ORDERED: NS 1/2 1,000 ML IV 1,000 ML IV ONE (13:20)
[2021-03-06] MEDS ORDERED: DEPAKOTE D.R. TAB PO ONE (20:03)
[2021-03-06] MEDS: EXELON PO SCH (21:30)
[2021-03-06] MEDS: COLACE CAP 100 MG PO SCH (21:58)
[2021-03-06] MEDS: DEPAKOTE D.R. TAB PO SCH (21:58)
[2021-03-06] MEDS: NORCO 5/325 MG TAB PO SCH (21:59)
[2021-03-06] MEDS: LYRICA CAP 150 mg PO SCH (22:00)
[2021-03-06] MEDS: LIPITOR TAB 40 MG PO SCH (22:00)
[2021-03-06] MEDS: DIPROLENE CREAM 0.05% TOP SCH (22:19)
[2021-03-07] MEDS: NS 1/2 1,000 ML IV 1,000 ML IV SCH (01:52)
[2021-03-07] MEDS: BUSPAR PO SCH ×3 (05:36→21:05)
[2021-03-07] MEDS: SOLU-Medrol 40 MG VIAL IVP SCH (05:36)
[2021-03-07 05:58] LABS: BASOPHILS % (AUTO) 0.2 % (0.2-1.0); EOSINOPHILS % (AUTO) 0.3 % (0.9-2.9); HEMOGLOBIN 9.3 g/dL (12.0-16.0); LYMPHOCYTES # (AUTO) 0.9 X10^3/uL (1.3-2.9); LYMPHOCYTES % (AUTO) 14.6 % (21.0-51.0); MEAN CORPUSCULAR HGB CONC 33.4 g/dL (33.0-35.0); MEAN CORPUSCULAR VOLUME 86.8 fL (80.0-100.0); MEAN PLATELET VOLUME 10.3 fL (7.4-11.0); MONOCYTES # (AUTO) 0.3 x10^3/uL (0.3-0.8); MONOCYTES % (AUTO) 5.2 % (0.0-13.0); NEUTROPHILS # (AUTO) 4.8 x10^3/uL (2.2-4.8); NEUTROPHILS % (AUTO) 79.7 % (42.0-75.0); PLATELET COUNT 82 X10^3/uL (150.0-450.0); RED BLOOD COUNT 3.22 X10^6/uL (3.5-5.4); RED CELL DISTRIBUTION WIDTH 17.3 % (11.6-16.5); WHITE BLOOD COUNT 6.1 X10^3/uL (3.6-10.0)
[2021-03-07 06:18] LABS: ALANINE AMINOTRANSFERASE 9 Units/L (12-78); ALKALINE PHOSPHATASE 49 Units/L (46-116); ASPARTATE AMINO TRANSFERASE 13 Units/L (15-37); BLOOD UREA NITROGEN 40 mg/dL (7-18); CALCIUM 7.7 mg/dL (8.5-10.1); CARBON DIOXIDE 30.6 mmol/L (21-32); CHLORIDE 107 mmol/L (98-107); COR CA(FOR HYPOALB) 9.3 mg/dL (8.5-10.1); COR NA(FOR HYPERGLY) 141 mmol/L (136-145); CREATININE 1.07 mg/dL (0.55-1.02); SODIUM 141 mmol/L (136-145); TOTAL PROTEIN 6.2 g/dL (6.4-8.2); eGFR NON BLACK RACES 54 (>60)
[2021-03-07] MEDS: DUONEB 0.5 MG/3 MG (3 mL) NEB SCH ×4 (08:20→20:30)
[2021-03-07] MEDS ORDERED: DEPAKOTE D.R. TAB PO ONE ×2 (08:34→19:47)
[2021-03-07] MEDS ORDERED: LEXAPRO ONE (08:34)
[2021-03-07] MEDS: LYRICA CAP 150 mg PO SCH ×2 (08:44→21:06)
[2021-03-07] MEDS: SYNTHROID 150 mcg TAB PO SCH (08:44)
[2021-03-07] MEDS: LEXAPRO PO SCH (08:44)
[2021-03-07] MEDS: COLACE CAP 100 MG PO SCH ×2 (08:44→21:05)
[2021-03-07] MEDS: INVANZ INJ 1 GM VIAL 1 GM in NS 100 ML IV + SPIKE MINIBAG* 100 ML IV SCH (08:44)
[2021-03-07] MEDS: PROTONIX INJ 40 MG VIAL IVP SCH (08:44)
[2021-03-07] MEDS: SINGULAIR TAB 10 MG PO SCH (08:44)
[2021-03-07] MEDS: DIPROLENE CREAM 0.05% TOP SCH ×3 (08:50→23:37)
[2021-03-07] MEDS: DEPAKOTE D.R. TAB PO SCH ×2 (08:50→21:04)
[2021-03-07] MEDS: ZITHROMAX INJ 500 MG VIAL 500 MG in NS 250 ML IV 250 ML IV SCH (09:56)
[2021-03-07] MEDS ORDERED: ROCEPHIN VIAL 1 GRAM ONE (11:35)
[2021-03-07] MEDS: ROCEPHIN VIAL 1 GRAM 1 G in NS 100 ML IV + SPIKE MINIBAG* 100 ML IV SCH (12:00)
[2021-03-07] MEDS: EXELON PO SCH ×2 (12:00→21:05)
--- NOTE | 2021-03-07 13:17 | RAD ---
HISTORYPNEUMONIASTUDYCHEST, 1 [id number]/01/2022.TECHNIQUEAP view of the chestFINDINGSPatient is rotated. Cardiac and mediastinal contours appear stable. Mild improvement on the left and similar appearance of the right in airspace and interstitial opacities in the perihilar and lower lung. No discernible pleural effusion or pneumothorax.IMPRESSIONMild improvement in left lung pneumonia. Right lung pneumonia appears similar.Electronically signed by: Jose Kong (Mar 07, 2021 13:15:50)
--- NOTE | 2021-03-07 13:39 | PCM.PROG ---
Progress Note - Progress Note for Day of Date of Exam: 03/07/21 - Subjective Subjective: Mrs. Martinez is a 65-year-old white female who is a resident of [facility]. She was an ER admission after nursing staff at [facility] reported that the patient had increased shortness of breath and decreased responsiveness. The patient does have a history of dementia, as well as hard of hearing. She had a chest x-ray showing pneumonia to the left lower lobe. She also had an ABG in the ER revealing a PO2 of 55 on 44% FIO2. Her BNP was 141. Cardiac enzymes were stable. The patient had blood and urine cultures, and encouraged a sputum specimen as well. Pt wbc 6.1, hgb 9.3, bun 40/creat 1.07 She is on IV antibiotic therapy with zithromax and rocephin - Past Medical Family Social History Past Med/Fam/Surg Hx: No changes since H&P Allergies: Allergies meperidine Allergy (Verified 02/19/21 07:37) - Review of Systems ROS: No change since H&P - Vital Signs and I&O's Vital Signs: Temperature 97.8 F Pulse Rate [Radial] 74 Pulse Rate 74 Respiratory Rate 18 Blood Pressure [Left Arm] 136/68 Blood Pressure 91/51 O2 Sat by Pulse Oximetry 98 Intake and Output: Intake & Output 03/05/21 03/06/21 03/07/21 03/08/21 11:59 11:59 11:59 11:59 Intake Total 953 / 953 2718 / 2718 Output Total 3025 / 3025 1540 / 1540 Balance -2071 / -2071 1178 / 1178 - Physical Exam Oriented: Person Eyes: Normal Ear: Normal Nose: Normal Throat: Normal Cardiovascular: Normal : Normal Auscultation: Bowel Sounds: Normal Tenderness: Normal Skin: Decreased Turgur, Rash (right lower leg, scalp psoriasis) Musculoskeletal: Right, Left, Motor Deficit Psychiatric: Anxiety Affect: Anxious Speech Pattern: Clear, Appropriate - Laboratory and Diagnostics Result Diagrams: 03/07/21 05:27 03/07/21 05:27 Labs: 03/05/21 13:37 Blood Blood Culture - Preliminary 03/05/21 12:05 Blood Blood Culture - Preliminary 03/05/21 13:05 Urine,Catheterized Urine Culture - Preliminary Laboratory WBC 6.1 X10^3/uL (3.6-10.0) 03/07/21 05:27 RBC 3.22 X10^6/uL (3.5-5.4) L 03/07/21 05:27 Hgb 9.3 g/dL (12.0-16.0) L 03/07/21 05:27 Hct 28.0 % (36.0-47.0) L 03/07/21 05:27 MCV 86.8 fL (80.0-100.0) 03/07/21 05:27 MCH 29.0 pg (27.0-34.0) 03/07/21 05:27 MCHC 33.4 g/dL (33.0-35.0) 03/07/21 05:27 RDW 17.3 % (11.6-16.5) H 03/07/21 05:27 Plt Count 82 X10^3/uL (150.0-450.0) L 03/07/21 05:27 Plt Count Comment Decreased (ADEQUATE) A 03/06/21 04:40 MPV 10.3 fL (7.4-11.0) 03/07/21 05:27 Neut % (Auto) 79.7 % (42.0-75.0) H 03/07/21 05:27 Lymph % (Auto) 14.6 % (21.0-51.0) L 03/07/21 05:27 [place] % (Auto) 5.2 % (0.0-13.0) 03/07/21 05:27 Eos % (Auto) 0.3 % (0.9-2.9) L 03/07/21 05:27 Baso % (Auto) 0.2 % (0.2-1.0) 03/07/21 05:27 Neut # (Auto) 4.8 x10^3/uL (2.2-4.8) 03/07/21 05:27 Lymph # (Auto) 0.9 X10^3/uL (1.3-2.9) L 03/07/21 05:27 [place] # (Auto) 0.3 x10^3/uL (0.3-0.8) 03/07/21 05:27 Eos # (Auto) 0.0 x10^3/uL (0.0-0.2) 03/07/21 05:27 Baso # (Auto) 0.0 X10^3/uL (0.0-0.1) 03/07/21 05:27 Absolute Nucleated RBC 0.0 /100WBC 03/07/21 05:27 Plt Morphology Comment Normal (NORMAL) 03/06/21 04:40 RBC Morphology Normal (NORMAL) 03/06/21 04:40 Sample Site Rr 03/05/21 13:18 ABG pH 7.400 (7.35-7.45) 03/05/21 13:18 ABG pCO2 58.0 mmHg (35.0-45.0) H* 03/05/21 13:18 ABG pO2 55.0 mmHg (80.0-100.0) L 03/05/21 13:18 ABG HCO3 35.9 mmol/L (22-26) H* 03/05/21 13:18 ABG O2 Saturation 88.0 % (90-100) L 03/05/21 13:18 ABG Base Excess 9.2 mmol/L (-2.0-2.0) H 03/05/21 13:18 Kasi Test Pos 03/05/21 13:18 A-a Gradient 186.0 mmHg 03/05/21 13:18 FiO2 44.0 03/05/21 13:18 Blood Gas Comments Matthieu well cb 03/05/21 13:18 Sodium 141 mmol/L (136-145) 03/07/21 05:27 Corrected Sodium 141 mmol/L (136-145) 03/07/21 05:27 Potassium 4.4 mmol/L (3.5-5.1) 03/07/21 05:27 Chloride 107 mmol/L (98-107) 03/07/21 05:27 Carbon Dioxide 30.6 mmol/L (21-32) 03/07/21 05:27 BUN 40 mg/dL (7-18) H 03/07/21 05:27 Creatinine 1.07 mg/dL (0.55-1.02) H 03/07/21 05:27 Est GFR (MDRD) Af Amer > 60 (>60) 03/07/21 05:27 Est GFR (MDRD) Non-Af 54 (>60) L 03/07/21 05:27 Glucose 111 mg/dL (65-99) H 03/07/21 05:27 POC Glucose (mg/dL) 195 mg/dL (65-99) H 03/07/21 12:03 Lactic Acid 1.9 mmol/L (0.4-2.0) 03/05/21 13:37 Calcium 7.7 mg/dL (8.5-10.1) L 03/07/21 05:27 Corrected Calcium 9.3 mg/dL (8.5-10.1) 03/07/21 05:27 Total Bilirubin 0.20 mg/dL (0.2-1.0) 03/07/21 05:27 AST 13 Units/L (15-37) L 03/07/21 05:27 ALT 9 Units/L (12-78) L 03/07/21 05:27 Alkaline Phosphatase 49 Units/L (46-116) 03/07/21 05:27 Creatine Kinase 20 Units/L (26-192) L 03/05/21 12:50 CK-MB (CK-2) < 1.0 ng/mL (0-4.0) 03/05/21 12:50 CK/CKMB % Calc 5.0 % (<4) 03/05/21 12:50 Troponin I < 0.02 ng/mL (0-1.5) 03/05/21 12:50 B-Natriuretic Peptide 141 pg/mL (0-79) H 03/05/21 12:50 Total Protein 6.2 g/dL (6.4-8.2) L 03/07/21 05:27 Albumin 2.0 g/dL (3.4-5.0) L 03/07/21 05:27 Globulin 4.2 g/dL (2.5-4.5) 03/07/21 05:27 Albumin/Globulin Ratio 0.5 Ratio (1.1-2.1) L 03/07/21 05:27 Specimen Type Catherized urine 03/05/21 13:05 Urine Color Straw (YELLOW) 03/05/21 13:05 Urine Appearance Hazy (CLEAR) 03/05/21 13:05 Urine pH 6.5 (5.0 - 8.0) 03/05/21 13:05 Ur Specific [place] 1.015 (1.000-1.030) 03/05/21 13:05 Urine Protein 2+ (NEGATIVE) 03/05/21 13:05 Urine Glucose (UA) Negative (NEGATIVE) 03/05/21 13:05 Urine Ketones Negative (NEGATIVE) 03/05/21 13:05 Urine Occult Blood 2+ (NEGATIVE) 03/05/21 13:05 Urine Nitrite Positive (NEGATIVE) 03/05/21 13:05 Urine Bilirubin Negative (NEGATIVE) 03/05/21 13:05 Urine Urobilinogen Normal (NORMAL) 03/05/21 13:05 Ur Leukocyte Esterase 3+ (NEGATIVE) 03/05/21 13:05 Urine RBC 5-10 /HPF (0-3) A 03/05/21 13:05 Urine WBC Tntc /HPF (0-5) A 03/05/21 13:05 Ur Squamous Epith Cells Negative /HPF (NEGATIVE) 03/05/21 13:05 Urine Bacteria 2+ /HPF (NEGATIVE) 03/05/21 13:05 Urine Mucus Few /HPF (NEGATIVE) 03/05/21 13:05 Ur Culture Indicated? Yes/culture set up 03/05/21 13:05 Valproic Acid < 3.0 ug/mL (50-100) L 03/06/21 12:58 SARS-CoV-2 (PCR) Negative (NEGATIVE) 03/05/21 12:50 Influenza Type A (PCR) Negative (NEGATIVE) 03/05/21 12:50 Influenza Type B (PCR) Negative (NEGATIVE) 03/05/21 12:50 RSV (PCR) Negative (NEGATIVE) 03/05/21 12:50 - Plan (1) Pneumonia Status: Acute Qualifiers: Qualified Code(s): J18.9 - Pneumonia, unspecified organism Plan: PNEUMONIA PROTOCOL. IV ATBX, RESP THERAPY. SUPPLEMENTAL O2. GENTLE IV HYDRATION WITH STRICT I&O. VERIFY HOME MEDICATION, BLOOD URINE AND SPUTUM CULTURES ON ADMISSION (2) Dementia Status: Acute (3) Urinary tract infection Status: Acute (4) Acute and chronic respiratory failure with hypoxia Status: Acute (5) CHF (congestive heart failure) Status: Chronic Qualifiers: Heart failure type: unspecified Heart failure chronicity: chronic Qualified Code(s): I50.9 - Heart failure, unspecified (6) HTN (hypertension) Status: Chronic Qualifiers: Hypertension type: essential hypertension Qualified Code(s): I10 - Essential (primary) hypertension
[2021-03-07] MEDS: LIPITOR TAB 40 MG PO SCH (21:05)
[2021-03-07] MEDS: NORCO 5/325 MG TAB PO SCH (21:06)
[2021-03-08] MEDS: NS 1/2 1,000 ML IV 1,000 ML IV SCH ×3 (00:13→22:35)
[2021-03-08] MEDS ORDERED: NS 1/2 1,000 ML IV 1,000 ML IV ONE (00:15)
[2021-03-08] MEDS: BUSPAR PO SCH ×3 (05:11→21:50)
[2021-03-08 05:51] LABS: BASOPHILS % (AUTO) 0.5 % (0.2-1.0); EOSINOPHILS # (AUTO) 0.1 x10^3/uL (0.0-0.2); EOSINOPHILS % (AUTO) 1.5 % (0.9-2.9); HEMATOCRIT 27.5 % (36.0-47.0); HEMOGLOBIN 8.9 g/dL (12.0-16.0); LYMPHOCYTES # (AUTO) 1.4 X10^3/uL (1.3-2.9); LYMPHOCYTES % (AUTO) 24.7 % (21.0-51.0); MEAN CORPUSCULAR HEMOGLOBIN 28.4 pg (27.0-34.0); MEAN CORPUSCULAR HGB CONC 32.4 g/dL (33.0-35.0); MEAN CORPUSCULAR VOLUME 87.8 fL (80.0-100.0); MEAN PLATELET VOLUME 10.3 fL (7.4-11.0); MONOCYTES # (AUTO) 0.3 x10^3/uL (0.3-0.8); NEUTROPHILS # (AUTO) 3.7 x10^3/uL (2.2-4.8); NEUTROPHILS % (AUTO) 67.3 % (42.0-75.0); PLATELET COUNT 82 X10^3/uL (150.0-450.0); RED BLOOD COUNT 3.13 X10^6/uL (3.5-5.4); WHITE BLOOD COUNT 5.6 X10^3/uL (3.6-10.0)
[2021-03-08 06:01] LABS: ALANINE AMINOTRANSFERASE 15 Units/L (12-78); ALKALINE PHOSPHATASE 46 Units/L (46-116); ASPARTATE AMINO TRANSFERASE 15 Units/L (15-37); BLOOD UREA NITROGEN 29 mg/dL (7-18); CALCIUM 7.6 mg/dL (8.5-10.1); CARBON DIOXIDE 32.3 mmol/L (21-32); CHLORIDE 106 mmol/L (98-107); COR CA(FOR HYPOALB) 9.2 mg/dL (8.5-10.1); CREATININE 0.98 mg/dL (0.55-1.02); SODIUM 139 mmol/L (136-145); TOTAL PROTEIN 6.2 g/dL (6.4-8.2); eGFR NON BLACK RACES > 60 (>60)
--- NOTE | 2021-03-08 06:37 | RAD ---
HISTORYFollow-up pneumoniaSTUDYChest AP [id number] ent remains rotated to the right. The heart is enlarged. No congestive heart failure is noted. Bilateral perihilar and lower lobe interstitial and alveolar infiltrates are unchanged. No pleural effusion or pneumothorax is identified. Bony thorax is unremarkable.IMPRESSIONNo change bilateral infiltratesElectronically signed by: KENYATTA ELARY (Mar 08, 2021 06:35:22)
[2021-03-08] MEDS: DUONEB 0.5 MG/3 MG (3 mL) NEB SCH ×4 (08:16→20:20)
[2021-03-08] MEDS ORDERED: PATIENT'S HOME MEDICATION TOP SCH (09:00)
[2021-03-08] MEDS ORDERED: DEPAKOTE D.R. TAB PO ONE ×2 (09:17→20:29)
[2021-03-08] MEDS ORDERED: LEXAPRO ONE (09:17)
[2021-03-08] MEDS: ROCEPHIN VIAL 1 GRAM 1 G in NS 100 ML IV + SPIKE MINIBAG* 100 ML IV SCH (09:48)
[2021-03-08] MEDS: PROTONIX INJ 40 MG VIAL IVP SCH (09:49)
[2021-03-08] MEDS: SINGULAIR TAB 10 MG PO SCH (09:49)
[2021-03-08] MEDS: LEXAPRO PO SCH (09:49)
[2021-03-08] MEDS: COLACE CAP 100 MG PO SCH ×2 (09:49→20:45)
[2021-03-08] MEDS: LYRICA CAP 150 mg PO SCH ×2 (09:51→20:45)
[2021-03-08] MEDS: SYNTHROID 150 mcg TAB PO SCH (09:51)
[2021-03-08] MEDS: DEPAKOTE D.R. TAB PO SCH ×2 (09:52→20:45)
[2021-03-08] MEDS: DIPROLENE CREAM 0.05% TOP SCH ×2 (09:55→20:45)
[2021-03-08] MEDS: ZITHROMAX INJ 500 MG VIAL 500 MG in NS 250 ML IV 250 ML IV SCH (10:40)
[2021-03-08] MEDS: EXELON PO SCH ×2 (11:06→21:50)
[2021-03-08] MEDS: LIPITOR TAB 40 MG PO SCH (20:45)
[2021-03-08] MEDS: INVANZ INJ 1 GM VIAL 1 GM in NS 100 ML IV + SPIKE MINIBAG* 100 ML IV SCH (20:45)
[2021-03-08] MEDS: NORCO 5/325 MG TAB PO SCH (20:50)
--- NOTE | 2021-03-08 22:49 | PCM.PROG ---
Progress Note - Subjective Subjective: Mrs. Martinez is a 65-year-old white female who is a resident of [facility]. Patient ia alert but confused at baseline. Patient is talking a lot today even when no one is there. The patient does have a history of dementia, as well as hard of hearing. She had a chest x-ray showing pneumonia to the left lower lobe. Urine culture positive for ESBL. Rocephin d/c'd. Invanz started. - Past Medical Family Social History Past Med/Fam/Surg Hx: No changes since H&P Allergies: Allergies meperidine Allergy (Verified 02/19/21 07:37) - Review of Systems ROS: No change since H&P - Vital Signs and I&O's Vital Signs: Temperature 99.4 F Pulse Rate [Radial] 90 Pulse Rate 89 Respiratory Rate 18 Blood Pressure [Left Arm] 154/75 Blood Pressure 91/51 O2 Sat by Pulse Oximetry 95 Intake and Output: Intake & Output 03/05/21 03/06/21 03/07/21 03/08/21 23:59 23:59 23:59 23:59 Intake Total 415 / 415 3016 / 3016 1330 / 1330 1876 / 1876 Output Total 3925 / 3925 1240 / 1240 3000 / 3000 Balance 415 / 415 -909 / -909 90 / 90 -1124 / -1124 - Physical Exam Oriented: Person, Not Oriented Eyes: Normal, Other (right eye jail closed-chronic) Ear: Normal Nose: Normal Throat: Normal Respiratory: Generalized, Rhonchi Cardiovascular: Murmur : Other (mora) Auscultation: Bowel Sounds: Normal Palpation: Normal Tenderness: Normal Skin: Decreased Turgur, Rash (right lower leg, scalp psoriasis) Musculoskeletal: Right, Left, Motor Deficit Psychiatric: Anxiety Mood Description: Calm Affect: Anxious Speech Pattern: Clear, Inappropriate, Excessive - Laboratory and Diagnostics Result Diagrams: 03/08/21 05:20 03/08/21 05:20 Labs: 03/05/21 12:05 Blood Blood Culture - Final 03/05/21 13:05 Urine,Catheterized Urine Culture - Preliminary Escherichia Coli 03/05/21 13:37 Blood Blood Culture - Preliminary Laboratory WBC 5.6 X10^3/uL (3.6-10.0) 03/08/21 05:20 RBC 3.13 X10^6/uL (3.5-5.4) L 03/08/21 05:20 Hgb 8.9 g/dL (12.0-16.0) L 03/08/21 05:20 Hct 27.5 % (36.0-47.0) L 03/08/21 05:20 MCV 87.8 fL (80.0-100.0) 03/08/21 05:20 MCH 28.4 pg (27.0-34.0) 03/08/21 05:20 MCHC 32.4 g/dL (33.0-35.0) L 03/08/21 05:20 RDW 17.0 % (11.6-16.5) H 03/08/21 05:20 Plt Count 82 X10^3/uL (150.0-450.0) L 03/08/21 05:20 Plt Count Comment Decreased (ADEQUATE) A 03/06/21 04:40 MPV 10.3 fL (7.4-11.0) 03/08/21 05:20 Neut % (Auto) 67.3 % (42.0-75.0) 03/08/21 05:20 Lymph % (Auto) 24.7 % (21.0-51.0) 03/08/21 05:20 [place] % (Auto) 6.0 % (0.0-13.0) 03/08/21 05:20 Eos % (Auto) 1.5 % (0.9-2.9) 03/08/21 05:20 Baso % (Auto) 0.5 % (0.2-1.0) 03/08/21 05:20 Neut # (Auto) 3.7 x10^3/uL (2.2-4.8) 03/08/21 05:20 Lymph # (Auto) 1.4 X10^3/uL (1.3-2.9) 03/08/21 05:20 [place] # (Auto) 0.3 x10^3/uL (0.3-0.8) 03/08/21 05:20 Eos # (Auto) 0.1 x10^3/uL (0.0-0.2) 03/08/21 05:20 Baso # (Auto) 0.0 X10^3/uL (0.0-0.1) 03/08/21 05:20 Absolute Nucleated RBC 0.0 /100WBC 03/08/21 05:20 Plt Morphology Comment Normal (NORMAL) 03/06/21 04:40 RBC Morphology Normal (NORMAL) 03/06/21 04:40 Sample Site Rr 03/05/21 13:18 ABG pH 7.400 (7.35-7.45) 03/05/21 13:18 ABG pCO2 58.0 mmHg (35.0-45.0) H* 03/05/21 13:18 ABG pO2 55.0 mmHg (80.0-100.0) L 03/05/21 13:18 ABG HCO3 35.9 mmol/L (22-26) H* 03/05/21 13:18 ABG O2 Saturation 88.0 % (90-100) L 03/05/21 13:18 ABG Base Excess 9.2 mmol/L (-2.0-2.0) H 03/05/21 13:18 Kasi Test Pos 03/05/21 13:18 A-a Gradient 186.0 mmHg 03/05/21 13:18 FiO2 44.0 03/05/21 13:18 Blood Gas Comments Matthieu well cb 03/05/21 13:18 Sodium 139 mmol/L (136-145) 03/08/21 05:20 Corrected Sodium TNP 03/08/21 05:20 Potassium 4.2 mmol/L (3.5-5.1) 03/08/21 05:20 Chloride 106 mmol/L (98-107) 03/08/21 05:20 Carbon Dioxide 32.3 mmol/L (21-32) H 03/08/21 05:20 BUN 29 mg/dL (7-18) H 03/08/21 05:20 Creatinine 0.98 mg/dL (0.55-1.02) 03/08/21 05:20 Est GFR (MDRD) Af Amer > 60 (>60) 03/08/21 05:20 Est GFR (MDRD) Non-Af > 60 (>60) 03/08/21 05:20 Glucose 93 mg/dL (65-99) 03/08/21 05:20 POC Glucose (mg/dL) 120 mg/dL (65-99) H 03/08/21 19:47 Lactic Acid 1.9 mmol/L (0.4-2.0) 03/05/21 13:37 Calcium 7.6 mg/dL (8.5-10.1) L 03/08/21 05:20 Corrected Calcium 9.2 mg/dL (8.5-10.1) 03/08/21 05:20 Total Bilirubin 0.20 mg/dL (0.2-1.0) 03/08/21 05:20 AST 15 Units/L (15-37) 03/08/21 05:20 ALT 15 Units/L (12-78) 03/08/21 05:20 Alkaline Phosphatase 46 Units/L (46-116) 03/08/21 05:20 Creatine Kinase 20 Units/L (26-192) L 03/05/21 12:50 CK-MB (CK-2) < 1.0 ng/mL (0-4.0) 03/05/21 12:50 CK/CKMB % Calc 5.0 % (<4) 03/05/21 12:50 Troponin I < 0.02 ng/mL (0-1.5) 03/05/21 12:50 B-Natriuretic Peptide 141 pg/mL (0-79) H 03/05/21 12:50 Total Protein 6.2 g/dL (6.4-8.2) L 03/08/21 05:20 Albumin 2.0 g/dL (3.4-5.0) L 03/08/21 05:20 Globulin 4.2 g/dL (2.5-4.5) 03/08/21 05:20 Albumin/Globulin Ratio 0.5 Ratio (1.1-2.1) L 03/08/21 05:20 Specimen Type Catherized urine 03/05/21 13:05 Urine Color Straw (YELLOW) 03/05/21 13:05 Urine Appearance Hazy (CLEAR) 03/05/21 13:05 Urine pH 6.5 (5.0 - 8.0) 03/05/21 13:05 Ur Specific [place] 1.015 (1.000-1.030) 03/05/21 13:05 Urine Protein 2+ (NEGATIVE) 03/05/21 13:05 Urine Glucose (UA) Negative (NEGATIVE) 03/05/21 13:05 Urine Ketones Negative (NEGATIVE) 03/05/21 13:05 Urine Occult Blood 2+ (NEGATIVE) 03/05/21 13:05 Urine Nitrite Positive (NEGATIVE) 03/05/21 13:05 Urine Bilirubin Negative (NEGATIVE) 03/05/21 13:05 Urine Urobilinogen Normal (NORMAL) 03/05/21 13:05 Ur Leukocyte Esterase 3+ (NEGATIVE) 03/05/21 13:05 Urine RBC 5-10 /HPF (0-3) A 03/05/21 13:05 Urine WBC Tntc /HPF (0-5) A 03/05/21 13:05 Ur Squamous Epith Cells Negative /HPF (NEGATIVE) 03/05/21 13:05 Urine Bacteria 2+ /HPF (NEGATIVE) 03/05/21 13:05 Urine Mucus Few /HPF (NEGATIVE) 03/05/21 13:05 Ur Culture Indicated? Yes/culture set up 03/05/21 13:05 Valproic Acid < 3.0 ug/mL (50-100) L 03/06/21 12:58 SARS-CoV-2 (PCR) Negative (NEGATIVE) 03/05/21 12:50 Influenza Type A (PCR) Negative (NEGATIVE) 03/05/21 12:50 Influenza Type B (PCR) Negative (NEGATIVE) 03/05/21 12:50 RSV (PCR) Negative (NEGATIVE) 03/05/21 12:50 - Plan (1) Urinary tract infection Status: Acute Plan: D/C rocephin. Start Invanz (2) Pneumonia Status: Acute Qualifiers: Qualified Code(s): J18.9 - Pneumonia, unspecified organism Plan: PNEUMONIA PROTOCOL. IV ATBX, RESP THERAPY. SUPPLEMENTAL O2. Cultures pending (3) Dementia Status: Chronic (4) Diabetes mellitus, type II Status: Chronic Qualifiers: Diabetes mellitus computer terminal operator insulin use: without skilled nursing use Diabetes mellitus complication status: without complication Qualified Code(s): E11.9 - Type 2 diabetes mellitus without complications (5) CAD (coronary artery disease) Status: Chronic Qualifiers: Coronary Disease-Associated Artery/Lesion type: [place] artery [place] vs. transplanted heart: [place] heart Associated angina: without angina Qualified Code(s): I25.10 - Atherosclerotic heart disease of [place] coronary artery without angina pectoris
[2021-03-09 05:55] LABS: BASOPHILS % (AUTO) 0.9 % (0.2-1.0); EOSINOPHILS # (AUTO) 0.1 x10^3/uL (0.0-0.2); EOSINOPHILS % (AUTO) 1.5 % (0.9-2.9); HEMATOCRIT 26.6 % (36.0-47.0); HEMOGLOBIN 8.6 g/dL (12.0-16.0); LYMPHOCYTES # (AUTO) 1.3 X10^3/uL (1.3-2.9); LYMPHOCYTES % (AUTO) 30.7 % (21.0-51.0); MEAN CORPUSCULAR HEMOGLOBIN 28.2 pg (27.0-34.0); MEAN CORPUSCULAR HGB CONC 32.2 g/dL (33.0-35.0); MEAN CORPUSCULAR VOLUME 87.6 fL (80.0-100.0); MEAN PLATELET VOLUME 10.1 fL (7.4-11.0); MONOCYTES # (AUTO) 0.4 x10^3/uL (0.3-0.8); MONOCYTES % (AUTO) 8.9 % (0.0-13.0); NEUTROPHILS # (AUTO) 2.5 x10^3/uL (2.2-4.8); PLATELET COUNT 84 X10^3/uL (150.0-450.0); RED BLOOD COUNT 3.04 X10^6/uL (3.5-5.4); RED CELL DISTRIBUTION WIDTH 16.8 % (11.6-16.5); WHITE BLOOD COUNT 4.3 X10^3/uL (3.6-10.0)
[2021-03-09 06:07] LABS: ALANINE AMINOTRANSFERASE 17 Units/L (12-78); ALBUMIN 1.9 g/dL (3.4-5.0); ALKALINE PHOSPHATASE 46 Units/L (46-116); ASPARTATE AMINO TRANSFERASE 14 Units/L (15-37); BLOOD UREA NITROGEN 20 mg/dL (7-18); CALCIUM 7.5 mg/dL (8.5-10.1); CARBON DIOXIDE 31.4 mmol/L (21-32); CHLORIDE 107 mmol/L (98-107); COR CA(FOR HYPOALB) 9.2 mg/dL (8.5-10.1); CREATININE 0.96 mg/dL (0.55-1.02); SODIUM 141 mmol/L (136-145); TOTAL PROTEIN 5.8 g/dL (6.4-8.2); eGFR NON BLACK RACES > 60 (>60)
[2021-03-09] MEDS: BUSPAR PO SCH ×3 (06:22→21:50)
[2021-03-09] MEDS: NS 1/2 1,000 ML IV 1,000 ML IV SCH ×2 (06:22→18:25)
[2021-03-09] MEDS: PHARMACY COMMENT TOP SCH ×3 (06:22→22:02)
[2021-03-09] MEDS ORDERED: DEPAKOTE D.R. TAB PO ONE ×2 (08:21→20:20)
[2021-03-09] MEDS ORDERED: LEXAPRO ONE (08:21)
[2021-03-09] MEDS: DUONEB 0.5 MG/3 MG (3 mL) NEB SCH ×4 (09:05→20:39)
[2021-03-09] MEDS: LYRICA CAP 150 mg PO SCH ×2 (09:49→21:35)
[2021-03-09] MEDS: LEXAPRO PO SCH (09:49)
[2021-03-09] MEDS: DEPAKOTE D.R. TAB PO SCH ×2 (09:50→21:35)
[2021-03-09] MEDS: COLACE CAP 100 MG PO SCH ×2 (09:50→21:35)
[2021-03-09] MEDS: SYNTHROID 150 mcg TAB PO SCH (09:50)
[2021-03-09] MEDS: DIPROLENE CREAM 0.05% TOP SCH ×2 (09:50→21:35)
[2021-03-09] MEDS: SINGULAIR TAB 10 MG PO SCH (09:50)
[2021-03-09] MEDS: PROTONIX INJ 40 MG VIAL IVP SCH (09:51)
[2021-03-09] MEDS: EXELON PO SCH ×2 (09:51→21:35)
[2021-03-09] MEDS: INVANZ INJ 1 GM VIAL 1 GM in NS 100 ML IV + SPIKE MINIBAG* 100 ML IV SCH (09:51)
[2021-03-09] MEDS: ZITHROMAX INJ 500 MG VIAL 500 MG in NS 250 ML IV 250 ML IV SCH (10:35)
--- NOTE | 2021-03-09 17:10 | PCM.PROG ---
Progress Note - Subjective Subjective: Mrs. Martinez is a 65-year-old white female who is a resident of [facility]. Patient ia alert but confused at baseline. The patient does have a history of dementia, as well as hard of hearing. chest x-ray shows pneumonia to the left lower lobe. Urine culture positive for ESBL. Continue IV abx - Past Medical Family Social History Past Med/Fam/Surg Hx: No changes since H&P Allergies: Allergies meperidine Allergy (Verified 02/19/21 07:37) - Review of Systems ROS: No change since H&P - Vital Signs and I&O's Vital Signs: Temperature 98.6 F Pulse Rate [Radial] 84 Pulse Rate 86 Respiratory Rate 20 Blood Pressure [Left Arm] 134/63 Blood Pressure 91/51 O2 Sat by Pulse Oximetry 95 Intake and Output: Intake & Output 03/06/21 03/07/21 03/08/21 03/09/21 23:59 23:59 23:59 23:59 Intake Total 3016 / 3016 1330 / 1330 2837 / 2837 2259 / 2259 Output Total 3925 / 3925 1240 / 1240 3725 / 3725 1150 / 1150 Balance -909 / -909 90 / 90 -888 / -888 1109 / 1109 - Physical Exam Oriented: Person, Not Oriented Eyes: Normal, Other (right eye longterm closed-chronic) Ear: Normal Nose: Normal Throat: Normal Respiratory: Generalized, Rhonchi Cardiovascular: Murmur : Other (mora) Auscultation: Bowel Sounds: Normal Palpation: Normal Tenderness: Normal Skin: Decreased Turgur, Rash (right lower leg, scalp psoriasis) Musculoskeletal: Right, Left, Motor Deficit Psychiatric: Anxiety Mood Description: Calm Affect: Anxious Speech Pattern: Clear, Appropriate - Laboratory and Diagnostics Result Diagrams: 03/09/21 05:16 03/09/21 05:16 Labs: 03/05/21 13:05 Urine,Catheterized Urine Culture - Final Escherichia Coli Escherichia Coli#2 03/05/21 12:05 Blood Blood Culture - Final 03/05/21 13:37 Blood Blood Culture - Preliminary Laboratory WBC 4.3 X10^3/uL (3.6-10.0) 03/09/21 05:16 RBC 3.04 X10^6/uL (3.5-5.4) L 03/09/21 05:16 Hgb 8.6 g/dL (12.0-16.0) L 03/09/21 05:16 Hct 26.6 % (36.0-47.0) L 03/09/21 05:16 MCV 87.6 fL (80.0-100.0) 03/09/21 05:16 MCH 28.2 pg (27.0-34.0) 03/09/21 05:16 MCHC 32.2 g/dL (33.0-35.0) L 03/09/21 05:16 RDW 16.8 % (11.6-16.5) H 03/09/21 05:16 Plt Count 84 X10^3/uL (150.0-450.0) L 03/09/21 05:16 Plt Count Comment Decreased (ADEQUATE) A 03/06/21 04:40 MPV 10.1 fL (7.4-11.0) 03/09/21 05:16 Neut % (Auto) 58.0 % (42.0-75.0) 03/09/21 05:16 Lymph % (Auto) 30.7 % (21.0-51.0) 03/09/21 05:16 [place] % (Auto) 8.9 % (0.0-13.0) 03/09/21 05:16 Eos % (Auto) 1.5 % (0.9-2.9) 03/09/21 05:16 Baso % (Auto) 0.9 % (0.2-1.0) 03/09/21 05:16 Neut # (Auto) 2.5 x10^3/uL (2.2-4.8) 03/09/21 05:16 Lymph # (Auto) 1.3 X10^3/uL (1.3-2.9) 03/09/21 05:16 [place] # (Auto) 0.4 x10^3/uL (0.3-0.8) 03/09/21 05:16 Eos # (Auto) 0.1 x10^3/uL (0.0-0.2) 03/09/21 05:16 Baso # (Auto) 0.0 X10^3/uL (0.0-0.1) 03/09/21 05:16 Absolute Nucleated RBC 0.1 /100WBC 03/09/21 05:16 Plt Morphology Comment Normal (NORMAL) 03/06/21 04:40 RBC Morphology Normal (NORMAL) 03/06/21 04:40 Sample Site Rr 03/05/21 13:18 ABG pH 7.400 (7.35-7.45) 03/05/21 13:18 ABG pCO2 58.0 mmHg (35.0-45.0) H* 03/05/21 13:18 ABG pO2 55.0 mmHg (80.0-100.0) L 03/05/21 13:18 ABG HCO3 35.9 mmol/L (22-26) H* 03/05/21 13:18 ABG O2 Saturation 88.0 % (90-100) L 03/05/21 13:18 ABG Base Excess 9.2 mmol/L (-2.0-2.0) H 03/05/21 13:18 Kasi Test Pos 03/05/21 13:18 A-a Gradient 186.0 mmHg 03/05/21 13:18 FiO2 44.0 03/05/21 13:18 Blood Gas Comments Matthieu well cb 03/05/21 13:18 Sodium 141 mmol/L (136-145) 03/09/21 05:16 Corrected Sodium TNP 03/09/21 05:16 Potassium 4.2 mmol/L (3.5-5.1) 03/09/21 05:16 Chloride 107 mmol/L (98-107) 03/09/21 05:16 Carbon Dioxide 31.4 mmol/L (21-32) 03/09/21 05:16 BUN 20 mg/dL (7-18) H 03/09/21 05:16 Creatinine 0.96 mg/dL (0.55-1.02) 03/09/21 05:16 Est GFR (MDRD) Af Amer > 60 (>60) 03/09/21 05:16 Est GFR (MDRD) Non-Af > 60 (>60) 03/09/21 05:16 Glucose 87 mg/dL (65-99) 03/09/21 05:16 POC Glucose (mg/dL) 104 mg/dL (65-99) H 03/09/21 16:30 Lactic Acid 1.9 mmol/L (0.4-2.0) 03/05/21 13:37 Calcium 7.5 mg/dL (8.5-10.1) L 03/09/21 05:16 Corrected Calcium 9.2 mg/dL (8.5-10.1) 03/09/21 05:16 Total Bilirubin 0.30 mg/dL (0.2-1.0) 03/09/21 05:16 AST 14 Units/L (15-37) L 03/09/21 05:16 ALT 17 Units/L (12-78) 03/09/21 05:16 Alkaline Phosphatase 46 Units/L (46-116) 03/09/21 05:16 Creatine Kinase 20 Units/L (26-192) L 03/05/21 12:50 CK-MB (CK-2) < 1.0 ng/mL (0-4.0) 03/05/21 12:50 CK/CKMB % Calc 5.0 % (<4) 03/05/21 12:50 Troponin I < 0.02 ng/mL (0-1.5) 03/05/21 12:50 B-Natriuretic Peptide 141 pg/mL (0-79) H 03/05/21 12:50 Total Protein 5.8 g/dL (6.4-8.2) L 03/09/21 05:16 Albumin 1.9 g/dL (3.4-5.0) L 03/09/21 05:16 Globulin 3.9 g/dL (2.5-4.5) 03/09/21 05:16 Albumin/Globulin Ratio 0.5 Ratio (1.1-2.1) L 03/09/21 05:16 Specimen Type Catherized urine 03/05/21 13:05 Urine Color Straw (YELLOW) 03/05/21 13:05 Urine Appearance Hazy (CLEAR) 03/05/21 13:05 Urine pH 6.5 (5.0 - 8.0) 03/05/21 13:05 Ur Specific [place] 1.015 (1.000-1.030) 03/05/21 13:05 Urine Protein 2+ (NEGATIVE) 03/05/21 13:05 Urine Glucose (UA) Negative (NEGATIVE) 03/05/21 13:05 Urine Ketones Negative (NEGATIVE) 03/05/21 13:05 Urine Occult Blood 2+ (NEGATIVE) 03/05/21 13:05 Urine Nitrite Positive (NEGATIVE) 03/05/21 13:05 Urine Bilirubin Negative (NEGATIVE) 03/05/21 13:05 Urine Urobilinogen Normal (NORMAL) 03/05/21 13:05 Ur Leukocyte Esterase 3+ (NEGATIVE) 03/05/21 13:05 Urine RBC 5-10 /HPF (0-3) A 03/05/21 13:05 Urine WBC Tntc /HPF (0-5) A 03/05/21 13:05 Ur Squamous Epith Cells Negative /HPF (NEGATIVE) 03/05/21 13:05 Urine Bacteria 2+ /HPF (NEGATIVE) 03/05/21 13:05 Urine Mucus Few /HPF (NEGATIVE) 03/05/21 13:05 Ur Culture Indicated? Yes/culture set up 03/05/21 13:05 Valproic Acid < 3.0 ug/mL (50-100) L 03/06/21 12:58 SARS-CoV-2 (PCR) Negative (NEGATIVE) 03/05/21 12:50 Influenza Type A (PCR) Negative (NEGATIVE) 03/05/21 12:50 Influenza Type B (PCR) Negative (NEGATIVE) 03/05/21 12:50 RSV (PCR) Negative (NEGATIVE) 03/05/21 12:50 - Plan (1) Urinary tract infection Status: Acute Plan: D/C rocephin. Start Invanz (2) Pneumonia Status: Acute Qualifiers: Qualified Code(s): J18.9 - Pneumonia, unspecified organism Plan: PNEUMONIA PROTOCOL. IV ATBX, RESP THERAPY. SUPPLEMENTAL O2. Cultures pending (3) Dementia Status: Chronic (4) Diabetes mellitus, type II Status: Chronic Qualifiers: Diabetes mellitus fpc insulin use: without fpc use Diabetes mellitus complication status: without complication Qualified Code(s): E11.9 - Type 2 diabetes mellitus without complications (5) CAD (coronary artery disease) Status: Chronic Qualifiers: Coronary Disease-Associated Artery/Lesion type: [place] artery [place] vs. transplanted heart: [place] heart Associated angina: without angina Qualified Code(s): I25.10 - Atherosclerotic heart disease of [place] coronary artery without angina pectoris (6) ESBL (extended spectrum beta-lactamase) producing bacteria infection Status: Acute Plan: IV Invanz
--- NOTE | 2021-03-09 21:02 | RAD ---
Chest AP portableIndication: PneumoniaCOMPARISONJanuary 2021FINDINGSHeart size is prominent with patchy bilateral pulmonary opacities. There is no pneumothorax. No large effusion convincingly demonstrated. Follow-up PA and lateral chest whenever possibleIMPRESSIONProminent heart size and patchy bilateral pulmonary opacities, similar to the prior. Position limits sensitivity significantlyElectronically signed by: KRISTA LOMELI (Mar 09, 2021 21:01:08)
[2021-03-09] MEDS: LIPITOR TAB 40 MG PO SCH (21:35)
[2021-03-09] MEDS: NORCO 5/325 MG TAB PO SCH (21:35)
[2021-03-10] MEDS: BUSPAR PO SCH ×3 (05:17→21:31)
[2021-03-10 06:45] LABS: BASOPHILS % (AUTO) 0.9 % (0.2-1.0); EOSINOPHILS # (AUTO) 0.1 x10^3/uL (0.0-0.2); EOSINOPHILS % (AUTO) 1.9 % (0.9-2.9); HEMATOCRIT 25.8 % (36.0-47.0); HEMOGLOBIN 8.4 g/dL (12.0-16.0); LYMPHOCYTES # (AUTO) 1.3 X10^3/uL (1.3-2.9); LYMPHOCYTES % (AUTO) 33.5 % (21.0-51.0); MEAN CORPUSCULAR HEMOGLOBIN 28.4 pg (27.0-34.0); MEAN CORPUSCULAR HGB CONC 32.5 g/dL (33.0-35.0); MEAN CORPUSCULAR VOLUME 87.5 fL (80.0-100.0); MEAN PLATELET VOLUME 10.5 fL (7.4-11.0); MONOCYTES # (AUTO) 0.3 x10^3/uL (0.3-0.8); MONOCYTES % (AUTO) 8.7 % (0.0-13.0); NEUTROPHILS # (AUTO) 2.1 x10^3/uL (2.2-4.8); PLATELET COUNT 86 X10^3/uL (150.0-450.0); RED BLOOD COUNT 2.95 X10^6/uL (3.5-5.4); RED CELL DISTRIBUTION WIDTH 16.3 % (11.6-16.5); WHITE BLOOD COUNT 3.8 X10^3/uL (3.6-10.0)
[2021-03-10 07:12] LABS: ALANINE AMINOTRANSFERASE 12 Units/L (12-78); ALBUMIN 1.7 g/dL (3.4-5.0); ALKALINE PHOSPHATASE 43 Units/L (46-116); ASPARTATE AMINO TRANSFERASE 15 Units/L (15-37); BLOOD UREA NITROGEN 17 mg/dL (7-18); CALCIUM 7.6 mg/dL (8.5-10.1); CARBON DIOXIDE 29.9 mmol/L (21-32); CHLORIDE 108 mmol/L (98-107); COR CA(FOR HYPOALB) 9.4 mg/dL (8.5-10.1); CREATININE 0.82 mg/dL (0.55-1.02); SODIUM 143 mmol/L (136-145); TOTAL PROTEIN 5.8 g/dL (6.4-8.2); eGFR NON BLACK RACES > 60 (>60)
[2021-03-10] MEDS: DUONEB 0.5 MG/3 MG (3 mL) NEB SCH ×4 (08:45→20:05)
[2021-03-10] MEDS ORDERED: LEXAPRO ONE (10:13)
[2021-03-10] MEDS ORDERED: DEPAKOTE D.R. TAB PO ONE ×2 (10:13→20:25)
[2021-03-10] MEDS: ZITHROMAX INJ 500 MG VIAL 500 MG in NS 250 ML IV 250 ML IV SCH (10:19)
[2021-03-10] MEDS: COLACE CAP 100 MG PO SCH ×2 (10:20→21:23)
[2021-03-10] MEDS: PROTONIX INJ 40 MG VIAL IVP SCH (10:20)
[2021-03-10] MEDS: INVANZ INJ 1 GM VIAL 1 GM in NS 100 ML IV + SPIKE MINIBAG* 100 ML IV SCH (10:20)
[2021-03-10] MEDS: DIPROLENE CREAM 0.05% TOP SCH ×2 (10:21→21:23)
[2021-03-10] MEDS: DEPAKOTE D.R. TAB PO SCH ×2 (10:21→21:22)
[2021-03-10] MEDS: LEXAPRO PO SCH (10:21)
[2021-03-10] MEDS: SYNTHROID 150 mcg TAB PO SCH (10:21)
[2021-03-10] MEDS: SINGULAIR TAB 10 MG PO SCH (10:22)
[2021-03-10] MEDS: LYRICA CAP 150 mg PO SCH ×2 (10:22→21:23)
[2021-03-10] MEDS: EXELON PO SCH ×2 (10:23→21:23)
[2021-03-10] MEDS: NS 1/2 1,000 ML IV 1,000 ML IV SCH (11:20)
[2021-03-10] MEDS: PHARMACY COMMENT TOP SCH ×2 (11:21→21:25)
[2021-03-10] MEDS: NORCO 5/325 MG TAB PO SCH (21:23)
[2021-03-10] MEDS: LIPITOR TAB 40 MG PO SCH (21:23)
--- NOTE | 2021-03-10 23:10 | PCM.PROG ---
Progress Note - Subjective Subjective: Mrs. Martinez is a 65-year-old white female who is a resident of [facility]. Patient ia alert but confused at baseline. The patient does have a history of dementia, as well as hard of hearing. chest x-ray shows pneumonia to the left lower lobe. Urine culture positive for ESBL. Continue IV abx. Possible plan for discharge in am. - Past Medical Family Social History Past Med/Fam/Surg Hx: No changes since H&P Allergies: Allergies meperidine Allergy (Verified 02/19/21 07:37) - Review of Systems ROS: No change since H&P - Vital Signs and I&O's Vital Signs: Temperature 98.0 F Pulse Rate [Radial] 95 Pulse Rate 88 Respiratory Rate 20 Blood Pressure [Left Arm] 142/65 Blood Pressure 91/51 O2 Sat by Pulse Oximetry 97 Intake and Output: Intake & Output 03/07/21 03/08/21 03/09/21 03/10/21 23:59 23:59 23:59 23:59 Intake Total 1330 / 1330 2837 / 2837 2659 / 2659 880 / 880 Output Total 1240 / 1240 3725 / 3725 1150 / 1150 1000 / 1000 Balance 90 / 90 -888 / -888 1509 / 1509 -120 / -120 - Physical Exam Oriented: Person, Not Oriented Eyes: Normal, Other (right eye jail closed-chronic) Ear: Normal Nose: Normal Throat: Normal Respiratory: Generalized, Rhonchi Cardiovascular: Murmur : Other (mora) Auscultation: Bowel Sounds: Normal Palpation: Normal Tenderness: Normal Skin: Decreased Turgur, Rash (right lower leg, scalp psoriasis) Musculoskeletal: Right, Left, Motor Deficit Psychiatric: Anxiety Mood Description: Calm Affect: Anxious Speech Pattern: Clear, Appropriate - Laboratory and Diagnostics Result Diagrams: 03/10/21 05:27 03/10/21 05:27 Labs: 03/05/21 13:05 Urine,Catheterized Urine Culture - Final Escherichia Coli Escherichia Coli#2 03/05/21 12:05 Blood Blood Culture - Final 03/05/21 13:37 Blood Blood Culture - Preliminary Laboratory WBC 3.8 X10^3/uL (3.6-10.0) 03/10/21 05:27 RBC 2.95 X10^6/uL (3.5-5.4) L 03/10/21 05:27 Hgb 8.4 g/dL (12.0-16.0) L 03/10/21 05:27 Hct 25.8 % (36.0-47.0) L 03/10/21 05:27 MCV 87.5 fL (80.0-100.0) 03/10/21 05:27 MCH 28.4 pg (27.0-34.0) 03/10/21 05:27 MCHC 32.5 g/dL (33.0-35.0) L 03/10/21 05:27 RDW 16.3 % (11.6-16.5) 03/10/21 05:27 Plt Count 86 X10^3/uL (150.0-450.0) L 03/10/21 05:27 Plt Count Comment Decreased (ADEQUATE) A 03/06/21 04:40 MPV 10.5 fL (7.4-11.0) 03/10/21 05:27 Neut % (Auto) 55.0 % (42.0-75.0) 03/10/21 05:27 Lymph % (Auto) 33.5 % (21.0-51.0) 03/10/21 05:27 [place] % (Auto) 8.7 % (0.0-13.0) 03/10/21 05:27 Eos % (Auto) 1.9 % (0.9-2.9) 03/10/21 05:27 Baso % (Auto) 0.9 % (0.2-1.0) 03/10/21 05:27 Neut # (Auto) 2.1 x10^3/uL (2.2-4.8) L 03/10/21 05:27 Lymph # (Auto) 1.3 X10^3/uL (1.3-2.9) 03/10/21 05:27 [place] # (Auto) 0.3 x10^3/uL (0.3-0.8) 03/10/21 05:27 Eos # (Auto) 0.1 x10^3/uL (0.0-0.2) 03/10/21 05:27 Baso # (Auto) 0.0 X10^3/uL (0.0-0.1) 03/10/21 05:27 Absolute Nucleated RBC 0.1 /100WBC 03/10/21 05:27 Plt Morphology Comment Normal (NORMAL) 03/06/21 04:40 RBC Morphology Normal (NORMAL) 03/06/21 04:40 Sample Site Rr 03/05/21 13:18 ABG pH 7.400 (7.35-7.45) 03/05/21 13:18 ABG pCO2 58.0 mmHg (35.0-45.0) H* 03/05/21 13:18 ABG pO2 55.0 mmHg (80.0-100.0) L 03/05/21 13:18 ABG HCO3 35.9 mmol/L (22-26) H* 03/05/21 13:18 ABG O2 Saturation 88.0 % (90-100) L 03/05/21 13:18 ABG Base Excess 9.2 mmol/L (-2.0-2.0) H 03/05/21 13:18 Kasi Test Pos 03/05/21 13:18 A-a Gradient 186.0 mmHg 03/05/21 13:18 FiO2 44.0 03/05/21 13:18 Blood Gas Comments Matthieu well cb 03/05/21 13:18 Sodium 143 mmol/L (136-145) 03/10/21 05:27 Corrected Sodium TNP 03/10/21 05:27 Potassium 4.4 mmol/L (3.5-5.1) 03/10/21 05:27 Chloride 108 mmol/L (98-107) H 03/10/21 05:27 Carbon Dioxide 29.9 mmol/L (21-32) 03/10/21 05:27 BUN 17 mg/dL (7-18) 03/10/21 05:27 Creatinine 0.82 mg/dL (0.55-1.02) 03/10/21 05:27 Est GFR (MDRD) Af Amer > 60 (>60) 03/10/21 05:27 Est GFR (MDRD) Non-Af > 60 (>60) 03/10/21 05:27 Glucose 79 mg/dL (65-99) 03/10/21 05:27 POC Glucose (mg/dL) 142 mg/dL (65-99) H 03/10/21 20:06 Lactic Acid 1.9 mmol/L (0.4-2.0) 03/05/21 13:37 Calcium 7.6 mg/dL (8.5-10.1) L 03/10/21 05:27 Corrected Calcium 9.4 mg/dL (8.5-10.1) 03/10/21 05:27 Total Bilirubin 0.30 mg/dL (0.2-1.0) 03/10/21 05:27 AST 15 Units/L (15-37) 03/10/21 05:27 ALT 12 Units/L (12-78) 03/10/21 05:27 Alkaline Phosphatase 43 Units/L (46-116) L 03/10/21 05:27 Creatine Kinase 20 Units/L (26-192) L 03/05/21 12:50 CK-MB (CK-2) < 1.0 ng/mL (0-4.0) 03/05/21 12:50 CK/CKMB % Calc 5.0 % (<4) 03/05/21 12:50 Troponin I < 0.02 ng/mL (0-1.5) 03/05/21 12:50 B-Natriuretic Peptide 141 pg/mL (0-79) H 03/05/21 12:50 Total Protein 5.8 g/dL (6.4-8.2) L 03/10/21 05:27 Albumin 1.7 g/dL (3.4-5.0) L 03/10/21 05:27 Globulin 4.1 g/dL (2.5-4.5) 03/10/21 05:27 Albumin/Globulin Ratio 0.4 Ratio (1.1-2.1) L 03/10/21 05:27 Specimen Type Catherized urine 03/05/21 13:05 Urine Color Straw (YELLOW) 03/05/21 13:05 Urine Appearance Hazy (CLEAR) 03/05/21 13:05 Urine pH 6.5 (5.0 - 8.0) 03/05/21 13:05 Ur Specific [place] 1.015 (1.000-1.030) 03/05/21 13:05 Urine Protein 2+ (NEGATIVE) 03/05/21 13:05 Urine Glucose (UA) Negative (NEGATIVE) 03/05/21 13:05 Urine Ketones Negative (NEGATIVE) 03/05/21 13:05 Urine Occult Blood 2+ (NEGATIVE) 03/05/21 13:05 Urine Nitrite Positive (NEGATIVE) 03/05/21 13:05 Urine Bilirubin Negative (NEGATIVE) 03/05/21 13:05 Urine Urobilinogen Normal (NORMAL) 03/05/21 13:05 Ur Leukocyte Esterase 3+ (NEGATIVE) 03/05/21 13:05 Urine RBC 5-10 /HPF (0-3) A 03/05/21 13:05 Urine WBC Tntc /HPF (0-5) A 03/05/21 13:05 Ur Squamous Epith Cells Negative /HPF (NEGATIVE) 03/05/21 13:05 Urine Bacteria 2+ /HPF (NEGATIVE) 03/05/21 13:05 Urine Mucus Few /HPF (NEGATIVE) 03/05/21 13:05 Ur Culture Indicated? Yes/culture set up 03/05/21 13:05 Valproic Acid < 3.0 ug/mL (50-100) L 03/06/21 12:58 SARS-CoV-2 (PCR) Negative (NEGATIVE) 03/05/21 12:50 Influenza Type A (PCR) Negative (NEGATIVE) 03/05/21 12:50 Influenza Type B (PCR) Negative (NEGATIVE) 03/05/21 12:50 RSV (PCR) Negative (NEGATIVE) 03/05/21 12:50 - Plan (1) Urinary tract infection Status: Acute Plan: D/C rocephin. Start Invanz (2) Pneumonia Status: Acute Qualifiers: Qualified Code(s): J18.9 - Pneumonia, unspecified organism Plan: PNEUMONIA PROTOCOL. IV ATBX, RESP THERAPY. SUPPLEMENTAL O2. Cultures pending (3) Dementia Status: Chronic (4) Diabetes mellitus, type II Status: Chronic Qualifiers: Diabetes mellitus termite technician insulin use: without termite technician use Diabetes mellitus complication status: without complication Qualified Code(s): E11.9 - Type 2 diabetes mellitus without complications (5) CAD (coronary artery disease) Status: Chronic Qualifiers: Coronary Disease-Associated Artery/Lesion type: [place] artery [place] vs. transplanted heart: [place] heart Associated angina: without angina Qualified Code(s): I25.10 - Atherosclerotic heart disease of [place] coronary artery without angina pectoris (6) ESBL (extended spectrum beta-lactamase) producing bacteria infection Status: Acute Plan: IV Invanz
[2021-03-11] MEDS: BUSPAR PO SCH ×3 (06:08→21:30)
[2021-03-11 06:29] LABS: ALANINE AMINOTRANSFERASE 12 Units/L (12-78); ALBUMIN 1.8 g/dL (3.4-5.0); ALKALINE PHOSPHATASE 48 Units/L (46-116); ASPARTATE AMINO TRANSFERASE 13 Units/L (15-37); BLOOD UREA NITROGEN 16 mg/dL (7-18); CALCIUM 7.7 mg/dL (8.5-10.1); CARBON DIOXIDE 29.4 mmol/L (21-32); CHLORIDE 107 mmol/L (98-107); COR CA(FOR HYPOALB) 9.5 mg/dL (8.5-10.1); CREATININE 0.85 mg/dL (0.55-1.02); SODIUM 140 mmol/L (136-145); TOTAL PROTEIN 6.1 g/dL (6.4-8.2); eGFR NON BLACK RACES > 60 (>60)
[2021-03-11 07:10] LABS: BASOPHILS % (AUTO) 0.5 % (0.2-1.0); EOSINOPHILS # (AUTO) 0.1 x10^3/uL (0.0-0.2); EOSINOPHILS % (AUTO) 1.5 % (0.9-2.9); HEMATOCRIT 25.4 % (36.0-47.0); HEMOGLOBIN 8.4 g/dL (12.0-16.0); MEAN CORPUSCULAR HGB CONC 33.1 g/dL (33.0-35.0); MEAN CORPUSCULAR VOLUME 87.7 fL (80.0-100.0); MONOCYTES # (AUTO) 0.6 x10^3/uL (0.3-0.8); MONOCYTES % (AUTO) 9.8 % (0.0-13.0); NEUTROPHILS # (AUTO) 4.3 x10^3/uL (2.2-4.8); NEUTROPHILS % (AUTO) 71.2 % (42.0-75.0); PLATELET COUNT 98 X10^3/uL (150.0-450.0); RED CELL DISTRIBUTION WIDTH 16.1 % (11.6-16.5)
[2021-03-11] MEDS: DUONEB 0.5 MG/3 MG (3 mL) NEB SCH ×4 (08:30→20:15)
[2021-03-11] MEDS ORDERED: LEXAPRO ONE (09:40)
[2021-03-11] MEDS ORDERED: DEPAKOTE D.R. TAB PO ONE ×2 (09:41→19:55)
[2021-03-11] MEDS: PROTONIX INJ 40 MG VIAL IVP SCH (09:51)
[2021-03-11] MEDS: INVANZ INJ 1 GM VIAL 1 GM in NS 100 ML IV + SPIKE MINIBAG* 100 ML IV SCH (09:52)
[2021-03-11] MEDS: COLACE CAP 100 MG PO SCH ×2 (09:52→21:30)
[2021-03-11] MEDS: ZITHROMAX INJ 500 MG VIAL 500 MG in NS 250 ML IV 250 ML IV SCH (09:52)
[2021-03-11] MEDS: LYRICA CAP 150 mg PO SCH ×2 (09:53→21:30)
[2021-03-11] MEDS: DEPAKOTE D.R. TAB PO SCH ×2 (09:53→21:30)
[2021-03-11] MEDS: SINGULAIR TAB 10 MG PO SCH (09:54)
[2021-03-11] MEDS: EXELON PO SCH ×2 (09:54→21:30)
[2021-03-11] MEDS: SYNTHROID 150 mcg TAB PO SCH (09:54)
[2021-03-11] MEDS: LEXAPRO PO SCH (09:54)
[2021-03-11] MEDS: DIPROLENE CREAM 0.05% TOP SCH ×2 (09:54→21:30)
[2021-03-11] MEDS: NS 1/2 1,000 ML IV 1,000 ML IV SCH (11:01)
[2021-03-11] MEDS: PHARMACY COMMENT TOP SCH (11:02)
[2021-03-11] MEDS: LIPITOR TAB 40 MG PO SCH (21:30)
[2021-03-11] MEDS: NORCO 5/325 MG TAB PO SCH (21:30)
[2021-03-12] MEDS ORDERED: TYLENOL 500 MG TAB EXTRA STRENGTH PO PRN (04:57)
--- NOTE | 2021-03-12 04:58 | PCM.PROG ---
Progress Note - Progress Note for Day of Date of Exam: 03/11/21 - Subjective Subjective: Mrs. Martinez is a 65-year-old white female who is a resident of [facility]. Patient ia alert but confused at baseline. The patient does have a history of dementia, as well as hard of hearing. chest x-ray shows bilateral pneumonia. Urine culture positive for ESBL. Continue IV abx. Possible plan for discharge to senior care in am. - Past Medical Family Social History Past Med/Fam/Surg Hx: No changes since H&P Allergies: Allergies meperidine Allergy (Verified 02/19/21 07:37) - Review of Systems ROS: No change since H&P - Vital Signs and I&O's Vital Signs: Temperature 97.5 F Pulse Rate [Radial] 80 Pulse Rate 95 Respiratory Rate 18 Blood Pressure [Left Arm] 97/49 Blood Pressure 91/51 O2 Sat by Pulse Oximetry 98 Intake and Output: Intake & Output 03/09/21 03/10/21 03/11/21 03/12/21 23:59 23:59 23:59 23:59 Intake Total 2659 / 2659 1380 / 1380 700 / 700 Output Total 1150 / 1150 1550 / 1550 800 / 800 Balance 1509 / 1509 -170 / -170 -100 / -100 - Physical Exam Oriented: Person, Not Oriented Eyes: Normal, Other (right eye fci closed-chronic) Ear: Normal Nose: Normal Throat: Normal Respiratory: Generalized, Rhonchi Cardiovascular: Murmur : Other (mora) Auscultation: Bowel Sounds: Normal Palpation: Normal Tenderness: Normal Skin: Decreased Turgur, Rash (right lower leg, scalp psoriasis) Musculoskeletal: Right, Left, Motor Deficit Psychiatric: Anxiety Mood Description: Calm Affect: Anxious Speech Pattern: Clear, Appropriate - Laboratory and Diagnostics Result Diagrams: 03/11/21 06:53 03/11/21 05:20 Labs: 03/05/21 13:05 Urine,Catheterized Urine Culture - Final Escherichia Coli Escherichia Coli#2 03/05/21 12:05 Blood Blood Culture - Final 03/05/21 13:37 Blood Blood Culture - Preliminary Laboratory WBC 6.0 X10^3/uL (3.6-10.0) 03/11/21 06:53 RBC 2.90 X10^6/uL (3.5-5.4) L 03/11/21 06:53 Hgb 8.4 g/dL (12.0-16.0) L 03/11/21 06:53 Hct 25.4 % (36.0-47.0) L 03/11/21 06:53 MCV 87.7 fL (80.0-100.0) 03/11/21 06:53 MCH 29.0 pg (27.0-34.0) 03/11/21 06:53 MCHC 33.1 g/dL (33.0-35.0) 03/11/21 06:53 RDW 16.1 % (11.6-16.5) 03/11/21 06:53 Plt Count 98 X10^3/uL (150.0-450.0) L 03/11/21 06:53 Plt Count Comment Cancelled 03/11/21 05:20 MPV 10.0 fL (7.4-11.0) 03/11/21 06:53 Neut % (Auto) 71.2 % (42.0-75.0) 03/11/21 06:53 Lymph % (Auto) 17.0 % (21.0-51.0) L 03/11/21 06:53 [place] % (Auto) 9.8 % (0.0-13.0) 03/11/21 06:53 Eos % (Auto) 1.5 % (0.9-2.9) 03/11/21 06:53 Baso % (Auto) 0.5 % (0.2-1.0) 03/11/21 06:53 Neut # (Auto) 4.3 x10^3/uL (2.2-4.8) 03/11/21 06:53 Lymph # (Auto) 1.0 X10^3/uL (1.3-2.9) L 03/11/21 06:53 [place] # (Auto) 0.6 x10^3/uL (0.3-0.8) 03/11/21 06:53 Eos # (Auto) 0.1 x10^3/uL (0.0-0.2) 03/11/21 06:53 Baso # (Auto) 0.0 X10^3/uL (0.0-0.1) 03/11/21 06:53 Absolute Nucleated RBC 0.0 /100WBC 03/11/21 06:53 Nucleated RBCs Cancelled 03/11/21 05:20 Atypical Lymphocytes Cancelled 03/11/21 05:20 Blast Cells Cancelled 03/11/21 05:20 Smudge Cells Cancelled 03/11/21 05:20 Toxic Granulation Cancelled 03/11/21 05:20 Dohle Bodies Cancelled 03/11/21 05:20 Rj Rods Cancelled 03/11/21 05:20 Plt Clumps, EDTA Cancelled 03/11/21 05:20 Giant Platelets Cancelled 03/11/21 05:20 Plt Morphology Comment Cancelled 03/11/21 05:20 RBC Morphology Cancelled 03/11/21 05:20 Dimorphic RBCs Cancelled 03/11/21 05:20 Polychromasia Cancelled 03/11/21 05:20 Hypochromasia Cancelled 03/11/21 05:20 Poikilocytosis Cancelled 03/11/21 05:20 Basophilic Stippling Cancelled 03/11/21 05:20 Anisocytosis Cancelled 03/11/21 05:20 Microcytosis Cancelled 03/11/21 05:20 Macrocytosis Cancelled 03/11/21 05:20 Spherocytes Cancelled 03/11/21 05:20 Pappenheimer Bodies Cancelled 03/11/21 05:20 Sickle Cells Cancelled 03/11/21 05:20 Target Cells Cancelled 03/11/21 05:20 Tear Drop Cells Cancelled 03/11/21 05:20 Ovalocytes Cancelled 03/11/21 05:20 Stomatocytes Cancelled 03/11/21 05:20 Helmet Cells Cancelled 03/11/21 05:20 Saul-Lemay Bodies Cancelled 03/11/21 05:20 [place] Rings Cancelled 03/11/21 05:20 Jaye Cells Cancelled 03/11/21 05:20 Crenated Cell Cancelled 03/11/21 05:20 Acanthocytes (Spur) Cancelled 03/11/21 05:20 Rouleaux Cancelled 03/11/21 05:20 Schistocytes Cancelled 03/11/21 05:20 Sample Site Rr 03/05/21 13:18 ABG pH 7.400 (7.35-7.45) 03/05/21 13:18 ABG pCO2 58.0 mmHg (35.0-45.0) H* 03/05/21 13:18 ABG pO2 55.0 mmHg (80.0-100.0) L 03/05/21 13:18 ABG HCO3 35.9 mmol/L (22-26) H* 03/05/21 13:18 ABG O2 Saturation 88.0 % (90-100) L 03/05/21 13:18 ABG Base Excess 9.2 mmol/L (-2.0-2.0) H 03/05/21 13:18 Kasi Test Pos 03/05/21 13:18 A-a Gradient 186.0 mmHg 03/05/21 13:18 FiO2 44.0 03/05/21 13:18 Blood Gas Comments Matthieu well cb 03/05/21 13:18 Sodium 140 mmol/L (136-145) 03/11/21 05:20 Corrected Sodium TNP 03/11/21 05:20 Potassium 4.2 mmol/L (3.5-5.1) 03/11/21 05:20 Chloride 107 mmol/L (98-107) 03/11/21 05:20 Carbon Dioxide 29.4 mmol/L (21-32) 03/11/21 05:20 BUN 16 mg/dL (7-18) 03/11/21 05:20 Creatinine 0.85 mg/dL (0.55-1.02) 03/11/21 05:20 Est GFR (MDRD) Af Amer > 60 (>60) 03/11/21 05:20 Est GFR (MDRD) Non-Af > 60 (>60) 03/11/21 05:20 Glucose 81 mg/dL (65-99) 03/11/21 05:20 POC Glucose (mg/dL) 81 mg/dL (65-99) 03/11/21 20:41 Lactic Acid 1.9 mmol/L (0.4-2.0) 03/05/21 13:37 Calcium 7.7 mg/dL (8.5-10.1) L 03/11/21 05:20 Corrected Calcium 9.5 mg/dL (8.5-10.1) 03/11/21 05:20 Total Bilirubin 0.20 mg/dL (0.2-1.0) 03/11/21 05:20 AST 13 Units/L (15-37) L 03/11/21 05:20 ALT 12 Units/L (12-78) 03/11/21 05:20 Alkaline Phosphatase 48 Units/L (46-116) 03/11/21 05:20 Creatine Kinase 20 Units/L (26-192) L 03/05/21 12:50 CK-MB (CK-2) < 1.0 ng/mL (0-4.0) 03/05/21 12:50 CK/CKMB % Calc 5.0 % (<4) 03/05/21 12:50 Troponin I < 0.02 ng/mL (0-1.5) 03/05/21 12:50 B-Natriuretic Peptide 141 pg/mL (0-79) H 03/05/21 12:50 Total Protein 6.1 g/dL (6.4-8.2) L 03/11/21 05:20 Albumin 1.8 g/dL (3.4-5.0) L 03/11/21 05:20 Globulin 4.3 g/dL (2.5-4.5) 03/11/21 05:20 Albumin/Globulin Ratio 0.4 Ratio (1.1-2.1) L 03/11/21 05:20 Specimen Type Catherized urine 03/05/21 13:05 Urine Color Straw (YELLOW) 03/05/21 13:05 Urine Appearance Hazy (CLEAR) 03/05/21 13:05 Urine pH 6.5 (5.0 - 8.0) 03/05/21 13:05 Ur Specific [place] 1.015 (1.000-1.030) 03/05/21 13:05 Urine Protein 2+ (NEGATIVE) 03/05/21 13:05 Urine Glucose (UA) Negative (NEGATIVE) 03/05/21 13:05 Urine Ketones Negative (NEGATIVE) 03/05/21 13:05 Urine Occult Blood 2+ (NEGATIVE) 03/05/21 13:05 Urine Nitrite Positive (NEGATIVE) 03/05/21 13:05 Urine Bilirubin Negative (NEGATIVE) 03/05/21 13:05 Urine Urobilinogen Normal (NORMAL) 03/05/21 13:05 Ur Leukocyte Esterase 3+ (NEGATIVE) 03/05/21 13:05 Urine RBC 5-10 /HPF (0-3) A 03/05/21 13:05 Urine WBC Tntc /HPF (0-5) A 03/05/21 13:05 Ur Squamous Epith Cells Negative /HPF (NEGATIVE) 03/05/21 13:05 Urine Bacteria 2+ /HPF (NEGATIVE) 03/05/21 13:05 Urine Mucus Few /HPF (NEGATIVE) 03/05/21 13:05 Ur Culture Indicated? Yes/culture set up 03/05/21 13:05 Valproic Acid < 3.0 ug/mL (50-100) L 03/06/21 12:58 SARS-CoV-2 (PCR) Negative (NEGATIVE) 03/05/21 12:50 Influenza Type A (PCR) Negative (NEGATIVE) 03/05/21 12:50 Influenza Type B (PCR) Negative (NEGATIVE) 03/05/21 12:50 RSV (PCR) Negative (NEGATIVE) 03/05/21 12:50 - Plan (1) Urinary tract infection Status: Acute Plan: D/C rocephin. Start Invanz (2) Pneumonia Status: Acute Qualifiers: Qualified Code(s): J18.9 - Pneumonia, unspecified organism Plan: PNEUMONIA PROTOCOL. IV ATBX, RESP THERAPY. SUPPLEMENTAL O2. Cultures pending (3) Dementia Status: Chronic (4) Diabetes mellitus, type II Status: Chronic Qualifiers: Diabetes mellitus equipment operator intermodal yard insulin use: without equipment operator intermodal yard use Diabetes mellitus complication status: without complication Qualified Code(s): E11.9 - Type 2 diabetes mellitus without complications (5) CAD (coronary artery disease) Status: Chronic Qualifiers: Coronary Disease-Associated Artery/Lesion type: [place] artery [place] vs. transplanted heart: [place] heart Associated angina: without angina Qualified Code(s): I25.10 - Atherosclerotic heart disease of [place] coronary artery without angina pectoris (6) ESBL (extended spectrum beta-lactamase) producing bacteria infection Status: Acute Plan: IV Invanz (7) Sacral decubitus ulcer Status: Acute Plan: wound care
[2021-03-12] MEDS: NS 1/2 1,000 ML IV 1,000 ML IV SCH ×3 (05:00→10:55)
[2021-03-12] MEDS: PHARMACY COMMENT TOP SCH (05:57)
[2021-03-12] MEDS: BUSPAR PO SCH (05:59)
[2021-03-12 06:25] LABS: BASOPHILS % (AUTO) 0.6 % (0.2-1.0); EOSINOPHILS # (AUTO) 0.1 x10^3/uL (0.0-0.2); EOSINOPHILS % (AUTO) 1.4 % (0.9-2.9); HEMATOCRIT 25.1 % (36.0-47.0); HEMOGLOBIN 8.2 g/dL (12.0-16.0); LYMPHOCYTES # (AUTO) 1.2 X10^3/uL (1.3-2.9); LYMPHOCYTES % (AUTO) 22.3 % (21.0-51.0); MEAN CORPUSCULAR HGB CONC 32.8 g/dL (33.0-35.0); MEAN CORPUSCULAR VOLUME 88.3 fL (80.0-100.0); MEAN PLATELET VOLUME 10.1 fL (7.4-11.0); MONOCYTES # (AUTO) 0.6 x10^3/uL (0.3-0.8); MONOCYTES % (AUTO) 10.9 % (0.0-13.0); NEUTROPHILS # (AUTO) 3.4 x10^3/uL (2.2-4.8); NEUTROPHILS % (AUTO) 64.8 % (42.0-75.0); PLATELET COUNT 102 X10^3/uL (150.0-450.0); RED BLOOD COUNT 2.84 X10^6/uL (3.5-5.4); WHITE BLOOD COUNT 5.2 X10^3/uL (3.6-10.0)
[2021-03-12 06:37] LABS: ALANINE AMINOTRANSFERASE 10 Units/L (12-78); ALBUMIN 1.7 g/dL (3.4-5.0); ALKALINE PHOSPHATASE 54 Units/L (46-116); ASPARTATE AMINO TRANSFERASE 9 Units/L (15-37); BLOOD UREA NITROGEN 16 mg/dL (7-18); CALCIUM 7.8 mg/dL (8.5-10.1); CARBON DIOXIDE 30.9 mmol/L (21-32); CHLORIDE 108 mmol/L (98-107); COR CA(FOR HYPOALB) 9.6 mg/dL (8.5-10.1); CREATININE 0.97 mg/dL (0.55-1.02); SODIUM 142 mmol/L (136-145); TOTAL PROTEIN 5.9 g/dL (6.4-8.2); eGFR NON BLACK RACES > 60 (>60)
[2021-03-12] MEDS ORDERED: K-DUR TAB 20 MEQ PO SCH (09:00)
[2021-03-12] MEDS ORDERED: PROTONIX TAB 40 MG PO SCH (09:00)
[2021-03-12] MEDS ORDERED: HEMOCYTE-PLUS PO SCH (09:00)
[2021-03-12] MEDS ORDERED: ZINC SULFATE PO SCH (09:00)
[2021-03-12] MEDS ORDERED: PATIENT'S HOME MEDICATION (Zinc 50 mg Tablet) PO SCH (09:00)
[2021-03-12] MEDS ORDERED: ARGININE GLUTAMINE CALCIUM HMB PO SCH (09:00)
[2021-03-12] MEDS ORDERED: VITAMIN C PO SCH (09:00)
[2021-03-12] MEDS ORDERED: FLONASE NASAL SPRAY ENOSTRIL SCH (09:00)
[2021-03-12] MEDS ORDERED: [UNRECOGNIZED DRUG - OTHER] PO SCH (09:00)
[2021-03-12] MEDS ORDERED: FLUOCINONIDE 0.05% TOP SCH (09:00)
[2021-03-12] MEDS: DUONEB 0.5 MG/3 MG (3 mL) NEB SCH (09:05)
[2021-03-12] MEDS ORDERED: LASIX IVP ONE (09:28)
[2021-03-12 10:14] LABS: ABG BASE EXCESS 6.3 mmol/L (-2.0-2.0)
[2021-03-12] MEDS ORDERED: DEPAKOTE D.R. TAB PO ONE (10:15)
[2021-03-12] MEDS ORDERED: LEXAPRO ONE (10:15)
[2021-03-12 10:17] LABS: ABG HCO3 33.7 mmol/L (22-26)
[2021-03-12 10:18] LABS: ABG ALLEN TEST POS
[2021-03-12] MEDS: ZITHROMAX INJ 500 MG VIAL 500 MG in NS 250 ML IV 250 ML IV SCH (10:23)
[2021-03-12] MEDS: EXELON PO SCH (10:24)
[2021-03-12] MEDS: INVANZ INJ 1 GM VIAL 1 GM in NS 100 ML IV + SPIKE MINIBAG* 100 ML IV SCH (10:24)
[2021-03-12] MEDS: SYNTHROID 150 mcg TAB PO SCH (10:25)
[2021-03-12] MEDS: PROTONIX INJ 40 MG VIAL IVP SCH (10:25)
[2021-03-12] MEDS: LEXAPRO PO SCH (10:26)
[2021-03-12] MEDS: COLACE CAP 100 MG PO SCH (10:26)
[2021-03-12] MEDS: SINGULAIR TAB 10 MG PO SCH (10:27)
[2021-03-12] MEDS: LYRICA CAP 150 mg PO SCH (10:27)
[2021-03-12] MEDS: DEPAKOTE D.R. TAB PO SCH (10:27)
[2021-03-12] MEDS: DIPROLENE CREAM 0.05% TOP SCH (10:28)
--- NOTE | 2021-03-12 12:16 | RAD ---
HISTORYPNEUMONIA follow-upSTUDYCHEST x-ray, 1 VIEWCOMPARISONX-ray 03/09/2021FINDINGSBilateral lung infiltrates are similar to prior study. Heart is probably normal in size. No pneumothorax or pleural effusion is seen.IMPRESSIONBilateral lung infiltrates are similar to prior study.Electronically signed by: Marcelo Minor (Mar 12, 2021 12:14:33)
[2021-03-12 14:06] VITALS: BP 156/68
== END 2021-03-12 15:30 | DRG 193 ==
LOC: MED/SURG 12:06 → ER 12:06 → OBSVTOIN 18:42 → MED/SURG 19:15
PROVIDERS: ADMIT Internal Medicine; ATTEND Internal Medicine
DX: B96.29 Other Escherichia coli [E. coli] as the cause of diseases classified elsewhere; N39.0 Urinary tract infection, site not specified; F03.90 Unspecified dementia, unspecified severity, without behavioral disturbance, psychotic disturbance, mood disturbance, and anxiety; I10 Essential (primary) hypertension; L89.159 Pressure ulcer of sacral region, unspecified stage; I25.10 Atherosclerotic heart disease of native coronary artery without angina pectoris; I95.89 Other hypotension; J18.8 Other pneumonia, unspecified organism; R79.82 Elevated C-reactive protein (CRP); J96.21 Acute and chronic respiratory failure with hypoxia

== ENCOUNTER 2022-03-24 12:42 | Observation (INO) ==
--- NOTE | 2022-03-24 13:25 | DR.AMS ---
HPI Time Seen Time Seen by Provider: 03/24/22 13:24 PCP Primary Care Physician: DR MANJARREZ Complaint Cheif Complaint Doctors Comments: 66 y/o detention pt sent over for evaluation. Reportedly lethargic all morning. Brought to ER on stretcher, isidro keita at nursing staff. Per NH staff, that is pt's baseline. Pt with dementia, unable to offer complaints. No report of fever, vomiting, bowel/bladder changes per NH. + h/o COPD. Chief Complaint:: ACCORDING TO RETIREMENT STAFF PT HAS BEEN LETHARGIC TODAY WITH O2 SAT REPORTED TO BE 78% ON ROOM AIR. PT ARRIVED ON 2 L O2 VIA NC. PT WAS AWAKE AND CONFUSED AND COMBATIVE WITH STAFF WHICH IS PT'S BASELINE MENTAL STATUS. O2 SAT ON RA UPON ARRIVAL TO ED IS 96%. Self Treatment fo Chief Complaint: BLOOD SUGAR ON ARRIVAL IS 62. COVID-19 Coronavirus risk:travel/contact w/high risk person: No Has patient experienced Coronavirus symptoms: No Reviewed Nurses Notes Reviewed: Yes Source History Provided: [facility] Mode of Arrival Mode of Arrival: Stretcher Timing Onset of Chief Complaint: 03/24/22 PMH PMH Past Medical History: Yes Past Medical History: Anemia, Anxiety, CHF, COPD, Coronary Artery Disease, Dementia, Depression, Diabetes, Dyslipidemia, GERD, Hypothyroidism and Renal Disease Past Medical History Comment: RLS,PSYCHOSIS Past Surgical History: Yes Surgical History: Cholecystectomy and Hysterectomy Family History History of Family Medical Conditions: Yes Family Medical History: Diabetes Mellitus, Cancer, [place] and Hypertension Social History Does patient currently use any type of tobacco product: No Have you used tobacco products in the last 12 months: No Type of Tobacco Use: None Does any household member use tobacco: No Alcohol Use: None Do you use any recreational Drugs:: No Lives With: Alone Lives Where: [facility] Travel Risk Coronavirus risk:travel/contact w/high risk person: No Has patient experienced Coronavirus symptoms: No Infectious screening In the last 2 months have you had wt loss of >10#?: NO Have you had fever, night sweats or hemotysis?: No Have you traveled outside the country in the last 6 months?: No Isolation: Standard ROS Review of Systems Unable to Obtain Due To: Dementia PE Vitals Vital Signs: Temp Pulse Resp BP BP Pulse Ox FiO2 03/24/22 15:00 76 100 01/19/23 14:45 67 100 03/24/22 14:30 68 100 03/24/22 14:15 70 100 03/24/22 14:00 73 100 03/24/22 13:55 76 100 03/24/22 12:52 97.5 F L 68 20 129/67 96 02/18/22 03:00 119/58 02/18/22 03:16 119/58 03/11/21 20:15 32 General General Appearance: Other (sleepy, but easily arousable. Talking nonsense ("I just had a baby", Im here to get clothes for my ")) Head Head Exam: Normal Inspection, Atraumatic and Normocephalic ENT ENT Exam: Mucous Membranes Moist and Other (+ chronic gasper out R eye) Neck Neck Exam: Normal Inspection and Full ROM; negative Tenderness Respiratory Respiratory Exam: Normal Lung Sounds Bilat; negative Accessory Muscle Use or Respiratory Distress Cardiovascular Cardiovascular Exam: Regular Rate, Normal Rhythm and Normal Heart Sounds Extremities Extremities Exam: Normal Inspection; negative Edema Neurological Neurological Exam: Alert and CN II-XII Intact; negative Motor Sensory Deficit Skin Skin Exam: Warm and Dry COURSE Treatment Treatment: 66 y/o NH pt sent for evaluation. Reportedly lethargic earlier, not lethargic on arrival. + a bit combatant. + dementia. Pulse of low 90's on RA, + 100 % on 2 L NC. CXR obtained - + increased markings of R side, unable to visualize the R hemidiaphragm, concerning for pneumonia. Will obtain labs, Pt given IV fluids, IV Rocephin. Discussed with her attending, Dr Manjarrez. Will admit for IV antibiotics, and keep on O2. ROR Labs Reviewed Laboratory Results Reviewed?: Yes Result Diagrams: 03/24/22 15:01 03/24/22 15:01 Laboratory: WBC 4.6 X10^3/uL (3.6-10.0) 03/24/22 15:01 RBC 4.08 X10^6/uL (3.5-5.4) 03/24/22 15:01 Hgb 11.9 g/dL (12.0-16.0) L 03/24/22 15:01 Hct 36.8 % (36.0-47.0) 03/24/22 15:01 MCV 90.3 fL (80.0-100.0) 03/24/22 15:01 MCH 29.3 pg (27.0-34.0) 03/24/22 15:01 MCHC 32.4 g/dL (33.0-35.0) L 03/24/22 15:01 RDW 15.7 % (11.6-16.5) 03/24/22 15:01 Plt Count 96 X10^3/uL (150.0-450.0) L 03/24/22 15:01 MPV 10.1 fL (7.4-11.0) 03/24/22 15:01 Neut % (Auto) 51.7 % (42.0-75.0) 03/24/22 15:01 Lymph % (Auto) 38.3 % (21.0-51.0) 03/24/22 15:01 [place] % (Auto) 7.3 % (0.0-13.0) 03/24/22 15:01 Eos % (Auto) 1.7 % (0.9-2.9) 03/24/22 15:01 Baso % (Auto) 1.0 % (0.2-1.0) 03/24/22 15:01 Neut # (Auto) 2.4 x10^3/uL (2.2-4.8) 03/24/22 15:01 Lymph # (Auto) 1.8 X10^3/uL (1.3-2.9) 03/24/22 15:01 [place] # (Auto) 0.3 x10^3/uL (0.3-0.8) 03/24/22 15:01 Eos # (Auto) 0.1 x10^3/uL (0.0-0.2) 03/24/22 15:01 Baso # (Auto) 0.0 X10^3/uL (0.0-0.1) 03/24/22 15:01 Absolute Nucleated RBC 0.1 /100WBC 03/24/22 15:01 Sodium 144 mmol/L (136-145) 03/24/22 15:01 Corrected Sodium TNP 03/24/22 15:01 Potassium 4.6 mmol/L (3.5-5.1) 03/24/22 15:01 Chloride 107 mmol/L (98-107) 03/24/22 15:01 Carbon Dioxide 35.7 mmol/L (21-32) H 03/24/22 15:01 BUN 29 mg/dL (7-18) H 03/24/22 15:01 Creatinine 1.17 mg/dL (0.55-1.02) H 03/24/22 15:01 Est GFR (MDRD) Af Amer 59 (>60) 03/24/22 15:01 Est GFR (MDRD) Non-Af 49 (>60) L 03/24/22 15:01 Glucose 73 mg/dL (65-99) 03/24/22 15:01 Lactic Acid 0.3 mmol/L (0.4-2.0) L 03/24/22 15:01 Calcium 7.8 mg/dL (8.5-10.1) L 03/24/22 15:01 Corrected Calcium 9.4 mg/dL (8.5-10.1) 03/24/22 15:01 Total Bilirubin 0.30 mg/dL (0.2-1.0) 03/24/22 15:01 AST 12 Units/L (15-37) L 03/24/22 15:01 ALT 11 Units/L (12-78) L 03/24/22 15:01 Alkaline Phosphatase 59 Units/L (46-116) 03/24/22 15:01 Troponin I High Sens 27.5 ng/L (4.0-60.0) 03/24/22 15:01 B-Natriuretic Peptide 84.8 pg/mL (0-79) H 03/24/22 15:01 Total Protein 5.7 g/dL (6.4-8.2) L 03/24/22 15:01 Albumin 2.0 g/dL (3.4-5.0) L 03/24/22 15:01 Globulin 3.7 g/dL (2.5-4.5) 03/24/22 15:01 Albumin/Globulin Ratio 0.5 Ratio (1.1-2.1) L 03/24/22 15:01 SARS CoV-2 RNA Rapid KELLIE Negative (NEGATIVE) 03/24/22 13:51 Labs acceptable. Opioid Opioid Risk Tool Age ([place] box if 16-45): No History of Preadolescent Sexual Abuse: No Total: 0 Total Score Risk Category: Low Risk Copyright: David MANRIQUEZ predicting aberrant behaviors Discharge Plan Diagnosis Discharge Problem: RLL pneumonia Discharge Plan Patient Disposition: 09 ADMITTED INPATIENT Condition: Stable Orders to Discharge Patient Discharge Orders: Transfer (Routine); Ordered 03/24/22 Ordered By: Roly James
[2022-03-24] MEDS ORDERED: NS 500 ML IV 500 ML IV ONE ×2 (14:52→15:05)
[2022-03-24] MEDS ORDERED: ROCEPHIN VIAL 1 GRAM 1 G in NS 100 ML IV 100 ML IV ONE (14:53)
[2022-03-24] MEDS ORDERED: ROCEPHIN VIAL 1 GRAM ONE (15:05)
[2022-03-24] MEDS ORDERED: NS 100 ML IV 100 ML ONE (15:05)
[2022-03-24 15:20] LABS: EOSINOPHILS # (AUTO) 0.1 x10^3/uL (0.0-0.2); EOSINOPHILS % (AUTO) 1.7 % (0.9-2.9); HEMATOCRIT 36.8 % (36.0-47.0); HEMOGLOBIN 11.9 g/dL (12.0-16.0); LYMPHOCYTES # (AUTO) 1.8 X10^3/uL (1.3-2.9); LYMPHOCYTES % (AUTO) 38.3 % (21.0-51.0); MEAN CORPUSCULAR HEMOGLOBIN 29.3 pg (27.0-34.0); MEAN CORPUSCULAR HGB CONC 32.4 g/dL (33.0-35.0); MEAN CORPUSCULAR VOLUME 90.3 fL (80.0-100.0); MEAN PLATELET VOLUME 10.1 fL (7.4-11.0); MONOCYTES # (AUTO) 0.3 x10^3/uL (0.3-0.8); MONOCYTES % (AUTO) 7.3 % (0.0-13.0); NEUTROPHILS # (AUTO) 2.4 x10^3/uL (2.2-4.8); NEUTROPHILS % (AUTO) 51.7 % (42.0-75.0); RED BLOOD COUNT 4.08 X10^6/uL (3.5-5.4); RED CELL DISTRIBUTION WIDTH 15.7 % (11.6-16.5); WHITE BLOOD COUNT 4.6 X10^3/uL (3.6-10.0)
[2022-03-24 15:36] LABS: LACTIC ACID 0.3 mmol/L (0.4-2.0)
[2022-03-24 15:46] LABS: ALANINE AMINOTRANSFERASE 11 Units/L (12-78); ALKALINE PHOSPHATASE 59 Units/L (46-116); BLOOD UREA NITROGEN 29 mg/dL (7-18); CALCIUM 7.8 mg/dL (8.5-10.1); CARBON DIOXIDE 35.7 mmol/L (21-32); CHLORIDE 107 mmol/L (98-107); COR CA(FOR HYPOALB) 9.4 mg/dL (8.5-10.1); CREATININE 1.17 mg/dL (0.55-1.02); SODIUM 144 mmol/L (136-145); TOTAL PROTEIN 5.7 g/dL (6.4-8.2); eGFR NON BLACK RACES 49 (>60)
[2022-03-24 16:06] LABS: ASPARTATE AMINO TRANSFERASE 12 Units/L (15-37)
--- NOTE | 2022-03-24 16:57 | DR.AMS ---
HPI Time Seen Time Seen by Provider: 03/24/22 13:24 PCP Primary Care Physician: DR MANJARREZ Complaint Chief Complaint:: ACCORDING TO [facility] PT HAS BEEN LETHARGIC TODAY WITH O2 SAT REPORTED TO BE 78% ON ROOM AIR. PT ARRIVED ON 2 L O2 VIA NC. PT WAS AWAKE AND CONFUSED AND COMBATIVE WITH STAFF WHICH IS PT'S BASELINE MENTAL STATUS. O2 SAT ON RA UPON ARRIVAL TO ED IS 96%. Self Treatment fo Chief Complaint: BLOOD SUGAR ON ARRIVAL IS 62. COVID-19 Coronavirus risk:travel/contact w/high risk person: No Has patient experienced Coronavirus symptoms: No Reviewed Nurses Notes Reviewed: Yes Source History Provided: Group Home Mode of Arrival Mode of Arrival: Stretcher Timing Onset of Chief Complaint: 03/24/22 PMH PMH Past Medical History: Yes Past Medical History: Anemia, Anxiety, CHF, COPD, Coronary Artery Disease, Dementia, Depression, Diabetes, Dyslipidemia, GERD, Hypothyroidism and Renal Disease Past Medical History Comment: RLS,PSYCHOSIS Past Surgical History: Yes Surgical History: Cholecystectomy and Hysterectomy Family History History of Family Medical Conditions: Yes Family Medical History: Diabetes Mellitus and Hypertension Social History Does patient currently use any type of tobacco product: No Have you used tobacco products in the last 12 months: No Type of Tobacco Use: None Does any household member use tobacco: No Alcohol Use: None Do you use any recreational Drugs:: No Lives With: Other Lives Where: Group Home Travel Risk Coronavirus risk:travel/contact w/high risk person: No Has patient experienced Coronavirus symptoms: No Infectious screening In the last 2 months have you had wt loss of >10#?: NO Have you had fever, night sweats or hemotysis?: No Have you traveled outside the country in the last 6 months?: No Isolation: Standard PE Vitals Vital Signs: Temp Pulse Resp BP BP Pulse Ox FiO2 03/24/22 15:00 76 100 03/24/22 14:45 67 100 03/24/22 14:30 68 100 03/24/22 14:15 70 100 03/24/22 14:00 73 100 03/24/22 13:55 76 100 03/24/22 12:52 97.5 F L 68 20 129/67 96 02/18/22 03:00 119/58 02/18/22 03:16 119/58 03/11/21 20:15 32 ROR Labs Reviewed Result Diagrams: 03/24/22 15:01 03/24/22 15:01 Laboratory: WBC 4.6 X10^3/uL (3.6-10.0) 03/24/22 15:01 RBC 4.08 X10^6/uL (3.5-5.4) 03/24/22 15:01 Hgb 11.9 g/dL (12.0-16.0) L 03/24/22 15:01 Hct 36.8 % (36.0-47.0) 03/24/22 15:01 MCV 90.3 fL (80.0-100.0) 03/24/22 15:01 MCH 29.3 pg (27.0-34.0) 03/24/22 15:01 MCHC 32.4 g/dL (33.0-35.0) L 03/24/22 15:01 RDW 15.7 % (11.6-16.5) 03/24/22 15:01 Plt Count 96 X10^3/uL (150.0-450.0) L 03/24/22 15:01 MPV 10.1 fL (7.4-11.0) 03/24/22 15:01 Neut % (Auto) 51.7 % (42.0-75.0) 03/24/22 15:01 Lymph % (Auto) 38.3 % (21.0-51.0) 03/24/22 15:01 [place] % (Auto) 7.3 % (0.0-13.0) 03/24/22 15:01 Eos % (Auto) 1.7 % (0.9-2.9) 03/24/22 15:01 Baso % (Auto) 1.0 % (0.2-1.0) 03/24/22 15:01 Neut # (Auto) 2.4 x10^3/uL (2.2-4.8) 03/24/22 15:01 Lymph # (Auto) 1.8 X10^3/uL (1.3-2.9) 03/24/22 15:01 [place] # (Auto) 0.3 x10^3/uL (0.3-0.8) 03/24/22 15:01 Eos # (Auto) 0.1 x10^3/uL (0.0-0.2) 03/24/22 15:01 Baso # (Auto) 0.0 X10^3/uL (0.0-0.1) 03/24/22 15:01 Absolute Nucleated RBC 0.1 /100WBC 03/24/22 15:01 Sodium 144 mmol/L (136-145) 03/24/22 15:01 Corrected Sodium TNP 03/24/22 15:01 Potassium 4.6 mmol/L (3.5-5.1) 03/24/22 15:01 Chloride 107 mmol/L (98-107) 03/24/22 15:01 Carbon Dioxide 35.7 mmol/L (21-32) H 03/24/22 15:01 BUN 29 mg/dL (7-18) H 03/24/22 15:01 Creatinine 1.17 mg/dL (0.55-1.02) H 03/24/22 15:01 Est GFR (MDRD) Af Amer 59 (>60) 03/24/22 15:01 Est GFR (MDRD) Non-Af 49 (>60) L 03/24/22 15:01 Glucose 73 mg/dL (65-99) 03/24/22 15:01 Lactic Acid 0.3 mmol/L (0.4-2.0) L 03/24/22 15:01 Calcium 7.8 mg/dL (8.5-10.1) L 03/24/22 15:01 Corrected Calcium 9.4 mg/dL (8.5-10.1) 03/24/22 15:01 Total Bilirubin 0.30 mg/dL (0.2-1.0) 03/24/22 15:01 AST 12 Units/L (15-37) L 03/24/22 15:01 ALT 11 Units/L (12-78) L 03/24/22 15:01 Alkaline Phosphatase 59 Units/L (46-116) 03/24/22 15:01 Troponin I High Sens 27.5 ng/L (4.0-60.0) 03/24/22 15:01 B-Natriuretic Peptide 84.8 pg/mL (0-79) H 03/24/22 15:01 Total Protein 5.7 g/dL (6.4-8.2) L 03/24/22 15:01 Albumin 2.0 g/dL (3.4-5.0) L 03/24/22 15:01 Globulin 3.7 g/dL (2.5-4.5) 03/24/22 15:01 Albumin/Globulin Ratio 0.5 Ratio (1.1-2.1) L 03/24/22 15:01 SARS CoV-2 RNA Rapid KELLIE Negative (NEGATIVE) 03/24/22 13:51 Opioid Opioid Risk Tool Age (Usama box if 16-45): No History of Preadolescent Sexual Abuse: No Total: 0 Total Score Risk Category: Low Risk Copyright: David MANRIQUEZ predicting aberrant behaviors Discharge Plan Diagnosis Discharge Problem: RLL pneumonia Discharge Plan Patient Disposition: 09 ADMITTED INPATIENT Condition: Stable Orders to Discharge Patient Discharge Orders: Transfer (Routine); Ordered 03/24/22 Ordered By: Roly James
[2022-03-24] MEDS ORDERED: ULTRAM PO PRN (17:23)
[2022-03-24] MEDS: NS 1,000 ML IV 1,000 ML IV SCH (18:20)
[2022-03-24] MEDS: ZITHROMAX INJ 500 MG VIAL 500 MG in D5W 250 ML IV 250 ML IV SCH (18:20)
[2022-03-24] MEDS ORDERED: PULMICORT NEB TX 0.5 MG NEB ONE (19:13)
[2022-03-24] MEDS ORDERED: DUONEB 0.5 MG/3 MG (3 mL) NEB ONE (19:13)
--- NOTE | 2022-03-24 19:42 | RAD ---
HISTORYlow pulse oxSTUDYCHEST, 1 [id number]/2022FINDINGSThe cardiomediastinal silhouette is stable. Right-sided pleural parenchymal opacities. No pneumothorax. The bony thorax appears intact.IMPRESSIONRight-sided pleural parenchymal opacities. Recommend follow-up to resolution.Electronically signed by: KENYATTA LEARY (Mar 24, 2022 19:40:28)
[2022-03-24] MEDS: DUONEB 0.5 MG/3 MG (3 mL) NEB SCH (20:15)
[2022-03-24] MEDS: PULMICORT NEB TX 0.5 MG NEB SCH (20:15)
[2022-03-24] MEDS ORDERED: LEXAPRO ONE (20:16)
[2022-03-24] MEDS ORDERED: DEPAKOTE D.R. TAB PO ONE (20:16)
[2022-03-24] MEDS ORDERED: [UNRECOGNIZED DRUG - OTHER] TOP SCH (21:00)
[2022-03-24] MEDS: LEXAPRO PO SCH (21:43)
[2022-03-24] MEDS: TUMS PO SCH (21:43)
[2022-03-24] MEDS: LIPITOR TAB 40 MG PO SCH (21:43)
[2022-03-24] MEDS: PROTONIX TAB 40 MG PO SCH (21:43)
[2022-03-24] MEDS: LYRICA CAP 150 mg PO SCH (21:43)
[2022-03-24] MEDS: EXELON PO SCH (21:43)
[2022-03-24] MEDS: COLACE CAP 100 MG PO SCH (21:44)
[2022-03-24] MEDS: DEPAKOTE D.R. TAB PO SCH (21:44)
[2022-03-24] MEDS: BUSPAR PO SCH (21:45)
[2022-03-25] MEDS: BUSPAR PO SCH ×4 (06:02→21:25)
[2022-03-25] MEDS: NS 1,000 ML IV 1,000 ML IV SCH ×2 (06:03→21:00)
[2022-03-25 06:12] LABS: EOSINOPHILS # (AUTO) 0.1 x10^3/uL (0.0-0.2); EOSINOPHILS % (AUTO) 2.3 % (0.9-2.9); HEMATOCRIT 35.7 % (36.0-47.0); HEMOGLOBIN 11.5 g/dL (12.0-16.0); LYMPHOCYTES # (AUTO) 1.7 X10^3/uL (1.3-2.9); LYMPHOCYTES % (AUTO) 39.8 % (21.0-51.0); MEAN CORPUSCULAR HGB CONC 32.1 g/dL (33.0-35.0); MEAN CORPUSCULAR VOLUME 90.3 fL (80.0-100.0); MEAN PLATELET VOLUME 10.4 fL (7.4-11.0); MONOCYTES # (AUTO) 0.3 x10^3/uL (0.3-0.8); MONOCYTES % (AUTO) 6.6 % (0.0-13.0); NEUTROPHILS # (AUTO) 2.1 x10^3/uL (2.2-4.8); NEUTROPHILS % (AUTO) 50.3 % (42.0-75.0); RED BLOOD COUNT 3.95 X10^6/uL (3.5-5.4); RED CELL DISTRIBUTION WIDTH 15.6 % (11.6-16.5); WHITE BLOOD COUNT 4.2 X10^3/uL (3.6-10.0)
[2022-03-25 06:22] LABS: ALANINE AMINOTRANSFERASE 10 Units/L (12-78); ALKALINE PHOSPHATASE 58 Units/L (46-116); ASPARTATE AMINO TRANSFERASE 13 Units/L (15-37); BLOOD UREA NITROGEN 24 mg/dL (7-18); CALCIUM 7.5 mg/dL (8.5-10.1); CARBON DIOXIDE 35.4 mmol/L (21-32); CHLORIDE 109 mmol/L (98-107); COR CA(FOR HYPOALB) 9.1 mg/dL (8.5-10.1); SODIUM 147 mmol/L (136-145); TOTAL PROTEIN 5.4 g/dL (6.4-8.2); eGFR NON BLACK RACES 52 (>60)
[2022-03-25] MEDS: DUONEB 0.5 MG/3 MG (3 mL) NEB SCH ×5 (08:40→21:33)
[2022-03-25] MEDS: PULMICORT NEB TX 0.5 MG NEB SCH ×2 (08:40→21:33)
[2022-03-25] MEDS ORDERED: PHARMACY CONSULT LTC MEDICATIONS XX SCH (09:00)
[2022-03-25] MEDS ORDERED: DEPAKOTE D.R. TAB PO ONE ×2 (09:08→20:32)
[2022-03-25] MEDS: ROCEPHIN VIAL 1 GRAM 1 G in NS 100 ML IV 100 ML IV SCH (09:42)
[2022-03-25] MEDS: HEMOCYTE-PLUS PO SCH (09:46)
[2022-03-25] MEDS: COLACE CAP 100 MG PO SCH ×2 (09:46→21:28)
[2022-03-25] MEDS: LYRICA CAP 150 mg PO SCH ×2 (09:46→21:26)
[2022-03-25] MEDS: TUMS PO SCH ×2 (09:46→21:28)
[2022-03-25] MEDS: ZINC SULFATE PO SCH (09:46)
[2022-03-25] MEDS: SINGULAIR TAB 10 MG PO SCH (09:46)
[2022-03-25] MEDS: PROTONIX TAB 40 MG PO SCH ×2 (09:46→21:28)
[2022-03-25] MEDS: SYNTHROID 150 mcg TAB PO SCH (09:47)
[2022-03-25] MEDS: VITAMIN C PO SCH (09:47)
[2022-03-25] MEDS: EXELON PO SCH ×2 (09:47→21:28)
[2022-03-25] MEDS: DEPAKOTE D.R. TAB PO SCH ×2 (09:47→21:25)
[2022-03-25] MEDS: ZITHROMAX INJ 500 MG VIAL 500 MG in D5W 250 ML IV 250 ML IV SCH (10:50)
[2022-03-25] MEDS: APREMILAST 30 MG PO SCH (11:12)
--- NOTE | 2022-03-25 13:04 | DR.H&P ---
H&P - History & Physical for Day of: H&P Date: 03/24/22 - Chief Complaint Chief Complaint: AMS, RESP DISTRESS PER [facility] - History of Present Illness History of Present Illness: ACCORDING TO [facility] STAFF PT HAS BEEN LETH ARGIC TODAY WITH O2 SAT REPORTED TO BE 78% ON ROOM AIR. PT ARRIVED ON 2 L O2 VIA NC. PT WAS AWAKE AND CONFUSED AND COMBATIVE WITH STAFF WHICH IS PT'S BASELINE MENTAL STATUS. - Past Medical History Past Medical History: Coronary Artery Disease, Dyslipidemia, Diabetes, Renal Disease, Dementia, Depression, Anxiety, Hypothyroidism, Anemia, COPD, GERD, CHF - Past Surgical History Surgical History: Cholecystectomy, Hysterectomy - Family History Family Medical History: Diabetes Mellitus, Hypertension - Social History Does patient currently use any type of tobacco product: No Have you used tobacco products in the last 12 months: No Type of Tobacco Use: None Does any household member use tobacco: No Alcohol Use: None Drug Use: None - Medications Home Medications: meperidine Allergy (Verified 02/19/21 07:37) CONTINUE taking the following medications apremilast 30 mg tablet (Otezla) 30 mg PO DAILY 03/24/22 [History] calcium carbonate 600 mg calcium (1,500 mg) tablet 600 mg PO BID 03/24/22 [History] cetyl and stearate alcohol-propylen glycol-sls topical cream (Cetaphil topical cream) 1 applic topical DAILY 03/24/22 [History] ketoconazole 2 % shampoo 1 applic topical DIRECTED 03/24/22 [History] montelukast 10 mg tablet (Singulair) 10 mg PO DAILY 03/24/22 [History] tramadol 50 mg tablet 50 mg PO TID 03/24/22 [History] levothyroxine 112 mcg tablet 224 mcg PO DAILY 03/25/22 [History] - Review of Systems Constitutional: Weakness Eyes: No Symptoms Reported ENT: No Symptoms Reported Respiratory: Shortness of Breath, Wheezing Cardiovascular: No Symptoms Reported Gastrointestinal: Nausea Genitourinary: Incontinence Musculoskeletal: No Symptoms Reported Skin: Rash Neurological: Weakness - Physical Exam Vital Signs: Temperature 98.2 F Pulse Rate [Left Radial] 70 Pulse Rate 65 Respiratory Rate 18 Blood Pressure [Left Arm] 109/53 Blood Pressure 129/67 O2 Sat by Pulse Oximetry 95 Oriented: negative: Time, Person Ear: Normal Nose: Normal Throat: Normal Respiratory: Diminished Throughout, Wheezes Throughout, RLL Diminished, LLL Diminished Cardiovascular: Normal : Normal Auscultation: Bowel Sounds: Normal Palpation: Normal Tenderness: Epigastric, Mild Skin: Decreased Turgur Musculoskeletal: Back:Lumbar Psychiatric: Anxiety Mood Description: Suspicious, Anxious Affect: Anxious Speech Pattern: Clear, Appropriate - Assessment/Plan (1) Pneumonia Status: Acute Plan: ADMIT, PNEUMONIA PROTOCOL. RESP THERAPY, SUPPLEMENTAL O2, BLOOD CULTURES ON ADMISSION. GENTLE IV HYDRATION. REPEAT AM CXR, CONTINUE IV ATBX. VERIFY AND RESUME HOME MEDICATIONS (2) CKD (chronic kidney disease) stage 4, GFR 15-29 ml/min Status: Acute (3) Hypotension Status: Acute (4) Dementia Status: Chronic (5) BLANCHE (acute kidney injury) Status: Acute (6) CHF (congestive heart failure) Qualifiers: Status: Chronic (7) Diabetes mellitus, type II Status: Chronic (8) HTN (hypertension) Status: Chronic - Allergies Allergies/Adverse Reactions: Allergies Allergy/AdvReac Type Severity Reaction Status Date / Time meperidine Allergy Verified 02/19/21 07:37
--- NOTE | 2022-03-25 16:08 | RAD ---
HISTORYPNEUMONIA ; BEST VIEW POSSIBLE, PT COMBATITIVESTUDYCHEST, 1 [id number]/2023FINDINGSTrachea is near to the midline, there is mild cardiomegaly. There is again seen a layering moderate right pleural effusion. There is a bandlike atelectasis in the left upper lobe. In comparison with prior there has no been significant change. There is a persistent right lower lower radiopacity. There are unchanged right perihilar radiopacities.IMPRESSIONLayering moderate pleural effusion unchanged since prior with a right lower lower radiopacity probably pneumonia with also right perihilar densities. Follow-up after treatment recommendedElectronically signed by: Radha Kendall (Mar 25, 2022 16:06:57)
[2022-03-25] MEDS ORDERED: LEXAPRO ONE (20:32)
[2022-03-25] MEDS: LEXAPRO PO SCH (21:26)
[2022-03-25] MEDS: LIPITOR TAB 40 MG PO SCH (21:28)
[2022-03-26] MEDS: BUSPAR PO SCH ×3 (06:09→22:00)
[2022-03-26 06:17] LABS: BASOPHILS % (AUTO) 0.6 % (0.2-1.0); EOSINOPHILS # (AUTO) 0.1 x10^3/uL (0.0-0.2); EOSINOPHILS % (AUTO) 2.2 % (0.9-2.9); HEMATOCRIT 32.9 % (36.0-47.0); HEMOGLOBIN 10.8 g/dL (12.0-16.0); LYMPHOCYTES # (AUTO) 1.2 X10^3/uL (1.3-2.9); LYMPHOCYTES % (AUTO) 33.8 % (21.0-51.0); MEAN CORPUSCULAR HEMOGLOBIN 29.7 pg (27.0-34.0); MEAN PLATELET VOLUME 10.6 fL (7.4-11.0); MONOCYTES # (AUTO) 0.2 x10^3/uL (0.3-0.8); MONOCYTES % (AUTO) 5.9 % (0.0-13.0); NEUTROPHILS # (AUTO) 2.1 x10^3/uL (2.2-4.8); NEUTROPHILS % (AUTO) 57.5 % (42.0-75.0); RED BLOOD COUNT 3.65 X10^6/uL (3.5-5.4); RED CELL DISTRIBUTION WIDTH 15.8 % (11.6-16.5); WHITE BLOOD COUNT 3.7 X10^3/uL (3.6-10.0)
[2022-03-26 06:36] LABS: ALANINE AMINOTRANSFERASE 10 Units/L (12-78); ALKALINE PHOSPHATASE 55 Units/L (46-116); ASPARTATE AMINO TRANSFERASE 13 Units/L (15-37); BLOOD UREA NITROGEN 20 mg/dL (7-18); CALCIUM 7.5 mg/dL (8.5-10.1); CARBON DIOXIDE 34.5 mmol/L (21-32); CHLORIDE 108 mmol/L (98-107); COR CA(FOR HYPOALB) 9.1 mg/dL (8.5-10.1); CREATININE 0.88 mg/dL (0.55-1.02); SODIUM 144 mmol/L (136-145); TOTAL PROTEIN 5.4 g/dL (6.4-8.2); eGFR NON BLACK RACES > 60 (>60)
[2022-03-26] MEDS: PULMICORT NEB TX 0.5 MG NEB SCH ×2 (08:45→20:30)
[2022-03-26] MEDS: DUONEB 0.5 MG/3 MG (3 mL) NEB SCH ×4 (08:45→20:30)
[2022-03-26] MEDS: VITAMIN C PO SCH (09:12)
[2022-03-26] MEDS: ZINC SULFATE PO SCH (09:12)
[2022-03-26] MEDS: APREMILAST 30 MG PO SCH (09:12)
[2022-03-26] MEDS: TUMS PO SCH ×2 (09:12→20:51)
[2022-03-26] MEDS: COLACE CAP 100 MG PO SCH ×2 (09:12→20:50)
[2022-03-26] MEDS: PROTONIX TAB 40 MG PO SCH ×2 (09:13→20:51)
[2022-03-26] MEDS: DEPAKOTE D.R. TAB PO SCH ×2 (09:13→20:53)
[2022-03-26] MEDS: LYRICA CAP 150 mg PO SCH ×2 (09:13→20:51)
[2022-03-26] MEDS: SYNTHROID 150 mcg TAB PO SCH (09:13)
[2022-03-26] MEDS: SINGULAIR TAB 10 MG PO SCH (09:13)
[2022-03-26] MEDS: EXELON PO SCH ×2 (09:14→20:51)
[2022-03-26] MEDS: HEMOCYTE-PLUS PO SCH (09:14)
[2022-03-26] MEDS: ZITHROMAX INJ 500 MG VIAL 500 MG in D5W 250 ML IV 250 ML IV SCH (09:29)
[2022-03-26] MEDS: ROCEPHIN VIAL 1 GRAM 1 G in NS 100 ML IV 100 ML IV SCH (09:30)
[2022-03-26] MEDS: NS 1,000 ML IV 1,000 ML IV SCH ×2 (09:31→22:00)
--- NOTE | 2022-03-26 10:47 | PCM.PROG ---
Progress Note Progress Note for Day of Date of Exam: 03/26/22 Subjective Subjective: Patient seen at bedside, no events overnight. Patient is sleeping during rounds. She is currently being treated for right sided pneumonia. She is on 2L NC. Labs/imaging reviewed Blood Cx negative Plan: Wean O2 as tolerated. Continue IV Rocephin, Azithromycin and nebs. Continue home medications. Monitor AM labs/imaging. PT/OT as tolerated. Past Medical Family Social History Allergies: Allergies meperidine Allergy (Verified 02/19/21 07:37) Vital Signs and I&O's Vital Signs: Temperature 98.3 F Pulse Rate [Left Radial] 74 Pulse Rate 74 Respiratory Rate 20 Blood Pressure [Left Arm] 154/63 Blood Pressure 129/67 O2 Sat by Pulse Oximetry 96 Intake and Output: Intake & Output 03/23/22 03/24/22 03/25/22 03/26/22 23:59 23:59 23:59 23:59 Intake Total 626 / 626 1765 / 1765 415 / 415 Balance 626 / 626 1765 / 1765 415 / 415 Physical Exam Oriented: Unable to test Ear: Normal Nose: Normal Throat: Normal Cardiovascular: Normal Auscultation: Bowel Sounds: Normal Skin: Decreased Turgur Musculoskeletal: Back:Lumbar Mood Description: Appropriate Speech Pattern: Unclear and Delayed Laboratory and Diagnostics Result Diagrams: 03/26/22 05:21 03/26/22 05:21 Labs: 03/24/22 15:47 Blood Blood Culture - Preliminary 03/24/22 15:39 Blood Blood Culture - Preliminary Laboratory WBC 3.7 X10^3/uL (3.6-10.0) 03/26/22 05:21 RBC 3.65 X10^6/uL (3.5-5.4) 03/26/22 05:21 Hgb 10.8 g/dL (12.0-16.0) L 03/26/22 05:21 Hct 32.9 % (36.0-47.0) L 03/26/22 05:21 MCV 90.0 fL (80.0-100.0) 03/26/22 05:21 MCH 29.7 pg (27.0-34.0) 03/26/22 05:21 MCHC 33.0 g/dL (33.0-35.0) 03/26/22 05:21 RDW 15.8 % (11.6-16.5) 03/26/22 05:21 Plt Count 92 X10^3/uL (150.0-450.0) L 03/26/22 05:21 MPV 10.6 fL (7.4-11.0) 03/26/22 05:21 Neut % (Auto) 57.5 % (42.0-75.0) 03/26/22 05:21 Lymph % (Auto) 33.8 % (21.0-51.0) 03/26/22 05:21 [place] % (Auto) 5.9 % (0.0-13.0) 03/26/22 05:21 Eos % (Auto) 2.2 % (0.9-2.9) 03/26/22 05:21 Baso % (Auto) 0.6 % (0.2-1.0) 03/26/22 05:21 Neut # (Auto) 2.1 x10^3/uL (2.2-4.8) L 03/26/22 05:21 Lymph # (Auto) 1.2 X10^3/uL (1.3-2.9) L 03/26/22 05:21 [place] # (Auto) 0.2 x10^3/uL (0.3-0.8) L 03/26/22 05:21 Eos # (Auto) 0.1 x10^3/uL (0.0-0.2) 03/26/22 05:21 Baso # (Auto) 0.0 X10^3/uL (0.0-0.1) 03/26/22 05:21 Absolute Nucleated RBC 0.2 /100WBC 03/26/22 05:21 Sodium 144 mmol/L (136-145) 03/26/22 05:21 Corrected Sodium TNP 03/26/22 05:21 Potassium 4.0 mmol/L (3.5-5.1) 03/26/22 05:21 Chloride 108 mmol/L (98-107) H 03/26/22 05:21 Carbon Dioxide 34.5 mmol/L (21-32) H 03/26/22 05:21 BUN 20 mg/dL (7-18) H 03/26/22 05:21 Creatinine 0.88 mg/dL (0.55-1.02) 03/26/22 05:21 Est GFR (MDRD) Af Amer > 60 (>60) 03/26/22 05:21 Est GFR (MDRD) Non-Af > 60 (>60) 03/26/22 05:21 Glucose 66 mg/dL (65-99) 03/26/22 05:21 POC Glucose (mg/dL) 64 mg/dL (65-99) L 03/26/22 05:34 Lactic Acid 0.3 mmol/L (0.4-2.0) L 03/24/22 15:01 Calcium 7.5 mg/dL (8.5-10.1) L 03/26/22 05:21 Corrected Calcium 9.1 mg/dL (8.5-10.1) 03/26/22 05:21 Total Bilirubin 0.30 mg/dL (0.2-1.0) 03/26/22 05:21 AST 13 Units/L (15-37) L 03/26/22 05:21 ALT 10 Units/L (12-78) L 03/26/22 05:21 Alkaline Phosphatase 55 Units/L (46-116) 03/26/22 05:21 Troponin I High Sens 27.5 ng/L (4.0-60.0) 03/24/22 15:01 B-Natriuretic Peptide 84.8 pg/mL (0-79) H 03/24/22 15:01 Total Protein 5.4 g/dL (6.4-8.2) L 03/26/22 05:21 Albumin 2.0 g/dL (3.4-5.0) L 03/26/22 05:21 Globulin 3.4 g/dL (2.5-4.5) 03/26/22 05:21 Albumin/Globulin Ratio 0.6 Ratio (1.1-2.1) L 03/26/22 05:21 SARS CoV-2 RNA Rapid KELLIE Negative (NEGATIVE) 03/24/22 13:51 Plan (1) Pneumonia: Status: Acute (2) CKD (chronic kidney disease) stage 4, GFR 15-29 ml/min: Status: Acute (3) Hypotension: Status: Acute (4) Dementia: Status: Chronic (5) BLANCHE (acute kidney injury): Status: Acute (6) CHF (congestive heart failure): Status: Chronic (7) Diabetes mellitus, type II: Status: Chronic (8) HTN (hypertension): Status: Chronic
[2022-03-26] MEDS ORDERED: LEXAPRO ONE (20:05)
[2022-03-26] MEDS ORDERED: DEPAKOTE D.R. TAB PO ONE (20:06)
[2022-03-26] MEDS: LIPITOR TAB 40 MG PO SCH (20:50)
[2022-03-26] MEDS: LEXAPRO PO SCH (20:50)
[2022-03-27] MEDS: BUSPAR PO SCH (05:28)
[2022-03-27 06:23] LABS: BASOPHILS % (AUTO) 0.7 % (0.2-1.0); EOSINOPHILS # (AUTO) 0.1 x10^3/uL (0.0-0.2); EOSINOPHILS % (AUTO) 2.4 % (0.9-2.9); HEMATOCRIT 33.1 % (36.0-47.0); HEMOGLOBIN 10.8 g/dL (12.0-16.0); LYMPHOCYTES # (AUTO) 1.2 X10^3/uL (1.3-2.9); LYMPHOCYTES % (AUTO) 34.7 % (21.0-51.0); MEAN CORPUSCULAR HEMOGLOBIN 29.2 pg (27.0-34.0); MEAN CORPUSCULAR HGB CONC 32.7 g/dL (33.0-35.0); MEAN CORPUSCULAR VOLUME 89.3 fL (80.0-100.0); MEAN PLATELET VOLUME 10.7 fL (7.4-11.0); MONOCYTES # (AUTO) 0.2 x10^3/uL (0.3-0.8); MONOCYTES % (AUTO) 6.3 % (0.0-13.0); NEUTROPHILS % (AUTO) 55.9 % (42.0-75.0); RED BLOOD COUNT 3.71 X10^6/uL (3.5-5.4); RED CELL DISTRIBUTION WIDTH 15.4 % (11.6-16.5); WHITE BLOOD COUNT 3.6 X10^3/uL (3.6-10.0)
[2022-03-27 06:48] LABS: ALANINE AMINOTRANSFERASE 10 Units/L (12-78); ALKALINE PHOSPHATASE 56 Units/L (46-116); ASPARTATE AMINO TRANSFERASE 11 Units/L (15-37); BLOOD UREA NITROGEN 15 mg/dL (7-18); CALCIUM 7.7 mg/dL (8.5-10.1); CARBON DIOXIDE 32.4 mmol/L (21-32); CHLORIDE 109 mmol/L (98-107); COR CA(FOR HYPOALB) 9.3 mg/dL (8.5-10.1); CREATININE 0.81 mg/dL (0.55-1.02); SODIUM 145 mmol/L (136-145); TOTAL PROTEIN 5.4 g/dL (6.4-8.2); eGFR NON BLACK RACES > 60 (>60)
[2022-03-27] MEDS: DUONEB 0.5 MG/3 MG (3 mL) NEB SCH (08:41)
[2022-03-27] MEDS: PULMICORT NEB TX 0.5 MG NEB SCH (08:41)
[2022-03-27] MEDS: ZINC SULFATE PO SCH (10:18)
[2022-03-27] MEDS: COLACE CAP 100 MG PO SCH (10:18)
[2022-03-27] MEDS: ZITHROMAX INJ 500 MG VIAL 500 MG in D5W 250 ML IV 250 ML IV SCH (10:18)
[2022-03-27] MEDS: APREMILAST 30 MG PO SCH (10:18)
[2022-03-27] MEDS: SINGULAIR TAB 10 MG PO SCH (10:19)
[2022-03-27] MEDS: VITAMIN C PO SCH (10:19)
[2022-03-27] MEDS: SYNTHROID 150 mcg TAB PO SCH (10:19)
[2022-03-27] MEDS: TUMS PO SCH (10:19)
[2022-03-27] MEDS: PROTONIX TAB 40 MG PO SCH (10:20)
[2022-03-27] MEDS: DEPAKOTE D.R. TAB PO SCH (10:20)
[2022-03-27] MEDS: ROCEPHIN VIAL 1 GRAM 1 G in NS 100 ML IV 100 ML IV SCH (10:20)
[2022-03-27] MEDS: LYRICA CAP 150 mg PO SCH (10:20)
[2022-03-27] MEDS: EXELON PO SCH (10:21)
[2022-03-27] MEDS: HEMOCYTE-PLUS PO SCH (10:21)
[2022-03-27] MEDS: NS 1,000 ML IV 1,000 ML IV SCH (10:25)
--- NOTE | 2022-03-27 10:27 | W.DIS.FURT ---
Summary of Discharge Admission Diagnosis Patient Problems (Updated 03/25/22 @ 13:05 by LANA CARPIO) CKD (chronic kidney disease) stage 4, GFR 15-29 ml/min (Acute) N18.4 Pneumonia (Acute) J18.9 Hypotension (Acute) I95.9 Dementia (Chronic) F03.90 RLL pneumonia (Acute) J18.9 BLANCHE (acute kidney injury) (Acute) N17.9 CHF (congestive heart failure) (Chronic) I50.9 Diabetes mellitus, type II (Chronic) E11.9 HTN (hypertension) (Chronic) I10 Vital Signs: Vital Signs (72 hours) 03/24/22 12:52 03/24/22 13:55 03/24/22 14:00 Temperature 97.5 F L Pulse Rate 68 76 73 Pulse Rate [Left Radial] Respiratory Rate 20 Blood Pressure 129/67 Blood Pressure [Left Arm] O2 Sat by Pulse Oximetry 96 100 100 Oxygen Delivery Method Oxygen Flow Rate FIO2% 03/24/22 14:15 03/24/22 14:30 03/24/22 14:45 Temperature Pulse Rate 70 68 67 Pulse Rate [Left Radial] Respiratory Rate Blood Pressure Blood Pressure [Left Arm] O2 Sat by Pulse Oximetry 100 100 100 Oxygen Delivery Method Oxygen Flow Rate FIO2% 03/24/22 15:00 03/24/22 17:37 03/24/22 17:50 Temperature 97.7 F 97.7 F Pulse Rate 76 65 Pulse Rate [Left Radial] 73 Respiratory Rate 20 20 Blood Pressure 129/67 Blood Pressure [Left Arm] 119/67 O2 Sat by Pulse Oximetry 100 94 L 95 Oxygen Delivery Method Nasal Cannula Nasal Cannula Oxygen Flow Rate 2 2 FIO2% 03/24/22 17:05 03/24/22 16:27 03/24/22 19:00 Temperature Pulse Rate Pulse Rate [Left Radial] Respiratory Rate Blood Pressure Blood Pressure [Left Arm] O2 Sat by Pulse Oximetry Oxygen Delivery Method Nasal Cannula Nasal Cannula Nasal Cannula Oxygen Flow Rate 2 2 2 FIO2% 28 03/24/22 20:15 03/24/22 20:15 03/24/22 20:00 Temperature 98.6 F Pulse Rate 73 Pulse Rate [Left Radial] 67 Respiratory Rate 21 Blood Pressure Blood Pressure [Left Arm] 117/56 O2 Sat by Pulse Oximetry 95 99 Oxygen Delivery Method Nasal Cannula Room Air Oxygen Flow Rate 2 FIO2% 28 03/25/22 00:00 03/25/22 04:00 03/25/22 07:00 Temperature 98.6 F 98.4 F Pulse Rate Pulse Rate [Left Radial] 68 63 Respiratory Rate 18 20 Blood Pressure Blood Pressure [Left Arm] 95/53 105/52 O2 Sat by Pulse Oximetry 94 L 95 Oxygen Delivery Method Room Air Room Air Nasal Cannula Oxygen Flow Rate 2 FIO2% 03/25/22 08:40 03/25/22 08:40 03/25/22 08:00 Temperature 98.2 F Pulse Rate 62 Pulse Rate [Left Radial] 70 Respiratory Rate 18 Blood Pressure Blood Pressure [Left Arm] 109/53 O2 Sat by Pulse Oximetry 93 L 92 L Oxygen Delivery Method Nasal Cannula Room Air Oxygen Flow Rate 2 FIO2% 28 03/25/22 11:49 03/25/22 16:00 03/25/22 21:33 Temperature 98.1 F Pulse Rate 65 Pulse Rate [Left Radial] 70 Respiratory Rate 20 Blood Pressure Blood Pressure [Left Arm] 158/67 O2 Sat by Pulse Oximetry 95 97 Oxygen Delivery Method Nasal Cannula Nasal Cannula Oxygen Flow Rate 2 2 FIO2% 28 03/25/22 21:33 03/25/22 19:00 03/25/22 20:00 Temperature 98.2 F Pulse Rate 69 Pulse Rate [Left Radial] 72 Respiratory Rate 20 Blood Pressure Blood Pressure [Left Arm] 131/65 O2 Sat by Pulse Oximetry 95 97 Oxygen Delivery Method Nasal Cannula Nasal Cannula Oxygen Flow Rate 2 2 FIO2% 03/26/22 00:00 03/26/22 04:00 03/26/22 07:51 Temperature 98.3 F 98.1 F 98.3 F Pulse Rate Pulse Rate [Left Radial] 73 75 74 Respiratory Rate 20 20 20 Blood Pressure Blood Pressure [Left Arm] 160/77 142/62 154/63 O2 Sat by Pulse Oximetry 97 98 96 Oxygen Delivery Method Nasal Cannula Nasal Cannula Nasal Cannula Oxygen Flow Rate 2 2 2 FIO2% 03/26/22 08:45 03/26/22 08:45 03/26/22 07:00 Temperature Pulse Rate 74 Pulse Rate [Left Radial] Respiratory Rate Blood Pressure Blood Pressure [Left Arm] O2 Sat by Pulse Oximetry 96 Oxygen Delivery Method Nasal Cannula Nasal Cannula Oxygen Flow Rate 2 2 FIO2% 28 03/26/22 12:00 03/26/22 16:00 03/26/22 20:30 Temperature 97.6 F 98.4 F Pulse Rate 77 Pulse Rate [Left Radial] 73 79 Respiratory Rate 20 22 Blood Pressure Blood Pressure [Left Arm] 122/60 114/59 O2 Sat by Pulse Oximetry 91 L 93 L 96 Oxygen Delivery Method Nasal Cannula Nasal Cannula Oxygen Flow Rate 2 2 FIO2% 03/26/22 20:30 03/26/22 19:00 03/26/22 20:00 Temperature 99.0 F Pulse Rate Pulse Rate [Left Radial] 72 Respiratory Rate 22 Blood Pressure Blood Pressure [Left Arm] 146/68 O2 Sat by Pulse Oximetry 98 Oxygen Delivery Method Nasal Cannula Nasal Cannula Nasal Cannula Oxygen Flow Rate 2 2 2 FIO2% 28 03/27/22 00:03 03/27/22 00:00 03/27/22 04:00 Temperature 98.7 F 98.3 F Pulse Rate Pulse Rate [Left Radial] 66 74 Respiratory Rate 22 22 Blood Pressure Blood Pressure [Left Arm] 148/85 130/67 O2 Sat by Pulse Oximetry 96 96 Oxygen Delivery Method Nasal Cannula Nasal Cannula Nasal Cannula Oxygen Flow Rate 2 2 FIO2% 03/27/22 07:00 03/27/22 08:41 03/27/22 08:41 Temperature Pulse Rate 61 Pulse Rate [Left Radial] Respiratory Rate Blood Pressure Blood Pressure [Left Arm] O2 Sat by Pulse Oximetry 95 Oxygen Delivery Method Nasal Cannula Nasal Cannula Oxygen Flow Rate 2 2 FIO2% 28 Labs: Laboratory Last Values WBC 3.6 X10^3/uL (3.6-10.0) 03/27/22 05:14 RBC 3.71 X10^6/uL (3.5-5.4) 03/27/22 05:14 Hgb 10.8 g/dL (12.0-16.0) L 03/27/22 05:14 Hct 33.1 % (36.0-47.0) L 03/27/22 05:14 MCV 89.3 fL (80.0-100.0) 03/27/22 05:14 MCH 29.2 pg (27.0-34.0) 03/27/22 05:14 MCHC 32.7 g/dL (33.0-35.0) L 03/27/22 05:14 RDW 15.4 % (11.6-16.5) 03/27/22 05:14 Plt Count 88 X10^3/uL (150.0-450.0) L 03/27/22 05:14 MPV 10.7 fL (7.4-11.0) 03/27/22 05:14 Neut % (Auto) 55.9 % (42.0-75.0) 03/27/22 05:14 Lymph % (Auto) 34.7 % (21.0-51.0) 03/27/22 05:14 [place] % (Auto) 6.3 % (0.0-13.0) 03/27/22 05:14 Eos % (Auto) 2.4 % (0.9-2.9) 03/27/22 05:14 Baso % (Auto) 0.7 % (0.2-1.0) 03/27/22 05:14 Neut # (Auto) 2.0 x10^3/uL (2.2-4.8) L 03/27/22 05:14 Lymph # (Auto) 1.2 X10^3/uL (1.3-2.9) L 03/27/22 05:14 [place] # (Auto) 0.2 x10^3/uL (0.3-0.8) L 03/27/22 05:14 Eos # (Auto) 0.1 x10^3/uL (0.0-0.2) 03/27/22 05:14 Baso # (Auto) 0.0 X10^3/uL (0.0-0.1) 03/27/22 05:14 Absolute Nucleated RBC 0.1 /100WBC 03/27/22 05:14 Sodium 145 mmol/L (136-145) 03/27/22 05:14 Corrected Sodium TNP 03/27/22 05:14 Potassium 3.8 mmol/L (3.5-5.1) 03/27/22 05:14 Chloride 109 mmol/L (98-107) H 03/27/22 05:14 Carbon Dioxide 32.4 mmol/L (21-32) H 03/27/22 05:14 BUN 15 mg/dL (7-18) 03/27/22 05:14 Creatinine 0.81 mg/dL (0.55-1.02) 03/27/22 05:14 Est GFR (MDRD) Af Amer > 60 (>60) 03/27/22 05:14 Est GFR (MDRD) Non-Af > 60 (>60) 03/27/22 05:14 Glucose 64 mg/dL (65-99) L 03/27/22 05:14 POC Glucose (mg/dL) 61 mg/dL (65-99) L 03/27/22 05:49 Lactic Acid 0.3 mmol/L (0.4-2.0) L 03/24/22 15:01 Calcium 7.7 mg/dL (8.5-10.1) L 03/27/22 05:14 Corrected Calcium 9.3 mg/dL (8.5-10.1) 03/27/22 05:14 Total Bilirubin 0.20 mg/dL (0.2-1.0) 03/27/22 05:14 AST 11 Units/L (15-37) L 03/27/22 05:14 ALT 10 Units/L (12-78) L 03/27/22 05:14 Alkaline Phosphatase 56 Units/L (46-116) 03/27/22 05:14 Troponin I High Sens 27.5 ng/L (4.0-60.0) 03/24/22 15:01 B-Natriuretic Peptide 84.8 pg/mL (0-79) H 03/24/22 15:01 Total Protein 5.4 g/dL (6.4-8.2) L 03/27/22 05:14 Albumin 2.0 g/dL (3.4-5.0) L 03/27/22 05:14 Globulin 3.4 g/dL (2.5-4.5) 03/27/22 05:14 Albumin/Globulin Ratio 0.6 Ratio (1.1-2.1) L 03/27/22 05:14 SARS CoV-2 RNA Rapid KELLIE Negative (NEGATIVE) 03/24/22 13:51 Reason For Visit: RLL PNEUMONIA Discharge Diagnosis All Active Problems (Updated 03/25/22 @ 13:05 by LANA CARPIO) Hypokalemia (Acute) CKD (chronic kidney disease) stage 4, GFR 15-29 ml/min (Acute) Urinary tract infection (Acute) Pneumonia (Acute) Acute dehydration (Acute) Hypotension (Acute) Dementia (Chronic) ESBL (extended spectrum beta-lactamase) producing bacteria infection (Acute) Sacral decubitus ulcer (Acute) Forehead laceration (Acute) Accidental fall from bed (Acute) RLL pneumonia (Acute) Acute and chronic respiratory failure with hypoxia (Acute) AMS (altered mental status) (Acute) CHF exacerbation (Acute) BLANCHE (acute kidney injury) (Acute) CHF (congestive heart failure) (Chronic) Diabetes mellitus, type II (Chronic) Osteoarthritis (Chronic) HTN (hypertension) (Chronic) Hyperlipidemia (Chronic) CAD (coronary artery disease) (Chronic) Plan of Treatment: Continue with present treatment and follow up plan. Pt is to keep follow up appointment as instructed and take medications as ordered. Discharge Medications Discharge Medications: meperidine Allergy (Verified 02/19/21 07:37) CONTINUE taking the following medications apremilast 30 mg tablet (Otezla) 30 mg PO DAILY 03/24/22 [History] calcium carbonate 600 mg calcium (1,500 mg) tablet 600 mg PO BID 03/24/22 [History] cetyl and stearate alcohol-propylen glycol-sls topical cream (Cetaphil topical cream) 1 applic topical DAILY 03/24/22 [History] ketoconazole 2 % shampoo 1 applic topical DIRECTED 03/24/22 [History] montelukast 10 mg tablet (Singulair) 10 mg PO DAILY 03/24/22 [History] tramadol 50 mg tablet 50 mg PO TID 03/24/22 [History] levothyroxine 112 mcg tablet 224 mcg PO DAILY 03/25/22 [History] New Prescriptions cefdinir 300 mg capsule 300 mg PO BID 5 days #10 caps 03/27/22 [Rx] Discharge Plan Discharge Plan Patient Disposition: HOME, SELF-CARE Condition: Stable Health Concerns: Post Hospitalization: new medications and changes needed to prevent readmission or further decline. Pt educated and given instructions on all concerns. Plan of Treatment: Continue with present treatment and follow up plan. Pt is to keep follow up appointment as instructed and take medications as ordered. Prescription drug monitoring program results: PDMP reviewed and no concerns identified Prescriptions: New cefdinir 300 mg capsule 300 mg PO BID 5 Days Qty: 10 0RF Continued fluticasone propionate 120 SPR/BOTTLE spray,suspension 1 spry ENOSTRIL DAILY docusate sodium [Colace] 100 mg Capsule 100 mg PO BID betamethasone dipropionate 0.05 % cream 1 applic TOPICAL BID Rx Instructions: Apply BID to BILATERAL ARMS, ABDOMEN, BACK AND RIGHT LOWER EXTREMITY rivastigmine tartrate 1.5 mg capsule 1.5 mg PO BID divalproex 500 mg tablet,delayed release (DR/EC) 500 mg PO BID pantoprazole 40 mg tablet,delayed release (DR/EC) 40 mg PO BID buspirone 10 mg tablet 20 mg PO TID fluocinonide 0.05 % solution 1 applic TOPICAL DAILY Ferrocite Plus 106 mg iron- 1 mg Tablet 1 tab PO DAILY escitalopram oxalate 20 mg tablet 20 mg PO HS ketoconazole 2 % Shampoo 1 applic TOPICAL DIRECTED Rx Instructions: DAILY ON MONDAY, MONDAY, AND MONDAY tramadol 50 mg tablet 50 mg PO TID calcium carbonate 600 mg calcium (1,500 mg) Tablet 600 mg PO BID montelukast [Singulair] 10 mg Tablet 10 mg PO DAILY Cetaphil Cream 1 applic TOPICAL DAILY Otezla 30 mg Tablet 30 mg PO DAILY levothyroxine 112 mcg Tablet 224 mcg PO DAILY pregabalin [Lyrica] 150 mg Capsule 150 mg PO BID atorvastatin [Lipitor] 40 mg Tablet 40 mg PO HS ascorbic acid (vitamin C) [Vitamin C] 500 mg Tablet 500 mg PO DAILY zinc 50 mg Tablet 220 mg PO DAILY Orders to Discharge Patient Discharge Orders: Discharge (Routine); Ordered 03/27/22 Ordered By: Sharri Benson Follow ups/Referrals Follow ups/Referrals: AMBER MANJARREZ [Primary Care Provider] - 3 days Instructions Stand Alone Forms: Excuse From Work or School
[2022-03-27 12:03] VITALS: BP 131/61
== END 2022-03-27 13:46 ==
LOC: MED/SURG 12:42 → ER 12:42 → MED/SURG 16:55
PROVIDERS: ADMIT Internal Medicine; ATTEND Internal Medicine
DX: E03.8 Other specified hypothyroidism; J44.9 Chronic obstructive pulmonary disease, unspecified; I95.89 Other hypotension; I25.10 Atherosclerotic heart disease of native coronary artery without angina pectoris; J13 Pneumonia due to Streptococcus pneumoniae; E11.649 Type 2 diabetes mellitus with hypoglycemia without coma; J90 Pleural effusion, not elsewhere classified; I13.0 Hypertensive heart and chronic kidney disease with heart failure and stage 1 through stage 4 chronic kidney disease, or unspecified chronic kidney disease; E78.2 Mixed hyperlipidemia; F03.911 Unspecified dementia, unspecified severity, with agitation; N18.4 Chronic kidney disease, stage 4 (severe); Z20.822 Contact with and (suspected) exposure to COVID-19; K21.9 Gastro-esophageal reflux disease without esophagitis; N17.8 Other acute kidney failure; I50.9 Heart failure, unspecified